=== PATIENT | male | born 1950 | race Caucasian/White ===

== ENCOUNTER 2019-03-04 22:47 | Inpatient (IN) | payer MEDICARE, OTHER ==
[~2019-03-04] VITALS: Ht 162.6 cm; Wt 69.1 kg
[2019-03-04] MEDS ORDERED: ALBUTEROL SULFATE 2.5 MG/3 ML NEBU. NEB ONE (23:15)
[2019-03-04] MEDS ORDERED: MORPHINE SULFATE 2 MG/ML VIAL. IV PRN (23:30)
[2019-03-04] MEDS ORDERED: MORPHINE SULFATE 4 MG/ML VIAL. IV PRN (23:30)
[2019-03-04] MEDS ORDERED: PROPOFOL 50 ML IV ONE (23:47)
[2019-03-04] MEDS: PROPOFOL 100 ML IV PRN (23:51)
[2019-03-05] VITALS (25 sets, daily range): BP systolic 81–141; BP diastolic 35–69
[2019-03-05] MEDS ORDERED: ATROPINE 1 MG/10 ML DISP.SYRINGE. IV ONE ×3
[2019-03-05] MEDS ORDERED: ETOMIDATE 20 MG/10 ML VIAL. IV ONE
[2019-03-05] MEDS ORDERED: DEXAMETHASONE SOD PHOS 20 MG/5 ML VIAL. IV ONE
[2019-03-05] MEDS ORDERED: ROCURONIUM 50 MG/5 ML VIAL. IV ONE
[2019-03-05] MEDS ORDERED: fentaNYL PF VIAL 100 MCG/2 ML VIAL NAS ONE
[2019-03-05] MEDS ORDERED: PROPOFOL 50 ML IV ONE (00:15)
[2019-03-05] MEDS ORDERED: CALCIUM GLUCONATE 1,000 MG/10 ML VIAL. IVP ONE (00:15)
--- NOTE | 2019-03-05 00:25 | PHYS DOC ---
Past Medical History Past Medical History: CAD, Cancer (bladder ), COPD, Diabetes-Type II Past Medical History Unable to obtain due to altered mental status Past Surgical History: Coronary Bypass Surgery Additional Past Surgical Histo: bladder cancer, ileo-conduit Past Surgical History Unable to obtain due to altered mental status Alcohol Use: None Drug Use: None Social History Unable to obtain due to altered mental status Adult General Chief Complaint Chief Complaint: ALTERED MENTAL STATUS HPI HPI 68-year-old male presents via EMS from [place] with report of 3 day history of progressive weakness and shortness of breath. Spouse reports patient now also altered. Patient noted to be hypoxic by EMS down to 68% on room air. Patient does not wear supplemental O2. Patient with history of COPD. Patient was given DuoNeb in route. Patient also noted to have heart rate down into the 30s. EMS unable to obtain IV access and therefore started transcutaneous pacing. Patient given 5mg of Versed IM for sedation by EMS. Patient with recent surgical history of removal of bladder due to CA. Family reports patient has history of low sodium and "low kidney function". HPI limited due to altered mental status. Review of Systems Review of Systems Constitutional: Denies fever or chills [] Respiratory: Denies cough; reports shortness of breath [] Cardiovascular: Denies chest pain or palpitations GI: Denies abdominal pain; reports some, nausea and vomiting : Denies dysuria or hematuria [] Integument: Denies rash or skin lesions Neurologic: Denies headache; reports generalized weakness ROS limited due to altered mental status. Current Medications Current Medications Current Medications Medications (Trade) Dose Ordered Sig/Jennifer Start Time Stop Time Status Last Admin Dose Admin Albuterol Sulfate (Ventolin Neb Soln) 2.5 mg 1X ONCE 03/04/19 23:15 03/05/19 00:01 DC 03/04/19 23:15 2.5 MG Atropine Sulfate (ATROPINE 1mg SYRINGE) 1 mg 1X ONCE 03/05/19 00:00 03/05/19 00:02 DC 03/04/19 23:18 1 MG Calcium Gluconate (Calcium Gluconate) 1,000 mg 1X ONCE 03/05/19 00:15 03/05/19 00:16 DC 03/05/19 00:50 1,000 MG Dexamethasone Sodium Phosphate (Decadron) 10 mg 1X ONCE 03/05/19 00:00 03/05/19 00:02 DC Dextrose (Dextrose 50%-Water Syringe) 12.5 gm PRN Q15MIN PRN 03/05/19 00:30 Dopamine HCl/ Dextrose 250 ml @ As Directed STK-MED ONCE 03/05/19 00:00 03/05/19 00:01 DC Etomidate (Amidate) 20 mg 1X ONCE 03/05/19 00:00 03/05/19 00:02 DC 03/04/19 23:32 20 MG Fentanyl Citrate (Fentanyl 2ml Vial) 50 mcg PRN Q1HR PRN 03/04/19 23:30 Morphine Sulfate (Morphine Sulfate) 4 mg PRN Q1HR PRN 03/04/19 23:30 Propofol 50 ml @ 1.095 mls/ hr 1X ONCE 03/05/19 00:15 03/06/19 21:54 03/04/19 23:51 8.76 MLS/HR Rocuronium [place] (Zemuron) 50 mg 1X ONCE 03/05/19 00:00 03/05/19 00:02 DC 03/04/19 23:33 50 MG Sodium Chloride 1,000 ml @ 1,000 mls/hr 1X ONCE 03/05/19 00:00 03/05/19 00:59 DC 03/04/19 23:28 1,000 MLS/HR Allergies Allergies Allergies Coded Allergies Type Severity Reaction Last Updated Verified No Known Drug Allergies 03/04/19 No Physical Exam Physical Exam Constitutional: Well developed, ill appearing HENT: Normocephalic, atraumatic, oropharynx moist Eyes: PERRL, EOMI, conjunctiva normal, no discharge. [] Neck: Normal range of motion, no tenderness, supple Cardiovascular: Heart rate regular rhythm, no murmur [] Lungs & Thorax: Coarse breath sounds bilaterally Abdomen: Soft, no tenderness Skin: Warm, mild diaphoresis, no erythema, Extremities: No tenderness, ROM intact, no edema. [] Neurologic: Alert and oriented X 3, but somnolent and arousable to voice, appears obtunded Psychologic: Affect normal, judgement normal, mood normal. [] Current Patient Data Vital Signs Vital Signs Date Time Temp Pulse Resp B/P (MAP) Pulse Ox O2 Delivery O2 Flow Rate FiO2 03/04/19 23:50 100 Ventilator 03/04/19 23:29 40 29 81/29 (46) 15.0 03/04/19 22:50 97.5 97.5 EKG EKG EKG @ 2313, demonstrated wide complex QRS, QRS was 124 ms, no ST elevation Radiology/Procedures Radiology/Procedures PROCEDURE: PORTABLE CHEST 1V Indication:SOA; chest pain TECHNIQUE:Portable AP chest X-ray COMPARISON:None FINDINGS: ET tube is seen approximately 3.2 cm from the level of libby. NG tube is seen with its tip in the body of the stomach. Right chest wall Chemo-Port is seen with its tip in the SVC. Heart is normal in size. Bilateral interstitial opacities. No pneumothorax or pleural effusion. Visualized bony thorax within normal limits. IMPRESSION: Bilateral interstitial opacities may be secondary to atypical/viral infection. Electronically signed by: Rober Mosher DO (03/05/2019 4:02 AM) [facility] Course & Med Decision Making Course & Med Decision Making Pertinent Labs and Imaging studies reviewed. (See chart for details) Patient presents via EMS from [place] with report of hypoxia and progressive SOA. Noted to be significantly bradycardic in route, EMS decided to sedate patient and initiate transcutaneous pacing. Patient arousable to voice upon arrival but very somnolent. O2 sats improved on supplemental O2. Atropine trailed with limited change. Continued transcutaneous pacing. Decision to protect airway. RSI performed with successful placement of 8.0 ETT. CXR confirmed adequate placement. Labs obtained and posted to chart. Discussed case with Dr. Nunn (cardiology) who recommended dopamine gtt at 2.5mcg/kg/min. Patient also given calcium gluconate x 1. CMP noted to have significant abnormalities. Hyponatremia noted. Hyperkalemia addressed. Discussed case with Dr. Jordan (nephrology) who recommends accessing patient's port to given calcium chloride x 2 amps and 3 amps of bicarb followed by bicarb gtt. Request re-evaluation of labs from ICU at 0430. Orders placed. Patient requiring admission for further evaluation and treatment. Discussed with Dr. Law (hospitalist) who is in agreement with admission. Discussed findings and plan with patient and family, who acknowledge understanding and agreement. Dragon Disclaimer Dragon Disclaimer This electronic medical record was generated, in whole or in part, using a voice recognition dictation system. Intubation Intubation : Intubation Method: orotracheal Tube Size (cm): 8.0 Breath Sounds after Intubation: equal Intubation Complications: no complications Post Intubation Xray: Yes Progress Emergent consent utilized. Hand hygiene utilized. RSI performed with 20mg of Etomidate and 50mg of Rocuronium. Initial evaluation with #4 Moody blade noted patient with floppy uvula which was very anterior. Decision to switch to Glidescope. Glidescope video guidance utilized with visualized successful pl acement of 8.0 cuffed ETT between vocal cords. Positive CO2 color change. Marked 22cm at teeth. Lungs equal bilaterally. Post procedure XR obtained with good positioning. Patient tolerated procedure without difficulty. Departure Departure Impression: Primary Impression: Symptomatic bradycardia Additional Impressions: Hypoxia COPD exacerbation Respiratory failure Hyponatremia Hyperkalemia Renal insufficiency Disposition: ADMITTED INPATIENT Admitting Physician: Ramandeep Law Condition: CRITICAL Critical Care Time Critical care time was 45 minutes which includes time at bedside, spent in discussion of patient's care with specialists and/or family members, with interpretation of laboratory and/or radiological studies and is exclusive of procedures. Problem Qualifiers Additional Impressions: Respiratory failure Chronicity: acute Respiratory failure complication: hypoxia Qualified Codes: J96.01 - Acute respiratory failure with hypoxia EDIL MEDRANO DO Mar 05, 2019 00:25
[2019-03-05] MEDS ORDERED: DEXTROSE 50% 25 GM / 50ML DISP.SYRIN. IV PRN (00:30)
[2019-03-05 00:48] LABS: BASO % 0 % (0-3); EOS # 0.2 x10^3/uL (0.0-0.7); EOS % 1 % (0-3); HEMATOCRIT 30.6 % (39.0-53.0); HEMOGLOBIN 10.1 g/dL (13.0-17.5); LYMPH # 0.7 x10^3/uL (1.0-4.8); LYMPH % 4 % (24-48); MEAN CORPUSCULAR HEMOGLOBIN 29 pg (25-35); MEAN CORPUSCULAR HGB CONC 33 g/dL (31-37); MEAN CORPUSCULAR VOLUME 88 fL (79-100); MONO # 0.5 x10^3/uL (0.0-1.1); MONO % 3 % (0-9); NEUT # 15.3 x10^3uL (1.8-7.7); NEUT % 92 % (31-73); PLATELET COUNT 199 x10^3/uL (140-400); RED BLOOD COUNT 3.46 x10^6/uL (4.30-5.70); RED CELL DISTRIBUTION WIDTH 14.7 % (11.5-14.5); WHITE BLOOD COUNT 16.6 x10^3/uL (4.0-11.0)
[2019-03-05] MEDS ORDERED: IV NORMAL SALINE 1000ML BAG 1,000 ML IV ONE ×2 (01:00)
[2019-03-05 01:06] LABS: ALBUMIN 2.7 g/dL (3.4-5.0); ALBUMIN/GLOBULIN RATIO 0.9 (1.0-1.7); CALCIUM 8.1 mg/dL (8.5-10.1); CREATININE 2.5 mg/dL (0.7-1.3); GFR 25.8; MAGNESIUM 1.9 mg/dL (1.8-2.4); TOTAL BILIRUBIN 0.2 mg/dL (0.2-1.0); TOTAL PROTEIN 5.7 g/dL (6.4-8.2)
[2019-03-05 01:08] LABS: POTASSIUM 7.3 mmol/L (3.5-5.1)
[2019-03-05 01:28] LABS: % BANDS 1 % (0-9); % EOS 1 % (0-5); % LYMPHS 6 % (24-48); % MONOS 4 % (0-10); % SEGS 88 % (35-66); PLT ESTIMATE ADEQUATE (ADEQUATE)
[2019-03-05] MEDS ORDERED: INSULIN REGULAR 100 UNIT/ML 3ML VIAL. IV ONE (01:30)
[2019-03-05] MEDS ORDERED: DEXTROSE 50% 25 GM / 50ML DISP.SYRIN. IV ONE (01:30)
[2019-03-05 01:56] LABS: BASE EXCESS COOX -16 mmol/L (-3-3); HCO3 COOX 12 mmol/L (21-28); METHEMOGLOBIN 0.4 % (0.0-1.9); OXYHEMOGLOBIN 98.4 %; PCO2 COOX 35 mmHg (35-46); PO2 COOX 488 mmHg (65-108); SAT O2 COOX 99 % (92-99)
[2019-03-05] MEDS ORDERED: SODIUM BICARB ADULT 8.4% 50 MEQ/50 ML DISP.SYRIN. ONE (02:02)
[2019-03-05] MEDS: PROPOFOL 100 ML IV PRN (02:16)
[2019-03-05] MEDS ORDERED: DEXTROSE 5% IV ONE ×2 (02:30→22:00)
[2019-03-05] MEDS ORDERED: SODIUM BICARBONATE 50 MEQ/50 ML VIAL. IV ONE (02:30)
[2019-03-05] MEDS ORDERED: CALCIUM CHLORIDE IV ONE (02:30)
[2019-03-05] MEDS ORDERED: GABA300C18 PO (02:54)
[2019-03-05] MEDS ORDERED: LISI-334 PO (02:54)
[2019-03-05] MEDS ORDERED: CARB15DR3 EACHEYE (02:54)
[2019-03-05] MEDS ORDERED: POLY17PO29 PO (02:54)
[2019-03-05] MEDS ORDERED: BRIN8DRO OP (02:54)
[2019-03-05] MEDS ORDERED: OXYC5TAB4 PO (02:54)
[2019-03-05] MEDS ORDERED: DOCU100C28 PO (02:54)
[2019-03-05] MEDS ORDERED: METF10007 PO (02:54)
[2019-03-05] MEDS ORDERED: DILT120C85 PO (02:54)
[2019-03-05] MEDS ORDERED: TIMO10DR5 EACHEYE (02:54)
[2019-03-05] MEDS ORDERED: METF500T16 PO (02:54)
[2019-03-05] MEDS ORDERED: LATA2.5D2 EACHEYE (02:54)
[2019-03-05] MEDS ORDERED: SENN1TAB15 PO (02:54)
[2019-03-05] MEDS ORDERED: CYCL1DRO EACHEYE (02:54)
[2019-03-05] MEDS ORDERED: CRESTOR20 MG PO (02:54)
[2019-03-05] MEDS ORDERED: BUPR100T7 PO (02:54)
[2019-03-05] MEDS ORDERED: MELO15TA23 PO (02:54)
[2019-03-05] MEDS ORDERED: ASPI-612 PO (02:54)
[2019-03-05] MEDS ORDERED: METO25TA4 PO (02:54)
[2019-03-05] MEDS ORDERED: SAXA5TAB PO (02:54)
[2019-03-05] MEDS ORDERED: OXYC1TAB15 PO (02:54)
[2019-03-05] MEDS ORDERED: SODIUM BICARBONATE VIAL 150 MEQ in IV DEXTROSE 5% 1,000 ML IV SCH (03:00)
[2019-03-05] MEDS ORDERED: PROPOFOL 100 ML IV PRN (03:45)
--- NOTE | 2019-03-05 04:05 | RAD ---
Indication:SOA; chest pain TECHNIQUE:Portable AP chest X-ray COMPARISON:None FINDINGS: ET tube is seen approximately 3.2 cm from the level of libby. NG tube is seen with its tip in the body of the stomach. Right chest wall Chemo-Port is seen with its tip in the SVC. Heart is normal in size. Bilateral interstitial opacities. No pneumothorax or pleural effusion. Visualized bony thorax within normal limits. IMPRESSION: Bilateral interstitial opacities may be secondary to atypical/viral infection. Electronically signed by: Rober Mosher DO (03/05/2019 4:02 AM) [facility]
--- NOTE | 2019-03-05 04:13 | EKG ---
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 Electronically Signed On 03-09-2019 9:14:53 CDT by Jonah Richmond
[2019-03-05 04:35] LABS: CALCIUM 10.7 mg/dL (8.5-10.1); GFR 33.4; POTASSIUM 5.3 mmol/L (3.5-5.1)
--- NOTE | 2019-03-05 04:56 | NUR ---
Pt arrived to unit at 0200 via bed. Pt is sedated and on ventilator. Report received from Karina KAPOOR on unit. Pt was transferred to ICU bed and connected to monitor. Pt is currently on Propofol, Dopamine, NS, and Bicarb bolus. Pt vital signs are currently stable. Dr. Stefanie Jordan and Dr. Nunn were contacted in the ED. Dr. Jimmy Jordan wishes to be contacted about pt BMP and EKG results at 0430. Pt currently stable will continue to monitor.
--- NOTE | 2019-03-05 05:04 | NUR ---
Dr. Stefanie Jordan paged at [phone], page was returned at [phone]. Dr. Jordan was alerted of pt BMP and EKG results and ordered to stop Bicarb drip after the 1 Liter and start 1/2 NS at 75mL/hr.
--- NOTE | 2019-03-05 07:22 | EKG ---
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 Electronically Signed On 03-07-2019 17:45:38 CDT by Jonah Richmond
[2019-03-05] MEDS: INSULIN LISPRO 300 UNITS/3 ML INSULN.PEN. SQ SCH ×3 (08:00→17:00)
[2019-03-05 08:31] LABS: BASE EXCESS ABG -4 mmol/L (-3-3); HCO3 ABG 20 mmol/L (21-28); PCO2 ABG 33 mmHg (35-46); PO2 ABG 173 mmHg (65-108); SAT O2 ABG 99 % (92-99)
--- NOTE | 2019-03-05 08:52 | PDOC1 ---
History and Physical Date of Admission: Date of Admission DATE: 03/05/19 TIME: 08:52 Chief Complaint: Chief Complain: Acute Encephalopathy History of Present Illness: HPI: Mr Ashley is a 68-year-old male 100% service connected [place] w/PMHx CAD s/p CABG x3, Bladder Cancer s/p chemotherapy and cystectomy with ileoconduit (12/[address] Licea @ [facility]), COPD, Diabetes-Type II who presents via EMS from [place] with report of 3 day history of progressive weakness and shortness of breath per spouse who reported he has been confused as well. Patient noted to be hypoxic by EMS down to 68% on room air, not on home O2. Given DuoNebs en route. Patient also noted to have heart rate down into the 30s, was given versed by EMS and transcutaneously paced enroute. Maintained low O2 saturations despite NRB and he was urgently intubated. Found on EKG with potassium of 7.3 and wide complex QRS. Started on bicarbonate gtt, dopamine, propofol for sedation. On further review his notes over the past 3 weeks he has been weak with m alaise and has had significant decrease in appetite as well as intermittent constipation not well mitigated by miralax, though he did have a BM yesterday. He has had decreased urostomy output lately as well with 2 nights ago his noting complete anuria, though patient told her he emptied it, though she does recall him waking before her. Seen on ventilator this morning. Labs improved K to 5.3, Cr 2, BUN 75 Alcohol Use: None Drug Use: None Social History Unable to obtain due to altered mental status Past Medical/Surgical History: PMH/PSH: PMHx - CAD s/p CABG x3, COPD, DM2 PSurg Hx - CABG, Cystectomy s/p ileoconduit Allergies: Allergies: Coded Allergies: No Known Drug Allergies (Unverified , 03/04/19) Family History: Family History: Father - HTN Social History: Social Hisoty: ETOH - None Not currently using tobacco No illicit drug use. Lives with his Current Medications: Current Medications Current Medications Sodium Chloride 1,000 ml @ 1,000 mls/hr 1X ONCE IV Last administered on 03/04/19at 23:28; Start 03/05/19 at 00:00; Stop 03/05/19 at 00:59; Status DC Fentanyl Citrate (Fentanyl 2ml Vial) 50 mcg 1X ONCE JOSE RAUL Last administered on 03/04/19 23:02; Start 03/05/19 at 00:00; Stop 03/05/19 at 00:02; Status DC Dexamethasone Sodium Phosphate (Decadron) 10 mg 1X ONCE IV ; Start 03/05/19 at 00:00; Stop 03/05/19 at 00:02; Status DC Atropine Sulfate (ATROPINE 1mg SYRINGE) 0.5 mg 1X ONCE IV Last administered on 03/04/19at 23:07; Start 03/05/19 at 00:00; Stop 03/05/19 at 00:02; Status DC Albuterol Sulfate (Ventolin Neb Soln) 2.5 mg 1X ONCE NEB Last administered on 03/04/19 23:15; Start 03/04/19 at 23:15; Stop 03/05/19 at 00:01; Status DC Atropine Sulfate (ATROPINE 1mg SYRINGE) 0.5 mg 1X ONCE IV Last administered on 03/04/19at 23:08; Start 03/05/19 at 00:00; Stop 03/05/19 at 00:02; Status DC Atropine Sulfate (ATROPINE 1mg SYRINGE) 1 mg 1X ONCE IV Last administered on 03/04/19 23:18; Start 03/05/19 at 00:00; Stop 03/05/19 at 00:02; Status DC Etomidate (Amidate) 20 mg 1X ONCE IV Last administered on 03/04/19 23:32; Start 03/05/19 at 00:00; Stop 03/05/19 at 00:02; Status DC Rocuronium [place] (Zemuron) 50 mg 1X ONCE IV Last administered on 03/04/19 23:33; Start 03/05/19 at 00:00; Stop 03/05/19 at 00:02; Status DC Propofol 100 ml @ 0 mls/hr CONT PRN IV SEE PROTOCOL Last administered on 03/05/19at 02:16; Start 03/04/19 at 23:30; Stop 03/05/19 at 03:42; Status DC Fentanyl Citrate (Fentanyl 2ml Vial) 25 mcg PRN Q1HR PRN IV SEE COMMENTS; Start 03/04/19 at 23:30 Fentanyl Citrate (Fentanyl 2ml Vial) 50 mcg PRN Q1HR PRN IV SEE COMMENTS; Start 03/04/19 at 23:30 Chlorhexidine Gluconate (Peridex) 15 ml BID MM ; Start 03/05/19 at 09:00 Morphine Sulfate (Morphine Sulfate) 2 mg PRN Q1HR PRN IV SEE COMMENTS.; Start 03/04/19 at 23:30 Morphine Sulfate (Morphine Sulfate) 4 mg PRN Q1HR PRN IV SEE COMMENTS.; Start 03/04/19 at 23:30 Propofol 50 ml @ As Directed STK-MED ONCE IV ; Start 03/04/19 at 23:47; Stop 03/04/19 at 23:48; Status DC Calcium Gluconate (Calcium Gluconate) 1,000 mg 1X ONCE IVP Last administered on 03/05/19at 00:50; Start 03/05/19 at 00:15; Stop 03/05/19 at 00:16; Status DC Dopamine HCl/ Dextrose 250 ml @ 6.844 mls/ hr 1X ONCE IV Last administered on 03/05/19at 01:11; Start 03/05/19 at 00:30; Stop 03/06/19 at 13:01 Dopamine HCl/ Dextrose 250 ml @ As Directed STK-MED ONCE IV ; Start 03/05/19 at 00:00; Stop 03/05/19 at 00:01; Status DC Propofol 50 ml @ 1.095 mls/ hr 1X ONCE IV Last administered on 03/04/19at 23:51; Start 03/05/19 at 00:15; Stop 03/06/19 at 21:54 Insulin Human Lispro (HumaLOG) 0-5 UNITS TIDWMEALS SQ ; Start 03/05/19 at 08:00 Dextrose (Dextrose 50%-Water Syringe) 12.5 gm PRN Q15MIN PRN IV SEE COMMENTS; Start 03/05/19 at 00:30 Sodium Chloride 1,000 ml @ 125 mls/hr 1X ONCE IV Last administered on 03/05/19at 00:45; Start 03/05/19 at 01:00; Stop 03/05/19 at 02:01; Status DC Insulin Human Regular (HumuLIN R VIAL) 10 unit 1X ONCE IV Last administered on 03/05/19at 01:35; Start 03/05/19 at 01:30; Stop 4/29/19 at 01:31; Status DC Dextrose (Dextrose 50%-Water Syringe) 25 gm 1X ONCE IV Last administered on 03/05/19at 01:32; Start 03/05/19 at 01:30; Stop 03/05/19 at 01:31; Status DC Calcium Chloride 2000 mg/Dextrose 120 ml @ 240 mls/hr 1X ONCE IV Last administered on 03/05/19at 02:16; Start 03/05/19 at 02:30; Stop 03/05/19 at 02:59; Status DC Sodium Bicarbonate 150 meq/Dextrose 1,150 ml @ 100 mls/hr [id number] IV Last administered on 03/05/19at 02:17; Start 03/05/19 at 03:00 Sodium Bicarbonate (Sodium Bicarbonate Vial) 150 meq 1X ONCE IV Last administered on 03/05/19at 02:12; Start 03/05/19 at 02:30; Stop 03/05/19 at 02:31; Status DC Sodium Bicarbonate (Sodium Bicarb Adult 8.4% Syr) 50 meq STK-MED ONCE .ROUTE ; Start 03/05/19 at 02:02; Stop 03/05/19 at 02:03; Status DC Propofol 100 ml @ 0 mls/hr CONT PRN IV SEE I/O RECORD; Start 03/05/19 at 03:45 Sodium Chloride 1,000 ml @ 75 mls/hr [id number] IV ; Start 03/05/19 at 09:00 Active Scripts Active Reported Timoptic 0.5% (Timolol Maleate) 10 Ml Drops 1 Drop EACHEYE BID Senna-S Tablet (Sennosides/Docusate Sodium) 1 Each Tablet 1 Each PO BID Onglyza (Saxagliptin Hcl) 5 Mg Tablet 1 Tab PO DAILY Crestor (Rosuvastatin Calcium) 20 Mg Tablet 20 Mg PO HS Miralax (Polyethylene Glycol 3350) 17 Gm Powd.pack 1 Packet PO DAILY Percocet 5-325 Mg Tablet (Oxycodone/Acetaminophen) 1 Each Tablet 1 Tab PO QID PRN Oxycodone Hcl Immed.release (Oxycodone Hcl) 5 Mg Tablet 5 Mg PO PRN Q4HRS PRN take 1 to 3 tabs Q4H prn Metoprolol Tartrate 25 Mg Tablet 1 Tab PO BID Metformin Hcl 500 Mg Tablet 500 Mg PO DAILYWSUP Metformin Hcl 1,000 Mg Tablet 1,000 Mg PO DAILYWBKFT Meloxicam 15 Mg Tablet 1 Tab PO NOON Lisinopril 20 Mg Tablet 1 Tab PO DAILY Xalatan (Latanoprost) 2.5 Ml Drops 1 Drop EACHEYE QHS Gabapentin (Gabapentin) 300 Mg Capsule 900 Mg PO TID Docusate Sodium 100 Mg Capsule 1 Cap PO BID Diltiazem 24HR Cd (Diltiazem Hcl) 120 Mg Cap.er.24h 1 Cap PO DAILY Restasis (Cyclosporine) 1 Each Droperette 1 Drop EACHEYE BID Refresh Optive Eye Drops (Carboxymethylcellulos/Glycerin) 15 Ml Drops 1 Drop EACHEYE QID PRN Wellbutrin Sr (Bupropion Hcl) 100 Mg Tablet.er 1 Tab PO BID Aspirin Ec (Aspirin) 81 Mg Tablet.dr 1 Tab PO DAILY Simbrinza 1%-0.2% Eye Drops (Brinzolamide/Brimonid Tart) 8 Ml Drops.susp 8 Ml OP BID ROS: Review of Systems Review of System - Unable to obtain due to sedation Physical Exam: Vital Signs: Vital Signs Date Time Temp Pulse Resp B/P (MAP) Pulse Ox O2 Delivery O2 Flow Rate FiO2 03/05/19 08:13 100 Ventilator 03/05/19 06:00 68 20 111/35 (60) 03/05/19 04:00 98.5 98.5 03/04/19 23:29 15.0 Physcial Exam: GEN.: No apparent distress. Sedated on vent, opens eyes to painful stimuli HEENT: Head is normocephalic, atraumatic NECK: Supple, no JVD LUNGS: Scattered bilateral wheezing, ventilatory sounds otherwise HEART: RRR, S1, S2 present. Peripheral pulses intact ABDOMEN: Soft, nontender. Positive bowel sounds no organomegaly. Urostomy site clean and dry. EXTREMITIES: Without any cyanosis, clubbing, or edema. Pedal pulses intact. Left gluteal skin breakdown 3-4cm [place], no fat noted NEUROLOGIC: Moving all 4 limbs spontaneously, reflexes intact PSYCHIATRIC: Sedated on vent SKIN: Left gluteal ulceration Labs: Labs: Laboratory Tests Test 03/05/19 00:35 03/05/19 01:03 03/05/19 04:17 03/05/19 04:20 White Blood Count 16.6 x10^3/uL (4.0-11.0) Red Blood Count 3.46 x10^6/uL (4.30-5.70) Hemoglobin 10.1 g/dL (13.0-17.5) Hematocrit 30.6 % (39.0-53.0) Mean Corpuscular Volume 88 fL (79-100) Mean Corpuscular Hemoglobin 29 pg (25-35) Mean Corpuscular Hemoglobin Concent 33 g/dL (31-37) Red Cell Distribution Width 14.7 % (11.5-14.5) Platelet Count 199 x10^3/uL (140-400) Neutrophils (%) (Auto) 92 % (31-73) Lymphocytes (%) (Auto) 4 % (24-48) Monocytes (%) (Auto) 3 % (0-9) Eosinophils (%) (Auto) 1 % (0-3) Basophils (%) (Auto) 0 % (0-3) Neutrophils # (Auto) 15.3 x10^3uL (1.8-7.7) Lymphocytes # (Auto) 0.7 x10^3/uL (1.0-4.8) Monocytes # (Auto) 0.5 x10^3/uL (0.0-1.1) Eosinophils # (Auto) 0.2 x10^3/uL (0.0-0.7) Basophils # (Auto) 0.0 x10^3/uL (0.0-0.2) Segmented Neutrophils % 88 % (35-66) Band Neutrophils % 1 % (0-9) Lymphocytes % 6 % (24-48) Monocytes % 4 % (0-10) Eosinophils % 1 % (0-5) Platelet Estimate Adequate (ADEQUATE) Sodium Level 122 mmol/L (136-145) 128 mmol/L (136-145) Potassium Level 7.3 mmol/L (3.5-5.1) 5.3 mmol/L (3.5-5.1) Chloride Level 96 mmol/L (98-107) 99 mmol/L (98-107) Carbon Dioxide Level 17 mmol/L (21-32) 23 mmol/L (21-32) Anion Gap 9 (6-14) 6 (6-14) Blood Urea Nitrogen 82 mg/dL (8-26) 75 mg/dL (8-26) Creatinine 2.5 mg/dL (0.7-1.3) 2.0 mg/dL (0.7-1.3) Estimated GFR (Cockcroft-Gault) 25.8 33.4 BUN/Creatinine Ratio 33 (6-20) Glucose Level 183 mg/dL (70-99) 224 mg/dL (70-99) Lactic Acid Level 0.6 mmol/L (0.4-2.0) Calcium Level 8.1 mg/dL (8.5-10.1) 10.7 mg/dL (8.5-10.1) Magnesium Level 1.9 mg/dL (1.8-2.4) Total Bilirubin 0.2 mg/dL (0.2-1.0) Aspartate Amino Transf (AST/SGOT) 16 U/L (15-37) Alanine Aminotransferase (ALT/SGPT) 16 U/L (16-63) Alkaline Phosphatase 65 U/L (46-116) Creatine Kinase 91 U/L (39-308) Creatine Kinase MB (Mass) 3.9 ng/mL (0.0-3.6) Creatine Kinase MB Relative Index 4.3 % (0-4) Troponin I Quantitative < 0.017 ng/mL (0.000-0.055) 0.021 ng/mL (0.000-0.055) QE-Qvo-J-Type Natriuretic Peptide 3149 pg/mL (0-124) Total Protein 5.7 g/dL (6.4-8.2) Albumin 2.7 g/dL (3.4-5.0) Albumin/Globulin Ratio 0.9 (1.0-1.7) Lipase 70 U/L (73-393) O2 Saturation 99 % (92-99) Arterial Blood pH 7.16 (7.35-7.45) Arterial Blood pCO2 at Patient Temp 35 mmHg (35-46) Arterial Blood pO2 at Patient Temp 488 mmHg (65-108) Arterial Blood HCO3 12 mmol/L (21-28) Arterial Blood Base Excess -16 mmol/L (-3-3) Oxyhemoglobin 98.4 % Methemoglobin 0.4 % (0.0-1.9) Carbon Monoxide, Quantitative 0.3 % (0.0-1.9) FiO2 100 Glucose (Fingerstick) 216 mg/dL (70-99) Laboratory Tests Test 03/05/19 00:35 03/05/19 01:03 03/05/19 04:17 03/05/19 04:20 White Blood Count 16.6 x10^3/uL (4.0-11.0) Red Blood Count 3.46 x10^6/uL (4.30-5.70) Hemoglobin 10.1 g/dL (13.0-17.5) Hematocrit 30.6 % (39.0-53.0) Mean Corpuscular Volume 88 fL (79-100) Mean Corpuscular Hemoglobin 29 pg (25-35) Mean Corpuscular Hemoglobin Concent 33 g/dL (31-37) Red Cell Distribution Width 14.7 % (11.5-14.5) Platelet Count 199 x10^3/uL (140-400) Neutrophils (%) (Auto) 92 % (31-73) Lymphocytes (%) (Auto) 4 % (24-48) Monocytes (%) (Auto) 3 % (0-9) Eosinophils (%) (Auto) 1 % (0-3) Basophils (%) (Auto) 0 % (0-3) Neutrophils # (Auto) 15.3 x10^3uL (1.8-7.7) Lymphocytes # (Auto) 0.7 x10^3/uL (1.0-4.8) Monocytes # (Auto) 0.5 x10^3/uL (0.0-1.1) Eosinophils # (Auto) 0.2 x10^3/uL (0.0-0.7) Basophils # (Auto) 0.0 x10^3/uL (0.0-0.2) Segmented Neutrophils % 88 % (35-66) Band Neutrophils % 1 % (0-9) Lymphocytes % 6 % (24-48) Monocytes % 4 % (0-10) Eosinophils % 1 % (0-5) Platelet Estimate Adequate (ADEQUATE) Sodium Level 122 mmol/L (136-145) 128 mmol/L (136-145) Potassium Level 7.3 mmol/L (3.5-5.1) 5.3 mmol/L (3.5-5.1) Chloride Level 96 mmol/L (98-107) 99 mmol/L (98-107) Carbon Dioxide Level 17 mmol/L (21-32) 23 mmol/L (21-32) Anion Gap 9 (6-14) 6 (6-14) Blood Urea Nitrogen 82 mg/dL (8-26) 75 mg/dL (8-26) Creatinine 2.5 mg/dL (0.7-1.3) 2.0 mg/dL (0.7-1.3) Estimated GFR (Cockcroft-Gault) 25.8 33.4 BUN/Creatinine Ratio 33 (6-20) Glucose Level 183 mg/dL (70-99) 224 mg/dL (70-99) Lactic Acid Level 0.6 mmol/L (0.4-2.0) Calcium Level 8.1 mg/dL (8.5-10.1) 10.7 mg/dL (8.5-10.1) Magnesium Level 1.9 mg/dL (1.8-2.4) Total Bilirubin 0.2 mg/dL (0.2-1.0) Aspartate Amino Transf (AST/SGOT) 16 U/L (15-37) Alanine Aminotransferase (ALT/SGPT) 16 U/L (16-63) Alkaline Phosphatase 65 U/L (46-116) Creatine Kinase 91 U/L (39-308) Creatine Kinase MB (Mass) 3.9 ng/mL (0.0-3.6) Creatine Kinase MB Relative Index 4.3 % (0-4) Troponin I Quantitative < 0.017 ng/mL (0.000-0.055) 0.021 ng/mL (0.000-0.055) WS-Dbo-Y-Type Natriuretic Peptide 3149 pg/mL (0-124) Total Protein 5.7 g/dL (6.4-8.2) Albumin 2.7 g/dL (3.4-5.0) Albumin/Globulin Ratio 0.9 (1.0-1.7) Lipase 70 U/L (73-393) O2 Saturation 99 % (92-99) Arterial Blood pH 7.16 (7.35-7.45) Arterial Blood pCO2 at Patient Temp 35 mmHg (35-46) Arterial Blood pO2 at Patient Temp 488 mmHg (65-108) Arterial Blood HCO3 12 mmol/L (21-28) Arterial Blood Base Excess -16 mmol/L (-3-3) Oxyhemoglobin 98.4 % Methemoglobin 0.4 % (0.0-1.9) Carbon Monoxide, Quantitative 0.3 % (0.0-1.9) FiO2 100 Glucose (Fingerstick) 216 mg/dL (70-99) Images: Images CXR - ET tube is seen approximately 3.2 cm from the level of libby. NG tube is seen with its tip in the body of the stomach. Right chest wall Chemo-Port is seen with its tip in the SVC. Heart is normal in size. Bilateral interstitial opacities. No pneumothorax or pleural effusion. Visualized bony thorax within normal limits. Assessment/Plan Assessment/Plan A/P: Acute encephalopathy - likely mixed picture, metabolic with uremia and hyperka lemia Hypoxic respiratory failure - with underlying COPD, never previously intubated, not on home O2. Intubated for hypoxia, doing much better on vent now. Will consult pulmonology. Has bilateral interstitial opacities. Not clear on etiology, will order his [facility] records. check procalcitonin Hyperkalemia - 7.3 --> 5.3 with above corrective measures, still on bicarbonate gtt. BUN has not improved significantly. Will cont fluids, consult nephrology. No indications for immediate dialysis at this time Acute Kidney injury - BUN 82 and Cr 2.5 on admission, likely vasomotor nephropathy given his poor PO intake. He has had decreased urostomy output, functionality may need to be evaluated, will d/w nephrology for abdominal imaging now that he is more stable Symptomatic bradycardia - Initially paced, with wide complex, likely 2/2 hyperkalemia, still on dopamine, improved. Cardiology consulted for further care CAD s/p CABG x3 - stable outpatient with [facility] f/u in [place]. Will reconcile home meds. Hold nephrotoxic meds Bladder Cancer s/p chemotherapy and cystectomy with ileoconduit (12/[address] Licea @ [facility]) - has appt on 03/10/19 for f/u. Access for port ok. Monitor urostomy output. Will order records. Abdominal imaging is likely indicated. ?COPD - will order records. Seems to be tolerating vent well, no prior intubations, not on O2, will wean off vent. Defer to pulm for use of steroids in his case. Diabetes-Type II - place on sliding scale, check A1c FEN - OGT, Bicarbonate PPX - Heparin FULL CODE ICU for critically ill patient with life-threatening hyperkalemia, greater than 75 minutes critical care time spent. D/w bedside his critical illness. Greater than 2 midnights inpatient required. ELLEN CONROY MD Mar 05, 2019 08:52
[2019-03-05 08:54] LABS: FIO2 ABG 50
--- NOTE | 2019-03-05 08:55 | NUR ---
SW reviewed pt chart and evaluated for potential dc needs. Pt is from home with and was admitted for COPD exacerbation and hypoxia. Pt is currently sedated and on ventilator. SW will continue to follow and be available for dc needs.
[2019-03-05] MEDS: CHLORHEXIDINE 0.12% 15 ML MOUTHWASH. MM SCH ×2 (09:00→21:00)
[2019-03-05 09:30] LABS: CHOLESTEROL/HDL RATIO 2.7
[2019-03-05] MEDS: fentaNYL PF VIAL 100 MCG/2 ML VIAL IV PRN ×2 (09:47→17:10)
--- NOTE | 2019-03-05 12:22 | PDOC2 ---
MÓNICA MACE NEWSROOM INTERN 03/05/19 1222: CARDIAC CONSULT DATE OF CONSULT Date of Consult DATE: 03/05/19 TIME: 12:16 REASON FOR CONSULT Reason for Consult: symptomatic bradycardia REFERRING PHYSICIAN Referring Physician: Dr. Lopez SOURCE Source: Chart review, Patient HISTORY OF PRESENT ILLNESS HISTORY OF PRESENT ILLNESS This is a 68 yo male who presented secondary to weakness, shortness of breath, and altered mental status. EMS noted patient to be hypoxic with oxygen saturation in the 60''s. Patient also noted with HR in the 30's. Was given sedation and transcutaneous pacing was initiated. Potassiums noted to be critically elevated at 7.3 upon arrival. Patient has a history of bladder CA treated with chemotherapy. Underwent cystectomy with ileoconduit 12/20/2018 at . reports he had been doing well post-operatively. Over the last couple of weeks, has declined. Appetite has decrease. Refused to eat for about 3 days. Blood pressure and HR have been lower than usual the last 2 days. Urine output had decreased. Yesterday morning, had episode of vomiting following breakfast. Was slightly short of breath following this. was concerned so she called EMS. HR was in the 40's prior to their arrival. Was in the 30's when EMS arrived. noted change in mental status immediately prior to EMS arrival. No recent c/o chest pain, palpitations, dizziness, or diaphoresis. Does have a history of CAD s/p CABG x3 at age 38. Does not routinely follow with experimental plastics [employer]. report him having stress test in December a few days prior to surgery. She reports this to be abnormal and was recommend to f/u with cardiology following surgery, although they had not had a change to do this, yet. PAST MEDICAL HISTORY Cardiovascular: CAD, HTN, Hyperlipidemia Pulmonary: COPD CENTRAL NERVOUS SYSTEM: Other (no pertinent hx) Heme/Onc: Cancer (bladder) Hepatobiliary: No pertinent hx Psych: Anxiety, Depression Musculoskeletal: Osteoarthritis Rheumatologic: No pertinent hx Infectious disease: No pertinent hx ENT: No pertinent hx Renal/: Chronic renal insuff Endocrine: Diabetes Dermatology: No pertinent hx PAST SURGICAL HISTORY Past Surgical History: Appendectomy, CABG (x3 at age 38), Cataract Removal, Other (prostatectomy, cystectomy with ileoconduit, back surgery ) FAMILY HISTORY Family History: Heart Disease SOCIAL HISTORY Smoke: No ALCOHOL: none Drugs: None Lives: with Family CURRENT MEDICATIONS CURRENT MEDICATIONS Current Medications Medications (Trade) Dose Ordered Sig/Jennifer Route PRN Reason Start Time Stop Time Status Last Admin Dose Admin Sodium Chloride 1,000 ml @ 1,000 mls/hr 1X ONCE IV 03/05/19 00:00 03/05/19 00:59 DC 03/04/19 23:28 Fentanyl Citrate (Fentanyl 2ml Vial) 50 mcg 1X ONCE JOSE RAUL 03/05/19 00:00 03/05/19 00:02 DC 03/04/19 23:02 Atropine Sulfate (ATROPINE 1mg SYRINGE) 0.5 mg 1X ONCE IV 03/05/19 00:00 03/05/19 00:02 DC 03/04/19 23:07 Albuterol Sulfate (Ventolin Neb Soln) 2.5 mg 1X ONCE NEB 03/04/19 23:15 03/05/19 00:01 DC 03/04/19 23:15 Atropine Sulfate (ATROPINE 1mg SYRINGE) 0.5 mg 1X ONCE IV 03/05/19 00:00 03/05/19 00:02 DC 03/04/19 23:08 Atropine Sulfate (ATROPINE 1mg SYRINGE) 1 mg 1X ONCE IV 03/05/19 00:00 03/05/19 00:02 DC 03/04/19 23:18 Etomidate (Amidate) 20 mg 1X ONCE IV 03/05/19 00:00 03/05/19 00:02 DC 03/04/19 23:32 Rocuronium [place] (Zemuron) 50 mg 1X ONCE IV 03/05/19 00:00 03/05/19 00:02 DC 03/04/19 23:33 Propofol 100 ml @ 0 mls/hr CONT PRN IV SEE PROTOCOL 03/04/19 23:30 03/05/19 03:42 DC 03/05/19 02:16 Fentanyl Citrate (Fentanyl 2ml Vial) 25 mcg PRN Q1HR PRN IV SEE COMMENTS 03/04/19 23:30 03/05/19 09:47 Calcium Gluconate (Calcium Gluconate) 1,000 mg 1X ONCE IVP 03/05/19 00:15 03/05/19 00:16 DC 03/05/19 00:50 Dopamine HCl/ Dextrose 250 ml @ 6.844 mls/ hr 1X ONCE IV 03/05/19 00:30 03/06/19 13:01 03/05/19 01:11 Propofol 50 ml @ 1.095 mls/ hr 1X ONCE IV 03/05/19 00:15 03/06/19 21:54 03/04/19 23:51 Sodium Chloride 1,000 ml @ 125 mls/hr 1X ONCE IV 03/05/19 01:00 03/05/19 02:01 DC 03/05/19 00:45 Insulin Human Regular (HumuLIN R VIAL) 10 unit 1X ONCE IV 03/05/19 01:30 03/05/19 01:31 DC 03/05/19 01:35 Dextrose (Dextrose 50%-Water Syringe) 25 gm 1X ONCE IV 03/05/19 01:30 03/05/19 01:31 DC 03/05/19 01:32 Calcium Chloride 2000 mg/Dextrose 120 ml @ 240 mls/hr 1X ONCE IV 03/05/19 02:30 03/05/19 02:59 DC 03/05/19 02:16 Sodium Bicarbonate 150 meq/Dextrose 1,150 ml @ 100 mls/hr [id number] IV 03/05/19 03:00 03/05/19 02:17 Sodium Bicarbonate (Sodium Bicarbonate Vial) 150 meq 1X ONCE IV 03/05/19 02:30 03/05/19 02:31 DC 03/05/19 02:12 ALLERGIES ALLERGIES: Coded Allergies: No Known Drug Allergies (Unverified , 03/04/19) ROS Review of System unobtainable. PHYSICAL EXAM General: Other (sedated) HEENT: Atraumatic Lungs: Other (mechanical ventilation) Heart: Regular rate, Normal S1, Normal S2, Other (distant heart tones) Abdomen: Other (soft ) Extremities: No edema Skin: No significant lesion Neuro: Other (sedated ) Psych/Mental Status: Other (unable to assess) MUSCULOSKELETAL: Osteoarthritic changes both hands VITALS VITALS Vital Signs Date Time Temp Pulse Resp B/P (MAP) Pulse Ox O2 Delivery O2 Flow Rate FiO2 03/05/19 11:49 100 Ventilator 03/05/19 09:47 20 03/05/19 08:00 15.0 03/05/19 06:00 68 111/35 (60) 03/05/19 04:00 98.5 98.5 LABS Lab: Laboratory Tests Test 03/05/19 00:35 4/29/19 01:03 03/05/19 04:17 03/05/19 04:20 White Blood Count 16.6 x10^3/uL (4.0-11.0) Red Blood Count 3.46 x10^6/uL (4.30-5.70) Hemoglobin 10.1 g/dL (13.0-17.5) Hematocrit 30.6 % (39.0-53.0) Mean Corpuscular Volume 88 fL (79-100) Mean Corpuscular Hemoglobin 29 pg (25-35) Mean Corpuscular Hemoglobin Concent 33 g/dL (31-37) Red Cell Distribution Width 14.7 % (11.5-14.5) Platelet Count 199 x10^3/uL (140-400) Neutrophils (%) (Auto) 92 % (31-73) Lymphocytes (%) (Auto) 4 % (24-48) Monocytes (%) (Auto) 3 % (0-9) Eosinophils (%) (Auto) 1 % (0-3) Basophils (%) (Auto) 0 % (0-3) Neutrophils # (Auto) 15.3 x10^3uL (1.8-7.7) Lymphocytes # (Auto) 0.7 x10^3/uL (1.0-4.8) Monocytes # (Auto) 0.5 x10^3/uL (0.0-1.1) Eosinophils # (Auto) 0.2 x10^3/uL (0.0-0.7) Basophils # (Auto) 0.0 x10^3/uL (0.0-0.2) Segmented Neutrophils % 88 % (35-66) Band Neutrophils % 1 % (0-9) Lymphocytes % 6 % (24-48) Monocytes % 4 % (0-10) Eosinophils % 1 % (0-5) Platelet Estimate Adequate (ADEQUATE) Sodium Level 122 mmol/L (136-145) 128 mmol/L (136-145) Potassium Level 7.3 mmol/L (3.5-5.1) 5.3 mmol/L (3.5-5.1) Chloride Level 96 mmol/L (98-107) 99 mmol/L (98-107) Carbon Dioxide Level 17 mmol/L (21-32) 23 mmol/L (21-32) Anion Gap 9 (6-14) 6 (6-14) Blood Urea Nitrogen 82 mg/dL (8-26) 75 mg/dL (8-26) Creatinine 2.5 mg/dL (0.7-1.3) 2.0 mg/dL (0.7-1.3) Estimated GFR (Cockcroft-Gault) 25.8 33.4 BUN/Creatinine Ratio 33 (6-20) Glucose Level 183 mg/dL (70-99) 224 mg/dL (70-99) Lactic Acid Level 0.6 mmol/L (0.4-2.0) Calcium Level 8.1 mg/dL (8.5-10.1) 10.7 mg/dL (8.5-10.1) Magnesium Level 1.9 mg/dL (1.8-2.4) Total Bilirubin 0.2 mg/dL (0.2-1.0) Aspartate Amino Transf (AST/SGOT) 16 U/L (15-37) Alanine Aminotransferase (ALT/SGPT) 16 U/L (16-63) Alkaline Phosphatase 65 U/L (46-116) Creatine Kinase 91 U/L (39-308) Creatine Kinase MB (Mass) 3.9 ng/mL (0.0-3.6) Creatine Kinase MB Relative Index 4.3 % (0-4) Troponin I Quantitative < 0.017 ng/mL (0.000-0.055) 0.021 ng/mL (0.000-0.055) XC-Knq-[id number]-Type Natriuretic Peptide 3149 pg/mL (0-124) Total Protein 5.7 g/dL (6.4-8.2) Albumin 2.7 g/dL (3.4-5.0) Albumin/Globulin Ratio 0.9 (1.0-1.7) Lipase 70 U/L (73-393) O2 Saturation 99 % (92-99) Arterial Blood pH 7.16 (7.35-7.45) Arterial Blood pCO2 at Patient Temp 35 mmHg (35-46) Arterial Blood pO2 at Patient Temp 488 mmHg (65-108) Arterial Blood HCO3 12 mmol/L (21-28) Arterial Blood Base Excess -16 mmol/L (-3-3) Oxyhemoglobin 98.4 % Methemoglobin 0.4 % (0.0-1.9) Carbon Monoxide, Quantitative 0.3 % (0.0-1.9) FiO2 100 Glucose (Fingerstick) 216 mg/dL (70-99) Triglycerides Level 173 mg/dL (0-150) Cholesterol Level 72 mg/dL (0-200) LDL Cholesterol, Calculated 10 mg/dL (0-100) VLDL Cholesterol, Calculated 35 mg/dL (0-40) Non-HDL Cholesterol Calculated 45 mg/dL (0-129) HDL Cholesterol 27 mg/dL (40-60) Cholesterol/HDL Ratio 2.7 Test 03/05/19 08:13 03/05/19 09:30 03/05/19 09:34 O2 Saturation 99 % (92-99) Arterial Blood pH 7.40 (7.35-7.45) Arterial Blood pCO2 at Patient Temp 33 mmHg (35-46) Arterial Blood pO2 at Patient Temp 173 mmHg (65-108) Arterial Blood HCO3 20 mmol/L (21-28) Arterial Blood Base Excess -4 mmol/L (-3-3) FiO2 50 Troponin I Quantitative < 0.017 ng/mL (0.000-0.055) Glucose (Fingerstick) 134 mg/dL (70-99) ASSESSMENT/PLAN ASSESSMENT/PLAN 1. Acute respiratory failure, multifactorial with AECOPD and possible PNA 2. Symptomatic bradycardia; initially requiring transcutaneous pacing in the setting of electrolyte derangement. Now SR, rate of 90 on dopamine gtt. 3. FARA; better 4. Hyperkalemia; 7.3 upon arrival. Now 5.3 5. Hyponatremia; improved 6. Leukocytosis; lactic WNL 7. CAD s/p CABG x3 at age 38. Does not follow with cardiology. reports abnormal stress test at 12/2018 prior to bladder surgery. Was recommended to f/u with cardiology 8. Bladder CA, s/p cystectomy with ileoconduit 12/20/2018 9. Metabolic encephalopathy 10. Hypertension; low-normotensive 11. Hyperlipidemia; LDL 10 12. Diabetes, II; as per PCP Recommendations Titrate off Dopamine. Monitor telemetry for any further bradyarrhythmias Correction of lytes Echo to assess LV systolic function Records from [facility] Further recommendations pending above. ALAN HILLIARD MD 03/05/192052: CARDIAC CONSULT ASSESSMENT/PLAN ASSESSMENT/PLAN Patient seen and examined. Agree with STEP DOWN NURSE's assessment and plan. Severe bradycardia on admission probably secondary to combination of being on cardizem and electrolyte imbalance Was temporarily paced transcutaneously in ED but HR improved after starting dopamine for chronotropic support 2D echo showed EF 45-50% CAD status appears clinically stable - will obtain records from [facility] Continue vent management per pulm team Nephrology following for acute on chronic renal insuff Thank you for your consultation MÓNICA MACE APRN Mar 05, 2019 12:22 ALAN HILLIARD MD Mar 05, 2019 20:53
--- NOTE | 2019-03-05 12:24 | PDOC2 ---
CONSULT Date of Consult Date of Consult DATE: 03/05/19 TIME: 12:05 Reason for Consult Reason for Consult: Renal failure, Hyperkalemia Source Source: Chart review History of Present Illness Reason for Visit: Hx obtained from chart review - Pt currently intubated Mr Ashley is a 68-year-old male w/PMHx CAD s/p CABG x3, Bladder Cancer s/p chemotherapy and cystectomy with ileoconduit (12/[address] Licea @ [facility]), COPD, Diabetes-Type II who presents via EMS from [place] with report of 3 day history of progressive weakness and shortness of breath per spouse who reported he has been confused as well. Patient noted to be hypoxic by EMS down to 68% on room air, not on home O2..He was also noted to have heart rate in 30s, was given versed by EMS and transcutaneously paced enroute. Maintained low O2 saturations despite NRB and he was urgently intubated. Potassium of 7.3 and wide complex QRS on EKG . Started on bicarbonate gtt, dopamine, propofol for sedation. Patient has been feeling weak for past 3 weeks with malaise and has had significant decrease in appetite as well as intermittent constipation. He has had decreased urostomy output Labs improved K to 5.3 PMHx significant for CAD s/p CABG x3, COPD, DM2; Cystectomy s/p ileoconduit Current Problem List Problem List Problems Medical Problems: (1) Hyperkalemia Status: Acute (2) Hyponatremia Status: Acute (3) Renal insufficiency Status: Acute (4) Respiratory failure Status: Acute Current Medications Current Medications Current Medications Sodium Chloride 1,000 ml @ 1,000 mls/hr 1X ONCE IV Last administered on 03/04/19at 23:28; Start 03/05/19 at 00:00; Stop 03/05/19 at 00:59; Status DC Fentanyl Citrate (Fentanyl 2ml Vial) 50 mcg 1X ONCE JOSE RAUL Last administered on 03/04/19at 23:02; Start 03/05/19 at 00:00; Stop 03/05/19 at 00:02; Status DC Dexamethasone Sodium Phosphate (Decadron) 10 mg 1X ONCE IV ; Start 03/05/19 at 00:00; Stop 03/05/19 at 00:02; Status DC Atropine Sulfate (ATROPINE 1mg SYRINGE) 0.5 mg 1X ONCE IV Last administered on 03/04/19at 23:07; Start 03/05/19 at 00:00; Stop 03/05/19 at 00:02; Status DC Albuterol Sulfate (Ventolin Neb Soln) 2.5 mg 1X ONCE NEB Last administered on 03/04/19at 23:15; Start 03/04/19 at 23:15; Stop 03/05/19 at 00:01; Status DC Atropine Sulfate (ATROPINE 1mg SYRINGE) 0.5 mg 1X ONCE IV Last administered on 03/04/19at 23:08; Start 03/05/19 at 00:00; Stop 03/05/19 at 00:02; Status DC Atropine Sulfate (ATROPINE 1mg SYRINGE) 1 mg 1X ONCE IV Last administered on 03/04/19at 23:18; Start 03/05/19 at 00:00; Stop 03/05/19 at 00:02; Status DC Etomidate (Amidate) 20 mg 1X ONCE IV Last administered on 03/04/19at 23:32; Start 03/05/19 at 00:00; Stop 03/05/19 at 00:02; Status DC Rocuronium [place] (Zemuron) 50 mg 1X ONCE IV Last administered on 03/04/19at 23:33; Start 03/05/19 at 00:00; Stop 03/05/19 at 00:02; Status DC Propofol 100 ml @ 0 mls/hr CONT PRN IV SEE PROTOCOL Last administered on 03/05/19at 02:16; Start 03/04/19 at 23:30; Stop 03/05/19 at 03:42; Status DC Fentanyl Citrate (Fentanyl 2ml Vial) 25 mcg PRN Q1HR PRN IV SEE COMMENTS Last administered on 03/05/19at 09:47; Start 03/04/19 at 23:30 Fentanyl Citrate (Fentanyl 2ml Vial) 50 mcg PRN Q1HR PRN IV SEE COMMENTS; Start 03/04/19 at 23:30 Chlorhexidine Gluconate (Peridex) 15 ml BID MM ; Start 03/05/19 at 09:00 Morphine Sulfate (Morphine Sulfate) 2 mg PRN Q1HR PRN IV SEE COMMENTS.; Start 03/04/19 at 23:30 Morphine Sulfate (Morphine Sulfate) 4 mg PRN Q1HR PRN IV SEE COMMENTS.; Start 03/04/19 at 23:30 Propofol 50 ml @ As Directed STK-MED ONCE IV ; Start 03/04/19 at 23:47; Stop 03/04/19 at 23:48; Status DC Calcium Gluconate (Calcium Gluconate) 1,000 mg 1X ONCE IVP Last administered on 03/05/19at 00:50; Start 03/05/19 at 00:15; Stop 03/05/19 at 00:16; Status DC Dopamine HCl/ Dextrose 250 ml @ 6.844 mls/ hr 1X ONCE IV Last administered on 03/05/19at 01:11; Start 03/05/19 at 00:30; Stop 03/06/19 at 13:01 Dopamine HCl/ Dextrose 250 ml @ As Directed STK-MED ONCE IV ; Start 03/05/19 at 00:00; Stop 03/05/19 at 00:01; Status DC Propofol 50 ml @ 1.095 mls/ hr 1X ONCE IV Last administered on 03/04/19at 23:51; Start 03/05/19 at 00:15; Stop 03/06/19 at 21:54 Insulin Human Lispro (HumaLOG) 0-5 UNITS TIDWMEALS SQ ; Start 03/05/19 at 08:00 Dextrose (Dextrose 50%-Water Syringe) 12.5 gm PRN Q15MIN PRN IV SEE COMMENTS; Start 03/05/19 at 00:30 Sodium Chloride 1,000 ml @ 125 mls/hr 1X ONCE IV Last administered on 03/05/19at 00:45; Start 03/05/19 at 01:00; Stop 03/05/19 at 02:01; Status DC Insulin Human Regular (HumuLIN R VIAL) 10 unit 1X ONCE IV Last administered on 03/05/19at 01:35; Start 03/05/19 at 01:30; Stop 03/05/19 at 01:31; Status DC Dextrose (Dextrose 50%-Water Syringe) 25 gm 1X ONCE IV Last administered on 03/05/19at 01:32; Start 03/05/19 at 01:30; Stop 03/05/19 at 01:31; Status DC Calcium Chloride 2000 mg/Dextrose 120 ml @ 240 mls/hr 1X ONCE IV Last administered on 03/05/19at 02:16; Start 03/05/19 at 02:30; Stop 03/05/19 at 02:59; Status DC Sodium Bicarbonate 150 meq/Dextrose 1,150 ml @ 100 mls/hr [id number] IV Last administered on 03/05/19at 02:17; Start 03/05/19 at 03:00 Sodium Bicarbonate (Sodium Bicarbonate Vial) 150 meq 1X ONCE IV Last administered on 03/05/19at 02:12; Start 03/05/19 at 02:30; Stop 03/05/19 at 02:31; Status DC Sodium Bicarbonate (Sodium Bicarb Adult 8.4% Syr) 50 meq STK-MED ONCE .ROUTE ; Start 03/05/19 at 02:02; Stop 03/05/19 at 02:03; Status DC Propofol 100 ml @ 0 mls/hr CONT PRN IV SEE I/O RECORD; Start 03/05/19 at 03:45 Sodium Chloride 1,000 ml @ 75 mls/hr [id number] IV ; Start 03/05/19 at 09:00 Active Scripts Active Reported Timoptic 0.5% (Timolol Maleate) 10 Ml Drops 1 Drop EACHEYE BID Senna-S Tablet (Sennosides/Docusate Sodium) 1 Each Tablet 1 Each PO BID Onglyza (Saxagliptin Hcl) 5 Mg Tablet 1 Tab PO DAILY Crestor (Rosuvastatin Calcium) 20 Mg Tablet 20 Mg PO HS Miralax (Polyethylene Glycol 3350) 17 Gm Powd.pack 1 Packet PO DAILY Percocet 5-325 Mg Tablet (Oxycodone/Acetaminophen) 1 Each Tablet 1 Tab PO QID PRN Oxycodone Hcl Immed.release (Oxycodone Hcl) 5 Mg Tablet 5 Mg PO PRN Q4HRS PRN take 1 to 3 tabs Q4H prn Metoprolol Tartrate 25 Mg Tablet 1 Tab PO BID Metformin Hcl 500 Mg Tablet 500 Mg PO DAILYWSUP Metformin Hcl 1,000 Mg Tablet 1,000 Mg PO DAILYWBKFT Meloxicam 15 Mg Tablet 1 Tab PO NOON Lisinopril 20 Mg Tablet 1 Tab PO DAILY Xalatan (Latanoprost) 2.5 Ml Drops 1 Drop EACHEYE QHS Gabapentin (Gabapentin) 300 Mg Capsule 900 Mg PO TID Docusate Sodium 100 Mg Capsule 1 Cap PO BID Diltiazem 24HR Cd (Diltiazem Hcl) 120 Mg Cap.er.24h 1 Cap PO DAILY Restasis (Cyclosporine) 1 Each Droperette 1 Drop EACHEYE BID Refresh Optive Eye Drops (Carboxymethylcellulos/Glycerin) 15 Ml Drops 1 Drop EACHEYE QID PRN Wellbutrin Sr (Bupropion Hcl) 100 Mg Tablet.er 1 Tab PO BID Aspirin Ec (Aspirin) 81 Mg Tablet.dr 1 Tab PO DAILY Simbrinza 1%-0.2% Eye Drops (Brinzolamide/Brimonid Tart) 8 Ml Drops.susp 8 Ml OP BID Allergies Allergies: Coded Allergies: No Known Drug Allergies (Unverified , 03/04/19) ROS Review of System Unable to Obtain Physical Exam Physical Exam GEN.: No apparent distress. Sedated on vent, HEENT: Intubated NECK: Supple, LUNGS: Scattered bilateral wheezing, HEART: RRR, S1, S2 present. ABDOMEN: Soft, nontender. Urostomy + EXTREMITIES: No edema. NEUROLOGIC: Moving all 4 limbs spontaneously, Sedated SKIN: No Rash Urostomy Vital Signs Vital Signs Date Time Temp Pulse Resp B/P (MAP) Pulse Ox O2 Delivery O2 Flow Rate FiO2 03/05/19 11:49 100 Ventilator 03/05/19 09:47 20 03/05/19 08:00 15.0 03/05/19 06:00 68 111/35 (60) 03/05/19 04:00 98.5 98.5 Assessment & Plan FARA - Suspect pre-renal/Vasomotor sec to Poor PO intake Renal function improving Currently UOP improving , If decreased Urostomy output, consult Urology Bicarb Normal Now , Continue Fluids (NS) , Monitor Hyperkalemia - Improved to 5.3 from 7's Bradycardiac requiring Temp Pacemaker Hyponatremia- Improving, Not at goal Suspect pr-renal, Acute encephalopathy Hypoxic respiratory failure - with underlying COPD, Has bilateral interstitial opacities. Symptomatic bradycardia - Initially paced, likely 2/2 hyperkalemia CAD s/p CABG x3 - stable Bladder Cancer s/p chemotherapy and cystectomy with ileoconduit (12/[address] Licea @ [facility]) has appt on 03/10/19 for f/u. Diabetes 2 Discussed with and RN at bedside Labs Labs Laboratory Tests Test 03/05/19 00:35 03/05/19 01:03 03/05/19 04:17 03/05/19 04:20 White Blood Count 16.6 x10^3/uL (4.0-11.0) Red Blood Count 3.46 x10^6/uL (4.30-5.70) Hemoglobin 10.1 g/dL (13.0-17.5) Hematocrit 30.6 % (39.0-53.0) Mean Corpuscular Volume 88 fL (79-100) Mean Corpuscular Hemoglobin 29 pg (25-35) Mean Corpuscular Hemoglobin Concent 33 g/dL (31-37) Red Cell Distribution Width 14.7 % (11.5-14.5) Platelet Count 199 x10^3/uL (140-400) Neutrophils (%) (Auto) 92 % (31-73) Lymphocytes (%) (Auto) 4 % (24-48) Monocytes (%) (Auto) 3 % (0-9) Eosinophils (%) (Auto) 1 % (0-3) Basophils (%) (Auto) 0 % (0-3) Neutrophils # (Auto) 15.3 x10^3uL (1.8-7.7) Lymphocytes # (Auto) 0.7 x10^3/uL (1.0-4.8) Monocytes # (Auto) 0.5 x10^3/uL (0.0-1.1) Eosinophils # (Auto) 0.2 x10^3/uL (0.0-0.7) Basophils # (Auto) 0.0 x10^3/uL (0.0-0.2) Segmented Neutrophils % 88 % (35-66) Band Neutrophils % 1 % (0-9) Lymphocytes % 6 % (24-48) Monocytes % 4 % (0-10) Eosinophils % 1 % (0-5) Platelet Estimate Adequate (ADEQUATE) Sodium Level 122 mmol/L (136-145) 128 mmol/L (136-145) Potassium Level 7.3 mmol/L (3.5-5.1) 5.3 mmol/L (3.5-5.1) Chloride Level 96 mmol/L (98-107) 99 mmol/L (98-107) Carbon Dioxide Level 17 mmol/L (21-32) 23 mmol/L (21-32) Anion Gap 9 (6-14) 6 (6-14) Blood Urea Nitrogen 82 mg/dL (8-26) 75 mg/dL (8-26) Creatinine 2.5 mg/dL (0.7-1.3) 2.0 mg/dL (0.7-1.3) Estimated GFR (Cockcroft-Gault) 25.8 33.4 BUN/Creatinine Ratio 33 (6-20) Glucose Level 183 mg/dL (70-99) 224 mg/dL (70-99) Lactic Acid Level 0.6 mmol/L (0.4-2.0) Calcium Level 8.1 mg/dL (8.5-10.1) 10.7 mg/dL (8.5-10.1) Magnesium Level 1.9 mg/dL (1.8-2.4) Total Bilirubin 0.2 mg/dL (0.2-1.0) Aspartate Amino Transf (AST/SGOT) 16 U/L (15-37) Alanine Aminotransferase (ALT/SGPT) 16 U/L (16-63) Alkaline Phosphatase 65 U/L (46-116) Creatine Kinase 91 U/L (39-308) Creatine Kinase MB (Mass) 3.9 ng/mL (0.0-3.6) Creatine Kinase MB Relative Index 4.3 % (0-4) Troponin I Quantitative < 0.017 ng/mL (0.000-0.055) 0.021 ng/mL (0.000-0.055) UN-Uwf-L-Type Natriuretic Peptide 3149 pg/mL (0-124) Total Protein 5.7 g/dL (6.4-8.2) Albumin 2.7 g/dL (3.4-5.0) Albumin/Globulin Ratio 0.9 (1.0-1.7) Lipase 70 U/L (73-393) O2 Saturation 99 % (92-99) Arterial Blood pH 7.16 (7.35-7.45) Arterial Blood pCO2 at Patient Temp 35 mmHg (35-46) Arterial Blood pO2 at Patient Temp 488 mmHg (65-108) Arterial Blood HCO3 12 mmol/L (21-28) Arterial Blood Base Excess -16 mmol/L (-3-3) Oxyhemoglobin 98.4 % Methemoglobin 0.4 % (0.0-1.9) Carbon Monoxide, Quantitative 0.3 % (0.0-1.9) FiO2 100 Glucose (Fingerstick) 216 mg/dL (70-99) Triglycerides Level 173 mg/dL (0-150) Cholesterol Level 72 mg/dL (0-200) LDL Cholesterol, Calculated 10 mg/dL (0-100) VLDL Cholesterol, Calculated 35 mg/dL (0-40) Non-HDL Cholesterol Calculated 45 mg/dL (0-129) HDL Cholesterol 27 mg/dL (40-60) Cholesterol/HDL Ratio 2.7 Test 03/05/19 08:13 03/05/19 09:30 03/05/19 09:34 O2 Saturation 99 % (92-99) Arterial Blood pH 7.40 (7.35-7.45) Arterial Blood pCO2 at Patient Temp 33 mmHg (35-46) Arterial Blood pO2 at Patient Temp 173 mmHg (65-108) Arterial Blood HCO3 20 mmol/L (21-28) Arterial Blood Base Excess -4 mmol/L (-3-3) FiO2 50 Troponin I Quantitative < 0.017 ng/mL (0.000-0.055) Glucose (Fingerstick) 134 mg/dL (70-99) Laboratory Tests Test 03/05/19 00:35 03/05/19 01:03 03/05/19 04:17 03/05/19 04:20 White Blood Count 16.6 x10^3/uL (4.0-11.0) Red Blood Count 3.46 x10^6/uL (4.30-5.70) Hemoglobin 10.1 g/dL (13.0-17.5) Hematocrit 30.6 % (39.0-53.0) Mean Corpuscular Volume 88 fL (79-100) Mean Corpuscular Hemoglobin 29 pg (25-35) Mean Corpuscular Hemoglobin Concent 33 g/dL (31-37) Red Cell Distribution Width 14.7 % (11.5-14.5) Platelet Count 199 x10^3/uL (140-400) Neutrophils (%) (Auto) 92 % (31-73) Lymphocytes (%) (Auto) 4 % (24-48) Monocytes (%) (Auto) 3 % (0-9) Eosinophils (%) (Auto) 1 % (0-3) Basophils (%) (Auto) 0 % (0-3) Neutrophils # (Auto) 15.3 x10^3uL (1.8-7.7) Lymphocytes # (Auto) 0.7 x10^3/uL (1.0-4.8) Monocytes # (Auto) 0.5 x10^3/uL (0.0-1.1) Eosinophils # (Auto) 0.2 x10^3/uL (0.0-0.7) Basophils # (Auto) 0.0 x10^3/uL (0.0-0.2) Segmented Neutrophils % 88 % (35-66) Band Neutrophils % 1 % (0-9) Lymphocytes % 6 % (24-48) Monocytes % 4 % (0-10) Eosinophils % 1 % (0-5) Platelet Estimate Adequate (ADEQUATE) Sodium Level 122 mmol/L (136-145) 128 mmol/L (136-145) Potassium Level 7.3 mmol/L (3.5-5.1) 5.3 mmol/L (3.5-5.1) Chloride Level 96 mmol/L (98-107) 99 mmol/L (98-107) Carbon Dioxide Level 17 mmol/L (21-32) 23 mmol/L (21-32) Anion Gap 9 (6-14) 6 (6-14) Blood Urea Nitrogen 82 mg/dL (8-26) 75 mg/dL (8-26) Creatinine 2.5 mg/dL (0.7-1.3) 2.0 mg/dL (0.7-1.3) Estimated GFR (Cockcroft-Gault) 25.8 33.4 BUN/Creatinine Ratio 33 (6-20) Glucose Level 183 mg/dL (70-99) 224 mg/dL (70-99) Lactic Acid Level 0.6 mmol/L (0.4-2.0) Calcium Level 8.1 mg/dL (8.5-10.1) 10.7 mg/dL (8.5-10.1) Magnesium Level 1.9 mg/dL (1.8-2.4) Total Bilirubin 0.2 mg/dL (0.2-1.0) Aspartate Amino Transf (AST/SGOT) 16 U/L (15-37) Alanine Aminotransferase (ALT/SGPT) 16 U/L (16-63) Alkaline Phosphatase 65 U/L (46-116) Creatine Kinase 91 U/L (39-308) Creatine Kinase MB (Mass) 3.9 ng/mL (0.0-3.6) Creatine Kinase MB Relative Index 4.3 % (0-4) Troponin I Quantitative < 0.017 ng/mL (0.000-0.055) 0.021 ng/mL (0.000-0.055) JF-Uaa-S-Type Natriuretic Peptide 3149 pg/mL (0-124) Total Protein 5.7 g/dL (6.4-8.2) Albumin 2.7 g/dL (3.4-5.0) Albumin/Globulin Ratio 0.9 (1.0-1.7) Lipase 70 U/L (73-393) O2 Saturation 99 % (92-99) Arterial Blood pH 7.16 (7.35-7.45) Arterial Blood pCO2 at Patient Temp 35 mmHg (35-46) Arterial Blood pO2 at Patient Temp 488 mmHg (65-108) Arterial Blood HCO3 12 mmol/L (21-28) Arterial Blood Base Excess -16 mmol/L (-3-3) Oxyhemoglobin 98.4 % Methemoglobin 0.4 % (0.0-1.9) Carbon Monoxide, Quantitative 0.3 % (0.0-1.9) FiO2 100 Glucose (Fingerstick) 216 mg/dL (70-99) Triglycerides Level 173 mg/dL (0-150) Cholesterol Level 72 mg/dL (0-200) LDL Cholesterol, Calculated 10 mg/dL (0-100) VLDL Cholesterol, Calculated 35 mg/dL (0-40) Non-HDL Cholesterol Calculated 45 mg/dL (0-129) HDL Cholesterol 27 mg/dL (40-60) Cholesterol/HDL Ratio 2.7 Test 03/05/19 08:13 03/05/19 09:30 03/05/19 09:34 O2 Saturation 99 % (92-99) Arterial Blood pH 7.40 (7.35-7.45) Arterial Blood pCO2 at Patient Temp 33 mmHg (35-46) Arterial Blood pO2 at Patient Temp 173 mmHg (65-108) Arterial Blood HCO3 20 mmol/L (21-28) Arterial Blood Base Excess -4 mmol/L (-3-3) FiO2 50 Troponin I Quantitative < 0.017 ng/mL (0.000-0.055) Glucose (Fingerstick) 134 mg/dL (70-99) Review All relevant outside records, renal labs, imaging studies, telemetry/EKG's were reviewed. Images Images CxR-- Bilateral interstitial opacities may be secondary to atypical/viral infection. JAZLYN BRASWELL MD Mar 05, 2019 12:24
--- NOTE | 2019-03-05 13:32 | CARD ---
MR#: [id number] Date of Study: 03/05/2019 Ordering Physician: MÓNICA MACE, Referring Physician: MARYANA BARON Tech: Nubia Fontenot [facility] APPROVED REPORT EXAM: Two-dimensional and M-mode echocardiogram with Doppler and color Doppler. Other Information Quality : Technically LimitedHR: 93bpm Rhythm : NSRTechnically limited study due to patient being intubated. INDICATION CAD 2D DIMENSIONS RVDd3.4 (2.9-3.5cm)Left Atrium(2D)3.6 (1.6-4.0cm) IVSd1.4 (0.7-1.1cm)Aortic Root(2D)3.1 (2.0-3.7cm) LVDd4.3 (3.9-5.9cm)LVOT Diameter1.7 (1.8-2.4cm) PWd0.9 (0.7-1.1cm)LVDs3.4 (2.5-4.0cm) FS (%) 20.3 %SV34.2 ml LVEF(%)40.0 (>50%) M-Mode DIMENSIONS Left Atrium(MM)3.93 (2.5-4.0cm)Aortic Root2.65 (2.2-3.7cm) Aortic Valve AoV Peak Joauqin.143.0cm/sAoV VTI20.4cm AO Peak GR.8.2mmHgLVOT VTI 12.12cm AO Mean GR.5mmHgAVA (VTI)1.60cm2 Mitral Valve MV E Zvqfxioi82.0cm/sMV DECEL [id number] MV A Nosppsdz06.5cm/sE/A Ratio0.7 MV A [id number] LEFT VENTRICLE The left ventricle is normal size. Proximal septal thickening is noted. Inferoseptal wall appears hyp okinetic. The ejection fraction appears to be 45-50%. Transmitral Doppler flow pattern is Grade I-abn ormal relaxation pattern. RIGHT VENTRICLE The right ventricle is normal size. There is normal right ventricular wall thickness. Systolic functi on is mildly reduced. ATRIA The left atrium size is normal. The right atrium size is normal. The interatrial septum is intact wit h no evidence for an atrial septal defect or patent foramen ovale as noted on 2-D or Doppler imaging. AORTIC VALVE The aortic valve is mildly calcified. The aortic valve is trileaflet. Doppler and Color Flow revealed no significant aortic regurgitation. There is no significant aortic valvular stenosis. MITRAL VALVE The mitral valve is normal in structure and function. There is no evidence of mitral valve prolapse. There is no mitral valve stenosis. Doppler and Color-flow revealed trace mitral regurgitation. TRICUSPID VALVE The tricuspid valve is normal in structure and function. Doppler and Color Flow revealed no tricuspid valve regurgitation noted. There is no tricuspid valve prolapse or vegetation. There is no tricuspid valve stenosis. PULMONIC VALVE The pulmonic valve is not well visualized. GREAT VESSELS The aortic root is normal in size. The ascending aorta is normal in size. The IVC is dilated. PERICARDIAL EFFUSION There is no evidence of significant pericardial effusion. Critical Notification Critical Value: No <Conclusion> Technically very difficult study. Inferoseptal wall appears hypokinetic. The ejection fraction appears to be 45-50%. Transmitral Doppler flow pattern is Grade I-abnormal relaxation pattern. Doppler and Color-flow revealed trace mitral regurgitation. There is no evidence of significant pericardial effusion. Signed by : Jair Nunn, Electronically Approved : 03/05/2019 13:32:13
[2019-03-05] MEDS ORDERED: ENOXAPARIN 40 MG/0.4 ML SYRINGE. SQ SCH (14:00)
--- NOTE | 2019-03-05 14:09 | PDOC ---
PULMONARY PROGRESS NOTES Vitals Vital Signs Date Time Temp Pulse Resp B/P (MAP) Pulse Ox O2 Delivery O2 Flow Rate FiO2 03/05/19 11:49 100 Ventilator 03/05/19 09:47 20 03/05/19 08:00 15.0 03/05/19 06:00 68 111/35 (60) 03/05/19 04:00 98.5 98.5 Labs Laboratory Tests Test 03/05/19 00:35 03/05/19 01:03 03/05/19 04:17 03/05/19 04:20 White Blood Count 16.6 x10^3/uL (4.0-11.0) Red Blood Count 3.46 x10^6/uL (4.30-5.70) Hemoglobin 10.1 g/dL (13.0-17.5) Hematocrit 30.6 % (39.0-53.0) Mean Corpuscular Volume 88 fL (79-100) Mean Corpuscular Hemoglobin 29 pg (25-35) Mean Corpuscular Hemoglobin Concent 33 g/dL (31-37) Red Cell Distribution Width 14.7 % (11.5-14.5) Platelet Count 199 x10^3/uL (140-400) Neutrophils (%) (Auto) 92 % (31-73) Lymphocytes (%) (Auto) 4 % (24-48) Monocytes (%) (Auto) 3 % (0-9) Eosinophils (%) (Auto) 1 % (0-3) Basophils (%) (Auto) 0 % (0-3) Neutrophils # (Auto) 15.3 x10^3uL (1.8-7.7) Lymphocytes # (Auto) 0.7 x10^3/uL (1.0-4.8) Monocytes # (Auto) 0.5 x10^3/uL (0.0-1.1) Eosinophils # (Auto) 0.2 x10^3/uL (0.0-0.7) Basophils # (Auto) 0.0 x10^3/uL (0.0-0.2) Segmented Neutrophils % 88 % (35-66) Band Neutrophils % 1 % (0-9) Lymphocytes % 6 % (24-48) Monocytes % 4 % (0-10) Eosinophils % 1 % (0-5) Platelet Estimate Adequate (ADEQUATE) Sodium Level 122 mmol/L (136-145) 128 mmol/L (136-145) Potassium Level 7.3 mmol/L (3.5-5.1) 5.3 mmol/L (3.5-5.1) Chloride Level 96 mmol/L (98-107) 99 mmol/L (98-107) Carbon Dioxide Level 17 mmol/L (21-32) 23 mmol/L (21-32) Anion Gap 9 (6-14) 6 (6-14) Blood Urea Nitrogen 82 mg/dL (8-26) 75 mg/dL (8-26) Creatinine 2.5 mg/dL (0.7-1.3) 2.0 mg/dL (0.7-1.3) Estimated GFR (Cockcroft-Gault) 25.8 33.4 BUN/Creatinine Ratio 33 (6-20) Glucose Level 183 mg/dL (70-99) 224 mg/dL (70-99) Lactic Acid Level 0.6 mmol/L (0.4-2.0) Calcium Level 8.1 mg/dL (8.5-10.1) 10.7 mg/dL (8.5-10.1) Magnesium Level 1.9 mg/dL (1.8-2.4) Total Bilirubin 0.2 mg/dL (0.2-1.0) Aspartate Amino Transf (AST/SGOT) 16 U/L (15-37) Alanine Aminotransferase (ALT/SGPT) 16 U/L (16-63) Alkaline Phosphatase 65 U/L (46-116) Creatine Kinase 91 U/L (39-308) Creatine Kinase MB (Mass) 3.9 ng/mL (0.0-3.6) Creatine Kinase MB Relative Index 4.3 % (0-4) Troponin I Quantitative < 0.017 ng/mL (0.000-0.055) 0.021 ng/mL (0.000-0.055) JF-Vjn-N-Type Natriuretic Peptide 3149 pg/mL (0-124) Total Protein 5.7 g/dL (6.4-8.2) Albumin 2.7 g/dL (3.4-5.0) Albumin/Globulin Ratio 0.9 (1.0-1.7) Lipase 70 U/L (73-393) O2 Saturation 99 % (92-99) Arterial Blood pH 7.16 (7.35-7.45) Arterial Blood pCO2 at Patient Temp 35 mmHg (35-46) Arterial Blood pO2 at Patient Temp 488 mmHg (65-108) Arterial Blood HCO3 12 mmol/L (21-28) Arterial Blood Base Excess -16 mmol/L (-3-3) Oxyhemoglobin 98.4 % Methemoglobin 0.4 % (0.0-1.9) Carbon Monoxide, Quantitative 0.3 % (0.0-1.9) FiO2 100 Glucose (Fingerstick) 216 mg/dL (70-99) Triglycerides Level 173 mg/dL (0-150) Cholesterol Level 72 mg/dL (0-200) LDL Cholesterol, Calculated 10 mg/dL (0-100) VLDL Cholesterol, Calculated 35 mg/dL (0-40) Non-HDL Cholesterol Calculated 45 mg/dL (0-129) HDL Cholesterol 27 mg/dL (40-60) Cholesterol/HDL Ratio 2.7 Test 03/05/19 08:13 03/05/19 09:30 03/05/19 09:34 O2 Saturation 99 % (92-99) Arterial Blood pH 7.40 (7.35-7.45) Arterial Blood pCO2 at Patient Temp 33 mmHg (35-46) Arterial Blood pO2 at Patient Temp 173 mmHg (65-108) Arterial Blood HCO3 20 mmol/L (21-28) Arterial Blood Base Excess -4 mmol/L (-3-3) FiO2 50 Troponin I Quantitative < 0.017 ng/mL (0.000-0.055) Procalcitonin 0.40 ng/mL (0.00-0.10) Glucose (Fingerstick) 134 mg/dL (70-99) Laboratory Tests Test 03/05/19 00:35 03/05/19 01:03 03/05/19 04:17 03/05/19 04:20 White Blood Count 16.6 x10^3/uL (4.0-11.0) Red Blood Count 3.46 x10^6/uL (4.30-5.70) Hemoglobin 10.1 g/dL (13.0-17.5) Hematocrit 30.6 % (39.0-53.0) Mean Corpuscular Volume 88 fL (79-100) Mean Corpuscular Hemoglobin 29 pg (25-35) Mean Corpuscular Hemoglobin Concent 33 g/dL (31-37) Red Cell Distribution Width 14.7 % (11.5-14.5) Platelet Count 199 x10^3/uL (140-400) Neutrophils (%) (Auto) 92 % (31-73) Lymphocytes (%) (Auto) 4 % (24-48) Monocytes (%) (Auto) 3 % (0-9) Eosinophils (%) (Auto) 1 % (0-3) Basophils (%) (Auto) 0 % (0-3) Neutrophils # (Auto) 15.3 x10^3uL (1.8-7.7) Lymphocytes # (Auto) 0.7 x10^3/uL (1.0-4.8) Monocytes # (Auto) 0.5 x10^3/uL (0.0-1.1) Eosinophils # (Auto) 0.2 x10^3/uL (0.0-0.7) Basophils # (Auto) 0.0 x10^3/uL (0.0-0.2) Segmented Neutrophils % 88 % (35-66) Band Neutrophils % 1 % (0-9) Lymphocytes % 6 % (24-48) Monocytes % 4 % (0-10) Eosinophils % 1 % (0-5) Platelet Estimate Adequate (ADEQUATE) Sodium Level 122 mmol/L (136-145) 128 mmol/L (136-145) Potassium Level 7.3 mmol/L (3.5-5.1) 5.3 mmol/L (3.5-5.1) Chloride Level 96 mmol/L (98-107) 99 mmol/L (98-107) Carbon Dioxide Level 17 mmol/L (21-32) 23 mmol/L (21-32) Anion Gap 9 (6-14) 6 (6-14) Blood Urea Nitrogen 82 mg/dL (8-26) 75 mg/dL (8-26) Creatinine 2.5 mg/dL (0.7-1.3) 2.0 mg/dL (0.7-1.3) Estimated GFR (Cockcroft-Gault) 25.8 33.4 BUN/Creatinine Ratio 33 (6-20) Glucose Level 183 mg/dL (70-99) 224 mg/dL (70-99) Lactic Acid Level 0.6 mmol/L (0.4-2.0) Calcium Level 8.1 mg/dL (8.5-10.1) 10.7 mg/dL (8.5-10.1) Magnesium Level 1.9 mg/dL (1.8-2.4) Total Bilirubin 0.2 mg/dL (0.2-1.0) Aspartate Amino Transf (AST/SGOT) 16 U/L (15-37) Alanine Aminotransferase (ALT/SGPT) 16 U/L (16-63) Alkaline Phosphatase 65 U/L (46-116) Creatine Kinase 91 U/L (39-308) Creatine Kinase MB (Mass) 3.9 ng/mL (0.0-3.6) Creatine Kinase MB Relative Index 4.3 % (0-4) Troponin I Quantitative < 0.017 ng/mL (0.000-0.055) 0.021 ng/mL (0.000-0.055) UT-Qso-L-Type Natriuretic Peptide 3149 pg/mL (0-124) Total Protein 5.7 g/dL (6.4-8.2) Albumin 2.7 g/dL (3.4-5.0) Albumin/Globulin Ratio 0.9 (1.0-1.7) Lipase 70 U/L (73-393) O2 Saturation 99 % (92-99) Arterial Blood pH 7.16 (7.35-7.45) Arterial Blood pCO2 at Patient Temp 35 mmHg (35-46) Arterial Blood pO2 at Patient Temp 488 mmHg (65-108) Arterial Blood HCO3 12 mmol/L (21-28) Arterial Blood Base Excess -16 mmol/L (-3-3) Oxyhemoglobin 98.4 % Methemoglobin 0.4 % (0.0-1.9) Carbon Monoxide, Quantitative 0.3 % (0.0-1.9) FiO2 100 Glucose (Fingerstick) 216 mg/dL (70-99) Triglycerides Level 173 mg/dL (0-150) Cholesterol Level 72 mg/dL (0-200) LDL Cholesterol, Calculated 10 mg/dL (0-100) VLDL Cholesterol, Calculated 35 mg/dL (0-40) Non-HDL Cholesterol Calculated 45 mg/dL (0-129) HDL Cholesterol 27 mg/dL (40-60) Cholesterol/HDL Ratio 2.7 Test 4/29/19 08:13 03/05/19 09:30 03/05/19 09:34 O2 Saturation 99 % (92-99) Arterial Blood pH 7.40 (7.35-7.45) Arterial Blood pCO2 at Patient Temp 33 mmHg (35-46) Arterial Blood pO2 at Patient Temp 173 mmHg (65-108) Arterial Blood HCO3 20 mmol/L (21-28) Arterial Blood Base Excess -4 mmol/L (-3-3) FiO2 50 Troponin I Quantitative < 0.017 ng/mL (0.000-0.055) Procalcitonin 0.40 ng/mL (0.00-0.10) Glucose (Fingerstick) 134 mg/dL (70-99) Medications Active Scripts Medications Dose Route/Sig Max Daily Dose Days Date Category Dose Instructions Timoptic 0.5% (Timolol Maleate) 10 Ml Drops 1 Drop EACHEYE BID 03/05/19 Reported Senna-S Tablet (Sennosides/Docusate Sodium) 1 Each Tablet 1 Each PO BID 03/05/19 Reported Onglyza (Saxagliptin Hcl) 5 Mg Tablet 1 Tab PO DAILY 03/05/19 Reported Crestor (Rosuvastatin Calcium) 20 Mg Tablet 20 Mg PO HS 03/05/19 Reported Miralax (Polyethylene Glycol 3350) 17 Gm Powd.pack 1 Packet PO DAILY 03/05/19 Reported Percocet 5-325 Mg Tablet (Oxycodone/Acetaminophen) 1 Each Tablet 1 Tab PO QID PRN 03/05/19 Reported Oxycodone Hcl Immed.release (Oxycodone Hcl) 5 Mg Tablet 5 Mg PO PRN Q4HRS PRN 03/05/19 Reported take 1 to 3 tabs Q4H prn Metoprolol Tartrate 25 Mg Tablet 1 Tab PO BID 03/05/19 Reported Metformin Hcl 500 Mg Tablet 500 Mg PO DAILYWSUP 03/05/19 Reported Metformin Hcl 1,000 Mg Tablet 1,000 Mg PO [id number] 03/05/19 Reported Meloxicam 15 Mg Tablet 1 Tab PO NOON 03/05/19 Reported Lisinopril 20 Mg Tablet 1 Tab PO DAILY 03/05/19 Reported Xalatan (Latanoprost) 2.5 Ml Drops 1 Drop EACHEYE QHS 03/05/19 Reported Gabapentin (Gabapentin) 300 Mg Capsule 900 Mg PO TID 03/05/19 Reported Docusate Sodium 100 Mg Capsule 1 Cap PO BID 03/05/19 Reported Diltiazem 24HR Cd (Diltiazem Hcl) 120 Mg Cap.er.24h 1 Cap PO DAILY 03/05/19 Reported Restasis (Cyclosporine) 1 Each Droperette 1 Drop EACHEYE BID 03/05/19 Reported Refresh Optive Eye Drops (Carboxymethylcellulos/Glycerin) 15 Ml Drops 1 Drop EACHEYE QID PRN 03/05/19 Reported Wellbutrin Sr (Bupropion Hcl) 100 Mg Tablet.er 1 Tab PO BID 03/05/19 Reported Aspirin Ec (Aspirin) 81 Mg Tablet.dr 1 Tab PO DAILY 03/05/19 Reported Simbrinza 1%-0.2% Eye Drops (Brinzolamide/Brimonid Tart) 8 Ml Drops.susp 8 Ml OP BID 03/05/19 Reported Impression . DICTATED THANKS A/C RESP FAILURE MULTIFACTORIAL SEE ORDERS WILL ADD EMPIRIC ANTIBX TAWANDA WOODY MD Mar 05, 2019 14:09
[2019-03-05] MEDS: cefTRIAXone IV Push 1 GM VIAL. IVP SCH (15:12)
[2019-03-05] MEDS: MIDAZOLAM 100mg/100ml NS BAG 100 ML IV PRN (15:13)
[2019-03-05] MEDS: HEPARIN for SUB-Q USE 5,000 UNIT/ML VIAL. SQ SCH ×2 (15:13→21:45)
[2019-03-05] MEDS ORDERED: IV NORMAL SALINE 500ML BAG 500 ML IV ONE (16:15)
[2019-03-05] MEDS ORDERED: NOREPINEPHRIN 8MG/250ML PREMIX 250 ML IV PRN (16:15)
--- NOTE | 2019-03-05 16:30 | NUR ---
Pt had period of low BP. Propofol changed to Versed w/o much improvement. Dr Beck notified. Fluid bolus given(500cc). Some bradycardia noted so ext pace pads changed and code cart to bedside. Levo started and BP better Did not need to ext pace as HR up after BP better. Labs sent. Family at bedside most of day. Remains sedated on vent with mitts on. Good UO out ileoconduit. Low grade temp
[2019-03-05 17:04] LABS: CALCIUM 9.2 mg/dL (8.5-10.1); CREATININE 1.4 mg/dL (0.7-1.3); GFR 50.4; MAGNESIUM 1.5 mg/dL (1.8-2.4); POTASSIUM 4.3 mmol/L (3.5-5.1)
[2019-03-05] MEDS: IV 1/2 NORMAL SALINE 1,000 ML IV SCH ×2 (17:58→21:48)
[2019-03-05] MEDS ORDERED: MAGNESIUM SULFATE 4GM 100 ML IV ONE (19:30)
--- NOTE | 2019-03-05 21:29 | NUR ---
Dr. Rihcmond paged at 2100 regarding pt having 8-10 beats of Vtach every 3 minutes for the past [address] Richmond ordered 50mg Amiodarone bolus and an Amiodarone drip per protocol. Patient currently stable on Ventilator, will continue to monitor.
[2019-03-05] MEDS: FAMOTIDINE 20 MG/2 ML VIAL IVP SCH (21:43)
[2019-03-05] MEDS: DOXYCYCLINE HYCLATE 100 MG in IV DEXTROSE 5% 100ML 100 ML IV SCH (21:45)
[2019-03-05] MEDS ORDERED: AMIODARONE IV ONE (22:00)
[2019-03-05 22:08] LABS: HEMOGLOBIN A1C 6.7 % (4.8-5.6)
[2019-03-05] MEDS ORDERED: AMIODARONE 900 MG in IV DEXTROSE 5% 500 ML IV PRN (22:15)
[2019-03-06] VITALS (24 sets, daily range): BP systolic 85–154; BP diastolic 47–64
[2019-03-06] MEDS: fentaNYL PF VIAL 100 MCG/2 ML VIAL IV PRN ×4 (03:00→19:37)
[2019-03-06] MEDS: MIDAZOLAM 100mg/100ml NS BAG 100 ML IV PRN ×2 (03:41→18:46)
[2019-03-06 04:07] LABS: CREATININE 1.1 mg/dL (0.7-1.3); GFR 66.6; MAGNESIUM 2.5 mg/dL (1.8-2.4); POTASSIUM 3.1 mmol/L (3.5-5.1)
[2019-03-06] MEDS: POTASSIUM CHLORIDE 10MEQ 100 ML IV SCH ×2 (04:51→06:17)
[2019-03-06] MEDS: HEPARIN for SUB-Q USE 5,000 UNIT/ML VIAL. SQ SCH ×3 (06:17→21:07)
--- NOTE | 2019-03-06 07:01 | RAD ---
Indication:RESPIRATORY FAILURE TECHNIQUE:Portable AP chest X-ray COMPARISON:03/05/2019 FINDINGS: CABG changes noted. Stable position of ET tube, NG tube and right-sided Chemo-Port. Interval placement of right subclavian catheter with its tip in the right IJ. Heart is normal in size. Bilateral interstitial opacities. No focal consolidation. No pneumothorax or pleural effusion. Visualized bony thorax within normal limits. IMPRESSION: 1. Partially visualized is a catheter along the right IJ with its tip not visualized. Recent placement of right subclavian catheter? If so, please readjust the catheter. 2. Bilateral interstitial opacities may be secondary to atypical/viral infection. Critical findings were identified on 03/06/2019 6:52 AM, read back and verified with Nurse Quincy on 03/06/2019 6:[address] Rober Mosher DO. Electronically signed by: Rober Mosher DO (03/06/2019 6:58 AM) [id number]
--- NOTE | 2019-03-06 07:34 | CONS ---
DATE OF CONSULTATION: 03/05/2019 ATTENDING PHYSICIAN: Dr. Beck. REASON FOR CONSULTATION: The patient seen in pulmonary consultation at the request of Dr. Beck for acute respiratory failure, ventilator management, abnormal chest x-ray. HISTORY OF PRESENT ILLNESS: The patient is a 68-year-old and normally gets his care from the [facility]. He is not on oxygen at home. According to his , he has been ill for the last 3-7 days, basically not feeling well. No fever or chills. He is slightly confused. He states EMS was summoned to the house. He had O2 saturations on room air of 68%. He was placed on oxygen and DuoNeb. He was given DuoNeb, then he proceeded to have bradycardia, heart rate of 30. He was transcutaneously paced en route. O2 saturation remained low. Eventually, the patient was intubated. Additional studies reveal the potassium 7.7. He was started on bicarbonate drip, dopamine and propofol for sedation. He is currently in the intensive care unit on assist control ventilation. Chest x-ray revealed bilateral infiltrates, compatible with either edema or viral pneumonitis. He had an echocardiogram revealing ejection fraction of 35%. According to his , he has not had any acute exacerbations of COPD in the last several years. In fact, he does not utilize any metered dose inhalers. There is no history of recent acute exacerbation of COPD. He quit tobacco 30 years ago. He does not visit with a newspaper editor managing on a regular basis. There is no prior history of DVT or pulmonary embolism. PAST MEDICAL HISTORY: 1. Remarkable for coronary artery disease with previous coronary artery bypass grafting. 2. 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 3. Bladder cancer. The patient underwent cystoscopy with ileal conduit in December 2017 at [facility]. He subsequently received chemo. 4. Type 2 diabetes. 5. Chronic renal insufficiency. PAST SURGICAL HISTORY: Status post appendectomy, coronary artery bypass grafting. MEDICATIONS: List was reviewed. CURRENT MEDICATION: List was likewise reviewed. ALLERGIES: No known drug allergies. SOCIAL HISTORY: He is currently not smoking. PHYSICAL EXAMINATION: VITAL SIGNS: Stable. O2 saturation was greater than 92%. HEENT: Eyes: The sclerae were nonicteric. NECK: Jugular venous distention could not be assessed secondary to body habitus. CHEST: Full expansion. LUNGS: Anteriorly were clear. No wheezes. CARDIOVASCULAR: Regular rate and rhythm with S1, S2, no S3. ABDOMEN: Soft, nontender, nondistended. EXTREMITIES: No clubbing, cyanosis or edema. NEUROLOGIC: The patient was sedated. LABORATORY DATA: White count was elevated. Hemoglobin and hematocrit of 10 and 30. Arterial blood gas initially 7.16, PaCO2 of 35, PO2 of 488, bicarbonate was 12. Electrolytes were noted. Sodium was low. Potassium now 5.3. Initially, it was 7.3, BUN was 82 initially. Creatinine is 2.5. Albumin was low. Lipase was low. Troponin was not elevated. BNP was elevated. IMAGING DATA: Chest x-ray as indicated above. IMPRESSION: 1. Acute hypoxemic respiratory failure. 2. Severe metabolic acidosis. 3. Leukocytosis. 4. Abnormal chest x-ray. 5. Bradycardia. 6. Hypercalcemia. 7. Acute exacerbation of chronic obstructive pulmonary disease. 8. Type 2 diabetes. 9. Coronary artery disease, status post coronary artery bypass grafting. 10. Acute on chronic metabolic toxic encephalopathy, present upon admission. 11. Bladder cancer, status post chemo cystectomy with ileal conduit. PLAN: 1. We will continue current support with assist control ventilation. 2. Empiric antibiotics. 3. Monitor electrolytes closely. 4. Continue dopamine per cardiology. 5. Follow cardiology input. 6. Insulin. 7. Procalcitonin noted to be 0.40. I do appreciate the privilege in sharing in the patient's care. Total cumulative critical care time of 45 minutes. TAWANDA WOODY MD DR: SOLEDAD/rahul JOB#: [id number] / [id number]
[2019-03-06] MEDS: INSULIN LISPRO 300 UNITS/3 ML INSULN.PEN. SQ SCH ×3 (08:00→18:41)
[2019-03-06 08:38] LABS: BASE EXCESS ABG -2 mmol/L (-3-3); HCO3 ABG 21 mmol/L (21-28); PCO2 ABG 31 mmHg (35-46); SAT O2 ABG 85 % (92-99)
[2019-03-06 08:49] LABS: FIO2 ABG 40; PO2 ABG 48 mmHg (65-108)
--- NOTE | 2019-03-06 08:57 | PDOC ---
PROGRESS NOTES Chief Complaint Chief Complaint A/P: Acute encephalopathy - likely mixed picture, metabolic with uremia and hyperkalemia Hypoxic respiratory failure - with underlying COPD, never previously intubated, not on home O2. Intubated for hypoxia, doing much better on vent now but still hypoxic. Appreciate pulmonology. Has bilateral interstitial opacities. Not clear on etiology, F/u [facility] records. procalcitonin elevated - On rocephin and doxy for CAP treatment Sepsis - POA, likely 2/2 community acquired pneumonia, improving, still on pressors Hyperkalemia - 7.3 --> 3.1 with above corrective measures, still on IVF. BUN has improved significantly. Will cont fluids, consult nephrology. No indications for dialysis at this time Acute Kidney injury - BUN 82 and Cr 2.5 on admission, likely vasomotor nephropathy given his poor PO intake. Improved now Symptomatic bradycardia - Initially paced, with wide complex, likely 2/2 hyperkalemia, still on dopamine, improved. Cardiology consulted for further care. Wean dopamine as tolerated. Started on Amio per cardiology CAD s/p CABG x3 - stable outpatient with [facility] f/u in [place]. Will reconcile home meds. Hold nephrotoxic meds Bladder Cancer s/p chemotherapy and cystectomy with ileoconduit (12/[address] Licea @ [facility]) - has appt on 03/10/19 for f/u. Access for port ok. Monitor urostomy output. Will order records. Abdominal imaging is likely indicated. ?COPD - will order records. Seems to be tolerating vent well, no prior intu bations, not on O2, will wean off vent. Defer to pulm for use of steroids in his case. Diabetes-Type II - placed on sliding scale, check A1c FEN - OGT, Bicarbonate PPX - Heparin FULL CODE ICU for critically ill patient with life-threatening hyperkalemia now with hypoxic resp failure, greater than 35 minutes critical care time spent. D/w bedside his critical illness. Greater than 2 midnights inpatient required. History of Present Illness History of Present Illness Mr Ashley is a 68-year-old male 100% service connected [place] w/PMHx CAD s/p CABG x3, Bladder Cancer s/p chemotherapy and cystectomy with ileoconduit (12/[address] Licea @ [facility]), COPD, Diabetes-Type II who presents via EMS from [place] with report of 3 day history of progressive weakness and shortness of breath per spouse who reported he has been confused as well. Patient noted to be hypoxic by EMS down to 68% on room air, not on home O2. Given DuoNebs en route. Patient also noted to have heart rate down into the 30s, was given versed by EMS and transcutaneously paced enroute. Maintained low O2 saturations despite NRB and he was urgently intubated. Found on EKG with potassium of 7.3 and wide complex QRS. Started on bicarbonate gtt, dopamine, propofol for sedation. Pulm, cards, nephro consulted Echo yesterday shows EF 45-50%. Started levophed last night for persistent hypotension. Seen on ventilator this morning. FIO2 up to 70% now. Labs improved K to 3.1, Cr 1.1, BUN 35. UOP picked up quite a bit >3L out over the past 24 hours. Plan: Replace K Wean O2 to plan for extubation in the next few days, may need to await more diuresis Cont pulm toileting Vitals Vitals Vital Signs Date Time Temp Pulse Resp B/P (MAP) Pulse Ox O2 Delivery O2 Flow Rate FiO2 03/06/19 08:32 100 Ventilator 03/06/19 06:00 74 20 85/47 (60) 03/06/19 04:00 99.1 99.1 03/05/19 16:00 15.0 Physical Exam General: Other (sedated) Heart: Regular rate, Normal S1, Normal S2, Other (distant heart tones) Abdomen: Other (soft ) Extremities: No edema Skin: No significant lesion Labs LABS Laboratory Tests Test 03/05/19 09:30 03/05/19 09:34 03/05/19 13:41 03/05/19 16:45 Troponin I Quantitative < 0.017 ng/mL (0.000-0.055) Procalcitonin 0.40 ng/mL (0.00-0.10) Glucose (Fingerstick) 134 mg/dL (70-99) 147 mg/dL (70-99) Sodium Level 136 mmol/L (136-145) Potassium Level 4.3 mmol/L (3.5-5.1) Chloride Level 102 mmol/L (98-107) Carbon Dioxide Level 24 mmol/L (21-32) Anion Gap 10 (6-14) Blood Urea Nitrogen 52 mg/dL (8-26) Creatinine 1.4 mg/dL (0.7-1.3) Estimated GFR (Cockcroft-Gault) 50.4 Glucose Level 159 mg/dL (70-99) Calcium Level 9.2 mg/dL (8.5-10.1) Magnesium Level 1.5 mg/dL (1.8-2.4) Test 03/05/19 17:38 03/06/19 03:20 Glucose (Fingerstick) 121 mg/dL (70-99) Sodium Level 137 mmol/L (136-145) Potassium Level 3.1 mmol/L (3.5-5.1) Chloride Level 103 mmol/L (98-107) Carbon Dioxide Level 26 mmol/L (21-32) Anion Gap 8 (6-14) Blood Urea Nitrogen 35 mg/dL (8-26) Creatinine 1.1 mg/dL (0.7-1.3) Estimated GFR (Cockcroft-Gault) 66.6 Glucose Level 153 mg/dL (70-99) Calcium Level 9.0 mg/dL (8.5-10.1) Magnesium Level 2.5 mg/dL (1.8-2.4) Assessment and Plan Assessmemt and Plan Problems Medical Problems: (1) Hyperkalemia Status: Acute (2) Hyponatremia Status: Acute (3) Renal insufficiency Status: Acute (4) Respiratory failure Status: Acute Comment Review of Relevant I have reviewed the following items fabián (where applicable) has been applied. Labs Laboratory Tests Test 03/05/19 00:35 03/05/19 01:03 03/05/19 04:17 03/05/19 04:20 White Blood Count 16.6 x10^3/uL (4.0-11.0) Red Blood Count 3.46 x10^6/uL (4.30-5.70) Hemoglobin 10.1 g/dL (13.0-17.5) Hematocrit 30.6 % (39.0-53.0) Mean Corpuscular Volume 88 fL (79-100) Mean Corpuscular Hemoglobin 29 pg (25-35) Mean Corpuscular Hemoglobin Concent 33 g/dL (31-37) Red Cell Distribution Width 14.7 % (11.5-14.5) Platelet Count 199 x10^3/uL (140-400) Neutrophils (%) (Auto) 92 % (31-73) Lymphocytes (%) (Auto) 4 % (24-48) Monocytes (%) (Auto) 3 % (0-9) Eosinophils (%) (Auto) 1 % (0-3) Basophils (%) (Auto) 0 % (0-3) Neutrophils # (Auto) 15.3 x10^3uL (1.8-7.7) Lymphocytes # (Auto) 0.7 x10^3/uL (1.0-4.8) Monocytes # (Auto) 0.5 x10^3/uL (0.0-1.1) Eosinophils # (Auto) 0.2 x10^3/uL (0.0-0.7) Basophils # (Auto) 0.0 x10^3/uL (0.0-0.2) Segmented Neutrophils % 88 % (35-66) Band Neutrophils % 1 % (0-9) Lymphocytes % 6 % (24-48) Monocytes % 4 % (0-10) Eosinophils % 1 % (0-5) Platelet Estimate Adequate (ADEQUATE) Sodium Level 122 mmol/L (136-145) 128 mmol/L (136-145) Potassium Level 7.3 mmol/L (3.5-5.1) 5.3 mmol/L (3.5-5.1) Chloride Level 96 mmol/L (98-107) 99 mmol/L (98-107) Carbon Dioxide Level 17 mmol/L (21-32) 23 mmol/L (21-32) Anion Gap 9 (6-14) 6 (6-14) Blood Urea Nitrogen 82 mg/dL (8-26) 75 mg/dL (8-26) Creatinine 2.5 mg/dL (0.7-1.3) 2.0 mg/dL (0.7-1.3) Estimated GFR (Cockcroft-Gault) 25.8 33.4 BUN/Creatinine Ratio 33 (6-20) Glucose Level 183 mg/dL (70-99) 224 mg/dL (70-99) Hemoglobin A1c 6.7 % (4.8-5.6) Lactic Acid Level 0.6 mmol/L (0.4-2.0) Calcium Level 8.1 mg/dL (8.5-10.1) 10.7 mg/dL (8.5-10.1) Magnesium Level 1.9 mg/dL (1.8-2.4) Total Bilirubin 0.2 mg/dL (0.2-1.0) Aspartate Amino Transf (AST/SGOT) 16 U/L (15-37) Alanine Aminotransferase (ALT/SGPT) 16 U/L (16-63) Alkaline Phosphatase 65 U/L (46-116) Creatine Kinase 91 U/L (39-308) Creatine Kinase MB (Mass) 3.9 ng/mL (0.0-3.6) Creatine Kinase MB Relative Index 4.3 % (0-4) Troponin I Quantitative < 0.017 ng/mL (0.000-0.055) 0.021 ng/mL (0.000-0.055) BH-Ugp-F-Type Natriuretic Peptide 3149 pg/mL (0-124) Total Protein 5.7 g/dL (6.4-8.2) Albumin 2.7 g/dL (3.4-5.0) Albumin/Globulin Ratio 0.9 (1.0-1.7) Lipase 70 U/L (73-393) O2 Saturation 99 % (92-99) Arterial Blood pH 7.16 (7.35-7.45) Arterial Blood pCO2 at Patient Temp 35 mmHg (35-46) Arterial Blood pO2 at Patient Temp 488 mmHg (65-108) Arterial Blood HCO3 12 mmol/L (21-28) Arterial Blood Base Excess -16 mmol/L (-3-3) Oxyhemoglobin 98.4 % Methemoglobin 0.4 % (0.0-1.9) Carbon Monoxide, Quantitative 0.3 % (0.0-1.9) FiO2 100 Glucose (Fingerstick) 216 mg/dL (70-99) Triglycerides Level 173 mg/dL (0-150) Cholesterol Level 72 mg/dL (0-200) LDL Cholesterol, Calculated 10 mg/dL (0-100) VLDL Cholesterol, Calculated 35 mg/dL (0-40) Non-HDL Cholesterol Calculated 45 mg/dL (0-129) HDL Cholesterol 27 mg/dL (40-60) Cholesterol/HDL Ratio 2.7 Test 03/05/19 08:13 03/05/19 09:30 03/05/19 09:34 03/05/19 13:41 O2 Saturation 99 % (92-99) Arterial Blood pH 7.40 (7.35-7.45) Arterial Blood pCO2 at Patient Temp 33 mmHg (35-46) Arterial Blood pO2 at Patient Temp 173 mmHg (65-108) Arterial Blood HCO3 20 mmol/L (21-28) Arterial Blood Base Excess -4 mmol/L (-3-3) FiO2 50 Troponin I Quantitative < 0.017 ng/mL (0.000-0.055) Procalcitonin 0.40 ng/mL (0.00-0.10) Glucose (Fingerstick) 134 mg/dL (70-99) 147 mg/dL (70-99) Test 03/05/19 16:45 03/05/19 17:38 03/06/19 03:20 Sodium Level 136 mmol/L (136-145) 137 mmol/L (136-145) Potassium Level 4.3 mmol/L (3.5-5.1) 3.1 mmol/L (3.5-5.1) Chloride Level 102 mmol/L (98-107) 103 mmol/L (98-107) Carbon Dioxide Level 24 mmol/L (21-32) 26 mmol/L (21-32) Anion Gap 10 (6-14) 8 (6-14) Blood Urea Nitrogen 52 mg/dL (8-26) 35 mg/dL (8-26) Creatinine 1.4 mg/dL (0.7-1.3) 1.1 mg/dL (0.7-1.3) Estimated GFR (Cockcroft-Gault) 50.4 66.6 Glucose Level 159 mg/dL (70-99) 153 mg/dL (70-99) Calcium Level 9.2 mg/dL (8.5-10.1) 9.0 mg/dL (8.5-10.1) Magnesium Level 1.5 mg/dL (1.8-2.4) 2.5 mg/dL (1.8-2.4) Glucose (Fingerstick) 121 mg/dL (70-99) Laboratory Tests Test 03/05/19 09:30 03/05/19 09:34 03/05/19 13:41 03/05/19 16:45 Troponin I Quantitative < 0.017 ng/mL (0.000-0.055) Procalcitonin 0.40 ng/mL (0.00-0.10) Glucose (Fingerstick) 134 mg/dL (70-99) 147 mg/dL (70-99) Sodium Level 136 mmol/L (136-145) Potassium Level 4.3 mmol/L (3.5-5.1) Chloride Level 102 mmol/L (98-107) Carbon Dioxide Level 24 mmol/L (21-32) Anion Gap 10 (6-14) Blood Urea Nitrogen 52 mg/dL (8-26) Creatinine 1.4 mg/dL (0.7-1.3) Estimated GFR (Cockcroft-Gault) 50.4 Glucose Level 159 mg/dL (70-99) Calcium Level 9.2 mg/dL (8.5-10.1) Magnesium Level 1.5 mg/dL (1.8-2.4) Test 03/05/19 17:38 03/06/19 03:20 Glucose (Fingerstick) 121 mg/dL (70-99) Sodium Level 137 mmol/L (136-145) Potassium Level 3.1 mmol/L (3.5-5.1) Chloride Level 103 mmol/L (98-107) Carbon Dioxide Level 26 mmol/L (21-32) Anion Gap 8 (6-14) Blood Urea Nitrogen 35 mg/dL (8-26) Creatinine 1.1 mg/dL (0.7-1.3) Estimated GFR (Cockcroft-Gault) 66.6 Glucose Level 153 mg/dL (70-99) Calcium Level 9.0 mg/dL (8.5-10.1) Magnesium Level 2.5 mg/dL (1.8-2.4) Microbiology 03/05/19 Blood Culture - Preliminary, Resulted NO GROWTH AFTER 1 DAY Medications Current Medications Sodium Chloride 1,000 ml @ 1,000 mls/hr 1X ONCE IV Last administered on 03/04/19at 23:28; Start 03/05/19 at 00:00; Stop 03/05/19 at 00:59; Status DC Fentanyl Citrate (Fentanyl 2ml Vial) 50 mcg 1X ONCE JOSE RAUL Last administered on 03/04/19at 23:02; Start 03/05/19 at 00:00; Stop 03/05/19 at 00:02; Status DC Dexamethasone Sodium Phosphate (Decadron) 10 mg 1X ONCE IV ; Start 03/05/19 at 00:00; Stop 03/05/19 at 00:02; Status DC Atropine Sulfate (ATROPINE 1mg SYRINGE) 0.5 mg 1X ONCE IV Last administered on 03/04/19at 23:07; Start 03/05/19 at 00:00; Stop 03/05/19 at 00:02; Status DC Albuterol Sulfate (Ventolin Neb Soln) 2.5 mg 1X ONCE NEB Last administered on 03/04/19at 23:15; Start 03/04/19 at 23:15; Stop 03/05/19 at 00:01; Status DC Atropine Sulfate (ATROPINE 1mg SYRINGE) 0.5 mg 1X ONCE IV Last administered on 03/04/19at 23:08; Start 03/05/19 at 00:00; Stop 03/05/19 at 00:02; Status DC Atropine Sulfate (ATROPINE 1mg SYRINGE) 1 mg 1X ONCE IV Last administered on 03/04/19at 23:18; Start 03/05/19 at 00:00; Stop 03/05/19 at 00:02; Status DC Etomidate (Amidate) 20 mg 1X ONCE IV Last administered on 03/04/19at 23:32; Start 03/05/19 at 00:00; Stop 03/05/19 at 00:02; Status DC Rocuronium [place] (Zemuron) 50 mg 1X ONCE IV Last administered on 03/04/19at 23:33; Start 03/05/19 at 00:00; Stop 03/05/19 at 00:02; Status DC Propofol 100 ml @ 0 mls/hr CONT PRN IV SEE PROTOCOL Last administered on 03/05/19at 02:16; Start 03/04/19 at 23:30; Stop 03/05/19 at 03:42; Status DC Fentanyl Citrate (Fentanyl 2ml Vial) 25 mcg PRN Q1HR PRN IV SEE COMMENTS Last administered on 03/06/19at 03:00; Start 03/04/19 at 23:30 Fentanyl Citrate (Fentanyl 2ml Vial) 50 mcg PRN Q1HR PRN IV SEE COMMENTS; Start 03/04/19 at 23:30 Chlorhexidine Gluconate (Peridex) 15 ml BID MM ; Start 03/05/19 at 09:00 Morphine Sulfate (Morphine Sulfate) 2 mg PRN Q1HR PRN IV SEE COMMENTS.; Start 03/04/19 at 23:30 Morphine Sulfate (Morphine Sulfate) 4 mg PRN Q1HR PRN IV SEE COMMENTS.; Start 03/04/19 at 23:30 Propofol 50 ml @ As Directed STK-MED ONCE IV ; Start 03/04/19 at 23:47; Stop 03/04/19 at 23:48; Status DC Calcium Gluconate (Calcium Gluconate) 1,000 mg 1X ONCE IVP Last administered on 03/05/19at 00:50; Start 03/05/19 at 00:15; Stop 03/05/19 at 00:16; Status DC Dopamine HCl/ Dextrose 250 ml @ 6.844 mls/ hr 1X ONCE IV Last administered on 03/05/19at 01:11; Start 03/05/19 at 00:30; Stop 03/06/19 at 13:01 Dopamine HCl/ Dextrose 250 ml @ As Directed STK-MED ONCE IV ; Start 03/05/19 at 00:00; Stop 03/05/19 at 00:01; Status DC Propofol 50 ml @ 1.095 mls/ hr 1X ONCE IV Last administered on 03/04/19at 23:51; Start 03/05/19 at 00:15; Stop 03/06/19 at 21:54 Insulin Human Lispro (HumaLOG) 0-5 UNITS TIDWMEALS SQ ; Start 03/05/19 at 08:00 Dextrose (Dextrose 50%-Water Syringe) 12.5 gm PRN Q15MIN PRN IV SEE COMMENTS; Start 03/05/19 at 00:30 Sodium Chloride 1,000 ml @ 125 mls/hr 1X ONCE IV Last administered on 03/05/19at 00:45; Start 03/05/19 at 01:00; Stop 03/05/19 at 02:01; Status DC Insulin Human Regular (HumuLIN R VIAL) 10 unit 1X ONCE IV Last administered on 03/05/19at 01:35; Start 03/05/19 at 01:30; Stop 03/05/19 at 01:31; Status DC Dextrose (Dextrose 50%-Water Syringe) 25 gm 1X ONCE IV Last administered on 03/05/19at 01:32; Start 03/05/19 at 01:30; Stop 03/05/19 at 01:31; Status DC Calcium Chloride 2000 mg/Dextrose 120 ml @ 240 mls/hr 1X ONCE IV Last administered on 03/05/19at 02:16; Start 03/05/19 at 02:30; Stop 03/05/19 at 02:59; Status DC Sodium Bicarbonate 150 meq/Dextrose 1,150 ml @ 100 mls/hr [id number] IV Last administered on 03/05/19at 02:17; Start 03/05/19 at 03:00; Stop 03/05/19 at 18:00; Status DC Sodium Bicarbonate (Sodium Bicarbonate Vial) 150 meq 1X ONCE IV Last administered on 03/05/19at 02:12; Start 03/05/19 at 02:30; Stop 03/05/19 at 02:31; Status DC Sodium Bicarbonate (Sodium Bicarb Adult 8.4% Syr) 50 meq STK-MED ONCE .ROUTE ; Start 03/05/19 at 02:02; Stop 03/05/19 at 02:03; Status DC Propofol 100 ml @ 0 mls/hr CONT PRN IV SEE I/O RECORD Last administered on 03/05/19at 12:27; Start 03/05/19 at 03:45; Stop 03/05/19 at 14:02; Status DC Sodium Chloride 1,000 ml @ 75 mls/hr [id number] IV Last administered on 03/05/19at 21:48; Start 03/05/19 at 09:00 Famotidine (Pepcid Vial) 20 mg QHS IVP Last administered on 03/05/19at 21:43; Start 03/05/19 at 21:00 Heparin Sodium (Porcine) (Heparin Sodium) 5,000 unit Q8HRS SQ Last administered on 03/06/19 06:17; Start 03/05/19 at 14:00 Midazolam HCl 100 ml @ 5 mls/hr CONT PRN IV SEE I/O RECORD Last administered on 03/06/19at 03:41; Start 03/05/19 at 14:00 Ceftriaxone Sodium (Rocephin) 1 gm Q24H IVP Last administered on 03/05/19at 15:12; Start 03/05/19 at 14:00 Doxycycline Hyclate 100 mg/ Dextrose 100 ml @ 50 mls/hr Q12HR IV Last administered on 03/05/19at 21:45; Start 03/05/19 at 21:00 Enoxaparin Sodium (Lovenox 40mg Syringe) 30 mg Q24H SQ ; Start 03/05/19 at 14:00; Status Cancel Sodium Chloride 500 ml @ 500 mls/hr 1X ONCE IV Last administered on 03/05/19at 16:15; Start 03/05/19 at 16:15; Stop 03/05/19 at 17:14; Status DC Norepinephrine Bitartrate 250 ml @ 1.875 mls/ hr CONT PRN IV SEE I/O RECORD; Start 03/05/19 at 16:15 Magnesium Sulfate/ Dextrose 100 ml @ 25 mls/hr 1X ONCE IV Last administered on 03/05/19at 19:45; Start 03/05/19 at 19:30; Stop 03/05/19 at 23:29; Status DC Amiodarone HCl 50 mg/Dextrose 101 ml @ 600 mls/hr 1X ONCE IV Last administered on 03/05/19at 21:16; Start 03/05/19 at 22:00; Stop 03/05/19 at 22:10; Status DC Amiodarone HCl 900 mg/Dextrose 518 ml @ 0 mls/hr CONT PRN IV SEE I/O RECORD Last administered on 03/05/19at 21:16; Start 03/05/19 at 22:15; Stop 03/06/19 at 22:14 Dopamine HCl/ Dextrose 250 ml @ 5.46 mls/hr CONT PRN IV SEE I/O RECORD Last administered on 03/06/19at 03:41; Start 03/06/19 at 03:30 Potassium Chloride/Water 100 ml @ 100 mls/hr Q1H IV Last administered on 03/06/19at 06:17; Start 03/06/19 at 05:00; Stop 03/06/19 at 06:59; Status DC Active Scripts Active Reported Timoptic 0.5% (Timolol Maleate) 10 Ml Drops 1 Drop EACHEYE BID Senna-S Tablet (Sennosides/Docusate Sodium) 1 Each Tablet 1 Each PO BID Onglyza (Saxagliptin Hcl) 5 Mg Tablet 1 Tab PO DAILY Crestor (Rosuvastatin Calcium) 20 Mg Tablet 20 Mg PO HS Miralax (Polyethylene Glycol 3350) 17 Gm Powd.pack 1 Packet PO DAILY Percocet 5-325 Mg Tablet (Oxycodone/Acetaminophen) 1 Each Tablet 1 Tab PO QID PRN Oxycodone Hcl Immed.release (Oxycodone Hcl) 5 Mg Tablet 5 Mg PO PRN Q4HRS PRN take 1 to 3 tabs Q4H prn Metoprolol Tartrate 25 Mg Tablet 1 Tab PO BID Metformin Hcl 500 Mg Tablet 500 Mg PO DAILYWSUP Metformin Hcl 1,000 Mg Tablet 1,000 Mg PO [id number] Meloxicam 15 Mg Tablet 1 Tab PO NOON Lisinopril 20 Mg Tablet 1 Tab PO DAILY Xalatan (Latanoprost) 2.5 Ml Drops 1 Drop EACHEYE QHS Gabapentin (Gabapentin) 300 Mg Capsule 900 Mg PO TID Docusate Sodium 100 Mg Capsule 1 Cap PO BID Diltiazem 24HR Cd (Diltiazem Hcl) 120 Mg Cap.er.24h 1 Cap PO DAILY Restasis (Cyclosporine) 1 Each Droperette 1 Drop EACHEYE BID Refresh Optive Eye Drops (Carboxymethylcellulos/Glycerin) 15 Ml Drops 1 Drop EACHEYE QID PRN Wellbutrin Sr (Bupropion Hcl) 100 Mg Tablet.er 1 Tab PO BID Aspirin Ec (Aspirin) 81 Mg Tablet.dr 1 Tab PO DAILY Simbrinza 1%-0.2% Eye Drops (Brinzolamide/Brimonid Tart) 8 Ml Drops.susp 8 Ml OP BID Vitals/I & O Vital Sign - Last 24 Hours 03/05/19 03/05/19 03/05/19 03/05/19 09:00 09:47 10:00 10:00 Pulse 82 78 Resp 20 20 20 B/P (MAP) 92/50 (64) 99/48 (65) Pulse Ox 100 100 100 O2 Delivery Ventilator Ventilator Ventilator Ventilator 03/05/19 03/05/19 03/05/19 03/05/19 11:00 11:49 12:00 12:00 Temp 99.0 99.0 Pulse 80 88 Resp 20 20 B/P (MAP) 102/49 (66) 104/49 (67) Pulse Ox 100 100 100 O2 Delivery Ventilator Ventilator Ventilator Mechanical Ventilator O2 Flow Rate 15.0 403/05/19 03/05/19 03/05/19 13:00 14:00 14:00 15:00 Pulse 86 86 84 Resp 20 20 20 B/P (MAP) 100/49 (66) 91/50 (64) 81/45 (57) Pulse Ox 100 100 100 100 O2 Delivery Ventilator Ventilator Ventilator Ventilator 03/05/19 03/05/19 03/05/19 03/05/19 16:00 16:00 16:19 17:00 Temp 100.0 100.0 Pulse 86 80 Resp 20 20 B/P (MAP) 136/65 (88) 130/66 (87) Pulse Ox 100 100 100 O2 Delivery Mechanical Ventilator Ventilator Ventilator Ventilator O2 Flow Rate 15.0 03/05/19 03/05/19 03/05/19 03/05/19 17:10 18:00 18:09 19:00 Pulse 82 78 Resp 16 20 20 B/P (MAP) 107/49 (68) 119/56 (77) Pulse Ox 100 100 100 O2 Delivery Ventilator Ventilator Ventilator Ventilator 03/05/19 03/05/19 03/05/19 03/05/19 19:25 20:00 20:00 21:00 Temp 99.2 99.2 Pulse 80 77 Resp 20 19 B/P (MAP) 120/54 (76) 119/57 (77) Pulse Ox 100 100 100 O2 Delivery Ventilator Mechanical Ventilator Ventilator Ventilator 03/05/19 03/05/19 03/05/19 03/05/19 21:16 22:00 23:00 23:45 Pulse 88 77 80 Resp 20 19 B/P (MAP) 105/47 129/57 (81) 113/60 (77) Pulse Ox 100 100 100 O2 Delivery Ventilator Ventilator Ventilator 03/06/19 03/06/19 03/06/19 03/06/19 00:00 00:00 01:00 01:40 Temp 99.4 99.4 Pulse 76 76 Resp 20 20 B/P (MAP) 113/55 (74) 118/55 (76) Pulse Ox 100 100 100 O2 Delivery Mechanical Ventilator Ventilator Ventilator Ventilator 03/06/19 03/06/19 03/06/19 03/06/19 02:00 03:00 03:00 03:30 Pulse 74 85 Resp 20 20 20 B/P (MAP) 126/58 (80) 106/51 (69) Pulse Ox 100 100 100 100 O2 Delivery Ventilator Ventilator Ventilator Ventilator 03/06/19 03/06/19 03/06/19 03/06/19 03:40 04:00 04:00 05:00 Temp 99.1 99.1 Pulse 77 75 Resp 20 20 19 B/P (MAP) 115/56 (75) 130/59 (82) Pulse Ox 100 100 100 O2 Delivery Ventilator Mechanical Ventilator Ventilator Ventilator 03/06/19 03/06/19 06:00 08:32 Pulse 74 Resp 20 B/P (MAP) 85/47 (60) Pulse Ox 100 100 O2 Delivery Ventilator Ventilator Intake and Output 03/05/19 03/05/19 03/06/19 15:00 23:00 07:00 Intake Total 389 ml 110 ml 1410 ml Output Total 1100 ml 450 ml 1900 ml Balance -711 ml -340 ml -490 ml Images Echo - Technically very difficult study. Inferoseptal wall appears hypokinetic. The ejection fraction appears to be 45-50%. Transmitral Doppler flow pattern is Grade I-abnormal relaxation pattern. Doppler and Color-flow revealed trace mitral regurgitation. There is no evidence of significant pericardial effusion. Nutrition Consultation Dietary Evaluation: Recommendations by RD: Increase Calorie Intake, Protein supplementation Comments: REC Vital HP@20 ml/hr, increase 10 ml q8 hrs as tolerated to goal rate 45 ml/hr w/100 ml water flushes q4 hrs REC Iain BID - if administering via tube, mix 1 packet w/4 oz water until dissolved and flush tube w/30 ml water before and after each packet REC liquid MVI via OG tube if able Expected Outcomes/Goals: initiation of nutrition within 24 - 48 hrs while pt remains intubated Malnutrition Findings: Food and Nutrition Intake (Mod: <75% est energy req 7days Weight Status: Appropriate ELLEN CONROY MD Mar 06, 2019 08:57
[2019-03-06] MEDS ORDERED: POTASSIUM CHLORIDE 20 MEQ/15 ML ORAL LIQUID. PEG ONE ×2 (09:00→14:00)
--- NOTE | 2019-03-06 09:11 | PDOC ---
PULMONARY PROGRESS NOTES Subjective PT NOW ON AMIODARONE AC MODE Vitals Vital Signs Date Time Temp Pulse Resp B/P (MAP) Pulse Ox O2 Delivery O2 Flow Rate FiO2 03/06/19 08:32 100 Ventilator 03/06/19 06:00 74 20 85/47 (60) 03/06/19 04:00 99.1 99.1 03/05/19 16:00 15.0 Lungs: Clear Cardiovascular: S1, S2 Abdomen: Soft Extremities: No Edema Skin: Warm Labs Laboratory Tests Test 03/05/19 00:35 03/05/19 01:03 03/05/19 04:17 03/05/19 04:20 White Blood Count 16.6 x10^3/uL (4.0-11.0) Red Blood Count 3.46 x10^6/uL (4.30-5.70) Hemoglobin 10.1 g/dL (13.0-17.5) Hematocrit 30.6 % (39.0-53.0) Mean Corpuscular Volume 88 fL (79-100) Mean Corpuscular Hemoglobin 29 pg (25-35) Mean Corpuscular Hemoglobin Concent 33 g/dL (31-37) Red Cell Distribution Width 14.7 % (11.5-14.5) Platelet Count 199 x10^3/uL (140-400) Neutrophils (%) (Auto) 92 % (31-73) Lymphocytes (%) (Auto) 4 % (24-48) Monocytes (%) (Auto) 3 % (0-9) Eosinophils (%) (Auto) 1 % (0-3) Basophils (%) (Auto) 0 % (0-3) Neutrophils # (Auto) 15.3 x10^3uL (1.8-7.7) Lymphocytes # (Auto) 0.7 x10^3/uL (1.0-4.8) Monocytes # (Auto) 0.5 x10^3/uL (0.0-1.1) Eosinophils # (Auto) 0.2 x10^3/uL (0.0-0.7) Basophils # (Auto) 0.0 x10^3/uL (0.0-0.2) Segmented Neutrophils % 88 % (35-66) Band Neutrophils % 1 % (0-9) Lymphocytes % 6 % (24-48) Monocytes % 4 % (0-10) Eosinophils % 1 % (0-5) Platelet Estimate Adequate (ADEQUATE) Sodium Level 122 mmol/L (136-145) 128 mmol/L (136-145) Potassium Level 7.3 mmol/L (3.5-5.1) 5.3 mmol/L (3.5-5.1) Chloride Level 96 mmol/L (98-107) 99 mmol/L (98-107) Carbon Dioxide Level 17 mmol/L (21-32) 23 mmol/L (21-32) Anion Gap 9 (6-14) 6 (6-14) Blood Urea Nitrogen 82 mg/dL (8-26) 75 mg/dL (8-26) Creatinine 2.5 mg/dL (0.7-1.3) 2.0 mg/dL (0.7-1.3) Estimated GFR (Cockcroft-Gault) 25.8 33.4 BUN/Creatinine Ratio 33 (6-20) Glucose Level 183 mg/dL (70-99) 224 mg/dL (70-99) Hemoglobin A1c 6.7 % (4.8-5.6) Lactic Acid Level 0.6 mmol/L (0.4-2.0) Calcium Level 8.1 mg/dL (8.5-10.1) 10.7 mg/dL (8.5-10.1) Magnesium Level 1.9 mg/dL (1.8-2.4) Total Bilirubin 0.2 mg/dL (0.2-1.0) Aspartate Amino Transf (AST/SGOT) 16 U/L (15-37) Alanine Aminotransferase (ALT/SGPT) 16 U/L (16-63) Alkaline Phosphatase 65 U/L (46-116) Creatine Kinase 91 U/L (39-308) Creatine Kinase MB (Mass) 3.9 ng/mL (0.0-3.6) Creatine Kinase MB Relative Index 4.3 % (0-4) Troponin I Quantitative < 0.017 ng/mL (0.000-0.055) 0.021 ng/mL (0.000-0.055) QJ-Ssi-L-Type Natriuretic Peptide 3149 pg/mL (0-124) Total Protein 5.7 g/dL (6.4-8.2) Albumin 2.7 g/dL (3.4-5.0) Albumin/Globulin Ratio 0.9 (1.0-1.7) Lipase 70 U/L (73-393) O2 Saturation 99 % (92-99) Arterial Blood pH 7.16 (7.35-7.45) Arterial Blood pCO2 at Patient Temp 35 mmHg (35-46) Arterial Blood pO2 at Patient Temp 488 mmHg (65-108) Arterial Blood HCO3 12 mmol/L (21-28) Arterial Blood Base Excess -16 mmol/L (-3-3) Oxyhemoglobin 98.4 % Methemoglobin 0.4 % (0.0-1.9) Carbon Monoxide, Quantitative 0.3 % (0.0-1.9) FiO2 100 Glucose (Fingerstick) 216 mg/dL (70-99) Triglycerides Level 173 mg/dL (0-150) Cholesterol Level 72 mg/dL (0-200) LDL Cholesterol, Calculated 10 mg/dL (0-100) VLDL Cholesterol, Calculated 35 mg/dL (0-40) Non-HDL Cholesterol Calculated 45 mg/dL (0-129) HDL Cholesterol 27 mg/dL (40-60) Cholesterol/HDL Ratio 2.7 Test 03/05/19 08:13 03/05/19 09:30 03/05/19 09:34 03/05/19 13:41 O2 Saturation 99 % (92-99) Arterial Blood pH 7.40 (7.35-7.45) Arterial Blood pCO2 at Patient Temp 33 mmHg (35-46) Arterial Blood pO2 at Patient Temp 173 mmHg (65-108) Arterial Blood HCO3 20 mmol/L (21-28) Arterial Blood Base Excess -4 mmol/L (-3-3) FiO2 50 Troponin I Quantitative < 0.017 ng/mL (0.000-0.055) Procalcitonin 0.40 ng/mL (0.00-0.10) Glucose (Fingerstick) 134 mg/dL (70-99) 147 mg/dL (70-99) Test 03/05/19 16:45 03/05/19 17:38 03/06/19 03:20 03/06/19 08:00 Sodium Level 136 mmol/L (136-145) 137 mmol/L (136-145) Potassium Level 4.3 mmol/L (3.5-5.1) 3.1 mmol/L (3.5-5.1) Chloride Level 102 mmol/L (98-107) 103 mmol/L (98-107) Carbon Dioxide Level 24 mmol/L (21-32) 26 mmol/L (21-32) Anion Gap 10 (6-14) 8 (6-14) Blood Urea Nitrogen 52 mg/dL (8-26) 35 mg/dL (8-26) Creatinine 1.4 mg/dL (0.7-1.3) 1.1 mg/dL (0.7-1.3) Estimated GFR (Cockcroft-Gault) 50.4 66.6 Glucose Level 159 mg/dL (70-99) 153 mg/dL (70-99) Calcium Level 9.2 mg/dL (8.5-10.1) 9.0 mg/dL (8.5-10.1) Magnesium Level 1.5 mg/dL (1.8-2.4) 2.5 mg/dL (1.8-2.4) Glucose (Fingerstick) 121 mg/dL (70-99) O2 Saturation 85 % (92-99) Arterial Blood pH 7.46 (7.35-7.45) Arterial Blood pCO2 at Patient Temp 31 mmHg (35-46) Arterial Blood pO2 at Patient Temp 48 mmHg (65-108) Arterial Blood HCO3 21 mmol/L (21-28) Arterial Blood Base Excess -2 mmol/L (-3-3) FiO2 40 Laboratory Tests Test 03/05/19 09:30 03/05/19 09:34 03/05/19 13:41 03/05/19 16:45 Troponin I Quantitative < 0.017 ng/mL (0.000-0.055) Procalcitonin 0.40 ng/mL (0.00-0.10) Glucose (Fingerstick) 134 mg/dL (70-99) 147 mg/dL (70-99) Sodium Level 136 mmol/L (136-145) Potassium Level 4.3 mmol/L (3.5-5.1) Chloride Level 102 mmol/L (98-107) Carbon Dioxide Level 24 mmol/L (21-32) Anion Gap 10 (6-14) Blood Urea Nitrogen 52 mg/dL (8-26) Creatinine 1.4 mg/dL (0.7-1.3) Estimated GFR (Cockcroft-Gault) 50.4 Glucose Level 159 mg/dL (70-99) Calcium Level 9.2 mg/dL (8.5-10.1) Magnesium Level 1.5 mg/dL (1.8-2.4) Test 03/05/19 17:38 03/06/19 03:20 03/06/19 08:00 Glucose (Fingerstick) 121 mg/dL (70-99) Sodium Level 137 mmol/L (136-145) Potassium Level 3.1 mmol/L (3.5-5.1) Chloride Level 103 mmol/L (98-107) Carbon Dioxide Level 26 mmol/L (21-32) Anion Gap 8 (6-14) Blood Urea Nitrogen 35 mg/dL (8-26) Creatinine 1.1 mg/dL (0.7-1.3) Estimated GFR (Cockcroft-Gault) 66.6 Glucose Level 153 mg/dL (70-99) Calcium Level 9.0 mg/dL (8.5-10.1) Magnesium Level 2.5 mg/dL (1.8-2.4) O2 Saturation 85 % (92-99) Arterial Blood pH 7.46 (7.35-7.45) Arterial Blood pCO2 at Patient Temp 31 mmHg (35-46) Arterial Blood pO2 at Patient Temp 48 mmHg (65-108) Arterial Blood HCO3 21 mmol/L (21-28) Arterial Blood Base Excess -2 mmol/L (-3-3) FiO2 40 Medications Active Scripts Medications Dose Route/Sig Max Daily Dose Days Date Category Dose Instructions Timoptic 0.5% (Timolol Maleate) 10 Ml Drops 1 Drop EACHEYE BID 03/05/19 Reported Senna-S Tablet (Sennosides/Docusate Sodium) 1 Each Tablet 1 Each PO BID 03/05/19 Reported Onglyza (Saxagliptin Hcl) 5 Mg Tablet 1 Tab PO DAILY 03/05/19 Reported Crestor (Rosuvastatin Calcium) 20 Mg Tablet 20 Mg PO HS 03/05/19 Reported Miralax (Polyethylene Glycol 3350) 17 Gm Powd.pack 1 Packet PO DAILY 03/05/19 Reported Percocet 5-325 Mg Tablet (Oxycodone/Acetaminophen) 1 Each Tablet 1 Tab PO QID PRN 03/05/19 Reported Oxycodone Hcl Immed.release (Oxycodone Hcl) 5 Mg Tablet 5 Mg PO PRN Q4HRS PRN 03/05/19 Reported take 1 to 3 tabs Q4H prn Metoprolol Tartrate 25 Mg Tablet 1 Tab PO BID 03/05/19 Reported Metformin Hcl 500 Mg Tablet 500 Mg PO [id number] 03/05/19 Reported Metformin Hcl 1,000 Mg Tablet 1,000 Mg PO [id number] 03/05/19 Reported Meloxicam 15 Mg Tablet 1 Tab PO NOON 03/05/19 Reported Lisinopril 20 Mg Tablet 1 Tab PO DAILY 03/05/19 Reported Xalatan (Latanoprost) 2.5 Ml Drops 1 Drop EACHEYE QHS 03/05/19 Reported Gabapentin (Gabapentin) 300 Mg Capsule 900 Mg PO TID 03/05/19 Reported Docusate Sodium 100 Mg Capsule 1 Cap PO BID 03/05/19 Reported Diltiazem 24HR Cd (Diltiazem Hcl) 120 Mg Cap.er.24h 1 Cap PO DAILY 03/05/19 Reported Restasis (Cyclosporine) 1 Each Droperette 1 Drop EACHEYE BID 03/05/19 Reported Refresh Optive Eye Drops (Carboxymethylcellulos/Glycerin) 15 Ml Drops 1 Drop EACHEYE QID PRN 03/05/19 Reported Wellbutrin Sr (Bupropion Hcl) 100 Mg Tablet.er 1 Tab PO BID 03/05/19 Reported Aspirin Ec (Aspirin) 81 Mg Tablet.dr 1 Tab PO DAILY 03/05/19 Reported Simbrinza 1%-0.2% Eye Drops (Brinzolamide/Brimonid Tart) 8 Ml Drops.susp 8 Ml OP BID 03/05/19 Reported Impression . IMPRESSION: 1. Acute hypoxemic respiratory failure. 2. Severe metabolic acidosis. 3. Leukocytosis. 4. Abnormal chest x-ray. 5. Bradycardia. 6. Hypercalcemia. 7. Acute exacerbation of chronic obstructive pulmonary disease. 8. Type 2 diabetes. 9. Coronary artery disease, status post coronary artery bypass grafting. 10. Acute on chronic metabolic toxic encephalopathy, present upon admission. 11. Bladder cancer, status post chemo cystectomy with ileal conduit. 12. Arrhythmias Plan . d/w with not stable enough for trial will continue the same 1. We will continue current support with assist control ventilation. 2. Empiric antibiotics. 3. Monitor electrolytes closely. 5. Follow cardiology input. 6. Insulin. 7. Procalcitonin noted to be 0.40. TAWANDA WOODY MD Mar 06, 2019 09:11
--- NOTE | 2019-03-06 11:53 | PDOC ---
SUBJECTIVE ROS Stable OBJECTIVE Vital Signs Vital Signs Date Time Temp Pulse Resp B/P (MAP) Pulse Ox O2 Delivery O2 Flow Rate FiO2 03/06/19 10:00 74 20 114/57 (76) 100 Ventilator 03/06/19 08:00 99.0 99.0 03/05/19 16:00 15.0 I & 0 Intake and Output 03/06/19 07:00 Intake Total 1909 ml Output Total 3450 ml Balance -1541 ml Intake IV Total 1809 ml Tube Feeding 100 ml Output Urine Total 3450 ml PHYSICAL EXAM Physical Exam GEN.: No apparent distress. Sedated on vent, HEENT: Intubated NECK: Supple, LUNGS: CTA HEART: RRR, S1, S2 present. ABDOMEN: Soft, nontender. Urostomy + EXTREMITIES: No edema. NEUROLOGIC: Moving all 4 limbs spontaneously, Sedated SKIN: No Rash Urostomy DIAGNOSIS/ASSESSMENT Assessment & Plan FARA - Suspect pre-renal/Vasomotor sec to Poor PO intake Renal function improving Cr down to 1.1 Good UOP , E-Lytes stable Monitor Hypotension- Started on pressors last night BP improved Hyperkalemia - Improved to 5.3 from 7's Bradycardiac requiring Temp Pacemaker Today Hypokalemia, replaced Hypomag- replace as indicated Hyponatremia- Improved Acute encephalopathy Hypoxic respiratory failure - with underlying COPD, Has bilateral interstitial opacities. Symptomatic bradycardia - Initially paced, likely 2/2 hyperkalemia CAD s/p CABG x3 - stable Echo EF 45-50%. Bladder Cancer s/p chemotherapy and cystectomy with ileoconduit (12/[address] Licea @ [facility]) has appt on 03/10/19 for f/u. Diabetes 2 Discussed with RN at bedside COMMENT/RELEVANT DATA Meds Current Medications Medications (Trade) Dose Ordered Sig/Jennifer Start Time Stop Time Status Last Admin Dose Admin Albuterol Sulfate (Ventolin Neb Soln) 2.5 mg 1X ONCE 03/04/19 23:15 03/05/19 00:01 DC 03/04/19 23:15 2.5 MG Amiodarone HCl 900 mg/Dextrose 518 ml @ 0 mls/hr CONT PRN 03/05/19 22:15 03/06/19 22:14 03/05/19 21:16 33.3 MLS/HR Amiodarone HCl 50 mg/Dextrose 101 ml @ 600 mls/hr 1X ONCE 03/05/19 22:00 03/05/19 22:10 DC 03/05/19 21:16 600 MLS/HR Atropine Sulfate (ATROPINE 1mg SYRINGE) 1 mg 1X ONCE 03/05/19 00:00 03/05/19 00:02 DC 03/04/19 23:18 1 MG Calcium Chloride 2000 mg/Dextrose 120 ml @ 240 mls/hr 1X ONCE 03/05/19 02:30 03/05/19 02:59 DC 03/05/19 02:16 240 MLS/HR Calcium Gluconate (Calcium Gluconate) 1,000 mg 1X ONCE 03/05/19 00:15 03/05/19 00:16 DC 03/05/19 00:50 1,000 MG Ceftriaxone Sodium (Rocephin) 1 gm Q24H 03/05/19 14:00 03/05/19 15:12 1 GM Chlorhexidine Gluconate (Peridex) 15 ml BID 03/05/19 09:00 Dexamethasone Sodium Phosphate (Decadron) 10 mg 1X ONCE 03/05/19 00:00 03/05/19 00:02 DC Dextrose (Dextrose 50%-Water Syringe) 25 gm 1X ONCE 03/05/19 01:30 03/05/19 01:31 DC 03/05/19 01:32 25 GM Dopamine HCl/ Dextrose 250 ml @ 5.46 mls/hr CONT PRN 03/06/19 03:30 03/06/19 03:41 6.825 MLS/HR Doxycycline Hyclate 100 mg/ Dextrose 100 ml @ 50 mls/hr Q12HR 03/05/19 21:00 03/05/19 21:45 50 MLS/HR Enoxaparin Sodium (Lovenox 40mg Syringe) 30 mg Q24H 03/05/19 14:00 Cancel Etomidate (Amidate) 20 mg 1X ONCE 03/05/19 00:00 03/05/19 00:02 DC 03/04/19 23:32 20 MG Famotidine (Pepcid Vial) 20 mg QHS 03/05/19 21:00 03/05/19 21:43 20 MG Fentanyl Citrate (Fentanyl 2ml Vial) 50 mcg PRN Q1HR PRN 03/04/19 23:30 Heparin Sodium (Porcine) (Heparin Sodium) 5,000 unit Q8HRS 03/05/19 14:00 03/06/19 06:17 5,000 UNIT Insulin Human Lispro (HumaLOG) 0-5 UNITS TIDWMEALS 03/05/19 08:00 Insulin Human Regular (HumuLIN R VIAL) 10 unit 1X ONCE 03/05/19 01:30 03/05/19 01:31 DC 03/05/19 01:35 10 UNIT Magnesium Sulfate/ Dextrose 100 ml @ 25 mls/hr 1X ONCE 03/05/19 19:30 03/05/19 23:29 DC 03/05/19 19:45 25 MLS/HR Midazolam HCl 100 ml @ 5 mls/hr CONT PRN 03/05/19 14:00 03/06/19 03:41 5 MLS/HR Morphine Sulfate (Morphine Sulfate) 4 mg PRN Q1HR PRN 03/04/19 23:30 Norepinephrine Bitartrate 250 ml @ 1.875 mls/ hr CONT PRN 03/05/19 16:15 Potassium Chloride/Water 100 ml @ 100 mls/hr Q1H 03/06/19 05:00 03/06/19 06:59 DC 03/06/19 06:17 100 MLS/HR Potassium Chloride (KCl Oral Soln) 20 meq 1X ONCE 03/06/19 09:00 03/06/19 09:01 DC Propofol 100 ml @ 0 mls/hr CONT PRN 03/05/19 03:45 03/05/19 14:02 DC 03/05/19 12:27 10.92 MLS/HR Rocuronium [place] (Zemuron) 50 mg 1X ONCE 03/05/19 00:00 03/05/19 00:02 DC 03/04/19 23:33 50 MG Sodium Bicarbonate 150 meq/Dextrose 1,150 ml @ 100 mls/hr [id number] 03/05/19 03:00 03/05/19 18:00 DC 03/05/19 02:17 100 MLS/HR Sodium Bicarbonate (Sodium Bicarbonate Vial) 150 meq 1X ONCE 03/05/19 02:30 03/05/19 02:31 DC 03/05/19 02:12 150 MEQ Sodium Bicarbonate (Sodium Bicarb Adult 8.4% Syr) 50 meq STK-MED ONCE 03/05/19 02:02 03/05/19 02:03 DC Sodium Chloride 500 ml @ 500 mls/hr 1X ONCE 03/05/19 16:15 03/05/19 17:14 DC 03/05/19 16:15 500 MLS/HR Lab Laboratory Tests Test 03/05/19 13:41 03/05/19 16:45 03/05/19 17:38 03/06/19 03:20 Glucose (Fingerstick) 147 mg/dL (70-99) 121 mg/dL (70-99) Sodium Level 136 mmol/L (136-145) 137 mmol/L (136-145) Potassium Level 4.3 mmol/L (3.5-5.1) 3.1 mmol/L (3.5-5.1) Chloride Level 102 mmol/L (98-107) 103 mmol/L (98-107) Carbon Dioxide Level 24 mmol/L (21-32) 26 mmol/L (21-32) Anion Gap 10 (6-14) 8 (6-14) Blood Urea Nitrogen 52 mg/dL (8-26) 35 mg/dL (8-26) Creatinine 1.4 mg/dL (0.7-1.3) 1.1 mg/dL (0.7-1.3) Estimated GFR (Cockcroft-Gault) 50.4 66.6 Glucose Level 159 mg/dL (70-99) 153 mg/dL (70-99) Calcium Level 9.2 mg/dL (8.5-10.1) 9.0 mg/dL (8.5-10.1) Magnesium Level 1.5 mg/dL (1.8-2.4) 2.5 mg/dL (1.8-2.4) Test 03/06/19 08:00 O2 Saturation 85 % (92-99) Arterial Blood pH 7.46 (7.35-7.45) Arterial Blood pCO2 at Patient Temp 31 mmHg (35-46) Arterial Blood pO2 at Patient Temp 48 mmHg (65-108) Arterial Blood HCO3 21 mmol/L (21-28) Arterial Blood Base Excess -2 mmol/L (-3-3) FiO2 40 Results All relevant outside records, renal labs, imaging studies, telemetry/EKG's were reviewed. Other CxR-- 1. Partially visualized is a catheter along the right IJ with its tip not visualized. Recent placement of right subclavian catheter? If so, please readjust the catheter. 2. Bilateral interstitial opacities may be secondary to atypical/viral infection. JAZLYN BRASWELL MD Mar 06, 2019 11:53
[2019-03-06] MEDS: IV 1/2 NORMAL SALINE 1,000 ML IV SCH (13:42)
[2019-03-06] MEDS: CHLORHEXIDINE 0.12% 15 ML MOUTHWASH. MM SCH (13:42)
[2019-03-06] MEDS: DOXYCYCLINE HYCLATE 100 MG in IV DEXTROSE 5% 100ML 100 ML IV SCH ×2 (13:54→21:06)
[2019-03-06] MEDS: cefTRIAXone IV Push 1 GM VIAL. IVP SCH (13:55)
[2019-03-06] MEDS ORDERED: ASPIRIN RECTAL 300 MG SUPP. PR SCH (14:15)
--- NOTE | 2019-03-06 14:32 | PDOC ---
[facility] [employer] DIRECT[facility] 03/06/19 1432: CARDIO Progress Notes Date and Time Date of Service 03/06/2019 Time of Evaluation 1130 Subjective Subjective: Other (intubated) Vitals Vitals Vital Signs Date Time Temp Pulse Resp B/P (MAP) Pulse Ox O2 Delivery O2 Flow Rate FiO2 03/06/19 10:00 74 20 114/57 (76) 100 Ventilator 03/06/19 08:00 99.0 99.0 03/05/19 16:00 15.0 Weight Weight [ ] Input and Output Intake and Output Intake and Output 03/06/19 07:00 Intake Total 1909 ml Output Total 3450 ml Balance -1541 ml Intake IV Total 1809 ml Tube Feeding 100 ml Output Urine Total 3450 ml Laboratory Labs Laboratory Tests Test 03/05/19 16:45 03/05/19 17:38 03/06/19 03:20 03/06/19 08:00 Sodium Level 136 mmol/L (136-145) 137 mmol/L (136-145) Potassium Level 4.3 mmol/L (3.5-5.1) 3.1 mmol/L (3.5-5.1) Chloride Level 102 mmol/L (98-107) 103 mmol/L (98-107) Carbon Dioxide Level 24 mmol/L (21-32) 26 mmol/L (21-32) Anion Gap 10 (6-14) 8 (6-14) Blood Urea Nitrogen 52 mg/dL (8-26) 35 mg/dL (8-26) Creatinine 1.4 mg/dL (0.7-1.3) 1.1 mg/dL (0.7-1.3) Estimated GFR (Cockcroft-Gault) 50.4 66.6 Glucose Level 159 mg/dL (70-99) 153 mg/dL (70-99) Calcium Level 9.2 mg/dL (8.5-10.1) 9.0 mg/dL (8.5-10.1) Magnesium Level 1.5 mg/dL (1.8-2.4) 2.5 mg/dL (1.8-2.4) Glucose (Fingerstick) 121 mg/dL (70-99) O2 Saturation 85 % (92-99) Arterial Blood pH 7.46 (7.35-7.45) Arterial Blood pCO2 at Patient Temp 31 mmHg (35-46) Arterial Blood pO2 at Patient Temp 48 mmHg (65-108) Arterial Blood HCO3 21 mmol/L (21-28) Arterial Blood Base Excess -2 mmol/L (-3-3) FiO2 40 Test 03/06/19 13:15 Glucose (Fingerstick) 180 mg/dL (70-99) Microbiology Micro Microbiology 03/05/19 Blood Culture - Preliminary, Resulted NO GROWTH AFTER 1 DAY Physical Exam HEENT: Neck Supple W Full Motion Chest: Symmetric LUNGS: Other (diminished bases) Heart: RRR (SR) Abdomen: Other (soft, OG in place) Extremities: No Edema Neurology: other (sedated) Assessment Assessment 1. Acute respiratory failure, multifactorial with AECOPD. remains intubated with vent 2. Symptomatic bradycardia; Initially requiring TCP. Now off it and on low dose dopamine. Mainly SR. 3. Metabolic acidosis/FARA: improved 4. Hyperkalemia; resolved now hypokalemic at 3.1 5. Hyponatremia; resolved 6. CAD s/p CABG x3 at age 38. Noncompliant with follow ups reports abnormal stress test at [facility] 12/2018 prior to bladder surgery. Was recommended to f/u with cardiology 8. Bladder CA, s/p cystectomy with ileoconduit 12/20/2018 9. Metabolic encephalopathy 10. Hypertension; improved, off levophed 11. DM2/HLP 12. Arrhythmia: multiple NSVT EF at 45% with inferoseptal hypokinesis, unknown prior baseline Recommendations Replace K Dopamine at low dose, will titrate off. Continue amiodarone maintenance IV while intubated. Pending records will need ischemic workup as an inpt. Rectal ASA. Restart home statin when able to take PO. ALAN HILLIARD MD 03/06/19 1515: CARDIO Progress Notes Assessment Assessment Patient seen and examined. 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 Telemetry showed few episodes of nonsustained ventricular tachycardia without any further episodes of bradycardia 2-D echo showed LVEF 45-50% Stop dopamine infusion Continue vent management per pulmonary team Plan for Lexiscan nuclear stress test to rule out ischemic etiology for NSVT once extubated. Continue amiodarone for antiarrhythmic therapy for now [facility] DIRECT[facility] Mar 06, 2019 14:32 ALAN HILLIARD MD Mar 06, 2019 15:15
--- NOTE | 2019-03-06 17:46 | NUR ---
Amiodarone abated V arrhythmia till early afternoon. 2-3 episodes 3-6sec runs self terminating V Tach. K replaced per order w mg level in parameters.Dr Barrett in. Conversation w / ie extubation only after vent excitability abates. Pain med x 2 IVP per order ,chronic back pain. Reportedly "sleeps in recliner at home. fofr assisted comfort. home at this time. Somnolent if left undisturbed. 174 40 second run self terminating R on T phenomenon. Dr Rhodes informed w/o order changes Fast patches in place prophylactically. Continued to monitor closely
[2019-03-06] MEDS ORDERED: ACETAMINOPHEN 325 MG TABLET. PO ONE (18:27)
[2019-03-06] MEDS ORDERED: ASPIRIN 325 MG TABLET ONE (18:42)
[2019-03-06] MEDS: ASPIRIN 325 MG TABLET PO SCH (18:43)
[2019-03-06] MEDS ORDERED: ACETAMINOPHEN 325 MG TABLET. PO PRN (18:45)
--- NOTE | 2019-03-06 18:46 | NUR ---
ASA ordered today and given today at 1845. Changed from a suppository to NG w all vent irritability.
[2019-03-06] MEDS: FAMOTIDINE 20 MG/2 ML VIAL IVP SCH (21:06)
[2019-03-07] VITALS (24 sets, daily range): BP systolic 107–162; BP diastolic 53–80
[2019-03-07] MEDS ORDERED: AMIODARONE 900 MG in IV DEXTROSE 5% 500 ML IV PRN (00:30)
[2019-03-07] MEDS: CHLORHEXIDINE 0.12% 15 ML MOUTHWASH. MM SCH ×3 (00:35→23:12)
[2019-03-07] MEDS ORDERED: AMIODARONE 450 MG in IV DEXTROSE 5% 250 ML IV PRN (01:00)
[2019-03-07] MEDS: fentaNYL PF VIAL 100 MCG/2 ML VIAL IV PRN ×4 (04:37→20:23)
[2019-03-07] MEDS: IV 1/2 NORMAL SALINE 1,000 ML IV SCH ×2 (05:03→22:15)
[2019-03-07] MEDS: HEPARIN for SUB-Q USE 5,000 UNIT/ML VIAL. SQ SCH ×3 (05:03→22:17)
--- NOTE | 2019-03-07 07:46 | RAD ---
Portable chest, 03/07/2019: HISTORY: Respiratory failure Comparison is made to yesterday's study. The ET tube tip lies well above the libby. An NG tube extends into the stomach. A right Port-A-Cath extends into the superior aspect of the right atrium. There has been a previous median sternotomy. The heart size and pulmonary vascularity are normal. No pulmonary infiltrate is seen. There is no evidence of pleural fluid. IMPRESSION: 1. Satisfactory tube positions. 2. No acute cardiopulmonary abnormality is detected. Electronically signed by: Wilver Ahumada MD (03/07/2019 7:43 AM) [facility]
[2019-03-07] MEDS: INSULIN LISPRO 300 UNITS/3 ML INSULN.PEN. SQ SCH ×3 (08:00→23:14)
[2019-03-07] MEDS ORDERED: ASPIRIN 325 MG TABLET PO SCH (08:00)
[2019-03-07] MEDS: DOXYCYCLINE HYCLATE 100 MG in IV DEXTROSE 5% 100ML 100 ML IV SCH ×2 (08:11→22:09)
[2019-03-07 08:29] LABS: BASE EXCESS ABG -3 mmol/L (-3-3); HCO3 ABG 21 mmol/L (21-28); PCO2 ABG 33 mmHg (35-46); PO2 ABG 223 mmHg (65-108); SAT O2 ABG 99 % (92-99)
--- NOTE | 2019-03-07 08:34 | PDOC ---
PROGRESS NOTES Chief Complaint Chief Complaint A/P: Acute encephalopathy - likely mixed picture, metabolic with uremia and hyperkalemia Hypoxic respiratory failure - with underlying COPD, never previously intubated, not on home O2. Intubated for hypoxia, doing much better on vent now but still hypoxic. Appreciate pulmonology. Has bilateral interstitial opacities. Not clear on etiology, F/u [facility] records. procalcitonin elevated - On rocephin and doxy for CAP treatment Sepsis - POA, likely 2/2 community acquired pneumonia, improving, still on pressors Hyperkalemia - 7.3 --> 3.1 with above corrective measures, still on IVF. BUN has improved significantly. Will cont fluids, consult nephrology. No indications for dialysis at this time Acute Kidney injury - BUN 82 and Cr 2.5 on admission, likely vasomotor nephropathy given his poor PO intake. Improved now Symptomatic bradycardia - Initially paced, with wide complex, likely 2/2 hyperkalemia, still on dopamine, improved. Cardiology consulted for further care. Wean dopamine as tolerated. Started on Amio per cardiology CAD s/p CABG x3 - stable outpatient with [facility] f/u in [place]. Will reconcile home meds. Hold nephrotoxic meds Bladder Cancer s/p chemotherapy and cystectomy with ileoconduit (12/[address] Licea @ [facility]) - has appt on 03/10/19 for f/u. Access for port ok. Monitor urostomy output. Will order records. Abdominal imaging is likely indicated. ?COPD - will order records. Seems to be tolerating vent well, no prior intu bations, not on O2, will wean off vent. Defer to pulm for use of steroids in his case. Diabetes-Type II - placed on sliding scale, check A1c FEN - OGT, Bicarbonate PPX - Heparin FULL CODE ICU for critically ill patient with life-threatening hyperkalemia now with hypoxic resp failure, greater than 35 minutes critical care time spent. D/w bedside his critical illness. Greater than 2 midnights inpatient required. History of Present Illness History of Present Illness Mr Ashley is a 68-year-old male 100% service connected [place] w/PMHx CAD s/p CABG x3, Bladder Cancer s/p chemotherapy and cystectomy with ileoconduit (12/[address] Licea @ [facility]), COPD, Diabetes-Type II who presents via EMS from [place] with report of 3 day history of progressive weakness and shortness of breath per spouse who reported he has been confused as well. Patient noted to be hypoxic by EMS down to 68% on room air, not on home O2. Given DuoNebs en route. Patient also noted to have heart rate down into the 30s, was given versed by EMS and transcutaneously paced enroute. Maintained low O2 saturations despite NRB and he was urgently intubated. Found on EKG with potassium of 7.3 and wide complex QRS. Started on bicarbonate gtt, dopamine, propofol for sedation. Pulm, cards, nephro consulted 03/06/19: Echo yesterday shows EF 45-50%. Started levophed last night for persistent hypotension. Did have V-tach. Labs improved K to 3.1, Cr 1.1, BUN 35. UOP picked up quite a bit >3L out over the past 24 hours. BP improved yesterday, off levophed and dopamine. Labs pending. CXR improved. D/w daughter bedside. Plan: Labs Wean O2 to plan for extubation in the next few days, may need to await more diuresis Cont pulm toileting Vitals Vitals Vital Signs Date Time Temp Pulse Resp B/P (MAP) Pulse Ox O2 Delivery O2 Flow Rate FiO2 03/07/19 08:18 100 Ventilator 03/07/19 08:09 16 03/07/19 06:00 71 120/60 (80) 03/07/19 05:07 15.0 03/07/19 04:00 98.5 98.5 Physical Exam General: Other (sedated) Heart: Regular rate, Normal S1, Normal S2, Other (distant heart tones) Lungs: Clear Abdomen: Other (soft ) Extremities: No edema Skin: No significant lesion Labs LABS Laboratory Tests Test 03/06/19 13:15 03/06/19 18:37 Glucose (Fingerstick) 180 mg/dL (70-99) 189 mg/dL (70-99) Assessment and Plan Assessmemt and Plan Problems Medical Problems: (1) Hyperkalemia Status: Acute (2) Hyponatremia Status: Acute (3) Renal insufficiency Status: Acute (4) Respiratory failure Status: Acute Comment Review of Relevant I have reviewed the following items fabián (where applicable) has been applied. Labs Laboratory Tests Test 03/05/19 09:30 03/05/19 09:34 03/05/19 13:41 03/05/19 16:45 Troponin I Quantitative < 0.017 ng/mL (0.000-0.055) Procalcitonin 0.40 ng/mL (0.00-0.10) Glucose (Fingerstick) 134 mg/dL (70-99) 147 mg/dL (70-99) Sodium Level 136 mmol/L (136-145) Potassium Level 4.3 mmol/L (3.5-5.1) Chloride Level 102 mmol/L (98-107) Carbon Dioxide Level 24 mmol/L (21-32) Anion Gap 10 (6-14) Blood Urea Nitrogen 52 mg/dL (8-26) Creatinine 1.4 mg/dL (0.7-1.3) Estimated GFR (Cockcroft-Gault) 50.4 Glucose Level 159 mg/dL (70-99) Calcium Level 9.2 mg/dL (8.5-10.1) Magnesium Level 1.5 mg/dL (1.8-2.4) Test 03/05/19 17:38 03/06/19 03:20 03/06/19 08:00 03/06/19 13:15 Glucose (Fingerstick) 121 mg/dL (70-99) 180 mg/dL (70-99) Sodium Level 137 mmol/L (136-145) Potassium Level 3.1 mmol/L (3.5-5.1) Chloride Level 103 mmol/L (98-107) Carbon Dioxide Level 26 mmol/L (21-32) Anion Gap 8 (6-14) Blood Urea Nitrogen 35 mg/dL (8-26) Creatinine 1.1 mg/dL (0.7-1.3) Estimated GFR (Cockcroft-Gault) 66.6 Glucose Level 153 mg/dL (70-99) Calcium Level 9.0 mg/dL (8.5-10.1) Magnesium Level 2.5 mg/dL (1.8-2.4) O2 Saturation 85 % (92-99) Arterial Blood pH 7.46 (7.35-7.45) Arterial Blood pCO2 at Patient Temp 31 mmHg (35-46) Arterial Blood pO2 at Patient Temp 48 mmHg (65-108) Arterial Blood HCO3 21 mmol/L (21-28) Arterial Blood Base Excess -2 mmol/L (-3-3) FiO2 40 Test 03/06/19 18:37 Glucose (Fingerstick) 189 mg/dL (70-99) Laboratory Tests Test 03/06/19 13:15 03/06/19 18:37 Glucose (Fingerstick) 180 mg/dL (70-99) 189 mg/dL (70-99) Microbiology 03/05/19 Blood Culture - Preliminary, Resulted NO GROWTH AFTER 2 DAYS Medications Current Medications Sodium Chloride 1,000 ml @ 1,000 mls/hr 1X ONCE IV Last administered on 03/04/19 23:28; Start 03/05/19 at 00:00; Stop 03/05/19 at 00:59; Status DC Fentanyl Citrate (Fentanyl 2ml Vial) 50 mcg 1X ONCE JOSE RAUL Last administered on 03/04/19 23:02; Start 03/05/19 at 00:00; Stop 03/05/19 at 00:02; Status DC Dexamethasone Sodium Phosphate (Decadron) 10 mg 1X ONCE IV ; Start 03/05/19 at 00:00; Stop 03/05/19 at 00:02; Status DC Atropine Sulfate (ATROPINE 1mg SYRINGE) 0.5 mg 1X ONCE IV Last administered on 03/04/19 23:07; Start 03/05/19 at 00:00; Stop 03/05/19 at 00:02; Status DC Albuterol Sulfate (Ventolin Neb Soln) 2.5 mg 1X ONCE NEB Last administered on 03/04/19 23:15; Start 03/04/19 at 23:15; Stop 03/05/19 at 00:01; Status DC Atropine Sulfate (ATROPINE 1mg SYRINGE) 0.5 mg 1X ONCE IV Last administered on 03/04/19 23:08; Start 03/05/19 at 00:00; Stop 03/05/19 at 00:02; Status DC Atropine Sulfate (ATROPINE 1mg SYRINGE) 1 mg 1X ONCE IV Last administered on 03/04/19 23:18; Start 03/05/19 at 00:00; Stop 03/05/19 at 00:02; Status DC Etomidate (Amidate) 20 mg 1X ONCE IV Last administered on 4/28/19at 23:32; Start 03/05/19 at 00:00; Stop 03/05/19 at 00:02; Status DC Rocuronium Marathon (Zemuron) 50 mg 1X ONCE IV Last administered on 03/04/19at 23:33; Start 03/05/19 at 00:00; Stop 03/05/19 at 00:02; Status DC Propofol 100 ml @ 0 mls/hr CONT PRN IV SEE PROTOCOL Last administered on 03/05/19at 02:16; Start 03/04/19 at 23:30; Stop 03/05/19 at 03:42; Status DC Fentanyl Citrate (Fentanyl 2ml Vial) 25 mcg PRN Q1HR PRN IV SEE COMMENTS Last administered on 03/06/19at 03:00; Start 03/04/19 at 23:30 Fentanyl Citrate (Fentanyl 2ml Vial) 50 mcg PRN Q1HR PRN IV SEE COMMENTS Last a dministered on 03/07/19 08:09; Start 03/04/19 at 23:30 Chlorhexidine Gluconate (Peridex) 15 ml BID MM Last administered on 03/07/19 08:09; Start 03/05/19 at 09:00 Morphine Sulfate (Morphine Sulfate) 2 mg PRN Q1HR PRN IV SEE COMMENTS.; Start 03/04/19 at 23:30 Morphine Sulfate (Morphine Sulfate) 4 mg PRN Q1HR PRN IV SEE COMMENTS.; Start 03/04/19 at 23:30 Propofol 50 ml @ As Directed STK-MED ONCE IV ; Start 03/04/19 at 23:47; Stop 03/04/19 at 23:48; Status DC Calcium Gluconate (Calcium Gluconate) 1,000 mg 1X ONCE IVP Last administered on 03/05/19at 00:50; Start 03/05/19 at 00:15; Stop 03/05/19 at 00:16; Status DC Dopamine HCl/ Dextrose 250 ml @ 6.844 mls/ hr 1X ONCE IV Last administered on 03/05/19at 01:11; Start 03/05/19 at 00:30; Stop 03/06/19 at 13:01; Status DC Dopamine HCl/ Dextrose 250 ml @ As Directed STK-MED ONCE IV ; Start 03/05/19 at 00:00; Stop 03/05/19 at 00:01; Status DC Propofol 50 ml @ 1.095 mls/ hr 1X ONCE IV Last administered on 03/04/19at 23:51; Start 03/05/19 at 00:15; Stop 03/06/19 at 21:54; Status DC Insulin Human Lispro (HumaLOG) 0-5 UNITS TIDWMEALS SQ Last administered on 03/06/19at 18:41; Start 03/05/19 at 08:00 Dextrose (Dextrose 50%-Water Syringe) 12.5 gm PRN Q15MIN PRN IV SEE COMMENTS; Start 03/05/19 at 00:30 Sodium Chloride 1,000 ml @ 125 mls/hr 1X ONCE IV Last administered on 03/05/19at 00:45; Start 03/05/19 at 01:00; Stop 03/05/19 at 02:01; Status DC Insulin Human Regular (HumuLIN R VIAL) 10 unit 1X ONCE IV Last administered on 03/05/19at 01:35; Start 03/05/19 at 01:30; Stop 03/05/19 at 01:31; Status DC Dextrose (Dextrose 50%-Water Syringe) 25 gm 1X ONCE IV Last administered on 03/05/19at 01:32; Start 03/05/19 at 01:30; Stop 03/05/19 at 01:31; Status DC Calcium Chloride 2000 mg/Dextrose 120 ml @ 240 mls/hr 1X ONCE IV Last administered on 03/05/19at 02:16; Start 03/05/19 at 02:30; Stop 03/05/19 at 02:59; Status DC Sodium Bicarbonate 150 meq/Dextrose 1,150 ml @ 100 mls/hr [id number] IV Last administered on 03/05/19at 02:17; Start 03/05/19 at 03:00; Stop 03/05/19 at 18:00; Status DC Sodium Bicarbonate (Sodium Bicarbonate Vial) 150 meq 1X ONCE IV Last administered on 03/05/19at 02:12; Start 03/05/19 at 02:30; Stop 03/05/19 at 02:31; Status DC Sodium Bicarbonate (Sodium Bicarb Adult 8.4% Syr) 50 meq STK-MED ONCE .ROUTE ; Start 03/05/19 at 02:02; Stop 03/05/19 at 02:03; Status DC Propofol 100 ml @ 0 mls/hr CONT PRN IV SEE I/O RECORD Last administered on 03/05/19 12:27; Start 03/05/19 at 03:45; Stop 03/05/19 at 14:02; Status DC Sodium Chloride 1,000 ml @ 75 mls/hr [id number] IV Last administered on 03/07/19 05:03; Start 03/05/19 at 09:00 Famotidine (Pepcid Vial) 20 mg QHS IVP Last administered on 03/06/19 21:06; Start 03/05/19 at 21:00 Heparin Sodium (Porcine) (Heparin Sodium) 5,000 unit Q8HRS SQ Last administered on 03/07/19 05:03; Start 03/05/19 at 14:00 Midazolam HCl 100 ml @ 5 mls/hr CONT PRN IV SEE I/O RECORD Last administered on 03/06/19at 18:46; Start 03/05/19 at 14:00 Ceftriaxone Sodium (Rocephin) 1 gm Q24H IVP Last administered on 03/06/19at 13:55; Start 03/05/19 at 14:00 Doxycycline Hyclate 100 mg/ Dextrose 100 ml @ 50 mls/hr Q12HR IV Last administered on 03/07/19 08:11; Start 03/05/19 at 21:00 Enoxaparin Sodium (Lovenox 40mg Syringe) 30 mg Q24H SQ ; Start 03/05/19 at 14:00; Status Cancel Sodium Chloride 500 ml @ 500 mls/hr 1X ONCE IV Last administered on 03/05/19 16:15; Start 03/05/19 at 16:15; Stop 03/05/19 at 17:14; Status DC Norepinephrine Bitartrate 250 ml @ 1.875 mls/ hr CONT PRN IV SEE I/O RECORD; Start 03/05/19 at 16:15 Magnesium Sulfate/ Dextrose 100 ml @ 25 mls/hr 1X ONCE IV Last administered on 03/05/19at 19:45; Start 03/05/19 at 19:30; Stop 03/05/19 at 23:29; Status DC Amiodarone HCl 50 mg/Dextrose 101 ml @ 600 mls/hr 1X ONCE IV Last administered on 03/05/19at 21:16; Start 03/05/19 at 22:00; Stop 03/05/19 at 22:10; Status DC Amiodarone HCl 900 mg/Dextrose 518 ml @ 0 mls/hr CONT PRN IV SEE I/O RECORD Last administered on 03/05/19at 21:16; Start 03/05/19 at 22:15; Stop 03/06/19 at 22:14; Status DC Dopamine HCl/ Dextrose 250 ml @ 5.46 mls/hr CONT PRN IV SEE I/O RECORD Last administered on 03/06/19at 03:41; Start 03/06/19 at 03:30; Stop 03/06/19 at 18:32; Status DC Potassium Chloride/Water 100 ml @ 100 mls/hr Q1H IV Last administered on 03/06/19at 06:17; Start 03/06/19 at 05:00; Stop 03/06/19 at 06:59; Status DC Potassium Chloride (KCl Oral Soln) 20 meq 1X ONCE PEG ; Start 03/06/19 at 09:00; Stop 03/06/19 at 09:01; Status Cancel Potassium Chloride (KCl Oral Soln) 20 meq 1X ONCE PEG Last administered on 03/06/19at 16:24; Start 03/06/19 at 14:00; Stop 03/06/19 at 14:01; Status DC Aspirin (Aspirin) 300 mg DAILY OK ; Start 03/06/19 at 14:15; Stop 03/06/19 at 17:46; Status DC Aspirin (Darren Aspirin) 325 mg DAILYWBKFT PO Last administered on 03/06/19at 18:43; Start 03/07/19 at 08:00 Acetaminophen (Tylenol) 325 mg STK-MED ONCE PO ; Start 03/06/19 at 18:27; Stop 03/06/19 at 18:28; Status DC Aspirin (Darren Aspirin) 325 mg DAILYWBKFT PO ; Start 03/07/19 at 08:00; Status UNV Acetaminophen (Tylenol) 325 mg PRN Q6HRS PRN PO MILD PAIN / TEMP; Start 03/06/19 at 18:45 Aspirin (Darren Aspirin) 325 mg STK-MED ONCE .ROUTE ; Start 03/06/19 at 18:42; Stop 03/06/19 at 18:43; Status DC Amiodarone HCl 900 mg/Dextrose 518 ml @ 0 mls/hr CONT PRN IV SEE I/O RECORD; Start 03/07/19 at 00:30; Status UNV Amiodarone HCl 450 mg/Dextrose 259 ml @ 17.26 mls/ hr CONT PRN IV SEE I/O RECORD Last administered on 03/07/19at 02:27; Start 03/07/19 at 01:00 Active Scripts Active Reported Timoptic 0.5% (Timolol Maleate) 10 Ml Drops 1 Drop EACHEYE BID Senna-S Tablet (Sennosides/Docusate Sodium) 1 Each Tablet 1 Each PO BID Onglyza (Saxagliptin Hcl) 5 Mg Tablet 1 Tab PO DAILY Crestor (Rosuvastatin Calcium) 20 Mg Tablet 20 Mg PO HS Miralax (Polyethylene Glycol 3350) 17 Gm Powd.pack 1 Packet PO DAILY Percocet 5-325 Mg Tablet (Oxycodone/Acetaminophen) 1 Each Tablet 1 Tab PO QID PRN Oxycodone Hcl Immed.release (Oxycodone Hcl) 5 Mg Tablet 5 Mg PO PRN Q4HRS PRN take 1 to 3 tabs Q4H prn Metoprolol Tartrate 25 Mg Tablet 1 Tab PO BID Metformin Hcl 500 Mg Tablet 500 Mg PO DAILYWSUP Metformin Hcl 1,000 Mg Tablet 1,000 Mg PO DAILYWBKFT Meloxicam 15 Mg Tablet 1 Tab PO NOON Lisinopril 20 Mg Tablet 1 Tab PO DAILY Xalatan (Latanoprost) 2.5 Ml Drops 1 Drop EACHEYE QHS Gabapentin (Gabapentin) 300 Mg Capsule 900 Mg PO TID Docusate Sodium 100 Mg Capsule 1 Cap PO BID Diltiazem 24HR Cd (Diltiazem Hcl) 120 Mg Cap.er.24h 1 Cap PO DAILY Restasis (Cyclosporine) 1 Each Droperette 1 Drop EACHEYE BID Refresh Optive Eye Drops (Carboxymethylcellulos/Glycerin) 15 Ml Drops 1 Drop EACHEYE QID PRN Wellbutrin Sr (Bupropion Hcl) 100 Mg Tablet.er 1 Tab PO BID Aspirin Ec (Aspirin) 81 Mg Tablet.dr 1 Tab PO DAILY Simbrinza 1%-0.2% Eye Drops (Brinzolamide/Brimonid Tart) 8 Ml Drops.susp 8 Ml OP BID Vitals/I & O Vital Sign - Last 24 Hours 03/06/19 03/06/19 03/06/19 03/06/19 08:32 09:00 10:00 11:00 Pulse 76 74 76 Resp 20 20 20 B/P (MAP) 140/61 (87) 114/57 (76) 142/64 (90) Pulse Ox 100 100 100 100 O2 Delivery Ventilator Ventilator Ventilator Ventilator 03/06/19 03/06/19 03/06/19 03/06/19 11:20 12:00 12:00 13:00 Temp 98.9 98.9 Pulse 72 72 Resp 20 20 B/P (MAP) 126/61 (82) 154/63 (93) Pulse Ox 100 100 100 O2 Delivery Ventilator Mechanical Ventilator Ventilator Ventilator O2 Flow Rate 15.0 03/06/19 03/06/19 03/06/19 03/06/19 13:41 14:00 14:45 15:00 Pulse 82 79 Resp 20 16 B/P (MAP) 136/60 (85) 117/58 (77) Pulse Ox 100 100 100 100 O2 Delivery Ventilator Ventilator Ventilator O2 Flow Rate 15.0 03/06/19 03/06/19 03/06/19 03/06/19 16:00 16:00 16:24 17:00 Pulse 82 Resp 16 15 16 B/P (MAP) 118/62 (80) Pulse Ox 100 100 O2 Delivery Ventilator Mechanical Ventilator Ventilator O2 Flow Rate 15.0 15.0 03/06/19 03/06/19 03/06/19 03/06/19 17:00 17:05 18:00 18:00 Temp 100.0 100.0 Pulse 78 82 76 Resp 16 16 16 B/P (MAP) 100/52 (68) 104/49 (67) 123/58 (79) Pulse Ox 100 100 100 100 O2 Delivery Ventilator Ventilator Ventilator Ventilator 03/06/19 03/06/19 03/06/19 03/06/19 19:00 19:23 19:37 20:00 Temp 98.3 98.3 Pulse 76 82 Resp 16 16 B/P (MAP) 123/58 (79) 107/51 (69) Pulse Ox 100 100 100 100 O2 Delivery Ventilator Ventilator Ventilator O2 Flow Rate 15.0 03/06/19 03/06/19 03/06/19 03/06/19 20:00 20:58 21:00 22:00 Pulse 69 72 Resp 16 16 B/P (MAP) 94/49 (64) 106/54 (71) Pulse Ox 100 100 100 O2 Delivery Mechanical Ventilator Ventilator Ventilator Ventilator O2 Flow Rate 15.0 03/06/19 03/06/19 03/07/19 03/07/19 23:00 23:00 00:00 00:01 Temp 99.1 99.1 Pulse 74 74 Resp 16 16 B/P (MAP) 110/57 (74) 107/58 (74) Pulse Ox 100 100 100 O2 Delivery Ventilator Ventilator Mechanical Ventilator Ventilator O2 Flow Rate 15.0 03/07/19 03/07/19 03/07/19 03/07/19 00:44 01:00 02:00 03:00 Pulse 74 78 66 Resp 16 16 16 B/P (MAP) 134/64 (87) 136/63 (87) 117/53 (74) Pulse Ox 100 100 100 100 O2 Delivery Ventilator Ventilator Ventilator Ventilator 03/07/19 03/07/19 03/07/19 03/07/19 03:40 04:00 04:00 04:37 Temp 98.5 98.5 Pulse 74 Resp 16 B/P (MAP) 136/56 (82) Pulse Ox 100 100 100 O2 Delivery Ventilator Ventilator Mechanical Ventilator O2 Flow Rate 15.0 15.0 03/07/19 03/07/19 03/07/19 03/07/19 05:00 05:07 06:00 08:09 Pulse 68 71 Resp 16 16 16 B/P (MAP) 135/55 (81) 120/60 (80) Pulse Ox 100 100 100 100 O2 Delivery Ventilator Ventilator Ventilator Ventilator O2 Flow Rate 15.0 03/07/19 08:18 Pulse Ox 100 O2 Delivery Ventilator Intake and Output 03/06/19 03/06/19 03/07/19 15:00 23:00 07:00 Intake Total 0 ml 1690 ml 1324 ml Output Total 1000 ml 1200 ml 565 ml Balance -1000 ml 490 ml 759 ml Nutrition Consultation Dietary Evaluation: Recommendations by RD: Increase Calorie Intake, Protein supplementation Comments: REC Vital HP@20 ml/hr, increase 10 ml q8 hrs as tolerated to goal rate 45 ml/hr w/100 ml water flushes q4 hrs REC Iain BID - if administering via tube, mix 1 packet w/4 oz water until dissolved and flush tube w/30 ml water before and after each packet REC liquid MVI via OG tube if able Expected Outcomes/Goals: initiation of nutrition within 24 - 48 hrs while pt remains intubated Malnutrition Findings: Food and Nutrition Intake (Mod: <75% est energy req 7days Weight Status: Appropriate ELLEN CONROY MD March 07, 2019 08:34
--- NOTE | 2019-03-07 09:46 | NUR ---
SS following up with discharge planning. Pt is from home with spouse and is currently on the vent. No discharge needs noted at this time. SS will continue to follow for discharge planning.
[2019-03-07 10:33] LABS: BASO # 0.1 x10^3/uL (0.0-0.2); BASO % 0 % (0-3); EOS # 0.7 x10^3/uL (0.0-0.7); EOS % 5 % (0-3); HEMATOCRIT 28.2 % (39.0-53.0); HEMOGLOBIN 9.4 g/dL (13.0-17.5); LYMPH # 1.4 x10^3/uL (1.0-4.8); LYMPH % 10 % (24-48); MEAN CORPUSCULAR HEMOGLOBIN 29 pg (25-35); MEAN CORPUSCULAR HGB CONC 33 g/dL (31-37); MEAN CORPUSCULAR VOLUME 88 fL (79-100); MONO # 1.4 x10^3/uL (0.0-1.1); MONO % 10 % (0-9); NEUT # 10.3 x10^3uL (1.8-7.7); NEUT % 75 % (31-73); PLATELET COUNT 154 x10^3/uL (140-400); RED BLOOD COUNT 3.21 x10^6/uL (4.30-5.70); RED CELL DISTRIBUTION WIDTH 14.7 % (11.5-14.5); WHITE BLOOD COUNT 13.8 x10^3/uL (4.0-11.0)
[2019-03-07 10:42] LABS: ALBUMIN 2.3 g/dL (3.4-5.0); CALCIUM 8.7 mg/dL (8.5-10.1); CREATININE 0.9 mg/dL (0.7-1.3); GFR 83.9; PHOSPHORUS 2.5 mg/dL (2.6-4.7); POTASSIUM 3.8 mmol/L (3.5-5.1)
[2019-03-07 11:20] LABS: FIO2 ABG 50
[2019-03-07] MEDS: ASPIRIN 325 MG TABLET PO SCH (11:59)
--- NOTE | 2019-03-07 12:06 | PDOC ---
MÓNICA MACE PERIANESTHESIA RN 03/07/19 1206: CARDIO Progress Notes Date and Time Date of Service 03/07/19 Time of Evaluation 1112 Subjective Subjective: Other (intubated) Vitals Vitals Vital Signs Date Time Temp Pulse Resp B/P (MAP) Pulse Ox O2 Delivery O2 Flow Rate FiO2 03/07/19 11:00 100 Ventilator 03/07/19 08:40 16 15.0 03/07/19 06:00 71 120/60 (80) 03/07/19 04:00 98.5 98.5 Weight Weight [ ] Input and Output Intake and Output Intake and Output 03/07/19 07:00 Intake Total 3014 ml Output Total 2765 ml Balance 249 ml Intake Oral 0 ml IV Total 2084 ml Tube Feeding 430 ml Other 500 ml Output Urine Total 2765 ml Laboratory Labs Laboratory Tests Test 03/06/19 13:15 03/06/19 18:37 03/07/19 08:20 03/07/19 10:10 Glucose (Fingerstick) 180 mg/dL (70-99) 189 mg/dL (70-99) O2 Saturation 99 % (92-99) Arterial Blood pH 7.42 (7.35-7.45) Arterial Blood pCO2 at Patient Temp 33 mmHg (35-46) Arterial Blood pO2 at Patient Temp 223 mmHg (65-108) Arterial Blood HCO3 21 mmol/L (21-28) Arterial Blood Base Excess -3 mmol/L (-3-3) FiO2 50 White Blood Count 13.8 x10^3/uL (4.0-11.0) Red Blood Count 3.21 x10^6/uL (4.30-5.70) Hemoglobin 9.4 g/dL (13.0-17.5) Hematocrit 28.2 % (39.0-53.0) Mean Corpuscular Volume 88 fL (79-100) Mean Corpuscular Hemoglobin 29 pg (25-35) Mean Corpuscular Hemoglobin Concent 33 g/dL (31-37) Red Cell Distribution Width 14.7 % (11.5-14.5) Platelet Count 154 x10^3/uL (140-400) Neutrophils (%) (Auto) 75 % (31-73) Lymphocytes (%) (Auto) 10 % (24-48) Monocytes (%) (Auto) 10 % (0-9) Eosinophils (%) (Auto) 5 % (0-3) Basophils (%) (Auto) 0 % (0-3) Neutrophils # (Auto) 10.3 x10^3uL (1.8-7.7) Lymphocytes # (Auto) 1.4 x10^3/uL (1.0-4.8) Monocytes # (Auto) 1.4 x10^3/uL (0.0-1.1) Eosinophils # (Auto) 0.7 x10^3/uL (0.0-0.7) Basophils # (Auto) 0.1 x10^3/uL (0.0-0.2) Sodium Level 135 mmol/L (136-145) Potassium Level 3.8 mmol/L (3.5-5.1) Chloride Level 103 mmol/L (98-107) Carbon Dioxide Level 24 mmol/L (21-32) Anion Gap 8 (6-14) Blood Urea Nitrogen 27 mg/dL (8-26) Creatinine 0.9 mg/dL (0.7-1.3) Estimated GFR (Cockcroft-Gault) 83.9 Glucose Level 179 mg/dL (70-99) Calcium Level 8.7 mg/dL (8.5-10.1) Phosphorus Level 2.5 mg/dL (2.6-4.7) Albumin 2.3 g/dL (3.4-5.0) Microbiology Micro Microbiology 03/05/19 Blood Culture - Preliminary, Resulted NO GROWTH AFTER 2 DAYS Physical Exam HEENT: Neck Supple W Full Motion Chest: Symmetric LUNGS: Other (diminished bases) Heart: RRR (SR) Abdomen: Other (soft) Extremities: No Edema Neurology: other (sedated) Assessment Assessment 1. Acute respiratory failure, multifactorial with AECOPD. remains intubated with vent 2. Symptomatic bradycardia; Initially requiring TCP. Off dopamine. Mainly SR. No further significant bradycardia 3. Metabolic acidosis/FARA: improved 4. Hyperkalemia; resolved 5. Hyponatremia; resolved 6. CAD s/p CABG x3 at age 38. Noncompliant with follow ups. reports abnormal stress test at [facility] 12/2018 prior to bladder surgery. Was recommended to f/u with cardiology 8. Bladder CA, s/p cystectomy with ileoconduit 12/20/2018 9. Metabolic encephalopathy 10. Hypertension; improved, off levophed 11. DM2/HLP 12. Arrhythmia: multiple NSVT and episode of sustained VT yesterday evening. EF at 45% with inferoseptal hypokinesis, unknown prior baseline Recommendations Continue amiodarone per protocol. Covert to 200mg BID orally when infusion co mplete. Awaiting [facility] records regarding CV disease and recent workup Will need further ischemic workup as an inpatient; possible cath later this week when extubated. Rectal ASA. Statin when able to take PO. Vent management as per pulmonary ALAN HILLIARD MD 03/07/19 1703: CARDIO Progress Notes Assessment Assessment Patient seen and examined. Agree with TAPPET ADJUSTER's assessment and plan. Longer episode of ventricular tachycardia from yesterday noted. Continue amiodarone for antiarrhythmic therapy. Plan cardiac catheterization once more stable. Continue vent management per pulmonary team. MÓNICA MACE APRN March 07, 2019 12:06 ALAN HILLIARD MD March 07, 2019 17:03
--- NOTE | 2019-03-07 12:15 | PDOC ---
SUBJECTIVE ROS Stable OBJECTIVE Vital Signs Vital Signs Date Time Temp Pulse Resp B/P (MAP) Pulse Ox O2 Delivery O2 Flow Rate FiO2 03/07/19 11:00 100 Ventilator 03/07/19 08:40 16 15.0 03/07/19 06:00 71 120/60 (80) 03/07/19 04:00 98.5 98.5 I & 0 Intake and Output 03/07/19 07:00 Intake Total 3014 ml Output Total 2765 ml Balance 249 ml Intake Oral 0 ml IV Total 2084 ml Tube Feeding 430 ml Other 500 ml Output Urine Total 2765 ml PHYSICAL EXAM Physical Exam GEN.: Intubated HEENT: Intubated NECK: Supple, LUNGS: CTA HEART: RRR, S1, S2 present. ABDOMEN: Soft, nontender. Urostomy + EXTREMITIES: No edema. NEUROLOGIC: Moving all 4 limbs spontaneously, Sedated SKIN: No Rash Urostomy DIAGNOSIS/ASSESSMENT Assessment & Plan FARA - Suspect pre-renal/Vasomotor sec to Poor PO intake Renal function back to Normal Good UOP , E-Lytes stable Hypotension- BP improved off levophed and dopamine Hyperkalemia - Improved to 5.3 from 7's Bradycardiac requiring Temp Pacemaker Hypokalemia yesterday, replaced Hypomag- replace as indicated Hyponatremia- mild Acute encephalopathy Hypoxic respiratory failure - with underlying COPD, Has bilateral interstitial opacities. Symptomatic bradycardia - Initially paced, likely 2/2 hyperkalemia CAD s/p CABG x3 - stable Echo EF 45-50%. Bladder Cancer s/p chemotherapy and cystectomy with ileoconduit (12/[address] Licea @ [facility]) has appt on 03/10/19 for f/u. Diabetes 2 Will Sign Off COMMENT/RELEVANT DATA Meds Current Medications Medications (Trade) Dose Ordered Sig/Jennifer Start Time Stop Time Status Last Admin Dose Admin Acetaminophen (Tylenol) 325 mg PRN Q6HRS PRN 03/06/19 18:45 Albuterol Sulfate (Ventolin Neb Soln) 2.5 mg 1X ONCE 03/04/19 23:15 03/05/19 00:01 DC 03/04/19 23:15 2.5 MG Amiodarone HCl 450 mg/Dextrose 259 ml @ 17.26 mls/ hr CONT PRN 03/07/19 01:00 03/07/19 02:27 17.26 MLS/HR Amiodarone HCl 900 mg/Dextrose 518 ml @ 0 mls/hr CONT PRN 03/07/19 00:30 UNV Amiodarone HCl 50 mg/Dextrose 101 ml @ 600 mls/hr 1X ONCE 03/05/19 22:00 03/05/19 22:10 DC 03/05/19 21:16 600 MLS/HR Aspirin (Aspirin) 300 mg DAILY 03/06/19 14:15 03/06/19 17:46 DC Aspirin (Darren Aspirin) 325 mg STK-MED ONCE 03/06/19 18:42 03/06/19 18:43 DC Atropine Sulfate (ATROPINE 1mg SYRINGE) 1 mg 1X ONCE 03/05/19 00:00 03/05/19 00:02 DC 03/04/19 23:18 1 MG Calcium Chloride 2000 mg/Dextrose 120 ml @ 240 mls/hr 1X ONCE 03/05/19 02:30 03/05/19 02:59 DC 03/05/19 02:16 240 MLS/HR Calcium Gluconate (Calcium Gluconate) 1,000 mg 1X ONCE 03/05/19 00:15 03/05/19 00:16 DC 03/05/19 00:50 1,000 MG Ceftriaxone Sodium (Rocephin) 1 gm Q24H 03/05/19 14:00 03/06/19 13:55 1 GM Chlorhexidine Gluconate (Peridex) 15 ml BID 03/05/19 09:00 03/07/19 08:09 15 ML Dexamethasone Sodium Phosphate (Decadron) 10 mg 1X ONCE 03/05/19 00:00 03/05/19 00:02 DC Dextrose (Dextrose 50%-Water Syringe) 25 gm 1X ONCE 03/05/19 01:30 03/05/19 01:31 DC 03/05/19 01:32 25 GM Dopamine HCl/ Dextrose 250 ml @ 5.46 mls/hr CONT PRN 03/06/19 03:30 03/06/19 18:32 DC 03/06/19 03:41 6.825 MLS/HR Doxycycline Hyclate 100 mg/ Dextrose 100 ml @ 50 mls/hr Q12HR 03/05/19 21:00 03/07/19 08:11 50 MLS/HR Enoxaparin Sodium (Lovenox 40mg Syringe) 30 mg Q24H 03/05/19 14:00 Cancel Etomidate (Amidate) 20 mg 1X ONCE 03/05/19 00:00 03/05/19 00:02 DC 03/04/19 23:32 20 MG Famotidine (Pepcid Vial) 20 mg QHS 03/05/19 21:00 03/06/19 21:06 20 MG Fentanyl Citrate (Fentanyl 2ml Vial) 50 mcg PRN Q1HR PRN 03/04/19 23:30 03/07/19 08:09 50 MCG Heparin Sodium (Porcine) (Heparin Sodium) 5,000 unit Q8HRS 03/05/19 14:00 03/07/19 05:03 5,000 UNIT Insulin Human Lispro (HumaLOG) 0-5 UNITS TIDWMEALS 03/05/19 08:00 03/06/19 18:41 2 UNITS Insulin Human Regular (HumuLIN R VIAL) 10 unit 1X ONCE 03/05/19 01:30 03/05/19 01:31 DC 03/05/19 01:35 10 UNIT Magnesium Sulfate/ Dextrose 100 ml @ 25 mls/hr 1X ONCE 03/05/19 19:30 03/05/19 23:29 DC 03/05/19 19:45 25 MLS/HR Midazolam HCl 100 ml @ 5 mls/hr CONT PRN 03/05/19 14:00 03/06/19 18:46 5 MLS/HR Morphine Sulfate (Morphine Sulfate) 4 mg PRN Q1HR PRN 03/04/19 23:30 Norepinephrine Bitartrate 250 ml @ 1.875 mls/ hr CONT PRN 03/05/19 16:15 Potassium Chloride/Water 100 ml @ 100 mls/hr Q1H 03/06/19 05:00 03/06/19 06:59 DC 03/06/19 06:17 100 MLS/HR Potassium Chloride (KCl Oral Soln) 20 meq 1X ONCE 03/06/19 14:00 03/06/19 14:01 DC 03/06/19 16:24 20 MEQ Propofol 100 ml @ 0 mls/hr CONT PRN 03/05/19 03:45 03/05/19 14:02 DC 03/05/19 12:27 10.92 MLS/HR Rocuronium Troy (Zemuron) 50 mg 1X ONCE 03/05/19 00:00 03/05/19 00:02 DC 03/04/19 23:33 50 MG Sodium Bicarbonate 150 meq/Dextrose 1,150 ml @ 100 mls/hr [id number] 03/05/19 03:00 03/05/19 18:00 DC 03/05/19 02:17 100 MLS/HR Sodium Bicarbonate (Sodium Bicarbonate Vial) 150 meq 1X ONCE 03/05/19 02:30 03/05/19 02:31 DC 03/05/19 02:12 150 MEQ Sodium Bicarbonate (Sodium Bicarb Adult 8.4% Syr) 50 meq STK-MED ONCE 03/05/19 02:02 03/05/19 02:03 DC Sodium Chloride 500 ml @ 500 mls/hr 1X ONCE 03/05/19 16:15 03/05/19 17:14 DC 03/05/19 16:15 500 MLS/HR Lab Laboratory Tests Test 03/06/19 13:15 03/06/19 18:37 03/07/19 08:20 03/07/19 10:10 Glucose (Fingerstick) 180 mg/dL (70-99) 189 mg/dL (70-99) O2 Saturation 99 % (92-99) Arterial Blood pH 7.42 (7.35-7.45) Arterial Blood pCO2 at Patient Temp 33 mmHg (35-46) Arterial Blood pO2 at Patient Temp 223 mmHg (65-108) Arterial Blood HCO3 21 mmol/L (21-28) Arterial Blood Base Excess -3 mmol/L (-3-3) FiO2 50 White Blood Count 13.8 x10^3/uL (4.0-11.0) Red Blood Count 3.21 x10^6/uL (4.30-5.70) Hemoglobin 9.4 g/dL (13.0-17.5) Hematocrit 28.2 % (39.0-53.0) Mean Corpuscular Volume 88 fL (79-100) Mean Corpuscular Hemoglobin 29 pg (25-35) Mean Corpuscular Hemoglobin Concent 33 g/dL (31-37) Red Cell Distribution Width 14.7 % (11.5-14.5) Platelet Count 154 x10^3/uL (140-400) Neutrophils (%) (Auto) 75 % (31-73) Lymphocytes (%) (Auto) 10 % (24-48) Monocytes (%) (Auto) 10 % (0-9) Eosinophils (%) (Auto) 5 % (0-3) Basophils (%) (Auto) 0 % (0-3) Neutrophils # (Auto) 10.3 x10^3uL (1.8-7.7) Lymphocytes # (Auto) 1.4 x10^3/uL (1.0-4.8) Monocytes # (Auto) 1.4 x10^3/uL (0.0-1.1) Eosinophils # (Auto) 0.7 x10^3/uL (0.0-0.7) Basophils # (Auto) 0.1 x10^3/uL (0.0-0.2) Sodium Level 135 mmol/L (136-145) Potassium Level 3.8 mmol/L (3.5-5.1) Chloride Level 103 mmol/L (98-107) Carbon Dioxide Level 24 mmol/L (21-32) Anion Gap 8 (6-14) Blood Urea Nitrogen 27 mg/dL (8-26) Creatinine 0.9 mg/dL (0.7-1.3) Estimated GFR (Cockcroft-Gault) 83.9 Glucose Level 179 mg/dL (70-99) Calcium Level 8.7 mg/dL (8.5-10.1) Phosphorus Level 2.5 mg/dL (2.6-4.7) Albumin 2.3 g/dL (3.4-5.0) Results All relevant outside records, renal labs, imaging studies, telemetry/EKG's were reviewed. Other cXr- The heart size and pulmonary vascularity are normal. No pulmonary infiltrate is seen. There is no evidence of pleural fluid. IMPRESSION: 1. Satisfactory tube positions. 2. No acute cardiopulmonary abnormality is detected. JAZLYN BRASWELL MD March 07, 2019 12:15
[2019-03-07] MEDS: cefTRIAXone IV Push 1 GM VIAL. IVP SCH (14:37)
[2019-03-07] MEDS ORDERED: AMIODARONE HCL 200 MG TABLET. PO SCH (16:00)
--- NOTE | 2019-03-07 16:22 | PDOC ---
PULMONARY PROGRESS NOTES Subjective PT NOW ON AMIODARONE AC MODE Vitals Vital Signs Date Time Temp Pulse Resp B/P (MAP) Pulse Ox O2 Delivery O2 Flow Rate FiO2 03/07/19 15:30 100 Ventilator 03/07/19 14:35 18 15.0 03/07/19 14:00 78 159/74 (102) 03/07/19 13:00 98.8 98.8 Lungs: Clear Cardiovascular: S1, S2 Abdomen: Soft Extremities: No Edema Skin: Warm Labs Laboratory Tests Test 03/05/19 16:45 03/05/19 17:38 03/06/19 03:20 03/06/19 08:00 Sodium Level 136 mmol/L (136-145) 137 mmol/L (136-145) Potassium Level 4.3 mmol/L (3.5-5.1) 3.1 mmol/L (3.5-5.1) Chloride Level 102 mmol/L (98-107) 103 mmol/L (98-107) Carbon Dioxide Level 24 mmol/L (21-32) 26 mmol/L (21-32) Anion Gap 10 (6-14) 8 (6-14) Blood Urea Nitrogen 52 mg/dL (8-26) 35 mg/dL (8-26) Creatinine 1.4 mg/dL (0.7-1.3) 1.1 mg/dL (0.7-1.3) Estimated GFR (Cockcroft-Gault) 50.4 66.6 Glucose Level 159 mg/dL (70-99) 153 mg/dL (70-99) Calcium Level 9.2 mg/dL (8.5-10.1) 9.0 mg/dL (8.5-10.1) Magnesium Level 1.5 mg/dL (1.8-2.4) 2.5 mg/dL (1.8-2.4) Glucose (Fingerstick) 121 mg/dL (70-99) O2 Saturation 85 % (92-99) Arterial Blood pH 7.46 (7.35-7.45) Arterial Blood pCO2 at Patient Temp 31 mmHg (35-46) Arterial Blood pO2 at Patient Temp 48 mmHg (65-108) Arterial Blood HCO3 21 mmol/L (21-28) Arterial Blood Base Excess -2 mmol/L (-3-3) FiO2 40 Test 03/06/19 13:15 03/06/19 18:37 03/07/19 08:20 03/07/19 10:10 Glucose (Fingerstick) 180 mg/dL (70-99) 189 mg/dL (70-99) O2 Saturation 99 % (92-99) Arterial Blood pH 7.42 (7.35-7.45) Arterial Blood pCO2 at Patient Temp 33 mmHg (35-46) Arterial Blood pO2 at Patient Temp 223 mmHg (65-108) Arterial Blood HCO3 21 mmol/L (21-28) Arterial Blood Base Excess -3 mmol/L (-3-3) FiO2 50 White Blood Count 13.8 x10^3/uL (4.0-11.0) Red Blood Count 3.21 x10^6/uL (4.30-5.70) Hemoglobin 9.4 g/dL (13.0-17.5) Hematocrit 28.2 % (39.0-53.0) Mean Corpuscular Volume 88 fL (79-100) Mean Corpuscular Hemoglobin 29 pg (25-35) Mean Corpuscular Hemoglobin Concent 33 g/dL (31-37) Red Cell Distribution Width 14.7 % (11.5-14.5) Platelet Count 154 x10^3/uL (140-400) Neutrophils (%) (Auto) 75 % (31-73) Lymphocytes (%) (Auto) 10 % (24-48) Monocytes (%) (Auto) 10 % (0-9) Eosinophils (%) (Auto) 5 % (0-3) Basophils (%) (Auto) 0 % (0-3) Neutrophils # (Auto) 10.3 x10^3uL (1.8-7.7) Lymphocytes # (Auto) 1.4 x10^3/uL (1.0-4.8) Monocytes # (Auto) 1.4 x10^3/uL (0.0-1.1) Eosinophils # (Auto) 0.7 x10^3/uL (0.0-0.7) Basophils # (Auto) 0.1 x10^3/uL (0.0-0.2) Sodium Level 135 mmol/L (136-145) Potassium Level 3.8 mmol/L (3.5-5.1) Chloride Level 103 mmol/L (98-107) Carbon Dioxide Level 24 mmol/L (21-32) Anion Gap 8 (6-14) Blood Urea Nitrogen 27 mg/dL (8-26) Creatinine 0.9 mg/dL (0.7-1.3) Estimated GFR (Cockcroft-Gault) 83.9 Glucose Level 179 mg/dL (70-99) Calcium Level 8.7 mg/dL (8.5-10.1) Phosphorus Level 2.5 mg/dL (2.6-4.7) Albumin 2.3 g/dL (3.4-5.0) Test 03/07/19 12:12 Glucose (Fingerstick) 166 mg/dL (70-99) Laboratory Tests Test 03/06/19 18:37 03/07/19 08:20 03/07/19 10:10 03/07/19 12:12 Glucose (Fingerstick) 189 mg/dL (70-99) 166 mg/dL (70-99) O2 Saturation 99 % (92-99) Arterial Blood pH 7.42 (7.35-7.45) Arterial Blood pCO2 at Patient Temp 33 mmHg (35-46) Arterial Blood pO2 at Patient Temp 223 mmHg (65-108) Arterial Blood HCO3 21 mmol/L (21-28) Arterial Blood Base Excess -3 mmol/L (-3-3) FiO2 50 White Blood Count 13.8 x10^3/uL (4.0-11.0) Red Blood Count 3.21 x10^6/uL (4.30-5.70) Hemoglobin 9.4 g/dL (13.0-17.5) Hematocrit 28.2 % (39.0-53.0) Mean Corpuscular Volume 88 fL (79-100) Mean Corpuscular Hemoglobin 29 pg (25-35) Mean Corpuscular Hemoglobin Concent 33 g/dL (31-37) Red Cell Distribution Width 14.7 % (11.5-14.5) Platelet Count 154 x10^3/uL (140-400) Neutrophils (%) (Auto) 75 % (31-73) Lymphocytes (%) (Auto) 10 % (24-48) Monocytes (%) (Auto) 10 % (0-9) Eosinophils (%) (Auto) 5 % (0-3) Basophils (%) (Auto) 0 % (0-3) Neutrophils # (Auto) 10.3 x10^3uL (1.8-7.7) Lymphocytes # (Auto) 1.4 x10^3/uL (1.0-4.8) Monocytes # (Auto) 1.4 x10^3/uL (0.0-1.1) Eosinophils # (Auto) 0.7 x10^3/uL (0.0-0.7) Basophils # (Auto) 0.1 x10^3/uL (0.0-0.2) Sodium Level 135 mmol/L (136-145) Potassium Level 3.8 mmol/L (3.5-5.1) Chloride Level 103 mmol/L (98-107) Carbon Dioxide Level 24 mmol/L (21-32) Anion Gap 8 (6-14) Blood Urea Nitrogen 27 mg/dL (8-26) Creatinine 0.9 mg/dL (0.7-1.3) Estimated GFR (Cockcroft-Gault) 83.9 Glucose Level 179 mg/dL (70-99) Calcium Level 8.7 mg/dL (8.5-10.1) Phosphorus Level 2.5 mg/dL (2.6-4.7) Albumin 2.3 g/dL (3.4-5.0) Medications Active Scripts Medications Dose Route/Sig Max Daily Dose Days Date Category Dose Instructions Timoptic 0.5% (Timolol Maleate) 10 Ml Drops 1 Drop EACHEYE BID 03/05/19 Reported Senna-S Tablet (Sennosides/Docusate Sodium) 1 Each Tablet 1 Each PO BID 03/05/19 Reported Onglyza (Saxagliptin Hcl) 5 Mg Tablet 1 Tab PO DAILY 03/05/19 Reported Crestor (Rosuvastatin Calcium) 20 Mg Tablet 20 Mg PO HS 03/05/19 Reported Miralax (Polyethylene Glycol 3350) 17 Gm Powd.pack 1 Packet PO DAILY 03/05/19 Reported Percocet 5-325 Mg Tablet (Oxycodone/Acetaminophen) 1 Each Tablet 1 Tab PO QID PRN 03/05/19 Reported Oxycodone Hcl Immed.release (Oxycodone Hcl) 5 Mg Tablet 5 Mg PO PRN Q4HRS PRN 03/05/19 Reported take 1 to 3 tabs Q4H prn Metoprolol Tartrate 25 Mg Tablet 1 Tab PO BID 03/05/19 Reported Metformin Hcl 500 Mg Tablet 500 Mg PO [id number] 03/05/19 Reported Metformin Hcl 1,000 Mg Tablet 1,000 Mg PO [id number] 03/05/19 Reported Meloxicam 15 Mg Tablet 1 Tab PO NOON 03/05/19 Reported Lisinopril 20 Mg Tablet 1 Tab PO DAILY 03/05/19 Reported Xalatan (Latanoprost) 2.5 Ml Drops 1 Drop EACHEYE QHS 03/05/19 Reported Gabapentin (Gabapentin) 300 Mg Capsule 900 Mg PO TID 03/05/19 Reported Docusate Sodium 100 Mg Capsule 1 Cap PO BID 03/05/19 Reported Diltiazem 24HR Cd (Diltiazem Hcl) 120 Mg Cap.er.24h 1 Cap PO DAILY 03/05/19 Reported Restasis (Cyclosporine) 1 Each Droperette 1 Drop EACHEYE BID 03/05/19 Reported Refresh Optive Eye Drops (Carboxymethylcellulos/Glycerin) 15 Ml Drops 1 Drop EACHEYE QID PRN 03/05/19 Reported Wellbutrin Sr (Bupropion Hcl) 100 Mg Tablet.er 1 Tab PO BID 03/05/19 Reported Aspirin Ec (Aspirin) 81 Mg Tablet.dr 1 Tab PO DAILY 03/05/19 Reported Simbrinza 1%-0.2% Eye Drops (Brinzolamide/Brimonid Tart) 8 Ml Drops.susp 8 Ml OP BID 03/05/19 Reported Impression . IMPRESSION: 1. Acute hypoxemic respiratory failure. 2. Severe metabolic acidosis. 3. Leukocytosis. 4. Abnormal chest x-ray. 5. Bradycardia. 6. Hypercalcemia. 7. Acute exacerbation of chronic obstructive pulmonary disease. 8. Type 2 diabetes. 9. Coronary artery disease, status post coronary artery bypass grafting. 10. Acute on chronic metabolic toxic encephalopathy, present upon admission. 11. Bladder cancer, status post chemo cystectomy with ileal conduit. 12. Arrhythmias Plan . CXR REVIEWED CLEAR WILL CONTINUE PS TODAY PT NOT AWAKE TO EXTUBATE POSSIBLE IN AM ANTIBX DEESCALATE D/W RN AND RT CCT 30 MIN TAWANDA WOODY MD March 07, 2019 16:22
--- NOTE | 2019-03-07 19:45 | NUR ---
CPAP trial started 1200 ,TV [phone], RR 28 slowing to 23-25. BP at change 160 down to 140-150 range after comfortable with changes. Not extubated/ will trial again in am Versed off w isolated bolus as needed.
[2019-03-07] MEDS: MIDAZOLAM 100mg/100ml NS BAG 100 ML IV PRN (19:53)
[2019-03-07] MEDS: FAMOTIDINE 20 MG/2 ML VIAL IVP SCH (20:22)
[2019-03-07] MEDS: AMIODARONE HCL 200 MG TABLET. PO SCH (22:20)
[2019-03-08] VITALS (24 sets, daily range): BP systolic 106–177; BP diastolic 51–85
[2019-03-08] MEDS: fentaNYL PF VIAL 100 MCG/2 ML VIAL IV PRN ×4 (06:25→16:55)
[2019-03-08] MEDS: HEPARIN for SUB-Q USE 5,000 UNIT/ML VIAL. SQ SCH ×3 (06:27→21:56)
[2019-03-08 06:54] LABS: BASO % 0 % (0-3); EOS # 0.4 x10^3/uL (0.0-0.7); EOS % 3 % (0-3); HEMOGLOBIN 9.3 g/dL (13.0-17.5); LYMPH # 1.4 x10^3/uL (1.0-4.8); LYMPH % 11 % (24-48); MEAN CORPUSCULAR HEMOGLOBIN 29 pg (25-35); MEAN CORPUSCULAR HGB CONC 33 g/dL (31-37); MEAN CORPUSCULAR VOLUME 87 fL (79-100); MONO # 1.4 x10^3/uL (0.0-1.1); MONO % 11 % (0-9); NEUT # 9.7 x10^3uL (1.8-7.7); NEUT % 75 % (31-73); PLATELET COUNT 170 x10^3/uL (140-400); RED BLOOD COUNT 3.21 x10^6/uL (4.30-5.70); RED CELL DISTRIBUTION WIDTH 14.2 % (11.5-14.5); WHITE BLOOD COUNT 12.9 x10^3/uL (4.0-11.0)
[2019-03-08 07:14] LABS: ALBUMIN 2.2 g/dL (3.4-5.0); CALCIUM 8.7 mg/dL (8.5-10.1); CREATININE 0.8 mg/dL (0.7-1.3); GFR 96.1; PHOSPHORUS 2.6 mg/dL (2.6-4.7); POTASSIUM 3.7 mmol/L (3.5-5.1)
--- NOTE | 2019-03-08 07:50 | RAD ---
Portable chest, 03/08/2019: HISTORY: Respiratory failure Comparison is made to yesterday's study. The ET tube tip lies well above the libby. An NG tube extends into the stomach. A right Port-A-Cath extends to the level the atrial caval junction. The heart is within normal limits in size. The pulmonary vascularity is normal. No pulmonary infiltrate is seen. There is no evidence of pleural fluid. IMPRESSION: 1. Stable tube positions. 2. No acute infiltrates. Electronically signed by: Wilver Ahumada MD (03/08/2019 7:47 AM) [facility]
[2019-03-08 07:56] LABS: BASE EXCESS ABG -1 mmol/L (-3-3); HCO3 ABG 24 mmol/L (21-28); PCO2 ABG 37 mmHg (35-46); PO2 ABG 158 mmHg (65-108); SAT O2 ABG 98 % (92-99)
[2019-03-08] MEDS ORDERED: POTASSIUM CHLORIDE 20 MEQ/15 ML ORAL LIQUID. PEG ONE (08:30)
[2019-03-08] MEDS: CHLORHEXIDINE 0.12% 15 ML MOUTHWASH. MM SCH ×2 (08:59→21:00)
[2019-03-08] MEDS: DOXYCYCLINE HYCLATE 100 MG in IV DEXTROSE 5% 100ML 100 ML IV SCH ×2 (08:59→20:54)
[2019-03-08] MEDS: AMIODARONE HCL 200 MG TABLET. PO SCH ×2 (08:59→21:00)
--- NOTE | 2019-03-08 09:04 | PDOC ---
PROGRESS NOTES Chief Complaint Chief Complaint A/P: Acute encephalopathy - likely mixed picture, metabolic with uremia and hyperkalemia. Seems to follow commands on vent when sedation is weaned Hypoxic respiratory failure - with underlying COPD, never previously intubated, not on home O2. Intubated for hypoxia, doing much better on vent now but still hypoxic. Appreciate pulmonology. Has bilateral interstitial opacities. Not clear on etiology, F/u [facility] records. procalcitonin elevated - On rocephin and doxy for CAP treatment Sepsis - POA, likely 2/2 community acquired pneumonia, improving, off pressors Hyperkalemia - 7.3 --> 3.1 with above corrective measures, still on IVF. Actually K got low the last few days Acute Kidney injury - BUN 82 and Cr 2.5 on admission, likely vasomotor nephropathy given his poor PO intake. Improved now Symptomatic bradycardia - Initially paced, with wide complex, likely 2/2 hyperkalemia, now off dopamine, improved. Cardiology consulted for further care. Started on Amio per cardiology Vtach - no longer having episodes over the past 24 hours CAD s/p CABG x3 - stable outpatient with [facility] f/u in [place]. Hold nephrotoxic meds Bladder Cancer s/p chemotherapy and cystectomy with ileoconduit (12/[address] Licea @ [facility]) - has appt on 03/10/19 for f/u. Access for port ok. Monitor urostomy output. Will order records. Abdominal imaging is likely indicated. ?COPD - will order records. Seems to be tolerating vent well, no prior intubations, not on O2, will wean off vent. Defer to pulm for use of steroids in his case. Diabetes-Type II - placed on sliding scale, check A1c FEN - OGT, Bicarbonate PPX - Heparin FULL CODE ICU for critically ill patient with life-threatening hyperkalemia now with hypoxic resp failure. D/w bedside his critical illness. Greater than 2 midnights inpatient required. Likely can extubate today History of Present Illness History of Present Illness Mr Ashley is a 68-year-old male 100% service connected [place] w/PMHx CAD s/p CABG x3, Bladder Cancer s/p chemotherapy and cystectomy with ileoconduit (12/[address] Licea @ [facility]), COPD, Diabetes-Type II who presents via EMS from [place] with report of 3 day history of progressive weakness and shortness of breath per spouse who reported he has been confused as well. Patient noted to be hypoxic by EMS down to 68% on room air, not on home O2. Given DuoNebs en route. Patient also noted to have heart rate down into the 30s, was given versed by EMS and transcutaneously paced enroute. Maintained low O2 saturations despite NRB and he was urgently intubated. Found on EKG with potassium of 7.3 and wide complex QRS. Started on bicarbonate gtt, dopamine, propofol for sedation. Pulm, cards, nephro consulted 03/06/19: Echo yesterday shows EF 45-50%. Started levophed last night for persistent hypotension. Did have V-tach. Labs improved K to 3.1, Cr 1.1, BUN 35. UOP picked up quite a bit >3L out over the past 24 hours. BP improved yesterday, off levophed and dopamine. Labs normalized. CXR improved. D/w bedside. Plan: Wean O2 to plan for extubation likely today Cont pulm toileting Vitals Vitals Vital Signs Date Time Temp Pulse Resp B/P (MAP) Pulse Ox O2 Delivery O2 Flow Rate FiO2 03/08/19 08:59 82 138/55 03/08/19 08:50 100 03/08/19 07:36 Ventilator 03/08/19 06:25 16 15.0 03/08/19 04:00 100.1 100.1 Physical Exam General: Other (sedated) Heart: Regular rate, Normal S1, Normal S2, Other (distant heart tones) Lungs: Clear Abdomen: Other (soft ) Extremities: No edema Skin: No significant lesion Labs LABS Laboratory Tests Test 03/07/19 10:10 03/07/19 12:12 03/07/19 20:36 03/08/19 06:45 White Blood Count 13.8 x10^3/uL (4.0-11.0) 12.9 x10^3/uL (4.0-11.0) Red Blood Count 3.21 x10^6/uL (4.30-5.70) 3.21 x10^6/uL (4.30-5.70) Hemoglobin 9.4 g/dL (13.0-17.5) 9.3 g/dL (13.0-17.5) Hematocrit 28.2 % (39.0-53.0) 28.0 % (39.0-53.0) Mean Corpuscular Volume 88 fL (79-100) 87 fL (79-100) Mean Corpuscular Hemoglobin 29 pg (25-35) 29 pg (25-35) Mean Corpuscular Hemoglobin Concent 33 g/dL (31-37) 33 g/dL (31-37) Red Cell Distribution Width 14.7 % (11.5-14.5) 14.2 % (11.5-14.5) Platelet Count 154 x10^3/uL (140-400) 170 x10^3/uL (140-400) Neutrophils (%) (Auto) 75 % (31-73) 75 % (31-73) Lymphocytes (%) (Auto) 10 % (24-48) 11 % (24-48) Monocytes (%) (Auto) 10 % (0-9) 11 % (0-9) Eosinophils (%) (Auto) 5 % (0-3) 3 % (0-3) Basophils (%) (Auto) 0 % (0-3) 0 % (0-3) Neutrophils # (Auto) 10.3 x10^3uL (1.8-7.7) 9.7 x10^3uL (1.8-7.7) Lymphocytes # (Auto) 1.4 x10^3/uL (1.0-4.8) 1.4 x10^3/uL (1.0-4.8) Monocytes # (Auto) 1.4 x10^3/uL (0.0-1.1) 1.4 x10^3/uL (0.0-1.1) Eosinophils # (Auto) 0.7 x10^3/uL (0.0-0.7) 0.4 x10^3/uL (0.0-0.7) Basophils # (Auto) 0.1 x10^3/uL (0.0-0.2) 0.0 x10^3/uL (0.0-0.2) Sodium Level 135 mmol/L (136-145) 135 mmol/L (136-145) Potassium Level 3.8 mmol/L (3.5-5.1) 3.7 mmol/L (3.5-5.1) Chloride Level 103 mmol/L (98-107) 102 mmol/L (98-107) Carbon Dioxide Level 24 mmol/L (21-32) 26 mmol/L (21-32) Anion Gap 8 (6-14) 7 (6-14) Blood Urea Nitrogen 27 mg/dL (8-26) 25 mg/dL (8-26) Creatinine 0.9 mg/dL (0.7-1.3) 0.8 mg/dL (0.7-1.3) Estimated GFR (Cockcroft-Gault) 83.9 96.1 Glucose Level 179 mg/dL (70-99) 161 mg/dL (70-99) Calcium Level 8.7 mg/dL (8.5-10.1) 8.7 mg/dL (8.5-10.1) Phosphorus Level 2.5 mg/dL (2.6-4.7) 2.6 mg/dL (2.6-4.7) Albumin 2.3 g/dL (3.4-5.0) 2.2 g/dL (3.4-5.0) Glucose (Fingerstick) 166 mg/dL (70-99) 157 mg/dL (70-99) Assessment and Plan Assessmemt and Plan Problems Medical Problems: (1) Hyperkalemia Status: Acute (2) Hyponatremia Status: Acute (3) Renal insufficiency Status: Acute (4) Respiratory failure Status: Acute Comment Review of Relevant I have reviewed the following items fabián (where applicable) has been applied. Labs Laboratory Tests Test 03/06/19 13:15 03/06/19 18:37 03/07/19 08:20 03/07/19 10:10 Glucose (Fingerstick) 180 mg/dL (70-99) 189 mg/dL (70-99) O2 Saturation 99 % (92-99) Arterial Blood pH 7.42 (7.35-7.45) Arterial Blood pCO2 at Patient Temp 33 mmHg (35-46) Arterial Blood pO2 at Patient Temp 223 mmHg (65-108) Arterial Blood HCO3 21 mmol/L (21-28) Arterial Blood Base Excess -3 mmol/L (-3-3) FiO2 50 White Blood Count 13.8 x10^3/uL (4.0-11.0) Red Blood Count 3.21 x10^6/uL (4.30-5.70) Hemoglobin 9.4 g/dL (13.0-17.5) Hematocrit 28.2 % (39.0-53.0) Mean Corpuscular Volume 88 fL (79-100) Mean Corpuscular Hemoglobin 29 pg (25-35) Mean Corpuscular Hemoglobin Concent 33 g/dL (31-37) Red Cell Distribution Width 14.7 % (11.5-14.5) Platelet Count 154 x10^3/uL (140-400) Neutrophils (%) (Auto) 75 % (31-73) Lymphocytes (%) (Auto) 10 % (24-48) Monocytes (%) (Auto) 10 % (0-9) Eosinophils (%) (Auto) 5 % (0-3) Basophils (%) (Auto) 0 % (0-3) Neutrophils # (Auto) 10.3 x10^3uL (1.8-7.7) Lymphocytes # (Auto) 1.4 x10^3/uL (1.0-4.8) Monocytes # (Auto) 1.4 x10^3/uL (0.0-1.1) Eosinophils # (Auto) 0.7 x10^3/uL (0.0-0.7) Basophils # (Auto) 0.1 x10^3/uL (0.0-0.2) Sodium Level 135 mmol/L (136-145) Potassium Level 3.8 mmol/L (3.5-5.1) Chloride Level 103 mmol/L (98-107) Carbon Dioxide Level 24 mmol/L (21-32) Anion Gap 8 (6-14) Blood Urea Nitrogen 27 mg/dL (8-26) Creatinine 0.9 mg/dL (0.7-1.3) Estimated GFR (Cockcroft-Gault) 83.9 Glucose Level 179 mg/dL (70-99) Calcium Level 8.7 mg/dL (8.5-10.1) Phosphorus Level 2.5 mg/dL (2.6-4.7) Albumin 2.3 g/dL (3.4-5.0) Test 03/07/19 12:12 03/07/19 20:36 03/08/19 06:45 Glucose (Fingerstick) 166 mg/dL (70-99) 157 mg/dL (70-99) White Blood Count 12.9 x10^3/uL (4.0-11.0) Red Blood Count 3.21 x10^6/uL (4.30-5.70) Hemoglobin 9.3 g/dL (13.0-17.5) Hematocrit 28.0 % (39.0-53.0) Mean Corpuscular Volume 87 fL (79-100) Mean Corpuscular Hemoglobin 29 pg (25-35) Mean Corpuscular Hemoglobin Concent 33 g/dL (31-37) Red Cell Distribution Width 14.2 % (11.5-14.5) Platelet Count 170 x10^3/uL (140-400) Neutrophils (%) (Auto) 75 % (31-73) Lymphocytes (%) (Auto) 11 % (24-48) Monocytes (%) (Auto) 11 % (0-9) Eosinophils (%) (Auto) 3 % (0-3) Basophils (%) (Auto) 0 % (0-3) Neutrophils # (Auto) 9.7 x10^3uL (1.8-7.7) Lymphocytes # (Auto) 1.4 x10^3/uL (1.0-4.8) Monocytes # (Auto) 1.4 x10^3/uL (0.0-1.1) Eosinophils # (Auto) 0.4 x10^3/uL (0.0-0.7) Basophils # (Auto) 0.0 x10^3/uL (0.0-0.2) Sodium Level 135 mmol/L (136-145) Potassium Level 3.7 mmol/L (3.5-5.1) Chloride Level 102 mmol/L (98-107) Carbon Dioxide Level 26 mmol/L (21-32) Anion Gap 7 (6-14) Blood Urea Nitrogen 25 mg/dL (8-26) Creatinine 0.8 mg/dL (0.7-1.3) Estimated GFR (Cockcroft-Gault) 96.1 Glucose Level 161 mg/dL (70-99) Calcium Level 8.7 mg/dL (8.5-10.1) Phosphorus Level 2.6 mg/dL (2.6-4.7) Albumin 2.2 g/dL (3.4-5.0) Laboratory Tests Test 03/07/19 10:10 03/07/19 12:12 03/07/19 20:36 03/08/19 06:45 White Blood Count 13.8 x10^3/uL (4.0-11.0) 12.9 x10^3/uL (4.0-11.0) Red Blood Count 3.21 x10^6/uL (4.30-5.70) 3.21 x10^6/uL (4.30-5.70) Hemoglobin 9.4 g/dL (13.0-17.5) 9.3 g/dL (13.0-17.5) Hematocrit 28.2 % (39.0-53.0) 28.0 % (39.0-53.0) Mean Corpuscular Volume 88 fL (79-100) 87 fL (79-100) Mean Corpuscular Hemoglobin 29 pg (25-35) 29 pg (25-35) Mean Corpuscular Hemoglobin Concent 33 g/dL (31-37) 33 g/dL (31-37) Red Cell Distribution Width 14.7 % (11.5-14.5) 14.2 % (11.5-14.5) Platelet Count 154 x10^3/uL (140-400) 170 x10^3/uL (140-400) Neutrophils (%) (Auto) 75 % (31-73) 75 % (31-73) Lymphocytes (%) (Auto) 10 % (24-48) 11 % (24-48) Monocytes (%) (Auto) 10 % (0-9) 11 % (0-9) Eosinophils (%) (Auto) 5 % (0-3) 3 % (0-3) Basophils (%) (Auto) 0 % (0-3) 0 % (0-3) Neutrophils # (Auto) 10.3 x10^3uL (1.8-7.7) 9.7 x10^3uL (1.8-7.7) Lymphocytes # (Auto) 1.4 x10^3/uL (1.0-4.8) 1.4 x10^3/uL (1.0-4.8) Monocytes # (Auto) 1.4 x10^3/uL (0.0-1.1) 1.4 x10^3/uL (0.0-1.1) Eosinophils # (Auto) 0.7 x10^3/uL (0.0-0.7) 0.4 x10^3/uL (0.0-0.7) Basophils # (Auto) 0.1 x10^3/uL (0.0-0.2) 0.0 x10^3/uL (0.0-0.2) Sodium Level 135 mmol/L (136-145) 135 mmol/L (136-145) Potassium Level 3.8 mmol/L (3.5-5.1) 3.7 mmol/L (3.5-5.1) Chloride Level 103 mmol/L (98-107) 102 mmol/L (98-107) Carbon Dioxide Level 24 mmol/L (21-32) 26 mmol/L (21-32) Anion Gap 8 (6-14) 7 (6-14) Blood Urea Nitrogen 27 mg/dL (8-26) 25 mg/dL (8-26) Creatinine 0.9 mg/dL (0.7-1.3) 0.8 mg/dL (0.7-1.3) Estimated GFR (Cockcroft-Gault) 83.9 96.1 Glucose Level 179 mg/dL (70-99) 161 mg/dL (70-99) Calcium Level 8.7 mg/dL (8.5-10.1) 8.7 mg/dL (8.5-10.1) Phosphorus Level 2.5 mg/dL (2.6-4.7) 2.6 mg/dL (2.6-4.7) Albumin 2.3 g/dL (3.4-5.0) 2.2 g/dL (3.4-5.0) Glucose (Fingerstick) 166 mg/dL (70-99) 157 mg/dL (70-99) Microbiology 03/05/19 Blood Culture - Preliminary, Resulted NO GROWTH AFTER 3 DAYS Medications Current Medications Sodium Chloride 1,000 ml @ 1,000 mls/hr 1X ONCE IV Last administered on 03/04/19at 23:28; Start 03/05/19 at 00:00; Stop 03/05/19 at 00:59; Status DC Fentanyl Citrate (Fentanyl 2ml Vial) 50 mcg 1X ONCE JOSE RAUL Last administered on 03/04/19 23:02; Start 03/05/19 at 00:00; Stop 03/05/19 at 00:02; Status DC Dexamethasone Sodium Phosphate (Decadron) 10 mg 1X ONCE IV ; Start 03/05/19 at 00:00; Stop 03/05/19 at 00:02; Status DC Atropine Sulfate (ATROPINE 1mg SYRINGE) 0.5 mg 1X ONCE IV Last administered on 03/04/19 23:07; Start 03/05/19 at 00:00; Stop 03/05/19 at 00:02; Status DC Albuterol Sulfate (Ventolin Neb Soln) 2.5 mg 1X ONCE NEB Last administered on 03/04/19 23:15; Start 03/04/19 at 23:15; Stop 03/05/19 at 00:01; Status DC Atropine Sulfate (ATROPINE 1mg SYRINGE) 0.5 mg 1X ONCE IV Last administered on 03/04/19 23:08; Start 03/05/19 at 00:00; Stop 03/05/19 at 00:02; Status DC Atropine Sulfate (ATROPINE 1mg SYRINGE) 1 mg 1X ONCE IV Last administered on 03/04/19 23:18; Start 03/05/19 at 00:00; Stop 03/05/19 at 00:02; Status DC Etomidate (Amidate) 20 mg 1X ONCE IV Last administered on 03/04/19 23:32; Start 03/05/19 at 00:00; Stop 03/05/19 at 00:02; Status DC Rocuronium Shirley (Zemuron) 50 mg 1X ONCE IV Last administered on 03/04/19 23:33; Start 03/05/19 at 00:00; Stop 03/05/19 at 00:02; Status DC Propofol 100 ml @ 0 mls/hr CONT PRN IV SEE PROTOCOL Last administered on 03/05/19at 02:16; Start 03/04/19 at 23:30; Stop 03/05/19 at 03:42; Status DC Fentanyl Citrate (Fentanyl 2ml Vial) 25 mcg PRN Q1HR PRN IV SEE COMMENTS Last administered on 4/30/19at 03:00; Start 03/04/19 at 23:30 Fentanyl Citrate (Fentanyl 2ml Vial) 50 mcg PRN Q1HR PRN IV SEE COMMENTS Last administered on 03/08/19at 06:25; Start 03/04/19 at 23:30 Chlorhexidine Gluconate (Peridex) 15 ml BID MM Last administered on 03/08/19at 08:59; Start 03/05/19 at 09:00 Morphine Sulfate (Morphine Sulfate) 2 mg PRN Q1HR PRN IV SEE COMMENTS.; Start 03/04/19 at 23:30 Morphine Sulfate (Morphine Sulfate) 4 mg PRN Q1HR PRN IV SEE COMMENTS.; Start 03/04/19 at 23:30 Propofol 50 ml @ As Directed STK-MED ONCE IV ; Start 03/04/19 at 23:47; Stop 03/04/19 at 23:48; Status DC Calcium Gluconate (Calcium Gluconate) 1,000 mg 1X ONCE IVP Last administered on 03/05/19at 00:50; Start 03/05/19 at 00:15; Stop 03/05/19 at 00:16; Status DC Dopamine HCl/ Dextrose 250 ml @ 6.844 mls/ hr 1X ONCE IV Last administered on 03/05/19at 01:11; Start 03/05/19 at 00:30; Stop 03/06/19 at 13:01; Status DC Dopamine HCl/ Dextrose 250 ml @ As Directed STK-MED ONCE IV ; Start 03/05/19 at 00:00; Stop 03/05/19 at 00:01; Status DC Propofol 50 ml @ 1.095 mls/ hr 1X ONCE IV Last administered on 03/04/19at 23:51; Start 03/05/19 at 00:15; Stop 03/06/19 at 21:54; Status DC Insulin Human Lispro (HumaLOG) 0-5 UNITS TIDWMEALS SQ Last administered on 03/07/19at 23:14; Start 03/05/19 at 08:00 Dextrose (Dextrose 50%-Water Syringe) 12.5 gm PRN Q15MIN PRN IV SEE COMMENTS; Start 03/05/19 at 00:30 Sodium Chloride 1,000 ml @ 125 mls/hr 1X ONCE IV Last administered on 03/05/19at 00:45; Start 03/05/19 at 01:00; Stop 03/05/19 at 02:01; Status DC Insulin Human Regular (HumuLIN R VIAL) 10 unit 1X ONCE IV Last administered on 03/05/19at 01:35; Start 03/05/19 at 01:30; Stop 03/05/19 at 01:31; Status DC Dextrose (Dextrose 50%-Water Syringe) 25 gm 1X ONCE IV Last administered on 03/05/19at 01:32; Start 03/05/19 at 01:30; Stop 03/05/19 at 01:31; Status DC Calcium Chloride 2000 mg/Dextrose 120 ml @ 240 mls/hr 1X ONCE IV Last administered on 03/05/19at 02:16; Start 03/05/19 at 02:30; Stop 03/05/19 at 02:59; Status DC Sodium Bicarbonate 150 meq/Dextrose 1,150 ml @ 100 mls/hr [id number] IV Last administered on 03/05/19at 02:17; Start 03/05/19 at 03:00; Stop 03/05/19 at 18:00; Status DC Sodium Bicarbonate (Sodium Bicarbonate Vial) 150 meq 1X ONCE IV Last administered on 03/05/19at 02:12; Start 03/05/19 at 02:30; Stop 03/05/19 at 02:31; Status DC Sodium Bicarbonate (Sodium Bicarb Adult 8.4% Syr) 50 meq STK-MED ONCE .ROUTE ; Start 03/05/19 at 02:02; Stop 03/05/19 at 02:03; Status DC Propofol 100 ml @ 0 mls/hr CONT PRN IV SEE I/O RECORD Last administered on 03/05/19at 12:27; Start 03/05/19 at 03:45; Stop 03/05/19 at 14:02; Status DC Sodium Chloride 1,000 ml @ 75 mls/hr [id number] IV Last administered on 03/07/19 22:15; Start 03/05/19 at 09:00 Famotidine (Pepcid Vial) 20 mg QHS IVP Last administered on 03/07/19at 20:22; Start 03/05/19 at 21:00 Heparin Sodium (Porcine) (Heparin Sodium) 5,000 unit Q8HRS SQ Last administered on 03/08/19at 06:27; Start 03/05/19 at 14:00 Midazolam HCl 100 ml @ 5 mls/hr CONT PRN IV SEE I/O RECORD Last administered on 03/07/19at 19:53; Start 03/05/19 at 14:00 Ceftriaxone Sodium (Rocephin) 1 gm Q24H IVP Last administered on 03/07/19at 14:37; Start 03/05/19 at 14:00; Stop 03/07/19 at 16:23; Status DC Doxycycline Hyclate 100 mg/ Dextrose 100 ml @ 50 mls/hr Q12HR IV Last administered on 03/08/19at 08:59; Start 03/05/19 at 21:00 Enoxaparin Sodium (Lovenox 40mg Syringe) 30 mg Q24H SQ ; Start 03/05/19 at 14:00; Status Cancel Sodium Chloride 500 ml @ 500 mls/hr 1X ONCE IV Last administered on 03/05/19at 16:15; Start 03/05/19 at 16:15; Stop 03/05/19 at 17:14; Status DC Norepinephrine Bitartrate 250 ml @ 1.875 mls/ hr CONT PRN IV SEE I/O RECORD; Start 03/05/19 at 16:15 Magnesium Sulfate/ Dextrose 100 ml @ 25 mls/hr 1X ONCE IV Last administered on 03/05/19at 19:45; Start 03/05/19 at 19:30; Stop 03/05/19 at 23:29; Status DC Amiodarone HCl 50 mg/Dextrose 101 ml @ 600 mls/hr 1X ONCE IV Last administered on 03/05/19at 21:16; Start 03/05/19 at 22:00; Stop 03/05/19 at 22:10; Status DC Amiodarone HCl 900 mg/Dextrose 518 ml @ 0 mls/hr CONT PRN IV SEE I/O RECORD Last administered on 03/05/19at 21:16; Start 03/05/19 at 22:15; Stop 03/06/19 at 22:14; Status DC Dopamine HCl/ Dextrose 250 ml @ 5.46 mls/hr CONT PRN IV SEE I/O RECORD Last administered on 03/06/19at 03:41; Start 03/06/19 at 03:30; Stop 03/06/19 at 18:32; Status DC Potassium Chloride/Water 100 ml @ 100 mls/hr Q1H IV Last administered on 03/06/19at 06:17; Start 03/06/19 at 05:00; Stop 03/06/19 at 06:59; Status DC Potassium Chloride (KCl Oral Soln) 20 meq 1X ONCE PEG ; Start 03/06/19 at 09:00; Stop 03/06/19 at 09:01; Status Cancel Potassium Chloride (KCl Oral Soln) 20 meq 1X ONCE PEG Last administered on 03/06/19at 16:24; Start 03/06/19 at 14:00; Stop 03/06/19 at 14:01; Status DC Aspirin (Aspirin) 300 mg DAILY OK ; Start 03/06/19 at 14:15; Stop 03/06/19 at 17:46; Status DC Aspirin (Darren Aspirin) 325 mg DAILYWBKFT PO Last administered on 03/07/19at 11:59; Start 03/07/19 at 08:00 Acetaminophen (Tylenol) 325 mg STK-MED ONCE PO ; Start 03/06/19 at 18:27; Stop 03/06/19 at 18:28; Status DC Aspirin (Darren Aspirin) 325 mg DAILYWBKFT PO ; Start 03/07/19 at 08:00; Status UNV Acetaminophen (Tylenol) 325 mg PRN Q6HRS PRN PO MILD PAIN / TEMP; Start 03/06 at 18:45 Aspirin (Darren Aspirin) 325 mg STK-MED ONCE .ROUTE ; Start 03/06/19 at 18:42; Stop 03/06/19 at 18:43; Status DC Amiodarone HCl 900 mg/Dextrose 518 ml @ 0 mls/hr CONT PRN IV SEE I/O RECORD; Start 03/07/19 at 00:30; Status UNV Amiodarone HCl 450 mg/Dextrose 259 ml @ 17.26 mls/ hr CONT PRN IV SEE I/O RECORD Last administered on 03/07/19at 02:27; Start 03/07/19 at 01:00 Amiodarone HCl (Cordarone) 200 mg BID PO ; Start 03/07/19 at 16:00; Stop 03/07/19 at 19:38; Status DC Amiodarone HCl (Cordarone) 200 mg BID PO Last administered on 03/08/19at 08:59; Start 03/07/19 at 21:00 Potassium Chloride (KCl Oral Soln) 20 meq 1X ONCE PEG ; Start 03/08/19 at 08:30; Stop 03/08/19 at 08:31; Status DC Active Scripts Active Reported Timoptic 0.5% (Timolol Maleate) 10 Ml Drops 1 Drop EACHEYE BID Senna-S Tablet (Sennosides/Docusate Sodium) 1 Each Tablet 1 Each PO BID Onglyza (Saxagliptin Hcl) 5 Mg Tablet 1 Tab PO DAILY Crestor (Rosuvastatin Calcium) 20 Mg Tablet 20 Mg PO HS Miralax (Polyethylene Glycol 3350) 17 Gm Powd.pack 1 Packet PO DAILY Percocet 5-325 Mg Tablet (Oxycodone/Acetaminophen) 1 Each Tablet 1 Tab PO QID PRN Oxycodone Hcl Immed.release (Oxycodone Hcl) 5 Mg Tablet 5 Mg PO PRN Q4HRS PRN take 1 to 3 tabs Q4H prn Metoprolol Tartrate 25 Mg Tablet 1 Tab PO BID Metformin Hcl 500 Mg Tablet 500 Mg PO DAILYWSUP Metformin Hcl 1,000 Mg Tablet 1,000 Mg PO DAILYWBKFT Meloxicam 15 Mg Tablet 1 Tab PO NOON Lisinopril 20 Mg Tablet 1 Tab PO DAILY Xalatan (Latanoprost) 2.5 Ml Drops 1 Drop EACHEYE QHS Gabapentin (Gabapentin) 300 Mg Capsule 900 Mg PO TID Docusate Sodium 100 Mg Capsule 1 Cap PO BID Diltiazem 24HR Cd (Diltiazem Hcl) 120 Mg Cap.er.24h 1 Cap PO DAILY Restasis (Cyclosporine) 1 Each Droperette 1 Drop EACHEYE BID Refresh Optive Eye Drops (Carboxymethylcellulos/Glycerin) 15 Ml Drops 1 Drop EACHEYE QID PRN Wellbutrin Sr (Bupropion Hcl) 100 Mg Tablet.er 1 Tab PO BID Aspirin Ec (Aspirin) 81 Mg Tablet.dr 1 Tab PO DAILY Simbrinza 1%-0.2% Eye Drops (Brinzolamide/Brimonid Tart) 8 Ml Drops.susp 8 Ml OP BID Vitals/I & O Vital Sign - Last 24 Hours 03/07/19 03/07/19 03/07/19 03/07/19 10:00 11:00 11:00 12:00 Pulse 74 74 84 Resp 16 16 27 B/P (MAP) 142/68 (92) 130/61 (84) 162/78 (106) Pulse Ox 100 100 100 100 O2 Delivery Ventilator Ventilator Ventilator Ventilator 03/07/19 03/07/19 03/07/19 03/07/19 12:00 13:00 13:10 14:00 Temp 98.8 98.8 Pulse 78 78 B/P (MAP) 138/63 (88) 159/74 (102) Pulse Ox 100 100 100 O2 Delivery Mechanical Ventilator Ventilator Ventilator Ventilator O2 Flow Rate 15.0 03/07/19 03/07/19 03/07/19 03/07/19 14:35 15:00 15:05 15:30 Pulse 82 Resp 18 22 B/P (MAP) 124/63 (83) Pulse Ox 100 100 100 O2 Delivery Ventilator Ventilator Ventilator Ventilator O2 Flow Rate 15.0 03/07/19 03/07/19 03/07/19 03/07/19 16:00 16:00 17:00 17:39 Temp 98.6 98.6 Pulse 74 76 Resp 25 23 B/P (MAP) 149/72 (97) 158/72 (100) Pulse Ox 100 100 100 O2 Delivery Mechanical Ventilator Ventilator Ventilator Ventilator O2 Flow Rate 15.0 03/07/19 03/07/19 03/07/19 03/07/19 18:00 19:00 19:43 20:00 Temp 99.1 99.1 Pulse 74 80 78 Resp 26 29 15 B/P (MAP) 154/80 (104) 149/66 (93) 142/71 (94) Pulse Ox 100 100 100 100 O2 Delivery Ventilator Ventilator Ventilator Ventilator 03/07/19 03/07/19 03/07/19 03/07/19 20:00 20:23 20:53 21:00 Pulse 81 Resp 17 18 18 B/P (MAP) 155/79 (104) Pulse Ox 100 100 100 O2 Delivery Mechanical Ventilator Ventilator O2 Flow Rate 15.0 15.0 15.0 03/07/19 03/07/19 03/07/19 03/07/19 21:06 22:00 22:20 23:00 Pulse 79 76 69 Resp 15 17 B/P (MAP) 140/68 (92) 140/68 150/73 (98) Pulse Ox 100 100 100 O2 Delivery Ventilator Ventilator Ventilator 03/07/19 03/08/19 03/08/19 03/08/19 23:15 00:00 00:00 01:00 Temp 99.9 99.9 Pulse 73 79 Resp 17 18 B/P (MAP) 133/64 (87) 152/72 (98) Pulse Ox 100 100 100 O2 Delivery Ventilator Mechanical Ventilator Ventilator Ventilator O2 Flow Rate 15.0 03/08/19 03/08/19 03/08/19 03/08/19 01:06 02:00 03:00 03:21 Pulse 85 84 Resp 19 17 B/P (MAP) 148/68 (94) 136/60 (85) Pulse Ox 100 100 100 100 O2 Delivery Ventilator Ventilator Ventilator Ventilator 03/08/19 03/08/19 03/08/19 03/08/19 04:00 04:00 05:00 06:00 Temp 100.1 100.1 Pulse 76 69 76 Resp 15 18 16 B/P (MAP) 158/74 (102) 151/64 (93) 124/61 (82) Pulse Ox 100 100 100 O2 Delivery Ventilator Mechanical Ventilator Ventilator Ventilator O2 Flow Rate 15.0 03/08/19 03/08/19 03/08/19 03/08/19 06:25 07:36 08:50 08:59 Pulse 82 Resp 16 B/P (MAP) 138/55 Pulse Ox 100 100 100 O2 Delivery Ventilator O2 Flow Rate 15.0 Intake and Output 03/07/19 03/07/19 03/08/19 14:59 22:59 06:59 Intake Total 1428.8 ml 1905.4 ml Output Total 750 ml 750 ml 730 ml Balance -750 ml 678.8 ml 1175.4 ml Nutrition Consultation Dietary Evaluation: Recommendations by RD: Increase Calorie Intake, Protein supplementation Comments: REC adjust TF infusion to following: Vital AF@30 ml/hr, increase 10 ml q8 hrs as tolerated to goal rate 50 ml/hr w/100 ml water flushes q4 hrs REC Iain BID - if administering via tube, mix 1 packet w/4 oz water until dissolved and flush tube w/30 ml water before and after each packet REC liquid MVI via OG tube if able Expected Outcomes/Goals: initiation of nutrition within 24 - 48 hrs while pt remains intubated - met, new goal established New goal 03/07: TF infusion to meet >75% est needs while pt remains intubated Malnutrition Findings: Food and Nutrition Intake (Mod: <75% est energy req 7days Weight Status: Appropriate ELLEN CONROY MD March 08, 2019 09:04
[2019-03-08] MEDS: INSULIN LISPRO 300 UNITS/3 ML INSULN.PEN. SQ SCH ×3 (09:05→16:55)
[2019-03-08 09:14] LABS: BASE EXCESS ABG -1 mmol/L (-3-3); HCO3 ABG 24 mmol/L (21-28); PCO2 ABG 40 mmHg (35-46); PO2 ABG 76 mmHg (65-108); SAT O2 ABG 95 % (92-99)
[2019-03-08 09:16] LABS: FIO2 ABG 40% VENT
[2019-03-08 09:18] LABS: FIO2 ABG 35%
--- NOTE | 2019-03-08 10:22 | PDOC ---
MÓNICA MACE CLINICAL INTERVIEWER 03/08/19 1022: CARDIO Progress Notes Date and Time Date of Service 03/08/19 Time of Evaluation 0950 Subjective Subjective: Other (intubated) Vitals Vitals Vital Signs Date Time Temp Pulse Resp B/P (MAP) Pulse Ox O2 Delivery O2 Flow Rate FiO2 03/08/19 08:59 82 138/55 03/08/19 08:50 100 03/08/19 07:36 Ventilator 03/08/19 06:25 16 15.0 03/08/19 04:00 100.1 100.1 Weight Weight [ ] Input and Output Intake and Output Intake and Output 03/08/19 06:59 Intake Total 3334.2 ml Output Total 2230 ml Balance 1104.2 ml IV Total 2152.2 ml Tube Feeding 982 ml Other 200 ml Output Urine Total 2230 ml Laboratory Labs Laboratory Tests Test 03/07/19 10:10 03/07/19 12:12 03/07/19 20:36 03/08/19 06:45 White Blood Count 13.8 x10^3/uL (4.0-11.0) 12.9 x10^3/uL (4.0-11.0) Red Blood Count 3.21 x10^6/uL (4.30-5.70) 3.21 x10^6/uL (4.30-5.70) Hemoglobin 9.4 g/dL (13.0-17.5) 9.3 g/dL (13.0-17.5) Hematocrit 28.2 % (39.0-53.0) 28.0 % (39.0-53.0) Mean Corpuscular Volume 88 fL (79-100) 87 fL (79-100) Mean Corpuscular Hemoglobin 29 pg (25-35) 29 pg (25-35) Mean Corpuscular Hemoglobin Concent 33 g/dL (31-37) 33 g/dL (31-37) Red Cell Distribution Width 14.7 % (11.5-14.5) 14.2 % (11.5-14.5) Platelet Count 154 x10^3/uL (140-400) 170 x10^3/uL (140-400) Neutrophils (%) (Auto) 75 % (31-73) 75 % (31-73) Lymphocytes (%) (Auto) 10 % (24-48) 11 % (24-48) Monocytes (%) (Auto) 10 % (0-9) 11 % (0-9) Eosinophils (%) (Auto) 5 % (0-3) 3 % (0-3) Basophils (%) (Auto) 0 % (0-3) 0 % (0-3) Neutrophils # (Auto) 10.3 x10^3uL (1.8-7.7) 9.7 x10^3uL (1.8-7.7) Lymphocytes # (Auto) 1.4 x10^3/uL (1.0-4.8) 1.4 x10^3/uL (1.0-4.8) Monocytes # (Auto) 1.4 x10^3/uL (0.0-1.1) 1.4 x10^3/uL (0.0-1.1) Eosinophils # (Auto) 0.7 x10^3/uL (0.0-0.7) 0.4 x10^3/uL (0.0-0.7) Basophils # (Auto) 0.1 x10^3/uL (0.0-0.2) 0.0 x10^3/uL (0.0-0.2) Sodium Level 135 mmol/L (136-145) 135 mmol/L (136-145) Potassium Level 3.8 mmol/L (3.5-5.1) 3.7 mmol/L (3.5-5.1) Chloride Level 103 mmol/L (98-107) 102 mmol/L (98-107) Carbon Dioxide Level 24 mmol/L (21-32) 26 mmol/L (21-32) Anion Gap 8 (6-14) 7 (6-14) Blood Urea Nitrogen 27 mg/dL (8-26) 25 mg/dL (8-26) Creatinine 0.9 mg/dL (0.7-1.3) 0.8 mg/dL (0.7-1.3) Estimated GFR (Cockcroft-Gault) 83.9 96.1 Glucose Level 179 mg/dL (70-99) 161 mg/dL (70-99) Calcium Level 8.7 mg/dL (8.5-10.1) 8.7 mg/dL (8.5-10.1) Phosphorus Level 2.5 mg/dL (2.6-4.7) 2.6 mg/dL (2.6-4.7) Albumin 2.3 g/dL (3.4-5.0) 2.2 g/dL (3.4-5.0) Glucose (Fingerstick) 166 mg/dL (70-99) 157 mg/dL (70-99) Test 03/08/19 07:50 03/08/19 09:03 03/08/19 09:13 O2 Saturation 98 % (92-99) 95 % (92-99) Arterial Blood pH 7.43 (7.35-7.45) 7.40 (7.35-7.45) Arterial Blood pCO2 at Patient Temp 37 mmHg (35-46) 40 mmHg (35-46) Arterial Blood pO2 at Patient Temp 158 mmHg (65-108) 76 mmHg (65-108) Arterial Blood HCO3 24 mmol/L (21-28) 24 mmol/L (21-28) Arterial Blood Base Excess -1 mmol/L (-3-3) -1 mmol/L (-3-3) FiO2 40% vent 35% Glucose (Fingerstick) 160 mg/dL (70-99) Microbiology Micro Microbiology 03/05/19 Blood Culture - Preliminary, Resulted NO GROWTH AFTER 3 DAYS Physical Exam HEENT: Neck Supple W Full Motion Chest: Symmetric LUNGS: Other (diminished bases) Heart: RRR (SR) Abdomen: Other (soft) Extremities: No Edema Neurology: alert, other (opens eyes ) Assessment Assessment 1. Acute respiratory failure, multifactorial with AECOPD. intubated- sedation off. Weaning trial in process 2. Symptomatic bradycardia; Off dopamine. Mainly SR. No further significant bradycardia 3. Metabolic acidosis/FARA: improved 4. Hyperkalemia; resolved 5. CAD s/p CABG x3 at age 38.. reports abnormal stress test at [facility] 12/2018 prior to bladder surgery. Was recommended to f/u with cardiology 6. Bladder CA, s/p cystectomy with ileoconduit 12/20/2018 7. Metabolic encephalopathy 8. Hypertension; off levophed. stable 9. DM2/HLP 10. Arrhythmia: multiple NSVT and episode of sustained VT 03/06/19. On Amiodarone. EF at 45% with inferoseptal hypokinesis. No further significant arrhythmias since. Recommendations Continue amiodarone for rhythm maintenance ASA, statin, ACEi. Add low dose BB and monitor rhythm. If stable, covert to long acting. Plan for cardiac cath when more stable. Vent management as per pulmonary Records from [facility] Stress 12/19/18 Summary: Small to moderate size, moderate intensity reversible defect involving the entire inferior wall and basal inferoseptal consistent with RCA territory ischemia. LV systolic function is normal at 59%. There are no high risk prognostic indicators present. The ECG portion of the study is non-diagnostics. for ischemia. ALAN HILLIARD MD 03/08/192007: CARDIO Progress Notes Assessment Assessment Patient seen and examined. Agree with CLINICAL RESEARCH COORDINATOR's assessment and plan. Tele did not show any further VT episodes Patient presently extubated Recent stress test results noted Plan cardiac cath once stable, possibly tuesday MÓNICA MACE APRN March 08, 2019 10:22 ALAN HILLIARD MD March 08, 2019 20:08
--- NOTE | 2019-03-08 10:40 | PDOC ---
PULMONARY PROGRESS NOTES Subjective Pt awake, on CPAP trial Vitals Vital Signs Date Time Temp Pulse Resp B/P (MAP) Pulse Ox O2 Delivery O2 Flow Rate FiO2 03/08/19 08:59 82 138/55 03/08/19 08:50 100 03/08/19 07:36 Ventilator 03/08/19 06:25 16 15.0 03/08/19 04:00 100.1 100.1 General: Alert, No acute distress Lungs: Clear Cardiovascular: S1, S2 Abdomen: Soft Extremities: No Edema Skin: Warm Labs Laboratory Tests Test 03/06/19 13:15 03/06/19 18:37 03/07/19 08:20 03/07/19 10:10 Glucose (Fingerstick) 180 mg/dL (70-99) 189 mg/dL (70-99) O2 Saturation 99 % (92-99) Arterial Blood pH 7.42 (7.35-7.45) Arterial Blood pCO2 at Patient Temp 33 mmHg (35-46) Arterial Blood pO2 at Patient Temp 223 mmHg (65-108) Arterial Blood HCO3 21 mmol/L (21-28) Arterial Blood Base Excess -3 mmol/L (-3-3) FiO2 50 White Blood Count 13.8 x10^3/uL (4.0-11.0) Red Blood Count 3.21 x10^6/uL (4.30-5.70) Hemoglobin 9.4 g/dL (13.0-17.5) Hematocrit 28.2 % (39.0-53.0) Mean Corpuscular Volume 88 fL (79-100) Mean Corpuscular Hemoglobin 29 pg (25-35) Mean Corpuscular Hemoglobin Concent 33 g/dL (31-37) Red Cell Distribution Width 14.7 % (11.5-14.5) Platelet Count 154 x10^3/uL (140-400) Neutrophils (%) (Auto) 75 % (31-73) Lymphocytes (%) (Auto) 10 % (24-48) Monocytes (%) (Auto) 10 % (0-9) Eosinophils (%) (Auto) 5 % (0-3) Basophils (%) (Auto) 0 % (0-3) Neutrophils # (Auto) 10.3 x10^3uL (1.8-7.7) Lymphocytes # (Auto) 1.4 x10^3/uL (1.0-4.8) Monocytes # (Auto) 1.4 x10^3/uL (0.0-1.1) Eosinophils # (Auto) 0.7 x10^3/uL (0.0-0.7) Basophils # (Auto) 0.1 x10^3/uL (0.0-0.2) Sodium Level 135 mmol/L (136-145) Potassium Level 3.8 mmol/L (3.5-5.1) Chloride Level 103 mmol/L (98-107) Carbon Dioxide Level 24 mmol/L (21-32) Anion Gap 8 (6-14) Blood Urea Nitrogen 27 mg/dL (8-26) Creatinine 0.9 mg/dL (0.7-1.3) Estimated GFR (Cockcroft-Gault) 83.9 Glucose Level 179 mg/dL (70-99) Calcium Level 8.7 mg/dL (8.5-10.1) Phosphorus Level 2.5 mg/dL (2.6-4.7) Albumin 2.3 g/dL (3.4-5.0) Test 03/07/19 12:12 03/07/19 20:36 03/08/19 06:45 03/08/19 07:50 Glucose (Fingerstick) 166 mg/dL (70-99) 157 mg/dL (70-99) White Blood Count 12.9 x10^3/uL (4.0-11.0) Red Blood Count 3.21 x10^6/uL (4.30-5.70) Hemoglobin 9.3 g/dL (13.0-17.5) Hematocrit 28.0 % (39.0-53.0) Mean Corpuscular Volume 87 fL (79-100) Mean Corpuscular Hemoglobin 29 pg (25-35) Mean Corpuscular Hemoglobin Concent 33 g/dL (31-37) Red Cell Distribution Width 14.2 % (11.5-14.5) Platelet Count 170 x10^3/uL (140-400) Neutrophils (%) (Auto) 75 % (31-73) Lymphocytes (%) (Auto) 11 % (24-48) Monocytes (%) (Auto) 11 % (0-9) Eosinophils (%) (Auto) 3 % (0-3) Basophils (%) (Auto) 0 % (0-3) Neutrophils # (Auto) 9.7 x10^3uL (1.8-7.7) Lymphocytes # (Auto) 1.4 x10^3/uL (1.0-4.8) Monocytes # (Auto) 1.4 x10^3/uL (0.0-1.1) Eosinophils # (Auto) 0.4 x10^3/uL (0.0-0.7) Basophils # (Auto) 0.0 x10^3/uL (0.0-0.2) Sodium Level 135 mmol/L (136-145) Potassium Level 3.7 mmol/L (3.5-5.1) Chloride Level 102 mmol/L (98-107) Carbon Dioxide Level 26 mmol/L (21-32) Anion Gap 7 (6-14) Blood Urea Nitrogen 25 mg/dL (8-26) Creatinine 0.8 mg/dL (0.7-1.3) Estimated GFR (Cockcroft-Gault) 96.1 Glucose Level 161 mg/dL (70-99) Calcium Level 8.7 mg/dL (8.5-10.1) Phosphorus Level 2.6 mg/dL (2.6-4.7) Albumin 2.2 g/dL (3.4-5.0) Triglycerides Level 135 mg/dL (0-150) O2 Saturation 98 % (92-99) Arterial Blood pH 7.43 (7.35-7.45) Arterial Blood pCO2 at Patient Temp 37 mmHg (35-46) Arterial Blood pO2 at Patient Temp 158 mmHg (65-108) Arterial Blood HCO3 24 mmol/L (21-28) Arterial Blood Base Excess -1 mmol/L (-3-3) FiO2 40% vent Test 03/08/19 09:03 03/08/19 09:13 Glucose (Fingerstick) 160 mg/dL (70-99) O2 Saturation 95 % (92-99) Arterial Blood pH 7.40 (7.35-7.45) Arterial Blood pCO2 at Patient Temp 40 mmHg (35-46) Arterial Blood pO2 at Patient Temp 76 mmHg (65-108) Arterial Blood HCO3 24 mmol/L (21-28) Arterial Blood Base Excess -1 mmol/L (-3-3) FiO2 35% Laboratory Tests Test 03/07/19 12:12 03/07/19 20:36 03/08/19 06:45 03/08/19 07:50 Glucose (Fingerstick) 166 mg/dL (70-99) 157 mg/dL (70-99) White Blood Count 12.9 x10^3/uL (4.0-11.0) Red Blood Count 3.21 x10^6/uL (4.30-5.70) Hemoglobin 9.3 g/dL (13.0-17.5) Hematocrit 28.0 % (39.0-53.0) Mean Corpuscular Volume 87 fL (79-100) Mean Corpuscular Hemoglobin 29 pg (25-35) Mean Corpuscular Hemoglobin Concent 33 g/dL (31-37) Red Cell Distribution Width 14.2 % (11.5-14.5) Platelet Count 170 x10^3/uL (140-400) Neutrophils (%) (Auto) 75 % (31-73) Lymphocytes (%) (Auto) 11 % (24-48) Monocytes (%) (Auto) 11 % (0-9) Eosinophils (%) (Auto) 3 % (0-3) Basophils (%) (Auto) 0 % (0-3) Neutrophils # (Auto) 9.7 x10^3uL (1.8-7.7) Lymphocytes # (Auto) 1.4 x10^3/uL (1.0-4.8) Monocytes # (Auto) 1.4 x10^3/uL (0.0-1.1) Eosinophils # (Auto) 0.4 x10^3/uL (0.0-0.7) Basophils # (Auto) 0.0 x10^3/uL (0.0-0.2) Sodium Level 135 mmol/L (136-145) Potassium Level 3.7 mmol/L (3.5-5.1) Chloride Level 102 mmol/L (98-107) Carbon Dioxide Level 26 mmol/L (21-32) Anion Gap 7 (6-14) Blood Urea Nitrogen 25 mg/dL (8-26) Creatinine 0.8 mg/dL (0.7-1.3) Estimated GFR (Cockcroft-Gault) 96.1 Glucose Level 161 mg/dL (70-99) Calcium Level 8.7 mg/dL (8.5-10.1) Phosphorus Level 2.6 mg/dL (2.6-4.7) Albumin 2.2 g/dL (3.4-5.0) Triglycerides Level 135 mg/dL (0-150) O2 Saturation 98 % (92-99) Arterial Blood pH 7.43 (7.35-7.45) Arterial Blood pCO2 at Patient Temp 37 mmHg (35-46) Arterial Blood pO2 at Patient Temp 158 mmHg (65-108) Arterial Blood HCO3 24 mmol/L (21-28) Arterial Blood Base Excess -1 mmol/L (-3-3) FiO2 40% vent Test 03/08/19 09:03 03/08/19 09:13 Glucose (Fingerstick) 160 mg/dL (70-99) O2 Saturation 95 % (92-99) Arterial Blood pH 7.40 (7.35-7.45) Arterial Blood pCO2 at Patient Temp 40 mmHg (35-46) Arterial Blood pO2 at Patient Temp 76 mmHg (65-108) Arterial Blood HCO3 24 mmol/L (21-28) Arterial Blood Base Excess -1 mmol/L (-3-3) FiO2 35% Medications Active Scripts Medications Dose Route/Sig Max Daily Dose Days Date Category Dose Instructions Timoptic 0.5% (Timolol Maleate) 10 Ml Drops 1 Drop EACHEYE BID 03/05/19 Reported Senna-S Tablet (Sennosides/Docusate Sodium) 1 Each Tablet 1 Each PO BID 03/05/19 Reported Onglyza (Saxagliptin Hcl) 5 Mg Tablet 1 Tab PO DAILY 03/05/19 Reported Crestor (Rosuvastatin Calcium) 20 Mg Tablet 20 Mg PO HS 03/05/19 Reported Miralax (Polyethylene Glycol 3350) 17 Gm Powd.pack 1 Packet PO DAILY 03/05/19 Reported Percocet 5-325 Mg Tablet (Oxycodone/Acetaminophen) 1 Each Tablet 1 Tab PO QID PRN 03/05/19 Reported Oxycodone Hcl Immed.release (Oxycodone Hcl) 5 Mg Tablet 5 Mg PO PRN Q4HRS PRN 03/05/19 Reported take 1 to 3 tabs Q4H prn Metoprolol Tartrate 25 Mg Tablet 1 Tab PO BID 03/05/19 Reported Metformin Hcl 500 Mg Tablet 500 Mg PO [id number] 03/05/19 Reported Metformin Hcl 1,000 Mg Tablet 1,000 Mg PO [id number] 03/05/19 Reported Meloxicam 15 Mg Tablet 1 Tab PO NOON 03/05/19 Reported Lisinopril 20 Mg Tablet 1 Tab PO DAILY 03/05/19 Reported Xalatan (Latanoprost) 2.5 Ml Drops 1 Drop EACHEYE QHS 03/05/19 Reported Gabapentin (Gabapentin) 300 Mg Capsule 900 Mg PO TID 03/05/19 Reported Docusate Sodium 100 Mg Capsule 1 Cap PO BID 03/05/19 Reported Diltiazem 24HR Cd (Diltiazem Hcl) 120 Mg Cap.er.24h 1 Cap PO DAILY 03/05/19 Reported Restasis (Cyclosporine) 1 Each Droperette 1 Drop EACHEYE BID 03/05/19 Reported Refresh Optive Eye Drops (Carboxymethylcellulos/Glycerin) 15 Ml Drops 1 Drop EACHEYE QID PRN 03/05/19 Reported Wellbutrin Sr (Bupropion Hcl) 100 Mg Tablet.er 1 Tab PO BID 03/05/19 Reported Aspirin Ec (Aspirin) 81 Mg Tablet.dr 1 Tab PO DAILY 03/05/19 Reported Simbrinza 1%-0.2% Eye Drops (Brinzolamide/Brimonid Tart) 8 Ml Drops.susp 8 Ml OP BID 03/05/19 Reported Comments CXR 5/ CLEAR Impression . IMPRESSION: 1. Acute hypoxemic respiratory failure. 2. Severe metabolic acidosis due to FARA, RESOLVED 3. Leukocytosis. 4. chest x-ray. clear now 5. Bradycardia. 6. Hypercalcemia. 7. Acute exacerbation of chronic obstructive pulmonary disease. 8. Type 2 diabetes. 9. Coronary artery disease, status post coronary artery bypass grafting. 10. Acute on chronic metabolic toxic encephalopathy, present upon admission. 11. Bladder cancer, status post chemo cystectomy with ileal conduit. 12. Arrhythmias Plan . ON CPAP TRIAL AWAKE, ABG ADEQUATE PROCEED WITH EXTUBATION CXR REVIEWED CLEAR ANTIBX DEESCALATE D/W RN AND PEGGY ANTHONY MD March 08, 2019 10:40
[2019-03-08] MEDS ORDERED: METOPROLOL TART IMMED RELEASE 25 MG TABLET. PO SCH (11:00)
[2019-03-08] MEDS ORDERED: LISINOPRIL 5 MG TABLET. PO SCH (11:00)
--- NOTE | 2019-03-08 11:24 | NUR ---
CPAP trial started at 0815, PS 6. Pt O2 remained 100% during trial. Blood gas drawn before and during trial. Dr. Norwood saw pt and gave the okay to extubate. Pt extubated @ 1100. Placed on 4LNC, 100% O2 saturation. at bedside. Will monitor.
[2019-03-08] MEDS ORDERED: POLYVINYL ALCOHOL 1.4% OPHTH SOLUTION 15ML BOTTLE. OU PRN (13:30)
[2019-03-08] MEDS: GABAPENTIN 300 MG CAPSULE. PO SCH ×2 (14:00→21:00)
[2019-03-08] MEDS: buPROPion SR 100 MG TABLET.SA. PO SCH ×2 (14:00→21:00)
[2019-03-08] MEDS: SENNOSIDES/DOCUSATE 8.6/50MG TABLET. PO SCH ×2 (14:00→21:00)
[2019-03-08] MEDS: DOCUSATE SODIUM 100 MG CAPSULE. PO SCH ×2 (14:00→21:00)
[2019-03-08] MEDS: cycloSPORINE 0.05% OPHTH DROPERETTE. OU SCH ×2 (14:17→20:54)
--- NOTE | 2019-03-08 16:52 | NUR ---
SS following up with discharge planning. Pt is now on nasal cannula oxygen. PT/OT ordered. SS will await PT/OT evaluations and recommendations and will proceed accordingly with discharge planning.
[2019-03-08] MEDS: IV 1/2 NORMAL SALINE 1,000 ML IV SCH ×2 (17:00→18:21)
[2019-03-08] MEDS: DORZOLAMIDE 2% OPHTH SOLUTION 10ML BOTTLE. OU SCH (20:54)
[2019-03-08] MEDS: FAMOTIDINE 20 MG/2 ML VIAL IVP SCH (20:54)
[2019-03-08] MEDS: BRIMONIDINE 0.2% OPHTH SOLUTION 5ML BOTTLE. OU SCH (20:55)
[2019-03-08] MEDS: TIMOLOL 0.5% OPHTH SOLUTION 5ML BOTTLE. OU SCH (20:55)
[2019-03-08] MEDS: LATANOPROST 0.005% OPHTH SOLUTION 2.5ML BOTTLE. OU SCH (20:55)
[2019-03-08] MEDS: METOPROLOL TART IMMED RELEASE 25 MG TABLET. PO SCH (21:00)
[2019-03-08] MEDS: ATORVASTATIN CALCIUM 40 MG TABLET. PO SCH (21:00)
[2019-03-09] VITALS (13 sets, daily range): BP systolic 136–183; BP diastolic 48–75
[2019-03-09] MEDS: HEPARIN for SUB-Q USE 5,000 UNIT/ML VIAL. SQ SCH ×3 (05:15→21:32)
[2019-03-09 05:37] LABS: BASO # 0.1 x10^3/uL (0.0-0.2); BASO % 1 % (0-3); EOS # 0.5 x10^3/uL (0.0-0.7); EOS % 5 % (0-3); HEMATOCRIT 28.6 % (39.0-53.0); HEMOGLOBIN 9.7 g/dL (13.0-17.5); LYMPH # 1.4 x10^3/uL (1.0-4.8); LYMPH % 14 % (24-48); MEAN CORPUSCULAR HEMOGLOBIN 30 pg (25-35); MEAN CORPUSCULAR HGB CONC 34 g/dL (31-37); MEAN CORPUSCULAR VOLUME 88 fL (79-100); MONO # 1.1 x10^3/uL (0.0-1.1); MONO % 11 % (0-9); NEUT # 7.2 x10^3uL (1.8-7.7); NEUT % 70 % (31-73); PLATELET COUNT 181 x10^3/uL (140-400); RED BLOOD COUNT 3.26 x10^6/uL (4.30-5.70); RED CELL DISTRIBUTION WIDTH 14.2 % (11.5-14.5); WHITE BLOOD COUNT 10.2 x10^3/uL (4.0-11.0)
[2019-03-09 05:52] LABS: ALBUMIN 2.4 g/dL (3.4-5.0); CALCIUM 9.2 mg/dL (8.5-10.1); CREATININE 0.7 mg/dL (0.7-1.3); GFR 112.1; POTASSIUM 3.7 mmol/L (3.5-5.1)
--- NOTE | 2019-03-09 07:41 | RAD ---
Portable chest, 03/09/2019: HISTORY: Respiratory failure Comparison is made to a study from 03/08/2019. The ET tube and NG tube have been removed. A right Port-A-Cath remains in place extending to the level of the atrial caval junction. The heart size and poor a vascularity are within normal limits. No pulmonary infiltrate is seen. There is no evidence of pleural fluid. IMPRESSION: No acute cardiopulmonary abnormality is detected. Electronically signed by: Wilver Ahumada MD (03/09/2019 7:39 AM) [facility]
[2019-03-09] MEDS: INSULIN LISPRO 300 UNITS/3 ML INSULN.PEN. SQ SCH ×2 (08:00→12:00)
[2019-03-09] MEDS: buPROPion SR 100 MG TABLET.SA. PO SCH ×2 (08:44→20:31)
[2019-03-09] MEDS: ASPIRIN 325 MG TABLET PO SCH (08:44)
[2019-03-09] MEDS: cycloSPORINE 0.05% OPHTH DROPERETTE. OU SCH ×2 (08:45→20:32)
[2019-03-09] MEDS: SENNOSIDES/DOCUSATE 8.6/50MG TABLET. PO SCH ×2 (08:45→20:31)
[2019-03-09] MEDS: DOCUSATE SODIUM 100 MG CAPSULE. PO SCH ×2 (08:45→20:32)
[2019-03-09] MEDS: GABAPENTIN 300 MG CAPSULE. PO SCH ×3 (08:45→20:32)
[2019-03-09] MEDS: DORZOLAMIDE 2% OPHTH SOLUTION 10ML BOTTLE. OU SCH ×2 (08:45→20:33)
[2019-03-09] MEDS: CHLORHEXIDINE 0.12% 15 ML MOUTHWASH. MM SCH (08:46)
[2019-03-09] MEDS: TIMOLOL 0.5% OPHTH SOLUTION 5ML BOTTLE. OU SCH ×2 (08:46→20:33)
[2019-03-09] MEDS: BRIMONIDINE 0.2% OPHTH SOLUTION 5ML BOTTLE. OU SCH ×2 (08:46→20:34)
[2019-03-09] MEDS: AMIODARONE HCL 200 MG TABLET. PO SCH ×2 (08:48→20:31)
[2019-03-09] MEDS: LISINOPRIL 20 MG TABLET PO SCH (08:48)
[2019-03-09] MEDS: DOXYCYCLINE HYCLATE 100 MG TABLET PO SCH ×2 (08:52→20:32)
--- NOTE | 2019-03-09 08:52 | PDOC ---
PROGRESS NOTES Chief Complaint Chief Complaint A/P: Acute encephalopathy - likely mixed picture, metabolic with uremia and hyperkalemia. Seems to follow commands on vent when sedation is weaned Hypoxic respiratory failure - with underlying COPD, never previously intubated, not on home O2. Intubated for hypoxia, extubated and now CXR clear. Appreciate pulmonology. Sepsis - POA, likely 2/2 community acquired pneumonia, improving, off pressors, extubated, now CXR clear Hyperkalemia - 7.3 --> 3.1 with above corrective measures, still on IVF. Actually K got low the last few days Acute Kidney injury - BUN 82 and Cr 2.5 on admission, likely vasomotor nephropathy given his poor PO intake. Improved now Symptomatic bradycardia - Initially paced, with wide complex, likely 2/2 hyperkalemia, now off dopamine, improved. Cardiology consulted for further care. Started on Amio per cardiology Vtach - no longer having episodes over the past 48 hours CAD s/p CABG x3 - stable outpatient with [facility] f/u in [place]. Hold nephrotoxic meds Bladder Cancer s/p chemotherapy and cystectomy with ileoconduit (12/[address] Licea @ [facility]) - has appt on 03/10/19 for f/u. Access for port ok. Monitor urostomy output. Will order records. Diabetes-Type II - placed on sliding scale, A1c 6.7 Hypercalcemia - corrected with IVF Acute exacerbation of chronic obstructive pulmonary disease - improving. Seems to have tolerated vent well, no prior intubations, not on O2, extubated without event Acute metabolic acidosis - 2/2 FARA, hyperkalemia, corrected. Caused a metabolic toxic encephalopathy, present upon admission. FEN - GAME MODERATOR to evaluate for diet today PPX - Heparin FULL CODE Can downgrade to CVC today, likely d/c in the next day or 2 History of Present Illness History of Present Illness Mr Ashley is a 68-year-old male 100% service connected [place] w/PMHx CAD s/p CABG x3, Bladder Cancer s/p chemotherapy and cystectomy with ileoconduit (12/[address] Licea @ [facility]), COPD, Diabetes-Type II who presents via EMS from [place] with report of 3 day history of progressive weakness and shortness of breath per spouse who reported he has been confused as well. Patient noted to be hypoxic by EMS down to 68% on room air, not on home O2. Given DuoNebs en route. Patient also noted to have heart rate down into the 30s, was given versed by EMS and transcutaneously paced enroute. Maintained low O2 saturations despite NRB and he was urgently intubated. Found on EKG with potassium of 7.3 and wide complex QRS. Started on bicarbonate gtt, dopamine, propofol for sedation. Pulm, cards, nephro consulted 03/06/19: Echo shows EF 45-50%. Started levophed last night for persistent hypotension. Did have V-tach. Labs improved K to 3.1, Cr 1.1, BUN 35. UOP picked up quite a bit >3L out over the past 24 hours. 03/07: BP improved yesterday, off levophed and dopamine. Labs normalized. CXR improved. D/w bedside. 03/08: Extubated without event, labs show low K now Feeling well, sitting in chair, very slight cough and sore throat. Nephrostomy output good. Plan: Correct potassium, f/u cardiology and pulm recs. He may be ready for home soon. Will have PT/OT/GAME MODERATOR evaluate Vitals Vitals Vital Signs Date Time Temp Pulse Resp B/P (MAP) Pulse Ox O2 Delivery O2 Flow Rate FiO2 03/09/19 06:00 63 20 154/61 (92) 97 Room Air 03/09/19 04:00 98.6 98.6 03/09/19 02:00 3.0 Physical Exam General: Alert, Oriented X3, Cooperative Heart: Regular rate, Normal S1, Normal S2, Other (distant heart tones) Lungs: Wheezing Abdomen: Normal bowel sounds, Soft, No tenderness, No hepatosplenomegaly, Other (Urostomey site clean) Extremities: No edema Skin: No significant lesion Labs LABS Laboratory Tests Test 03/08/19 09:03 03/08/19 09:13 03/08/19 11:43 03/08/19 16:53 Glucose (Fingerstick) 160 mg/dL (70-99) 177 mg/dL (70-99) 149 mg/dL (70-99) O2 Saturation 95 % (92-99) Arterial Blood pH 7.40 (7.35-7.45) Arterial Blood pCO2 at Patient Temp 40 mmHg (35-46) Arterial Blood pO2 at Patient Temp 76 mmHg (65-108) Arterial Blood HCO3 24 mmol/L (21-28) Arterial Blood Base Excess -1 mmol/L (-3-3) FiO2 35% Test 03/09/19 05:20 03/09/19 05:46 White Blood Count 10.2 x10^3/uL (4.0-11.0) Red Blood Count 3.26 x10^6/uL (4.30-5.70) Hemoglobin 9.7 g/dL (13.0-17.5) Hematocrit 28.6 % (39.0-53.0) Mean Corpuscular Volume 88 fL (79-100) Mean Corpuscular Hemoglobin 30 pg (25-35) Mean Corpuscular Hemoglobin Concent 34 g/dL (31-37) Red Cell Distribution Width 14.2 % (11.5-14.5) Platelet Count 181 x10^3/uL (140-400) Neutrophils (%) (Auto) 70 % (31-73) Lymphocytes (%) (Auto) 14 % (24-48) Monocytes (%) (Auto) 11 % (0-9) Eosinophils (%) (Auto) 5 % (0-3) Basophils (%) (Auto) 1 % (0-3) Neutrophils # (Auto) 7.2 x10^3uL (1.8-7.7) Lymphocytes # (Auto) 1.4 x10^3/uL (1.0-4.8) Monocytes # (Auto) 1.1 x10^3/uL (0.0-1.1) Eosinophils # (Auto) 0.5 x10^3/uL (0.0-0.7) Basophils # (Auto) 0.1 x10^3/uL (0.0-0.2) Sodium Level 138 mmol/L (136-145) Potassium Level 3.7 mmol/L (3.5-5.1) Chloride Level 101 mmol/L (98-107) Carbon Dioxide Level 29 mmol/L (21-32) Anion Gap 8 (6-14) Blood Urea Nitrogen 15 mg/dL (8-26) Creatinine 0.7 mg/dL (0.7-1.3) Estimated GFR (Cockcroft-Gault) 112.1 Glucose Level 129 mg/dL (70-99) Calcium Level 9.2 mg/dL (8.5-10.1) Phosphorus Level 3.0 mg/dL (2.6-4.7) Albumin 2.4 g/dL (3.4-5.0) Glucose (Fingerstick) 111 mg/dL (70-99) Assessment and Plan Assessmemt and Plan Problems Medical Problems: (1) Hyperkalemia Status: Acute (2) Hyponatremia Status: Acute (3) Renal insufficiency Status: Acute (4) Respiratory failure Status: Acute Comment Review of Relevant I have reviewed the following items fabián (where applicable) has been applied. Labs Laboratory Tests Test 03/07/19 10:10 03/07/19 12:12 03/07/19 20:36 03/08/19 06:45 White Blood Count 13.8 x10^3/uL (4.0-11.0) 12.9 x10^3/uL (4.0-11.0) Red Blood Count 3.21 x10^6/uL (4.30-5.70) 3.21 x10^6/uL (4.30-5.70) Hemoglobin 9.4 g/dL (13.0-17.5) 9.3 g/dL (13.0-17.5) Hematocrit 28.2 % (39.0-53.0) 28.0 % (39.0-53.0) Mean Corpuscular Volume 88 fL (79-100) 87 fL (79-100) Mean Corpuscular Hemoglobin 29 pg (25-35) 29 pg (25-35) Mean Corpuscular Hemoglobin Concent 33 g/dL (31-37) 33 g/dL (31-37) Red Cell Distribution Width 14.7 % (11.5-14.5) 14.2 % (11.5-14.5) Platelet Count 154 x10^3/uL (140-400) 170 x10^3/uL (140-400) Neutrophils (%) (Auto) 75 % (31-73) 75 % (31-73) Lymphocytes (%) (Auto) 10 % (24-48) 11 % (24-48) Monocytes (%) (Auto) 10 % (0-9) 11 % (0-9) Eosinophils (%) (Auto) 5 % (0-3) 3 % (0-3) Basophils (%) (Auto) 0 % (0-3) 0 % (0-3) Neutrophils # (Auto) 10.3 x10^3uL (1.8-7.7) 9.7 x10^3uL (1.8-7.7) Lymphocytes # (Auto) 1.4 x10^3/uL (1.0-4.8) 1.4 x10^3/uL (1.0-4.8) Monocytes # (Auto) 1.4 x10^3/uL (0.0-1.1) 1.4 x10^3/uL (0.0-1.1) Eosinophils # (Auto) 0.7 x10^3/uL (0.0-0.7) 0.4 x10^3/uL (0.0-0.7) Basophils # (Auto) 0.1 x10^3/uL (0.0-0.2) 0.0 x10^3/uL (0.0-0.2) Sodium Level 135 mmol/L (136-145) 135 mmol/L (136-145) Potassium Level 3.8 mmol/L (3.5-5.1) 3.7 mmol/L (3.5-5.1) Chloride Level 103 mmol/L (98-107) 102 mmol/L (98-107) Carbon Dioxide Level 24 mmol/L (21-32) 26 mmol/L (21-32) Anion Gap 8 (6-14) 7 (6-14) Blood Urea Nitrogen 27 mg/dL (8-26) 25 mg/dL (8-26) Creatinine 0.9 mg/dL (0.7-1.3) 0.8 mg/dL (0.7-1.3) Estimated GFR (Cockcroft-Gault) 83.9 96.1 Glucose Level 179 mg/dL (70-99) 161 mg/dL (70-99) Calcium Level 8.7 mg/dL (8.5-10.1) 8.7 mg/dL (8.5-10.1) Phosphorus Level 2.5 mg/dL (2.6-4.7) 2.6 mg/dL (2.6-4.7) Albumin 2.3 g/dL (3.4-5.0) 2.2 g/dL (3.4-5.0) Glucose (Fingerstick) 166 mg/dL (70-99) 157 mg/dL (70-99) Triglycerides Level 135 mg/dL (0-150) Test 03/08/19 07:50 03/08/19 09:03 03/08/19 09:13 03/08/19 11:43 O2 Saturation 98 % (92-99) 95 % (92-99) Arterial Blood pH 7.43 (7.35-7.45) 7.40 (7.35-7.45) Arterial Blood pCO2 at Patient Temp 37 mmHg (35-46) 40 mmHg (35-46) Arterial Blood pO2 at Patient Temp 158 mmHg (65-108) 76 mmHg (65-108) Arterial Blood HCO3 24 mmol/L (21-28) 24 mmol/L (21-28) Arterial Blood Base Excess -1 mmol/L (-3-3) -1 mmol/L (-3-3) FiO2 40% vent 35% Glucose (Fingerstick) 160 mg/dL (70-99) 177 mg/dL (70-99) Test 03/08/19 16:53 03/09/19 05:20 03/09/19 05:46 Glucose (Fingerstick) 149 mg/dL (70-99) 111 mg/dL (70-99) White Blood Count 10.2 x10^3/uL (4.0-11.0) Red Blood Count 3.26 x10^6/uL (4.30-5.70) Hemoglobin 9.7 g/dL (13.0-17.5) Hematocrit 28.6 % (39.0-53.0) Mean Corpuscular Volume 88 fL (79-100) Mean Corpuscular Hemoglobin 30 pg (25-35) Mean Corpuscular Hemoglobin Concent 34 g/dL (31-37) Red Cell Distribution Width 14.2 % (11.5-14.5) Platelet Count 181 x10^3/uL (140-400) Neutrophils (%) (Auto) 70 % (31-73) Lymphocytes (%) (Auto) 14 % (24-48) Monocytes (%) (Auto) 11 % (0-9) Eosinophils (%) (Auto) 5 % (0-3) Basophils (%) (Auto) 1 % (0-3) Neutrophils # (Auto) 7.2 x10^3uL (1.8-7.7) Lymphocytes # (Auto) 1.4 x10^3/uL (1.0-4.8) Monocytes # (Auto) 1.1 x10^3/uL (0.0-1.1) Eosinophils # (Auto) 0.5 x10^3/uL (0.0-0.7) Basophils # (Auto) 0.1 x10^3/uL (0.0-0.2) Sodium Level 138 mmol/L (136-145) Potassium Level 3.7 mmol/L (3.5-5.1) Chloride Level 101 mmol/L (98-107) Carbon Dioxide Level 29 mmol/L (21-32) Anion Gap 8 (6-14) Blood Urea Nitrogen 15 mg/dL (8-26) Creatinine 0.7 mg/dL (0.7-1.3) Estimated GFR (Cockcroft-Gault) 112.1 Glucose Level 129 mg/dL (70-99) Calcium Level 9.2 mg/dL (8.5-10.1) Phosphorus Level 3.0 mg/dL (2.6-4.7) Albumin 2.4 g/dL (3.4-5.0) Laboratory Tests Test 03/08/19 09:03 03/08/19 09:13 03/08/19 11:43 03/08/19 16:53 Glucose (Fingerstick) 160 mg/dL (70-99) 177 mg/dL (70-99) 149 mg/dL (70-99) O2 Saturation 95 % (92-99) Arterial Blood pH 7.40 (7.35-7.45) Arterial Blood pCO2 at Patient Temp 40 mmHg (35-46) Arterial Blood pO2 at Patient Temp 76 mmHg (65-108) Arterial Blood HCO3 24 mmol/L (21-28) Arterial Blood Base Excess -1 mmol/L (-3-3) FiO2 35% Test 03/09/19 05:20 03/09/19 05:46 White Blood Count 10.2 x10^3/uL (4.0-11.0) Red Blood Count 3.26 x10^6/uL (4.30-5.70) Hemoglobin 9.7 g/dL (13.0-17.5) Hematocrit 28.6 % (39.0-53.0) Mean Corpuscular Volume 88 fL (79-100) Mean Corpuscular Hemoglobin 30 pg (25-35) Mean Corpuscular Hemoglobin Concent 34 g/dL (31-37) Red Cell Distribution Width 14.2 % (11.5-14.5) Platelet Count 181 x10^3/uL (140-400) Neutrophils (%) (Auto) 70 % (31-73) Lymphocytes (%) (Auto) 14 % (24-48) Monocytes (%) (Auto) 11 % (0-9) Eosinophils (%) (Auto) 5 % (0-3) Basophils (%) (Auto) 1 % (0-3) Neutrophils # (Auto) 7.2 x10^3uL (1.8-7.7) Lymphocytes # (Auto) 1.4 x10^3/uL (1.0-4.8) Monocytes # (Auto) 1.1 x10^3/uL (0.0-1.1) Eosinophils # (Auto) 0.5 x10^3/uL (0.0-0.7) Basophils # (Auto) 0.1 x10^3/uL (0.0-0.2) Sodium Level 138 mmol/L (136-145) Potassium Level 3.7 mmol/L (3.5-5.1) Chloride Level 101 mmol/L (98-107) Carbon Dioxide Level 29 mmol/L (21-32) Anion Gap 8 (6-14) Blood Urea Nitrogen 15 mg/dL (8-26) Creatinine 0.7 mg/dL (0.7-1.3) Estimated GFR (Cockcroft-Gault) 112.1 Glucose Level 129 mg/dL (70-99) Calcium Level 9.2 mg/dL (8.5-10.1) Phosphorus Level 3.0 mg/dL (2.6-4.7) Albumin 2.4 g/dL (3.4-5.0) Glucose (Fingerstick) 111 mg/dL (70-99) Microbiology 03/05/19 Blood Culture - Preliminary, Resulted NO GROWTH AFTER 4 DAYS Medications Current Medications Sodium Chloride 1,000 ml @ 1,000 mls/hr 1X ONCE IV Last administered on 03/04/19 23:28; Start 03/05/19 at 00:00; Stop 03/05/19 at 00:59; Status DC Fentanyl Citrate (Fentanyl 2ml Vial) 50 mcg 1X ONCE JOSE RAUL Last administered on 03/04/19 23:02; Start 03/05/19 at 00:00; Stop 03/05/19 at 00:02; Status DC Dexamethasone Sodium Phosphate (Decadron) 10 mg 1X ONCE IV ; Start 03/05/19 at 00:00; Stop 03/05/19 at 00:02; Status DC Atropine Sulfate (ATROPINE 1mg SYRINGE) 0.5 mg 1X ONCE IV Last administered on 03/04/19 23:07; Start 03/05/19 at 00:00; Stop 03/05/19 at 00:02; Status DC Albuterol Sulfate (Ventolin Neb Soln) 2.5 mg 1X ONCE NEB Last administered on 03/04/19 23:15; Start 03/04/19 at 23:15; Stop 03/05/19 at 00:01; Status DC Atropine Sulfate (ATROPINE 1mg SYRINGE) 0.5 mg 1X ONCE IV Last administered on 03/04/19 23:08; Start 03/05/19 at 00:00; Stop 03/05/19 at 00:02; Status DC Atropine Sulfate (ATROPINE 1mg SYRINGE) 1 mg 1X ONCE IV Last administered on 03/04/19 23:18; Start 03/05/19 at 00:00; Stop 03/05/19 at 00:02; Status DC Etomidate (Amidate) 20 mg 1X ONCE IV Last administered on 03/04/19 23:32; Start 03/05/19 at 00:00; Stop 03/05/19 at 00:02; Status DC Rocuronium [place] (Zemuron) 50 mg 1X ONCE IV Last administered on 03/04/19 23:33; Start 03/05/19 at 00:00; Stop 03/05/19 at 00:02; Status DC Propofol 100 ml @ 0 mls/hr CONT PRN IV SEE PROTOCOL Last administered on 03/05/19 02:16; Start 03/04/19 at 23:30; Stop 03/05/19 at 03:42; Status DC Fentanyl Citrate (Fentanyl 2ml Vial) 25 mcg PRN Q1HR PRN IV SEE COMMENTS Last administered on 03/08/19at 14:56; Start 03/04/19 at 23:30 Fentanyl Citrate (Fentanyl 2ml Vial) 50 mcg PRN Q1HR PRN IV SEE COMMENTS Last administered on 03/08/19at 16:55; Start 03/04/19 at 23:30 Chlorhexidine Gluconate (Peridex) 15 ml BID MM Last administered on 03/08/19at 08:59; Start 03/05/19 at 09:00 Morphine Sulfate (Morphine Sulfate) 2 mg PRN Q1HR PRN IV SEE COMMENTS.; Start 03/04/19 at 23:30 Morphine Sulfate (Morphine Sulfate) 4 mg PRN Q1HR PRN IV SEE COMMENTS.; Start 03/04/19 at 23:30 Propofol 50 ml @ As Directed STK-MED ONCE IV ; Start 03/04/19 at 23:47; Stop 03/04/19 at 23:48; Status DC Calcium Gluconate (Calcium Gluconate) 1,000 mg 1X ONCE IVP Last administered on 03/05/19at 00:50; Start 03/05/19 at 00:15; Stop 03/05/19 at 00:16; Status DC Dopamine HCl/ Dextrose 250 ml @ 6.844 mls/ hr 1X ONCE IV Last administered on 03/05/19at 01:11; Start 03/05/19 at 00:30; Stop 03/06/19 at 13:01; Status DC Dopamine HCl/ Dextrose 250 ml @ As Directed STK-MED ONCE IV ; Start 03/05/19 at 00:00; Stop 03/05/19 at 00:01; Status DC Propofol 50 ml @ 1.095 mls/ hr 1X ONCE IV Last administered on 03/04/19at 23:51; Start 03/05/19 at 00:15; Stop 03/06/19 at 21:54; Status DC Insulin Human Lispro (HumaLOG) 0-5 UNITS TIDWMEALS SQ Last administered on 03/08/19at 11:49; Start 03/05/19 at 08:00 Dextrose (Dextrose 50%-Water Syringe) 12.5 gm PRN Q15MIN PRN IV SEE COMMENTS; Start 03/05/19 at 00:30 Sodium Chloride 1,000 ml @ 125 mls/hr 1X ONCE IV Last administered on 03/05/19at 00:45; Start 03/05/19 at 01:00; Stop 03/05/19 at 02:01; Status DC Insulin Human Regular (HumuLIN R VIAL) 10 unit 1X ONCE IV Last administered on 03/05/19at 01:35; Start 03/05/19 at 01:30; Stop 03/05/19 at 01:31; Status DC Dextrose (Dextrose 50%-Water Syringe) 25 gm 1X ONCE IV Last administered on 03/05/19at 01:32; Start 03/05/19 at 01:30; Stop 03/05/19 at 01:31; Status DC Calcium Chloride 2000 mg/Dextrose 120 ml @ 240 mls/hr 1X ONCE IV Last administered on 03/05/19at 02:16; Start 03/05/19 at 02:30; Stop 03/05/19 at 02:59; Status DC Sodium Bicarbonate 150 meq/Dextrose 1,150 ml @ 100 mls/hr [id number] IV Last administered on 03/05/19at 02:17; Start 03/05/19 at 03:00; Stop 03/05/19 at 18:00; Status DC Sodium Bicarbonate (Sodium Bicarbonate Vial) 150 meq 1X ONCE IV Last administered on 03/05/19at 02:12; Start 03/05/19 at 02:30; Stop 03/05/19 at 02:31; Status DC Sodium Bicarbonate (Sodium Bicarb Adult 8.4% Syr) 50 meq STK-MED ONCE .ROUTE ; Start 03/05/19 at 02:02; Stop 03/05/19 at 02:03; Status DC Propofol 100 ml @ 0 mls/hr CONT PRN IV SEE I/O RECORD Last administered on 03/05/19at 12:27; Start 03/05/19 at 03:45; Stop 03/05/19 at 14:02; Status DC Sodium Chloride 1,000 ml @ 75 mls/hr [id number] IV Last administered on 03/08/19at 18:21; Start 03/05/19 at 09:00 Famotidine (Pepcid Vial) 20 mg QHS IVP Last administered on 03/08/19at 20:54; Start 03/05/19 at 21:00 Heparin Sodium (Porcine) (Heparin Sodium) 5,000 unit Q8HRS SQ Last administered on 03/09/19at 05:15; Start 03/05/19 at 14:00 Midazolam HCl 100 ml @ 5 mls/hr CONT PRN IV SEE I/O RECORD Last administered on 03/07/19at 19:53; Start 03/05/19 at 14:00 Ceftriaxone Sodium (Rocephin) 1 gm Q24H IVP Last administered on 03/07/19at 14:37; Start 03/05/19 at 14:00; Stop 03/07/19 at 16:23; Status DC Doxycycline Hyclate 100 mg/ Dextrose 100 ml @ 50 mls/hr Q12HR IV Last administered on 03/08/19at 20:54; Start 03/05/19 at 21:00 Enoxaparin Sodium (Lovenox 40mg Syringe) 30 mg Q24H SQ ; Start 03/05/19 at 14:00; Status Cancel Sodium Chloride 500 ml @ 500 mls/hr 1X ONCE IV Last administered on 03/05/19at 16:15; Start 03/05/19 at 16:15; Stop 03/05/19 at 17:14; Status DC Norepinephrine Bitartrate 250 ml @ 1.875 mls/ hr CONT PRN IV SEE I/O RECORD; Start 03/05/19 at 16:15 Magnesium Sulfate/ Dextrose 100 ml @ 25 mls/hr 1X ONCE IV Last administered on 03/05/19at 19:45; Start 03/05/19 at 19:30; Stop 03/05/19 at 23:29; Status DC Amiodarone HCl 50 mg/Dextrose 101 ml @ 600 mls/hr 1X ONCE IV Last administered on 03/05/19at 21:16; Start 03/05/19 at 22:00; Stop 03/05/19 at 22:10; Status DC Amiodarone HCl 900 mg/Dextrose 518 ml @ 0 mls/hr CONT PRN IV SEE I/O RECORD Last administered on 03/05/19at 21:16; Start 03/05/19 at 22:15; Stop 03/06/19 at 22:14; Status DC Dopamine HCl/ Dextrose 250 ml @ 5.46 mls/hr CONT PRN IV SEE I/O RECORD Last administered on 03/06/19at 03:41; Start 03/06/19 at 03:30; Stop 03/06/19 at 18:32; Status DC Potassium Chloride/Water 100 ml @ 100 mls/hr Q1H IV Last administered on 03/06/19at 06:17; Start 03/06/19 at 05:00; Stop 03/06/19 at 06:59; Status DC Potassium Chloride (KCl Oral Soln) 20 meq 1X ONCE PEG ; Start 03/06/19 at 09:00; Stop 03/06/19 at 09:01; Status Cancel Potassium Chloride (KCl Oral Soln) 20 meq 1X ONCE PEG Last administered on 03/06/19at 16:24; Start 03/06/19 at 14:00; Stop 03/06/19 at 14:01; Status DC Aspirin (Aspirin) 300 mg DAILY [place] ; Start 03/06/19 at 14:15; Stop 03/06/19 at 17:46; Status DC Aspirin (Limei Advertising Aspirin) 325 mg DAILYWBKFT PO Last administered on 03/07/19at 11:59; Start 03/07/19 at 08:00 Acetaminophen (Tylenol) 325 mg STK-MED ONCE PO ; Start 03/06/19 at 18:27; Stop 03/06/19 at 18:28; Status DC Aspirin (Darren Aspirin) 325 mg DAILYWBKFT PO ; Start 03/07/19 at 08:00; Status UNV Acetaminophen (Tylenol) 325 mg PRN Q6HRS PRN PO MILD PAIN / TEMP; Start 03/06/19 at 18:45 Aspirin (Darren Aspirin) 325 mg STK-MED ONCE .ROUTE ; Start 03/06/19 at 18:42; Stop 03/06/19 at 18:43; Status DC Amiodarone HCl 900 mg/Dextrose 518 ml @ 0 mls/hr CONT PRN IV SEE I/O RECORD; Start 03/07/19 at 00:30; Status UNV Amiodarone HCl 450 mg/Dextrose 259 ml @ 17.26 mls/ hr CONT PRN IV SEE I/O RECORD Last administered on 03/07/19at 02:27; Start 03/07/19 at 01:00 Amiodarone HCl (Cordarone) 200 mg BID PO ; Start 03/07/19 at 16:00; Stop 03/07/19 at 19:38; Status DC Amiodarone HCl (Cordarone) 200 mg BID PO Last administered on 03/08/19at 08:59; Start 03/07/19 at 21:00 Potassium Chloride (KCl Oral Soln) 20 meq 1X ONCE PEG Last administered on 03/08/19at 09:04; Start 03/08/19 at 08:30; Stop 03/08/19 at 08:31; Status DC Atorvastatin Calcium (Lipitor) 40 mg QHS PO ; Start 03/08/19 at 21:00 Lisinopril (Prinivil) 5 mg DAILY PO Last administered on 03/08/19at 10:46; Start 03/08/19 at 11:00; Stop 03/08/19 at 13:26; Status DC Metoprolol Tartrate (Lopressor) 12.5 mg BID PO Last administered on 03/08/19at 10:47; Start 03/08/19 at 11:00; Stop 03/08/19 at 13:26; Status DC Aspirin (Ecotrin) 81 mg DAILY PO ; Start 03/09/19 at 09:00; Status UNV Bupropion HCl (Wellbutrin Sr) 100 mg BID PO ; Start 03/08/19 at 14:00 Cyclosporine (Restasis) 1 drop BID OU Last administered on 03/08/19at 20:54; Start 03/08/19 at 14:00 Docusate Sodium (Colace) 100 mg BID PO ; Start 03/08/19 at 14:00 Gabapentin (Neurontin) 900 mg TID PO ; Start 03/08/19 at 14:00 Lisinopril (Prinivil) 20 mg DAILY PO ; Start 03/09/19 at 09:00 Metoprolol Tartrate (Lopressor) 25 mg BID PO ; Start 03/08/19 at 21:00 Oxycodone HCl (Roxicodone) 5 mg PRN Q4HRS PRN PO PAIN; Start 03/08/19 at 13:15 Senna/Docusate Sodium (Senna Plus) 1 tab BID PO ; Start 03/08/19 at 14:00 Brimonidine Tartrate (Alphagan) 1 drop BID OU Last administered on 03/08/19at 20:55; Start 03/08/19 at 21:00 Artificial Tears (Artificial Tears) 1 drop PRN QID PRN OU DRY EYE; Start 03/08/19 at 13:30 Latanoprost (Xalatan) 1 drop QHS OU Last administered on 03/08/19at 20:55; Start 03/08/19 at 21:00 Timolol Maleate (Timoptic 0.5% Ophth) 1 drop BID OU Last administered on 03/08/19at 20:55; Start 03/08/19 at 21:00 Dorzolamide HCl (Trusopt) 1 drop BID OU Last administered on 03/08/19at 20:54; Start 03/08/19 at 21:00 Active Scripts Active Reported Timoptic 0.5% (Timolol Maleate) 10 Ml Drops 1 Drop EACHEYE BID Senna-S Tablet (Sennosides/Docusate Sodium) 1 Each Tablet 1 Each PO BID Onglyza (Saxagliptin Hcl) 5 Mg Tablet 1 Tab PO DAILY Crestor (Rosuvastatin Calcium) 20 Mg Tablet 20 Mg PO HS Miralax (Polyethylene Glycol 3350) 17 Gm Powd.pack 1 Packet PO DAILY Percocet 5-325 Mg Tablet (Oxycodone/Acetaminophen) 1 Each Tablet 1 Tab PO QID PRN Oxycodone Hcl Immed.release (Oxycodone Hcl) 5 Mg Tablet 5 Mg PO PRN Q4HRS PRN take 1 to 3 tabs Q4H prn Metoprolol Tartrate 25 Mg Tablet 1 Tab PO BID Metformin Hcl 500 Mg Tablet 500 Mg PO DAILYWSUP Metformin Hcl 1,000 Mg Tablet 1,000 Mg PO DAILYWBKFT Meloxicam 15 Mg Tablet 1 Tab PO NOON Lisinopril 20 Mg Tablet 1 Tab PO DAILY Xalatan (Latanoprost) 2.5 Ml Drops 1 Drop EACHEYE QHS Gabapentin (Gabapentin) 300 Mg Capsule 900 Mg PO TID Docusate Sodium 100 Mg Capsule 1 Cap PO BID Diltiazem 24HR Cd (Diltiazem Hcl) 120 Mg Cap.er.24h 1 Cap PO DAILY Restasis (Cyclosporine) 1 Each Droperette 1 Drop EACHEYE BID Refresh Optive Eye Drops (Carboxymethylcellulos/Glycerin) 15 Ml Drops 1 Drop EACHEYE QID PRN Wellbutrin Sr (Bupropion Hcl) 100 Mg Tablet.er 1 Tab PO BID Aspirin Ec (Aspirin) 81 Mg Tablet.dr 1 Tab PO DAILY Simbrinza 1%-0.2% Eye Drops (Brinzolamide/Brimonid Tart) 8 Ml Drops.susp 8 Ml OP BID Vitals/I & O Vital Sign - Last 24 Hours 03/08/19 03/08/19 03/08/19 03/08/19 08:50 08:59 09:00 10:00 Pulse 82 82 84 Resp 22 25 B/P (MAP) 138/55 138/55 (82) 160/71 (100) Pulse Ox 100 100 100 O2 Delivery Ventilator Ventilator 03/08/19 03/08/19 03/08/19 03/08/19 10:46 10:47 10:47 11:00 Pulse 84 82 94 Resp 22 B/P (MAP) 155/70 155/70 155/70 (98) Pulse Ox 100 99 O2 Delivery Nasal Cannula O2 Flow Rate 4.0 03/08/19 03/08/19 03/08/19 03/08/19 12:00 12:00 12:23 13:00 Temp 99.7 99.7 Pulse 82 77 Resp B/P (MAP) 167/68 (101) 159/85 (109) Pulse Ox 100 100 100 O2 Delivery Nasal Cannula Nasal Cannula Nasal Cannula Nasal Cannula O2 Flow Rate 4.0 4.0 4.0 4.0 03/08/19 03/08/19 03/08/19 03/08/19 14:00 14:56 15:00 16:00 Pulse 83 80 Resp B/P (MAP) 143/59 (87) 177/81 (113) Pulse Ox 100 100 100 O2 Delivery Nasal Cannula Nasal Cannula Nasal Cannula Nasal Cannula O2 Flow Rate 4.0 4.0 4.0 4.0 03/08/19 03/08/19 03/08/19 03/08/19 16:00 17:00 18:00 19:00 Temp 99.3 99.3 Pulse 80 82 80 75 Resp 18 19 18 B/P (MAP) 160/70 (100) 155/71 (99) 159/72 (101) 164/62 (96) Pulse Ox 100 100 100 100 O2 Delivery Nasal Cannula Nasal Cannula Nasal Cannula Nasal Cannula O2 Flow Rate 4.0 3.0 3.0 3.0 03/08/19 03/08/19 03/08/19 03/08/19 20:00 20:00 21:00 22:00 Temp 99.0 99.0 Pulse 76 67 65 Resp 20 18 B/P (MAP) 160/65 (96) 140/58 (85) 157/64 (95) Pulse Ox 100 100 100 O2 Delivery Nasal Cannula Nasal Cannula Nasal Cannula Nasal Cannula O2 Flow Rate 3.0 3.0 3.0 3.0 03/08/19 03/09/19 03/09/19 03/09/19 23:00 00:00 00:00 01:00 Temp 99.9 99.9 Pulse 67 94 61 Resp 18 18 B/P (MAP) 160/60 (93) 160/66 (97) 156/58 (90) Pulse Ox 100 100 100 O2 Delivery Nasal Cannula Nasal Cannula Nasal Cannula Nasal Cannula O2 Flow Rate 3.0 3.0 3.0 3.0 03/09/19 03/09/19 03/09/19 03/09/19 02:00 03:00 04:00 04:00 Temp 98.6 98.6 Pulse 66 68 61 Resp 19 B/P (MAP) 159/69 (99) 136/48 (77) 163/64 (97) Pulse Ox 100 96 98 O2 Delivery Nasal Cannula Room Air Room Air Room Air O2 Flow Rate 3.0 03/09/19 03/09/19 05:00 06:00 Pulse 60 63 Resp 20 B/P (MAP) 156/69 (98) 154/61 (92) Pulse Ox 98 97 O2 Delivery Room Air Room Air Intake and Output 03/08/19 03/08/19 03/09/19 15:00 23:00 07:00 Intake Total 383 ml 603 ml 862.9 ml Output Total 780 ml 1340 ml 780 ml Balance -397 ml -737 ml 82.9 ml Nutrition Consultation Dietary Evaluation: Recommendations by RD: Increase Calorie Intake, Protein supplementation Comments: REC adjust TF infusion to following: Vital AF@30 ml/hr, increase 10 ml q8 hrs as tolerated to goal rate 50 ml/hr w/100 ml water flushes q4 hrs REC Iain BID - if administering via tube, mix 1 packet w/4 oz water until dissolved and flush tube w/30 ml water before and after each packet REC liquid MVI via OG tube if able Expected Outcomes/Goals: initiation of nutrition within 24 - 48 hrs while pt remains intubated - met, new goal established New goal 03/07: TF infusion to meet >75% est needs while pt remains intubated Malnutrition Findings: Food and Nutrition Intake (Mod: <75% est energy req 7days Weight Status: Appropriate ELLEN CONROY MD March 09, 2019 08:52
[2019-03-09] MEDS ORDERED: ASPIRIN ENTERIC COATED 81 MG TABLET.DR. PO SCH (09:00)
[2019-03-09] MEDS ORDERED: POTASSIUM CHLORIDE 20 MEQ TABLET.ER. PO ONE (09:00)
[2019-03-09] MEDS: METOPROLOL TART IMMED RELEASE 25 MG TABLET. PO SCH ×2 (09:17→20:32)
--- NOTE | 2019-03-09 09:30 | PDOC ---
RENNY BAILEY SENIOR DATABASE ADMINISTRATOR 03/09/19 0930: CARDIO Progress Notes Date and Time Date of Service 03/09/2019 Time of Evaluation 0920 Subjective Subjective: No Chest Pain, No shortness of breath, No Palpitations, Other (tolerating PO liquids) Vitals Vitals Vital Signs Date Time Temp Pulse Resp B/P (MAP) Pulse Ox O2 Delivery O2 Flow Rate FiO2 03/09/19 09:17 65 183/71 03/09/19 06:00 20 97 Room Air 03/09/19 04:00 98.6 98.6 03/09/19 02:00 3.0 Weight Weight [ ] Input and Output Intake and Output Intake and Output 03/09/19 06:59 Intake Total 1848.9 ml Output Total 2900 ml Balance -1051.1 ml IV Total 1565.9 ml Tube Feeding 283 ml Output Urine Total 2900 ml Gastric Drainage Total 0 ml # Bowel Movements 1 Laboratory Labs Laboratory Tests Test 03/08/19 11:43 03/08/19 16:53 03/09/19 05:20 03/09/19 05:46 Glucose (Fingerstick) 177 mg/dL (70-99) 149 mg/dL (70-99) 111 mg/dL (70-99) White Blood Count 10.2 x10^3/uL (4.0-11.0) Red Blood Count 3.26 x10^6/uL (4.30-5.70) Hemoglobin 9.7 g/dL (13.0-17.5) Hematocrit 28.6 % (39.0-53.0) Mean Corpuscular Volume 88 fL (79-100) Mean Corpuscular Hemoglobin 30 pg (25-35) Mean Corpuscular Hemoglobin Concent 34 g/dL (31-37) Red Cell Distribution Width 14.2 % (11.5-14.5) Platelet Count 181 x10^3/uL (140-400) Neutrophils (%) (Auto) 70 % (31-73) Lymphocytes (%) (Auto) 14 % (24-48) Monocytes (%) (Auto) 11 % (0-9) Eosinophils (%) (Auto) 5 % (0-3) Basophils (%) (Auto) 1 % (0-3) Neutrophils # (Auto) 7.2 x10^3uL (1.8-7.7) Lymphocytes # (Auto) 1.4 x10^3/uL (1.0-4.8) Monocytes # (Auto) 1.1 x10^3/uL (0.0-1.1) Eosinophils # (Auto) 0.5 x10^3/uL (0.0-0.7) Basophils # (Auto) 0.1 x10^3/uL (0.0-0.2) Sodium Level 138 mmol/L (136-145) Potassium Level 3.7 mmol/L (3.5-5.1) Chloride Level 101 mmol/L (98-107) Carbon Dioxide Level 29 mmol/L (21-32) Anion Gap 8 (6-14) Blood Urea Nitrogen 15 mg/dL (8-26) Creatinine 0.7 mg/dL (0.7-1.3) Estimated GFR (Cockcroft-Gault) 112.1 Glucose Level 129 mg/dL (70-99) Calcium Level 9.2 mg/dL (8.5-10.1) Phosphorus Level 3.0 mg/dL (2.6-4.7) Albumin 2.4 g/dL (3.4-5.0) Test 03/09/19 09:14 Glucose (Fingerstick) 129 mg/dL (70-99) Microbiology Micro Microbiology 03/05/19 Blood Culture - Preliminary, Resulted NO GROWTH AFTER 4 DAYS Physical Exam HEENT: Neck Supple W Full Motion Chest: Symmetric LUNGS: Other (basilar crackles) Heart: RRR (SR) Abdomen: Soft N/T Extremities: No Edema Neurology: alert, oriented, follow commands Assessment Assessment 1. Acute respiratory failure, multifactorial with AECOPD. post extubation 03/08 doing well 2. Symptomatic bradycardia; possibly vagal response, none further 3. Metabolic acidosis/FARA: resolved 4. CAD s/p CABG x3 at age 38. Noncompliant with follow ups reports abnormal stress test at [facility] 12/2018 prior to bladder surgery. Was recommended to f/u with cardiology 5. Bladder CA, s/p cystectomy with ileoconduit 12/20/2018 6. Metabolic encephalopathy: resolved 7. Hypertension; labile 8. DM2/HLP 9. Arrhythmia: no further VT in the last 24-48 hours Recommendations restart home BP meds. Discussed need for LHC, hesitant primarily due to cost. [facility] risks and benefits discussed. Pt to discussed with and will let me know in 1 hour Continue with secondary prevention measures. ALAN HILLIARD MD 03/09/19 1253: CARDIO Progress Notes Assessment Assessment Patient seen and examined. Agree with VENEER JOINTER RETURNER's assessment and plan. No further episodes of VT on tele s/p extubation doing well Recommend cardiac cath in lieu of h/o CAD, recent positive stress test and VT on tele Discussed with patient and Wants okay from nephrology before proceeding Plan for cath tuesday if cleared by nephrology RENNY BAILEY APRN March 09, 2019 09:30 ALAN HILLIARD MD March 09, 2019 12:53
[2019-03-09] MEDS: IV 1/2 NORMAL SALINE 1,000 ML IV SCH ×2 (10:19→22:58)
--- NOTE | 2019-03-09 10:54 | PDOC ---
PULMONARY PROGRESS NOTES Subjective EXTUBATED 03/08 DOING WELL Vitals Vital Signs Date Time Temp Pulse Resp B/P (MAP) Pulse Ox O2 Delivery O2 Flow Rate FiO2 03/09/19 09:17 65 183/71 03/09/19 09:00 14 97 Room Air 03/09/19 08:00 99.6 99.6 03/09/19 02:00 3.0 General: Alert, No acute distress Lungs: Clear Cardiovascular: S1, S2 Abdomen: Soft Extremities: No Edema Skin: Warm Labs Laboratory Tests Test 03/07/19 12:12 03/07/19 20:36 03/08/19 06:45 03/08/19 07:50 Glucose (Fingerstick) 166 mg/dL (70-99) 157 mg/dL (70-99) White Blood Count 12.9 x10^3/uL (4.0-11.0) Red Blood Count 3.21 x10^6/uL (4.30-5.70) Hemoglobin 9.3 g/dL (13.0-17.5) Hematocrit 28.0 % (39.0-53.0) Mean Corpuscular Volume 87 fL (79-100) Mean Corpuscular Hemoglobin 29 pg (25-35) Mean Corpuscular Hemoglobin Concent 33 g/dL (31-37) Red Cell Distribution Width 14.2 % (11.5-14.5) Platelet Count 170 x10^3/uL (140-400) Neutrophils (%) (Auto) 75 % (31-73) Lymphocytes (%) (Auto) 11 % (24-48) Monocytes (%) (Auto) 11 % (0-9) Eosinophils (%) (Auto) 3 % (0-3) Basophils (%) (Auto) 0 % (0-3) Neutrophils # (Auto) 9.7 x10^3uL (1.8-7.7) Lymphocytes # (Auto) 1.4 x10^3/uL (1.0-4.8) Monocytes # (Auto) 1.4 x10^3/uL (0.0-1.1) Eosinophils # (Auto) 0.4 x10^3/uL (0.0-0.7) Basophils # (Auto) 0.0 x10^3/uL (0.0-0.2) Sodium Level 135 mmol/L (136-145) Potassium Level 3.7 mmol/L (3.5-5.1) Chloride Level 102 mmol/L (98-107) Carbon Dioxide Level 26 mmol/L (21-32) Anion Gap 7 (6-14) Blood Urea Nitrogen 25 mg/dL (8-26) Creatinine 0.8 mg/dL (0.7-1.3) Estimated GFR (Cockcroft-Gault) 96.1 Glucose Level 161 mg/dL (70-99) Calcium Level 8.7 mg/dL (8.5-10.1) Phosphorus Level 2.6 mg/dL (2.6-4.7) Albumin 2.2 g/dL (3.4-5.0) Triglycerides Level 135 mg/dL (0-150) O2 Saturation 98 % (92-99) Arterial Blood pH 7.43 (7.35-7.45) Arterial Blood pCO2 at Patient Temp 37 mmHg (35-46) Arterial Blood pO2 at Patient Temp 158 mmHg (65-108) Arterial Blood HCO3 24 mmol/L (21-28) Arterial Blood Base Excess -1 mmol/L (-3-3) FiO2 40% vent Test 03/08/19 09:03 03/08/19 09:13 03/08/19 11:43 03/08/19 16:53 Glucose (Fingerstick) 160 mg/dL (70-99) 177 mg/dL (70-99) 149 mg/dL (70-99) O2 Saturation 95 % (92-99) Arterial Blood pH 7.40 (7.35-7.45) Arterial Blood pCO2 at Patient Temp 40 mmHg (35-46) Arterial Blood pO2 at Patient Temp 76 mmHg (65-108) Arterial Blood HCO3 24 mmol/L (21-28) Arterial Blood Base Excess -1 mmol/L (-3-3) FiO2 35% Test 03/09/19 05:20 03/09/19 05:46 03/09/19 09:14 White Blood Count 10.2 x10^3/uL (4.0-11.0) Red Blood Count 3.26 x10^6/uL (4.30-5.70) Hemoglobin 9.7 g/dL (13.0-17.5) Hematocrit 28.6 % (39.0-53.0) Mean Corpuscular Volume 88 fL (79-100) Mean Corpuscular Hemoglobin 30 pg (25-35) Mean Corpuscular Hemoglobin Concent 34 g/dL (31-37) Red Cell Distribution Width 14.2 % (11.5-14.5) Platelet Count 181 x10^3/uL (140-400) Neutrophils (%) (Auto) 70 % (31-73) Lymphocytes (%) (Auto) 14 % (24-48) Monocytes (%) (Auto) 11 % (0-9) Eosinophils (%) (Auto) 5 % (0-3) Basophils (%) (Auto) 1 % (0-3) Neutrophils # (Auto) 7.2 x10^3uL (1.8-7.7) Lymphocytes # (Auto) 1.4 x10^3/uL (1.0-4.8) Monocytes # (Auto) 1.1 x10^3/uL (0.0-1.1) Eosinophils # (Auto) 0.5 x10^3/uL (0.0-0.7) Basophils # (Auto) 0.1 x10^3/uL (0.0-0.2) Sodium Level 138 mmol/L (136-145) Potassium Level 3.7 mmol/L (3.5-5.1) Chloride Level 101 mmol/L (98-107) Carbon Dioxide Level 29 mmol/L (21-32) Anion Gap 8 (6-14) Blood Urea Nitrogen 15 mg/dL (8-26) Creatinine 0.7 mg/dL (0.7-1.3) Estimated GFR (Cockcroft-Gault) 112.1 Glucose Level 129 mg/dL (70-99) Calcium Level 9.2 mg/dL (8.5-10.1) Phosphorus Level 3.0 mg/dL (2.6-4.7) Albumin 2.4 g/dL (3.4-5.0) Glucose (Fingerstick) 111 mg/dL (70-99) 129 mg/dL (70-99) Laboratory Tests Test 03/08/19 11:43 03/08/19 16:53 03/09/19 05:20 03/09/19 05:46 Glucose (Fingerstick) 177 mg/dL (70-99) 149 mg/dL (70-99) 111 mg/dL (70-99) White Blood Count 10.2 x10^3/uL (4.0-11.0) Red Blood Count 3.26 x10^6/uL (4.30-5.70) Hemoglobin 9.7 g/dL (13.0-17.5) Hematocrit 28.6 % (39.0-53.0) Mean Corpuscular Volume 88 fL (79-100) Mean Corpuscular Hemoglobin 30 pg (25-35) Mean Corpuscular Hemoglobin Concent 34 g/dL (31-37) Red Cell Distribution Width 14.2 % (11.5-14.5) Platelet Count 181 x10^3/uL (140-400) Neutrophils (%) (Auto) 70 % (31-73) Lymphocytes (%) (Auto) 14 % (24-48) Monocytes (%) (Auto) 11 % (0-9) Eosinophils (%) (Auto) 5 % (0-3) Basophils (%) (Auto) 1 % (0-3) Neutrophils # (Auto) 7.2 x10^3uL (1.8-7.7) Lymphocytes # (Auto) 1.4 x10^3/uL (1.0-4.8) Monocytes # (Auto) 1.1 x10^3/uL (0.0-1.1) Eosinophils # (Auto) 0.5 x10^3/uL (0.0-0.7) Basophils # (Auto) 0.1 x10^3/uL (0.0-0.2) Sodium Level 138 mmol/L (136-145) Potassium Level 3.7 mmol/L (3.5-5.1) Chloride Level 101 mmol/L (98-107) Carbon Dioxide Level 29 mmol/L (21-32) Anion Gap 8 (6-14) Blood Urea Nitrogen 15 mg/dL (8-26) Creatinine 0.7 mg/dL (0.7-1.3) Estimated GFR (Cockcroft-Gault) 112.1 Glucose Level 129 mg/dL (70-99) Calcium Level 9.2 mg/dL (8.5-10.1) Phosphorus Level 3.0 mg/dL (2.6-4.7) Albumin 2.4 g/dL (3.4-5.0) Test 03/09/19 09:14 Glucose (Fingerstick) 129 mg/dL (70-99) Medications Active Scripts Medications Dose Route/Sig Max Daily Dose Days Date Category Dose Instructions Timoptic 0.5% (Timolol Maleate) 10 Ml Drops 1 Drop EACHEYE BID 03/05/19 Reported Senna-S Tablet (Sennosides/Docusate Sodium) 1 Each Tablet 1 Each PO BID 03/05/19 Reported Onglyza (Saxagliptin Hcl) 5 Mg Tablet 1 Tab PO DAILY 03/05/19 Reported Crestor (Rosuvastatin Calcium) 20 Mg Tablet 20 Mg PO HS 03/05/19 Reported Miralax (Polyethylene Glycol 3350) 17 Gm Powd.pack 1 Packet PO DAILY 03/05/19 Reported Percocet 5-325 Mg Tablet (Oxycodone/Acetaminophen) 1 Each Tablet 1 Tab PO QID PRN 03/05/19 Reported Oxycodone Hcl Immed.release (Oxycodone Hcl) 5 Mg Tablet 5 Mg PO PRN Q4HRS PRN 03/05/19 Reported take 1 to 3 tabs Q4H prn Metoprolol Tartrate 25 Mg Tablet 1 Tab PO BID 03/05/19 Reported Metformin Hcl 500 Mg Tablet 500 Mg PO DAILYWSUP 03/05/19 Reported Metformin Hcl 1,000 Mg Tablet 1,000 Mg PO [id number] 03/05/19 Reported Meloxicam 15 Mg Tablet 1 Tab PO NOON 03/05/19 Reported Lisinopril 20 Mg Tablet 1 Tab PO DAILY 03/05/19 Reported Xalatan (Latanoprost) 2.5 Ml Drops 1 Drop EACHEYE QHS 03/05/19 Reported Gabapentin (Gabapentin) 300 Mg Capsule 900 Mg PO TID 03/05/19 Reported Docusate Sodium 100 Mg Capsule 1 Cap PO BID 03/05/19 Reported Diltiazem 24HR Cd (Diltiazem Hcl) 120 Mg Cap.er.24h 1 Cap PO DAILY 03/05/19 Reported Restasis (Cyclosporine) 1 Each Droperette 1 Drop EACHEYE BID 03/05/19 Reported Refresh Optive Eye Drops (Carboxymethylcellulos/Glycerin) 15 Ml Drops 1 Drop EACHEYE QID PRN 03/05/19 Reported Wellbutrin Sr (Bupropion Hcl) 100 Mg Tablet.er 1 Tab PO BID 03/05/19 Reported Aspirin Ec (Aspirin) 81 Mg Tablet.dr 1 Tab PO DAILY 03/05/19 Reported Simbrinza 1%-0.2% Eye Drops (Brinzolamide/Brimonid Tart) 8 Ml Drops.susp 8 Ml OP BID 03/05/19 Reported Comments CXR 03/08 CLEAR Impression . IMPRESSION: 1. Acute hypoxemic respiratory failure. 2. Severe metabolic acidosis due to FARA, RESOLVED 3. Leukocytosis. 4. chest x-ray. clear now 5. Bradycardia. 6. Hypercalcemia. 7. Acute exacerbation of chronic obstructive pulmonary disease. 8. Type 2 diabetes. 9. Coronary artery disease, status post coronary artery bypass grafting. 10. Acute on chronic metabolic toxic encephalopathy, present upon admission. 11. Bladder cancer, status post chemo cystectomy with ileal conduit. 12. Arrhythmias Plan . ONRA/ DOING WELL CXR REVIEWED CLEAR OFF ANTIBX D/W RN AND / CARDIOLOGY PT DECLINES CATH FOR NOW TRANSFER TO FLOOR ORAL DIET PEGGY ANTHONY MD March 09, 2019 10:54
[2019-03-09] MEDS ORDERED: INSULIN LISPRO 300 UNITS/3 ML INSULN.PEN. SQ ONE (12:45)
--- NOTE | 2019-03-09 13:55 | NUR ---
Wound Care Wound care consult for buttock wound. Pt has small area that is peeling but still intact. Cleansed area and applied A&D ointment. No other wounds noted on full skin inspection. pt on ICU bed, WC cushion ordered. WC will sign off at this time. Please reconsult if new wounds develop.
[2019-03-09] MEDS: oxyCODONE IR 5 MG TABLET PO PRN ×2 (16:11→23:00)
[2019-03-09] MEDS: metFORMIN 500 MG TABLET PO SCH (17:07)
[2019-03-09] MEDS: ATORVASTATIN CALCIUM 40 MG TABLET. PO SCH (20:31)
[2019-03-09] MEDS: FAMOTIDINE 20 MG/2 ML VIAL IVP SCH (20:32)
[2019-03-09] MEDS: LATANOPROST 0.005% OPHTH SOLUTION 2.5ML BOTTLE. OU SCH (20:33)
[2019-03-10] VITALS (12 sets, daily range): BP systolic 158–184; BP diastolic 70–85
[2019-03-10 03:30] LABS: BASO # 0.1 x10^3/uL (0.0-0.2); BASO % 1 % (0-3); EOS # 0.6 x10^3/uL (0.0-0.7); EOS % 5 % (0-3); HEMATOCRIT 29.6 % (39.0-53.0); HEMOGLOBIN 9.9 g/dL (13.0-17.5); LYMPH # 1.7 x10^3/uL (1.0-4.8); LYMPH % 16 % (24-48); MEAN CORPUSCULAR HEMOGLOBIN 29 pg (25-35); MEAN CORPUSCULAR HGB CONC 33 g/dL (31-37); MEAN CORPUSCULAR VOLUME 88 fL (79-100); MONO # 1.1 x10^3/uL (0.0-1.1); MONO % 10 % (0-9); NEUT # 7.6 x10^3uL (1.8-7.7); NEUT % 69 % (31-73); PLATELET COUNT 199 x10^3/uL (140-400); RED BLOOD COUNT 3.38 x10^6/uL (4.30-5.70); RED CELL DISTRIBUTION WIDTH 14.1 % (11.5-14.5); WHITE BLOOD COUNT 11.1 x10^3/uL (4.0-11.0)
[2019-03-10 03:50] LABS: ALBUMIN 2.5 g/dL (3.4-5.0); CREATININE 0.8 mg/dL (0.7-1.3); GFR 96.1; PHOSPHORUS 2.9 mg/dL (2.6-4.7); POTASSIUM 3.5 mmol/L (3.5-5.1)
[2019-03-10] MEDS: HEPARIN for SUB-Q USE 5,000 UNIT/ML VIAL. SQ SCH ×3 (06:29→21:10)
--- NOTE | 2019-03-10 07:32 | PDOC ---
PROGRESS NOTES Chief Complaint Chief Complaint A/P: Acute encephalopathy - likely mixed picture, metabolic with uremia and hyperkalemia. Completed resolved. Extubated 03/08/19 Hypoxic respiratory failure - with underlying COPD, never previously intubated, not on home O2. Intubated for hypoxia, extubated and now CXR clear. Appreciate pulmonology input Sepsis - POA, likely 2/2 community acquired pneumonia, improving, off pressors, extubated, now CXR clear. Off antibiotics Hyperkalemia - 7.3 --> 3.1 with above corrective measures, still on IVF. Actually K got low the last few days Acute Kidney injury - BUN 82 and Cr 2.5 on admission, likely vasomotor nephropathy given his poor PO intake. Improved now Symptomatic bradycardia - Initially paced, with wide complex, likely 2/2 hyperkalemia, now off dopamine, improved. Cardiology consulted for further care. Started on Amio per cardiology. Plan for [facility] Vtach - no longer having episodes over the past 48 hours CAD s/p CABG x3 - stable outpatient with [facility] f/u in [place]. Hold nephrotoxic meds. Plan for [facility] Bladder Cancer s/p chemotherapy and cystectomy with ileoconduit (12/[address] Licea @ [facility]) - had appt scheduled on 03/10/19 for f/u. Access for port ok. Monitor urostomy output. Will order records. Diabetes-Type II - placed on sliding scale, A1c 6.7 Hypercalcemia - corrected with IVF Acute exacerbation of chronic obstructive pulmonary disease - improving. Seems to have tolerated vent well, no prior intubations, not on O2, extubated without event Acute metabolic acidosis - 2/2 FARA, hyperkalemia, corrected. Caused a metabolic toxic encephalopathy, present upon admission. FEN - Cardiac diet PPX - Heparin FULL CODE Can downgrade to CVC today, likely d/c in the next couple of days History of Present Illness History of Present Illness Mr Ashley is a 68-year-old male 100% service connected [place] w/PMHx CAD s/p CABG x3, Bladder Cancer s/p chemotherapy and cystectomy with ileoconduit (12/[address] Licea @ [facility]), COPD, Diabetes-Type II who presents via EMS from [place] with report of 3 day history of progressive weakness and shortness of breath per spouse who reported he has been confused as well. Patient noted to be hypoxic by EMS down to 68% on room air, not on home O2. Given DuoNebs en route. Patient also noted to have heart rate down into the 30s, was given versed by EMS and transcutaneously paced enroute. Maintained low O2 saturations despite NRB and he was urgently intubated. Found on EKG with potassium of 7.3 and wide complex QRS. Started on bicarbonate gtt, dopamine, propofol for sedation. Pulm, cards, nephro consulted 03/06/19: Echo shows EF 45-50%. Started levophed last night for persistent hypotension. Did have V-tach. Labs improved K to 3.1, Cr 1.1, BUN 35. UOP picked up quite a bit >3L out over the past 24 hours. 03/07: BP improved yesterday, off levophed and dopamine. Labs normalized. CXR improved. D/w bedside. 03/08: Extubated without event, labs show low K now Feeling well, sitting in chair, very slight cough and sore throat. Nephrostomy output good. Eating well. Able to ambulate the unit, but very weak Plan: Correct potassium, f/u cardiology and pulm recs. He may be ready for home soon. Will have PT/OT continue to evaluate Plan for [facility] tuesday Vitals Vitals Vital Signs Date Time Temp Pulse Resp B/P (MAP) Pulse Ox O2 Delivery O2 Flow Rate FiO2 03/10/19 04:00 99.3 67 18 158/76 (103) 94 Room Air 99.3 Physical Exam General: Alert, Oriented X3, Cooperative Heart: Regular rate, Normal S1, Normal S2, Other (distant heart tones) Lungs: Clear Abdomen: Normal bowel sounds, Soft, No tenderness, No hepatosplenomegaly, Other (Urostomey site clean) Extremities: No edema Skin: No significant lesion Labs LABS Laboratory Tests Test 03/09/19 09:14 03/09/19 12:19 03/09/19 17:06 03/09/19 20:43 Glucose (Fingerstick) 129 mg/dL (70-99) 155 mg/dL (70-99) 116 mg/dL (70-99) 118 mg/dL (70-99) Test 03/10/19 03:00 White Blood Count 11.1 x10^3/uL (4.0-11.0) Red Blood Count 3.38 x10^6/uL (4.30-5.70) Hemoglobin 9.9 g/dL (13.0-17.5) Hematocrit 29.6 % (39.0-53.0) Mean Corpuscular Volume 88 fL (79-100) Mean Corpuscular Hemoglobin 29 pg (25-35) Mean Corpuscular Hemoglobin Concent 33 g/dL (31-37) Red Cell Distribution Width 14.1 % (11.5-14.5) Platelet Count 199 x10^3/uL (140-400) Neutrophils (%) (Auto) 69 % (31-73) Lymphocytes (%) (Auto) 16 % (24-48) Monocytes (%) (Auto) 10 % (0-9) Eosinophils (%) (Auto) 5 % (0-3) Basophils (%) (Auto) 1 % (0-3) Neutrophils # (Auto) 7.6 x10^3uL (1.8-7.7) Lymphocytes # (Auto) 1.7 x10^3/uL (1.0-4.8) Monocytes # (Auto) 1.1 x10^3/uL (0.0-1.1) Eosinophils # (Auto) 0.6 x10^3/uL (0.0-0.7) Basophils # (Auto) 0.1 x10^3/uL (0.0-0.2) Sodium Level 136 mmol/L (136-145) Potassium Level 3.5 mmol/L (3.5-5.1) Chloride Level 99 mmol/L (98-107) Carbon Dioxide Level 28 mmol/L (21-32) Anion Gap 9 (6-14) Blood Urea Nitrogen 21 mg/dL (8-26) Creatinine 0.8 mg/dL (0.7-1.3) Estimated GFR (Cockcroft-Gault) 96.1 Glucose Level 115 mg/dL (70-99) Calcium Level 9.0 mg/dL (8.5-10.1) Phosphorus Level 2.9 mg/dL (2.6-4.7) Albumin 2.5 g/dL (3.4-5.0) Assessment and Plan Assessmemt and Plan Problems Medical Problems: (1) Hyperkalemia Status: Acute (2) Hyponatremia Status: Acute (3) Renal insufficiency Status: Acute (4) Respiratory failure Status: Acute Comment Review of Relevant I have reviewed the following items fabián (where applicable) has been applied. Labs Laboratory Tests Test 03/08/19 07:50 03/08/19 09:03 03/08/19 09:13 03/08/19 11:43 O2 Saturation 98 % (92-99) 95 % (92-99) Arterial Blood pH 7.43 (7.35-7.45) 7.40 (7.35-7.45) Arterial Blood pCO2 at Patient Temp 37 mmHg (35-46) 40 mmHg (35-46) Arterial Blood pO2 at Patient Temp 158 mmHg (65-108) 76 mmHg (65-108) Arterial Blood HCO3 24 mmol/L (21-28) 24 mmol/L (21-28) Arterial Blood Base Excess -1 mmol/L (-3-3) -1 mmol/L (-3-3) FiO2 40% vent 35% Glucose (Fingerstick) 160 mg/dL (70-99) 177 mg/dL (70-99) Test 03/08/19 16:53 03/09/19 05:20 03/09/19 05:46 03/09/19 09:14 Glucose (Fingerstick) 149 mg/dL (70-99) 111 mg/dL (70-99) 129 mg/dL (70-99) White Blood Count 10.2 x10^3/uL (4.0-11.0) Red Blood Count 3.26 x10^6/uL (4.30-5.70) Hemoglobin 9.7 g/dL (13.0-17.5) Hematocrit 28.6 % (39.0-53.0) Mean Corpuscular Volume 88 fL (79-100) Mean Corpuscular Hemoglobin 30 pg (25-35) Mean Corpuscular Hemoglobin Concent 34 g/dL (31-37) Red Cell Distribution Width 14.2 % (11.5-14.5) Platelet Count 181 x10^3/uL (140-400) Neutrophils (%) (Auto) 70 % (31-73) Lymphocytes (%) (Auto) 14 % (24-48) Monocytes (%) (Auto) 11 % (0-9) Eosinophils (%) (Auto) 5 % (0-3) Basophils (%) (Auto) 1 % (0-3) Neutrophils # (Auto) 7.2 x10^3uL (1.8-7.7) Lymphocytes # (Auto) 1.4 x10^3/uL (1.0-4.8) Monocytes # (Auto) 1.1 x10^3/uL (0.0-1.1) Eosinophils # (Auto) 0.5 x10^3/uL (0.0-0.7) Basophils # (Auto) 0.1 x10^3/uL (0.0-0.2) Sodium Level 138 mmol/L (136-145) Potassium Level 3.7 mmol/L (3.5-5.1) Chloride Level 101 mmol/L (98-107) Carbon Dioxide Level 29 mmol/L (21-32) Anion Gap 8 (6-14) Blood Urea Nitrogen 15 mg/dL (8-26) Creatinine 0.7 mg/dL (0.7-1.3) Estimated GFR (Cockcroft-Gault) 112.1 Glucose Level 129 mg/dL (70-99) Calcium Level 9.2 mg/dL (8.5-10.1) Phosphorus Level 3.0 mg/dL (2.6-4.7) Albumin 2.4 g/dL (3.4-5.0) Test 03/09/19 12:19 03/09/19 17:06 03/09/19 20:43 03/10/19 03:00 Glucose (Fingerstick) 155 mg/dL (70-99) 116 mg/dL (70-99) 118 mg/dL (70-99) White Blood Count 11.1 x10^3/uL (4.0-11.0) Red Blood Count 3.38 x10^6/uL (4.30-5.70) Hemoglobin 9.9 g/dL (13.0-17.5) Hematocrit 29.6 % (39.0-53.0) Mean Corpuscular Volume 88 fL (79-100) Mean Corpuscular Hemoglobin 29 pg (25-35) Mean Corpuscular Hemoglobin Concent 33 g/dL (31-37) Red Cell Distribution Width 14.1 % (11.5-14.5) Platelet Count 199 x10^3/uL (140-400) Neutrophils (%) (Auto) 69 % (31-73) Lymphocytes (%) (Auto) 16 % (24-48) Monocytes (%) (Auto) 10 % (0-9) Eosinophils (%) (Auto) 5 % (0-3) Basophils (%) (Auto) 1 % (0-3) Neutrophils # (Auto) 7.6 x10^3uL (1.8-7.7) Lymphocytes # (Auto) 1.7 x10^3/uL (1.0-4.8) Monocytes # (Auto) 1.1 x10^3/uL (0.0-1.1) Eosinophils # (Auto) 0.6 x10^3/uL (0.0-0.7) Basophils # (Auto) 0.1 x10^3/uL (0.0-0.2) Sodium Level 136 mmol/L (136-145) Potassium Level 3.5 mmol/L (3.5-5.1) Chloride Level 99 mmol/L (98-107) Carbon Dioxide Level 28 mmol/L (21-32) Anion Gap 9 (6-14) Blood Urea Nitrogen 21 mg/dL (8-26) Creatinine 0.8 mg/dL (0.7-1.3) Estimated GFR (Cockcroft-Gault) 96.1 Glucose Level 115 mg/dL (70-99) Calcium Level 9.0 mg/dL (8.5-10.1) Phosphorus Level 2.9 mg/dL (2.6-4.7) Albumin 2.5 g/dL (3.4-5.0) Laboratory Tests Test 03/09/19 09:14 03/09/19 12:19 03/09/19 17:06 03/09/19 20:43 Glucose (Fingerstick) 129 mg/dL (70-99) 155 mg/dL (70-99) 116 mg/dL (70-99) 118 mg/dL (70-99) Test 03/10/19 03:00 White Blood Count 11.1 x10^3/uL (4.0-11.0) Red Blood Count 3.38 x10^6/uL (4.30-5.70) Hemoglobin 9.9 g/dL (13.0-17.5) Hematocrit 29.6 % (39.0-53.0) Mean Corpuscular Volume 88 fL (79-100) Mean Corpuscular Hemoglobin 29 pg (25-35) Mean Corpuscular Hemoglobin Concent 33 g/dL (31-37) Red Cell Distribution Width 14.1 % (11.5-14.5) Platelet Count 199 x10^3/uL (140-400) Neutrophils (%) (Auto) 69 % (31-73) Lymphocytes (%) (Auto) 16 % (24-48) Monocytes (%) (Auto) 10 % (0-9) Eosinophils (%) (Auto) 5 % (0-3) Basophils (%) (Auto) 1 % (0-3) Neutrophils # (Auto) 7.6 x10^3uL (1.8-7.7) Lymphocytes # (Auto) 1.7 x10^3/uL (1.0-4.8) Monocytes # (Auto) 1.1 x10^3/uL (0.0-1.1) Eosinophils # (Auto) 0.6 x10^3/uL (0.0-0.7) Basophils # (Auto) 0.1 x10^3/uL (0.0-0.2) Sodium Level 136 mmol/L (136-145) Potassium Level 3.5 mmol/L (3.5-5.1) Chloride Level 99 mmol/L (98-107) Carbon Dioxide Level 28 mmol/L (21-32) Anion Gap 9 (6-14) Blood Urea Nitrogen 21 mg/dL (8-26) Creatinine 0.8 mg/dL (0.7-1.3) Estimated GFR (Cockcroft-Gault) 96.1 Glucose Level 115 mg/dL (70-99) Calcium Level 9.0 mg/dL (8.5-10.1) Phosphorus Level 2.9 mg/dL (2.6-4.7) Albumin 2.5 g/dL (3.4-5.0) Microbiology 03/05/19 Blood Culture - Final, Complete NO GROWTH AFTER 5 DAYS Medications Current Medications Sodium Chloride 1,000 ml @ 1,000 mls/hr 1X ONCE IV Last administered on 03/04/19at 23:28; Start 03/05/19 at 00:00; Stop 03/05/19 at 00:59; Status DC Fentanyl Citrate (Fentanyl 2ml Vial) 50 mcg 1X ONCE JOSE RAUL Last administered on 03/04/19 23:02; Start 03/05/19 at 00:00; Stop 03/05/19 at 00:02; Status DC Dexamethasone Sodium Phosphate (Decadron) 10 mg 1X ONCE IV ; Start 03/05/19 at 00:00; Stop 03/05/19 at 00:02; Status DC Atropine Sulfate (ATROPINE 1mg SYRINGE) 0.5 mg 1X ONCE IV Last administered on 03/04/19 23:07; Start 03/05/19 at 00:00; Stop 03/05/19 at 00:02; Status DC Albuterol Sulfate (Ventolin Neb Soln) 2.5 mg 1X ONCE NEB Last administered on 03/04/19 23:15; Start 03/04/19 at 23:15; Stop 03/05/19 at 00:01; Status DC Atropine Sulfate (ATROPINE 1mg SYRINGE) 0.5 mg 1X ONCE IV Last administered on 03/04/19 23:08; Start 03/05/19 at 00:00; Stop 03/05/19 at 00:02; Status DC Atropine Sulfate (ATROPINE 1mg SYRINGE) 1 mg 1X ONCE IV Last administered on 03/04/19 23:18; Start 03/05/19 at 00:00; Stop 03/05/19 at 00:02; Status DC Etomidate (Amidate) 20 mg 1X ONCE IV Last administered on 03/04/19 23:32; Start 03/05/19 at 00:00; Stop 03/05/19 at 00:02; Status DC Rocuronium [place] (Zemuron) 50 mg 1X ONCE IV Last administered on 03/04/19 23:33; Start 03/05/19 at 00:00; Stop 03/05/19 at 00:02; Status DC Propofol 100 ml @ 0 mls/hr CONT PRN IV SEE PROTOCOL Last administered on 03/05/19 02:16; Start 03/04/19 at 23:30; Stop 03/05/19 at 03:42; Status DC Fentanyl Citrate (Fentanyl 2ml Vial) 25 mcg PRN Q1HR PRN IV SEE COMMENTS Last administered on 5/2/19at 14:56; Start 03/04/19 at 23:30 Fentanyl Citrate (Fentanyl 2ml Vial) 50 mcg PRN Q1HR PRN IV SEE COMMENTS Last administered on 03/08/19at 16:55; Start 03/04/19 at 23:30 Chlorhexidine Gluconate (Peridex) 15 ml BID MM Last administered on 03/08/19at 08:59; Start 03/05/19 at 09:00; Stop 03/09/19 at 20:02; Status DC Morphine Sulfate (Morphine Sulfate) 2 mg PRN Q1HR PRN IV SEE COMMENTS.; Start 03/04/19 at 23:30 Morphine Sulfate (Morphine Sulfate) 4 mg PRN Q1HR PRN IV SEE COMMENTS.; Start 03/04/19 at 23:30 Propofol 50 ml @ As Directed STK-MED ONCE IV ; Start 03/04/19 at 23:47; Stop 03/04/19 at 23:48; Status DC Calcium Gluconate (Calcium Gluconate) 1,000 mg 1X ONCE IVP Last administered on 03/05/19at 00:50; Start 03/05/19 at 00:15; Stop 03/05/19 at 00:16; Status DC Dopamine HCl/ Dextrose 250 ml @ 6.844 mls/ hr 1X ONCE IV Last administered on 03/05/19at 01:11; Start 03/05/19 at 00:30; Stop 03/06/19 at 13:01; Status DC Dopamine HCl/ Dextrose 250 ml @ As Directed STK-MED ONCE IV ; Start 03/05/19 at 00:00; Stop 03/05/19 at 00:01; Status DC Propofol 50 ml @ 1.095 mls/ hr 1X ONCE IV Last administered on 03/04/19at 23:51; Start 03/05/19 at 00:15; Stop 03/06/19 at 21:54; Status DC Insulin Human Lispro (HumaLOG) 0-5 UNITS TIDWMEALS SQ Last administered on 03/08/19at 11:49; Start 03/05/19 at 08:00; Stop 03/09/19 at 12:46; Status DC Dextrose (Dextrose 50%-Water Syringe) 12.5 gm PRN Q15MIN PRN IV SEE COMMENTS; Start 03/05/19 at 00:30 Sodium Chloride 1,000 ml @ 125 mls/hr 1X ONCE IV Last administered on 03/05/19 00:45; Start 03/05/19 at 01:00; Stop 03/05/19 at 02:01; Status DC Insulin Human Regular (HumuLIN R VIAL) 10 unit 1X ONCE IV Last administered on 03/05/19at 01:35; Start 03/05/19 at 01:30; Stop 03/05/19 at 01:31; Status DC Dextrose (Dextrose 50%-Water Syringe) 25 gm 1X ONCE IV Last administered on 03/05/19at 01:32; Start 03/05/19 at 01:30; Stop 03/05/19 at 01:31; Status DC Calcium Chloride 2000 mg/Dextrose 120 ml @ 240 mls/hr 1X ONCE IV Last administered on 03/05/19 02:16; Start 03/05/19 at 02:30; Stop 03/05/19 at 02:59; Status DC Sodium Bicarbonate 150 meq/Dextrose 1,150 ml @ 100 mls/hr [id number] IV Last administered on 03/05/19 02:17; Start 03/05/19 at 03:00; Stop 03/05/19 at 18:00; Status DC Sodium Bicarbonate (Sodium Bicarbonate Vial) 150 meq 1X ONCE IV Last administe red on 03/05/19at 02:12; Start 03/05/19 at 02:30; Stop 03/05/19 at 02:31; Status DC Sodium Bicarbonate (Sodium Bicarb Adult 8.4% Syr) 50 meq STK-MED ONCE .ROUTE ; Start 03/05/19 at 02:02; Stop 03/05/19 at 02:03; Status DC Propofol 100 ml @ 0 mls/hr CONT PRN IV SEE I/O RECORD Last administered on 03/05/19 12:27; Start 03/05/19 at 03:45; Stop 03/05/19 at 14:02; Status DC Sodium Chloride 1,000 ml @ 75 mls/hr [id number] IV Last administered on 03/09/19 22:58; Start 03/05/19 at 09:00 Famotidine (Pepcid Vial) 20 mg QHS IVP Last administered on 03/09/19 20:32; Start 03/05/19 at 21:00 Heparin Sodium (Porcine) (Heparin Sodium) 5,000 unit Q8HRS SQ Last administered on 03/10/19 06:29; Start 03/05/19 at 14:00 Midazolam HCl 100 ml @ 5 mls/hr CONT PRN IV SEE I/O RECORD Last administered on 03/07/19at 19:53; Start 03/05/19 at 14:00 Ceftriaxone Sodium (Rocephin) 1 gm Q24H IVP Last administered on 03/07/19at 14:37; Start 03/05/19 at 14:00; Stop 03/07/19 at 16:23; Status DC Doxycycline Hyclate 100 mg/ Dextrose 100 ml @ 50 mls/hr Q12HR IV Last administered on 03/08/19at 20:54; Start 03/05/19 at 21:00; Stop 03/09/19 at 08:46; Status DC Enoxaparin Sodium (Lovenox 40mg Syringe) 30 mg Q24H SQ ; Start 03/05/19 at 14:00; Status Cancel Sodium Chloride 500 ml @ 500 mls/hr 1X ONCE IV Last administered on 03/05/19at 16:15; Start 03/05/19 at 16:15; Stop 03/05/19 at 17:14; Status DC Norepinephrine Bitartrate 250 ml @ 1.875 mls/ hr CONT PRN IV SEE I/O RECORD; Start 03/05/19 at 16:15 Magnesium Sulfate/ Dextrose 100 ml @ 25 mls/hr 1X ONCE IV Last administered on 03/05/19at 19:45; Start 03/05/19 at 19:30; Stop 03/05/19 at 23:29; Status DC Amiodarone HCl 50 mg/Dextrose 101 ml @ 600 mls/hr 1X ONCE IV Last administered on 03/05/19at 21:16; Start 03/05/19 at 22:00; Stop 03/05/19 at 22:1 0; Status DC Amiodarone HCl 900 mg/Dextrose 518 ml @ 0 mls/hr CONT PRN IV SEE I/O RECORD Last administered on 03/05/19at 21:16; Start 03/05/19 at 22:15; Stop 03/06/19 at 22:14; Status DC Dopamine HCl/ Dextrose 250 ml @ 5.46 mls/hr CONT PRN IV SEE I/O RECORD Last administered on 03/06/19at 03:41; Start 03/06/19 at 03:30; Stop 03/06/19 at 18:32; Status DC Potassium Chloride/Water 100 ml @ 100 mls/hr Q1H IV Last administered on 03/06/19at 06:17; Start 03/06/19 at 05:00; Stop 03/06/19 at 06:59; Status DC Potassium Chloride (KCl Oral Soln) 20 meq 1X ONCE PEG ; Start 03/06/19 at 09:00; Stop 03/06/19 at 09:01; Status Cancel Potassium Chloride (KCl Oral Soln) 20 meq 1X ONCE PEG Last administered on 03/06/19at 16:24; Start 03/06/19 at 14:00; Stop 03/06/19 at 14:01; Status DC Aspirin (Aspirin) 300 mg DAILY ID ; Start 03/06/19 at 14:15; Stop 03/06/19 at 17:46; Status DC Aspirin ([employer] Aspirin) 325 mg DAILYWBKFT PO Last administered on 03/09/19at 08:44; Start 03/07/19 at 08:00 Acetaminophen (Tylenol) 325 mg STK-MED ONCE PO ; Start 03/06/19 at 18:27; Stop 03/06/19 at 18:28; Status DC Aspirin (Darren Aspirin) 325 mg DAILYWBKFT PO ; Start 03/07/19 at 08:00; Status UNV Acetaminophen (Tylenol) 325 mg PRN Q6HRS PRN PO MILD PAIN / TEMP; Start 03/06/19 at 18:45 Aspirin (Darren Aspirin) 325 mg STK-MED ONCE .ROUTE ; Start 03/06/19 at 18:42; Stop 03/06/19 at 18:43; Status DC Amiodarone HCl 900 mg/Dextrose 518 ml @ 0 mls/hr CONT PRN IV SEE I/O RECORD; Start 03/07/19 at 00:30; Status UNV Amiodarone HCl 450 mg/Dextrose 259 ml @ 17.26 mls/ hr CONT PRN IV SEE I/O RECORD Last administered on 03/07/19at 02:27; Start 03/07/19 at 01:00 Amiodarone HCl (Cordarone) 200 mg BID PO ; Start 03/07/19 at 16:00; Stop 03/07/19 at 19:38; Status DC Amiodarone HCl (Cordarone) 200 mg BID PO Last administered on 03/09/19 20:31; Start 03/07/19 at 21:00 Potassium Chloride (KCl Oral Soln) 20 meq 1X ONCE PEG Last administered on 03/08/19 09:04; Start 03/08/19 at 08:30; Stop 03/08/19 at 08:31; Status DC Atorvastatin Calcium (Lipitor) 40 mg QHS PO Last administered on 03/09/19 20:31; Start 03/08/19 at 21:00 Lisinopril (Prinivil) 5 mg DAILY PO Last administered on 03/08/19 10:46; Start 03/08/19 at 11:00; Stop 03/08/19 at 13:26; Status DC Metoprolol Tartrate (Lopressor) 12.5 mg BID PO Last administered on 03/08/19 10:47; Start 03/08/19 at 11:00; Stop 03/08/19 at 13:26; Status DC Aspirin (Ecotrin) 81 mg DAILY PO ; Start 03/09/19 at 09:00; Status UNV Bupropion HCl (Wellbutrin Sr) 100 mg BID PO Last administered on 03/09/19 20:31; Start 03/08/19 at 14:00 Cyclosporine (Restasis) 1 drop BID OU Last administered on 03/09/19 20:32; Start 03/08/19 at 14:00 Docusate Sodium (Colace) 100 mg BID PO Last administered on 03/09/19 20:32; Start 03/08/19 at 14:00 Gabapentin (Neurontin) 900 mg TID PO Last administered on 03/09/19 20:32; Start 03/08/19 at 14:00 Lisinopril (Prinivil) 20 mg DAILY PO Last administered on 03/09/19 08:48; Start 03/09/19 at 09:00 Metoprolol Tartrate (Lopressor) 25 mg BID PO Last administered on 03/09/19 20:32; Start 03/08/19 at 21:00 Oxycodone HCl (Roxicodone) 5 mg PRN Q4HRS PRN PO PAIN Last administered on 03/09/19 23:00; Start 03/08/19 at 13:15 Senna/Docusate Sodium (Senna Plus) 1 tab BID PO Last administered on 03/09/19 20:31; Start 03/08/19 at 14:00 Brimonidine Tartrate (Alphagan) 1 drop BID OU Last administered on 03/09/19 20:34; Start 03/08/19 at 21:00 Artificial Tears (Artificial Tears) 1 drop PRN QID PRN OU DRY EYE; Start 03/08/19 at 13:30 Latanoprost (Xalatan) 1 drop QHS OU Last administered on 03/09/19 20:33; Start 03/08/19 at 21:00 Timolol Maleate (Timoptic 0.5% [facility]) 1 drop BID OU Last administered on 03/09/19 20:33; Start 03/08/19 at 21:00 Dorzolamide HCl (Trusopt) 1 drop BID OU Last administered on 03/09/19 20:33; Start 03/08/19 at 21:00 Potassium Chloride (Klor-Con) 20 meq 1X ONCE PO Last administered on 03/09/19 08:52; Start 03/09/19 at 09:00; Stop 03/09/19 at 09:01; Status DC Doxycycline Hyclate (Vibra-Tab) 100 mg BID PO Last administered on 03/09/19 20:32; Start 03/09/19 at 09:00 Metformin HCl (Glucophage) 1,000 mg DAILYWBKFT PO ; Start 03/10/19 at 08:00 Metformin HCl (Glucophage) 500 mg DAILYWSUP PO Last administered on 03/09/19at 17:07; Start 03/09/19 at 17:00 Insulin Human Lispro (HumaLOG) 20 units 1X ONCE SQ ; Start 03/09/19 at 12:45; Stop 03/09/19 at 12:46; Status UNV Multivitamins/ Minerals (I-Dora) 1 tab DAILY PO ; Start 03/10/19 at 09:00 Active Scripts Active Reported Timoptic 0.5% (Timolol Maleate) 10 Ml Drops 1 Drop EACHEYE BID Senna-S Tablet (Sennosides/Docusate Sodium) 1 Each Tablet 1 Each PO BID Onglyza (Saxagliptin Hcl) 5 Mg Tablet 1 Tab PO DAILY Crestor (Rosuvastatin Calcium) 20 Mg Tablet 20 Mg PO HS Miralax (Polyethylene Glycol 3350) 17 Gm Powd.pack 1 Packet PO DAILY Percocet 5-325 Mg Tablet (Oxycodone/Acetaminophen) 1 Each Tablet 1 Tab PO QID PRN Oxycodone Hcl Immed.release (Oxycodone Hcl) 5 Mg Tablet 5 Mg PO PRN Q4HRS PRN take 1 to 3 tabs Q4H prn Metoprolol Tartrate 25 Mg Tablet 1 Tab PO BID Metformin Hcl 500 Mg Tablet 500 Mg PO DAILYWSUP Metformin Hcl 1,000 Mg Tablet 1,000 Mg PO DAILYWBKFT Meloxicam 15 Mg Tablet 1 Tab PO NOON Lisinopril 20 Mg Tablet 1 Tab PO DAILY Xalatan (Latanoprost) 2.5 Ml Drops 1 Drop EACHEYE QHS Gabapentin (Gabapentin) 300 Mg Capsule 900 Mg PO TID Docusate Sodium 100 Mg Capsule 1 Cap PO BID Diltiazem 24HR Cd (Diltiazem Hcl) 120 Mg Cap.er.24h 1 Cap PO DAILY Restasis (Cyclosporine) 1 Each Droperette 1 Drop EACHEYE BID Refresh Optive Eye Drops (Carboxymethylcellulos/Glycerin) 15 Ml Drops 1 Drop EACHEYE QID PRN Wellbutrin Sr (Bupropion Hcl) 100 Mg Tablet.er 1 Tab PO BID Aspirin Ec (Aspirin) 81 Mg Tablet.dr 1 Tab PO DAILY Simbrinza 1%-0.2% Eye Drops (Brinzolamide/Brimonid Tart) 8 Ml Drops.susp 8 Ml OP BID Vitals/I & O Vital Sign - Last 24 Hours 03/09/19 03/09/19 03/09/19 03/09/19 08:00 08:00 08:48 08:48 Temp 99.6 99.6 Pulse 60 61 61 Resp 21 B/P (MAP) 175/73 (107) 174/81 174/81 Pulse Ox 97 O2 Delivery Room Air Room Air 03/09/19 03/09/19 03/09/19 03/09/19 09:00 09:17 12:00 16:00 Temp 99.3 99.2 99.3 99.2 Pulse 72 65 68 63 Resp 14 20 20 B/P (MAP) 183/71 (108) 183/71 137/67 (90) 164/75 (104) Pulse Ox 97 97 97 O2 Delivery Room Air Room Air Room Air 03/09/19 03/09/19 03/09/19 03/09/19 16:11 17:11 19:40 20:00 Temp 98.4 98.4 Pulse 72 Resp 19 B/P (MAP) 156/68 (97) Pulse Ox 97 96 O2 Delivery Room Air Room Air Room Air Room Air 03/09/19 03/09/19 03/10/19 03/10/19 20:31 20:32 00:00 04:00 Temp 98.5 99.3 98.5 99.3 Pulse 75 75 67 67 Resp 19 18 B/P (MAP) 170/79 170/79 166/75 (105) 158/76 (103) Pulse Ox 95 94 O2 Delivery Room Air Room Air Intake and Output 03/09/19 03/09/19 03/10/19 15:00 23:00 07:00 Intake Total 1546 ml 785 ml Output Total 660 ml 1300 ml 1150 ml Balance -660 ml 246 ml -365 ml Nutrition Consultation Dietary Evaluation: Recommendations by RD: Increase Calorie Intake, Protein supplementation Comments: REC advance diet as able per ADMIN ASSISTANT eval to goal diet cardiac/ADA REC Iain BID (fruit punch flavor) s/p diet advancement REC MVI for wound healing Expected Outcomes/Goals: New goal 03/07: TF infusion to meet >75% est needs while pt remains intubated - met, new goal established New goal 03/09: diet advancement Malnutrition Findings: Food and Nutrition Intake (Mod: <75% est energy req 7days Weight Status: Appropriate ELLEN CONROY MD March 10, 2019 07:32
--- NOTE | 2019-03-10 07:36 | RAD ---
EXAM: Chest, single view. HISTORY: Respiratory failure. COMPARISON: 03/09/2019 FINDINGS: A frontal view of the chest obtained. There is no infiltrate, pleural effusion or pneumothorax. The heart is normal in size for portable technique. There is evidence of prior CABG. There is a right chest wall port catheter with the tip of the superior right atrium or at the superior cavoatrial junction. IMPRESSION: No acute pulmonary finding. Electronically signed by: Mckenzie Ugarte MD (03/10/2019 7:33 AM) [facility], [place]
[2019-03-10] MEDS: BRIMONIDINE 0.2% OPHTH SOLUTION 5ML BOTTLE. OU SCH ×2 (09:00→20:36)
--- NOTE | 2019-03-10 09:00 | NUR ---
Pt having runs of V-tach, nonsymptomatic. IV Metoprolol given per order.
[2019-03-10] MEDS ORDERED: METOPROLOL TARTRATE 5 MG/5 ML VIAL. IVP ONE ×2 (09:09→09:15)
[2019-03-10] MEDS: AMIODARONE HCL 200 MG TABLET. PO SCH ×2 (09:13→20:31)
[2019-03-10] MEDS: METOPROLOL TART IMMED RELEASE 25 MG TABLET. PO SCH ×2 (09:13→20:32)
[2019-03-10] MEDS: DOCUSATE SODIUM 100 MG CAPSULE. PO SCH ×2 (09:24→20:29)
[2019-03-10] MEDS: ASPIRIN 325 MG TABLET PO SCH (09:24)
[2019-03-10] MEDS: SENNOSIDES/DOCUSATE 8.6/50MG TABLET. PO SCH ×2 (09:25→20:31)
[2019-03-10] MEDS: metFORMIN 500 MG TABLET PO SCH ×2 (09:25→17:21)
[2019-03-10] MEDS: MULTIVITAMIN I-VITE TABLET. PO SCH (09:25)
[2019-03-10] MEDS: GABAPENTIN 300 MG CAPSULE. PO SCH ×3 (09:26→20:30)
[2019-03-10] MEDS: TIMOLOL 0.5% OPHTH SOLUTION 5ML BOTTLE. OU SCH ×2 (09:28→20:28)
[2019-03-10] MEDS: DORZOLAMIDE 2% OPHTH SOLUTION 10ML BOTTLE. OU SCH ×2 (09:28→20:29)
[2019-03-10] MEDS: cycloSPORINE 0.05% OPHTH DROPERETTE. OU SCH ×2 (09:29→21:07)
[2019-03-10] MEDS: buPROPion SR 100 MG TABLET.SA. PO SCH ×2 (09:29→20:29)
[2019-03-10 09:37] LABS: CALCIUM 8.9 mg/dL (8.5-10.1); GFR 74.3; MAGNESIUM 1.3 mg/dL (1.8-2.4); POTASSIUM 3.4 mmol/L (3.5-5.1)
--- NOTE | 2019-03-10 09:39 | PDOC ---
PULMONARY PROGRESS NOTES Subjective EXTUBATED 03/08 DOING WELL Vitals Vital Signs Date Time Temp Pulse Resp B/P (MAP) Pulse Ox O2 Delivery O2 Flow Rate FiO2 03/10/19 09:13 91 184/76 03/10/19 04:00 99.3 18 94 Room Air 99.3 General: Alert, No acute distress Lungs: Clear Cardiovascular: S1, S2 Abdomen: Soft Extremities: No Edema Skin: Warm Labs Laboratory Tests Test 03/08/19 11:43 03/08/19 16:53 03/09/19 05:20 03/09/19 05:46 Glucose (Fingerstick) 177 mg/dL (70-99) 149 mg/dL (70-99) 111 mg/dL (70-99) White Blood Count 10.2 x10^3/uL (4.0-11.0) Red Blood Count 3.26 x10^6/uL (4.30-5.70) Hemoglobin 9.7 g/dL (13.0-17.5) Hematocrit 28.6 % (39.0-53.0) Mean Corpuscular Volume 88 fL (79-100) Mean Corpuscular Hemoglobin 30 pg (25-35) Mean Corpuscular Hemoglobin Concent 34 g/dL (31-37) Red Cell Distribution Width 14.2 % (11.5-14.5) Platelet Count 181 x10^3/uL (140-400) Neutrophils (%) (Auto) 70 % (31-73) Lymphocytes (%) (Auto) 14 % (24-48) Monocytes (%) (Auto) 11 % (0-9) Eosinophils (%) (Auto) 5 % (0-3) Basophils (%) (Auto) 1 % (0-3) Neutrophils # (Auto) 7.2 x10^3uL (1.8-7.7) Lymphocytes # (Auto) 1.4 x10^3/uL (1.0-4.8) Monocytes # (Auto) 1.1 x10^3/uL (0.0-1.1) Eosinophils # (Auto) 0.5 x10^3/uL (0.0-0.7) Basophils # (Auto) 0.1 x10^3/uL (0.0-0.2) Sodium Level 138 mmol/L (136-145) Potassium Level 3.7 mmol/L (3.5-5.1) Chloride Level 101 mmol/L (98-107) Carbon Dioxide Level 29 mmol/L (21-32) Anion Gap 8 (6-14) Blood Urea Nitrogen 15 mg/dL (8-26) Creatinine 0.7 mg/dL (0.7-1.3) Estimated GFR (Cockcroft-Gault) 112.1 Glucose Level 129 mg/dL (70-99) Calcium Level 9.2 mg/dL (8.5-10.1) Phosphorus Level 3.0 mg/dL (2.6-4.7) Albumin 2.4 g/dL (3.4-5.0) Test 03/09/19 09:14 03/09/19 12:19 03/09/19 17:06 03/09/19 20:43 Glucose (Fingerstick) 129 mg/dL (70-99) 155 mg/dL (70-99) 116 mg/dL (70-99) 118 mg/dL (70-99) Test 03/10/19 03:00 03/10/19 09:18 White Blood Count 11.1 x10^3/uL (4.0-11.0) Red Blood Count 3.38 x10^6/uL (4.30-5.70) Hemoglobin 9.9 g/dL (13.0-17.5) Hematocrit 29.6 % (39.0-53.0) Mean Corpuscular Volume 88 fL (79-100) Mean Corpuscular Hemoglobin 29 pg (25-35) Mean Corpuscular Hemoglobin Concent 33 g/dL (31-37) Red Cell Distribution Width 14.1 % (11.5-14.5) Platelet Count 199 x10^3/uL (140-400) Neutrophils (%) (Auto) 69 % (31-73) Lymphocytes (%) (Auto) 16 % (24-48) Monocytes (%) (Auto) 10 % (0-9) Eosinophils (%) (Auto) 5 % (0-3) Basophils (%) (Auto) 1 % (0-3) Neutrophils # (Auto) 7.6 x10^3uL (1.8-7.7) Lymphocytes # (Auto) 1.7 x10^3/uL (1.0-4.8) Monocytes # (Auto) 1.1 x10^3/uL (0.0-1.1) Eosinophils # (Auto) 0.6 x10^3/uL (0.0-0.7) Basophils # (Auto) 0.1 x10^3/uL (0.0-0.2) Sodium Level 136 mmol/L (136-145) Potassium Level 3.5 mmol/L (3.5-5.1) Chloride Level 99 mmol/L (98-107) Carbon Dioxide Level 28 mmol/L (21-32) Anion Gap 9 (6-14) Blood Urea Nitrogen 21 mg/dL (8-26) Creatinine 0.8 mg/dL (0.7-1.3) Estimated GFR (Cockcroft-Gault) 96.1 Glucose Level 115 mg/dL (70-99) Calcium Level 9.0 mg/dL (8.5-10.1) Phosphorus Level 2.9 mg/dL (2.6-4.7) Albumin 2.5 g/dL (3.4-5.0) Glucose (Fingerstick) 200 mg/dL (70-99) Laboratory Tests Test 03/09/19 12:19 03/09/19 17:06 03/09/19 20:43 03/10/19 03:00 Glucose (Fingerstick) 155 mg/dL (70-99) 116 mg/dL (70-99) 118 mg/dL (70-99) White Blood Count 11.1 x10^3/uL (4.0-11.0) Red Blood Count 3.38 x10^6/uL (4.30-5.70) Hemoglobin 9.9 g/dL (13.0-17.5) Hematocrit 29.6 % (39.0-53.0) Mean Corpuscular Volume 88 fL (79-100) Mean Corpuscular Hemoglobin 29 pg (25-35) Mean Corpuscular Hemoglobin Concent 33 g/dL (31-37) Red Cell Distribution Width 14.1 % (11.5-14.5) Platelet Count 199 x10^3/uL (140-400) Neutrophils (%) (Auto) 69 % (31-73) Lymphocytes (%) (Auto) 16 % (24-48) Monocytes (%) (Auto) 10 % (0-9) Eosinophils (%) (Auto) 5 % (0-3) Basophils (%) (Auto) 1 % (0-3) Neutrophils # (Auto) 7.6 x10^3uL (1.8-7.7) Lymphocytes # (Auto) 1.7 x10^3/uL (1.0-4.8) Monocytes # (Auto) 1.1 x10^3/uL (0.0-1.1) Eosinophils # (Auto) 0.6 x10^3/uL (0.0-0.7) Basophils # (Auto) 0.1 x10^3/uL (0.0-0.2) Sodium Level 136 mmol/L (136-145) Potassium Level 3.5 mmol/L (3.5-5.1) Chloride Level 99 mmol/L (98-107) Carbon Dioxide Level 28 mmol/L (21-32) Anion Gap 9 (6-14) Blood Urea Nitrogen 21 mg/dL (8-26) Creatinine 0.8 mg/dL (0.7-1.3) Estimated GFR (Cockcroft-Gault) 96.1 Glucose Level 115 mg/dL (70-99) Calcium Level 9.0 mg/dL (8.5-10.1) Phosphorus Level 2.9 mg/dL (2.6-4.7) Albumin 2.5 g/dL (3.4-5.0) Test 03/10/19 09:18 Glucose (Fingerstick) 200 mg/dL (70-99) Medications Active Scripts Medications Dose Route/Sig Max Daily Dose Days Date Category Dose Instructions Timoptic 0.5% (Timolol Maleate) 10 Ml Drops 1 Drop EACHEYE BID 03/05/19 Reported Senna-S Tablet (Sennosides/Docusate Sodium) 1 Each Tablet 1 Each PO BID 03/05/19 Reported Onglyza (Saxagliptin Hcl) 5 Mg Tablet 1 Tab PO DAILY 03/05/19 Reported Crestor (Rosuvastatin Calcium) 20 Mg Tablet 20 Mg PO HS 03/05/19 Reported Miralax (Polyethylene Glycol 3350) 17 Gm Powd.pack 1 Packet PO DAILY 03/05/19 Reported Percocet 5-325 Mg Tablet (Oxycodone/Acetaminophen) 1 Each Tablet 1 Tab PO QID PRN 03/05/19 Reported Oxycodone Hcl Immed.release (Oxycodone Hcl) 5 Mg Tablet 5 Mg PO PRN Q4HRS PRN 03/05/19 Reported take 1 to 3 tabs Q4H prn Metoprolol Tartrate 25 Mg Tablet 1 Tab PO BID 03/05/19 Reported Metformin Hcl 500 Mg Tablet 500 Mg PO DAILYWSUP 03/05/19 Reported Metformin Hcl 1,000 Mg Tablet 1,000 Mg PO DAILYWBKFT 03/05/19 Reported Meloxicam 15 Mg Tablet 1 Tab PO NOON 03/05/19 Reported Lisinopril 20 Mg Tablet 1 Tab PO DAILY 03/05/19 Reported Xalatan (Latanoprost) 2.5 Ml Drops 1 Drop EACHEYE QHS 03/05/19 Reported Gabapentin (Gabapentin) 300 Mg Capsule 900 Mg PO TID 03/05/19 Reported Docusate Sodium 100 Mg Capsule 1 Cap PO BID 03/05/19 Reported Diltiazem 24HR Cd (Diltiazem Hcl) 120 Mg Cap.er.24h 1 Cap PO DAILY 03/05/19 Reported Restasis (Cyclosporine) 1 Each Droperette 1 Drop EACHEYE BID 03/05/19 Reported Refresh Optive Eye Drops (Carboxymethylcellulos/Glycerin) 15 Ml Drops 1 Drop EACHEYE QID PRN 03/05/19 Reported Wellbutrin Sr (Bupropion Hcl) 100 Mg Tablet.er 1 Tab PO BID 03/05/19 Reported Aspirin Ec (Aspirin) 81 Mg Tablet.dr 1 Tab PO DAILY 03/05/19 Reported Simbrinza 1%-0.2% Eye Drops (Brinzolamide/Brimonid Tart) 8 Ml Drops.susp 8 Ml OP BID 03/05/19 Reported Comments CXR 5/2 CLEAR Impression . IMPRESSION: 1. Acute hypoxemic respiratory failure. 2. Severe metabolic acidosis due to FARA, RESOLVED 3. Leukocytosis. 4. chest x-ray. clear now 5. Bradycardia. 6. Hypercalcemia. 7. Acute exacerbation of chronic obstructive pulmonary disease. 8. Type 2 diabetes. 9. Coronary artery disease, status post coronary artery bypass grafting. 10. Acute on chronic metabolic toxic encephalopathy, present upon admission. 11. Bladder cancer, status post chemo cystectomy with ileal conduit. 12. Arrhythmias Plan . ONRA/ DOING WELL CXR REVIEWED CLEAR OFF ANTIBX D/W RN AND / CARDIOLOGY CATH TUESDAY TRANSFER TO FLOOR ORAL DIET PEGGY ANTHONY MD March 10, 2019 09:39
[2019-03-10] MEDS: LISINOPRIL 20 MG TABLET PO SCH (09:54)
[2019-03-10] MEDS: DOXYCYCLINE HYCLATE 100 MG TABLET PO SCH ×2 (10:00→20:32)
[2019-03-10] MEDS ORDERED: POTASSIUM CHLORIDE 20 MEQ TABLET.ER. PO ONE (14:45)
[2019-03-10] MEDS ORDERED: MAGNESIUM SULFATE 4GM 100 ML IV ONE (15:00)
--- NOTE | 2019-03-10 15:05 | NUR ---
Pt transferred to room [facility] w/c. Report called to Meghan. GARCES. Addendum: 03/10/19 at 1507 by SHELLEY MCMAHON RN RN Pt belongings include clothes, glasses, and cell phone transferred to [facility] pt.
[2019-03-10] MEDS: oxyCODONE IR 5 MG TABLET PO PRN (20:30)
[2019-03-10] MEDS: ATORVASTATIN CALCIUM 40 MG TABLET. PO SCH (20:32)
[2019-03-10] MEDS: FAMOTIDINE 20 MG/2 ML VIAL IVP SCH (20:33)
[2019-03-10] MEDS: LATANOPROST 0.005% OPHTH SOLUTION 2.5ML BOTTLE. OU SCH (20:37)
--- NOTE | 2019-03-11 00:19 | NUR ---
CHANGE OF CARE NOTE: Pt resting in bed with c/o pain medication not due yet. Agree with previous assessment will resume are and continue to monitor pt. call light in reach.
[2019-03-11] MEDS: oxyCODONE IR 5 MG TABLET PO PRN ×2 (00:32→21:00)
[2019-03-11 02:50] VITALS: BP 169/87
[2019-03-11 05:48] LABS: ALBUMIN 2.8 g/dL (3.4-5.0); CALCIUM 9.3 mg/dL (8.5-10.1); GFR 74.3; MAGNESIUM 2.1 mg/dL (1.8-2.4); PHOSPHORUS 2.9 mg/dL (2.6-4.7)
[2019-03-11] MEDS: HEPARIN for SUB-Q USE 5,000 UNIT/ML VIAL. SQ SCH ×3 (05:51→21:07)
[2019-03-11 07:45] VITALS: BP 148/68
--- NOTE | 2019-03-11 07:52 | RAD ---
EXAM: Chest, single view. HISTORY: Respiratory failure. COMPARISON: 03/10/2019 FINDINGS: A frontal view of the chest is obtained. There is no infiltrate, pleural effusion or pneumothorax. There is a stable cardiac silhouette and evidence of prior CABG. There is a port catheter with the tip in the superior right atrium or cavoatrial junction. IMPRESSION: No acute pulmonary finding. Electronically signed by: Mckenzie Ugarte MD (03/11/2019 7:50 AM) [facility]
[2019-03-11] MEDS: SENNOSIDES/DOCUSATE 8.6/50MG TABLET. PO SCH ×2 (08:28→21:00)
[2019-03-11] MEDS: DOXYCYCLINE HYCLATE 100 MG TABLET PO SCH ×2 (08:28→21:01)
[2019-03-11] MEDS: GABAPENTIN 300 MG CAPSULE. PO SCH ×3 (08:29→21:01)
[2019-03-11] MEDS: MULTIVITAMIN I-VITE TABLET. PO SCH (08:29)
[2019-03-11] MEDS: buPROPion SR 100 MG TABLET.SA. PO SCH ×2 (08:29→20:59)
[2019-03-11] MEDS: ASPIRIN 325 MG TABLET PO SCH (08:29)
[2019-03-11] MEDS: metFORMIN 500 MG TABLET PO SCH ×2 (08:29→17:26)
[2019-03-11] MEDS: DOCUSATE SODIUM 100 MG CAPSULE. PO SCH ×2 (08:29→21:00)
[2019-03-11] MEDS: AMIODARONE HCL 200 MG TABLET. PO SCH ×2 (08:30→21:02)
[2019-03-11] MEDS: LISINOPRIL 20 MG TABLET PO SCH (08:30)
[2019-03-11] MEDS: METOPROLOL TART IMMED RELEASE 25 MG TABLET. PO SCH ×2 (08:30→21:03)
[2019-03-11] MEDS: LATANOPROST 0.005% OPHTH SOLUTION 2.5ML BOTTLE. OU SCH ×2 (08:31→20:59)
[2019-03-11] MEDS: TIMOLOL 0.5% OPHTH SOLUTION 5ML BOTTLE. OU SCH ×2 (08:31→20:59)
[2019-03-11] MEDS: BRIMONIDINE 0.2% OPHTH SOLUTION 5ML BOTTLE. OU SCH ×2 (08:31→21:03)
[2019-03-11] MEDS: DORZOLAMIDE 2% OPHTH SOLUTION 10ML BOTTLE. OU SCH ×2 (08:32→21:00)
[2019-03-11] MEDS: cycloSPORINE 0.05% OPHTH DROPERETTE. OU SCH ×2 (08:32→21:01)
[2019-03-11 10:30] VITALS: BP 168/74
--- NOTE | 2019-03-11 10:36 | PDOC ---
PULMONARY PROGRESS NOTES Subjective EXTUBATED 03/08 DOING WELL Vitals Vital Signs Date Time Temp Pulse Resp B/P (MAP) Pulse Ox O2 Delivery O2 Flow Rate FiO2 03/11/19 10:30 98.2 80 18 168/74 (105) 95 Room Air 98.2 03/11/19 01:32 3.0 General: Alert, No acute distress Lungs: Clear Cardiovascular: S1, S2 Abdomen: Soft Extremities: No Edema Skin: Warm Labs Laboratory Tests Test 03/09/19 12:19 03/09/19 17:06 03/09/19 20:43 03/10/19 03:00 Glucose (Fingerstick) 155 mg/dL (70-99) 116 mg/dL (70-99) 118 mg/dL (70-99) White Blood Count 11.1 x10^3/uL (4.0-11.0) Red Blood Count 3.38 x10^6/uL (4.30-5.70) Hemoglobin 9.9 g/dL (13.0-17.5) Hematocrit 29.6 % (39.0-53.0) Mean Corpuscular Volume 88 fL (79-100) Mean Corpuscular Hemoglobin 29 pg (25-35) Mean Corpuscular Hemoglobin Concent 33 g/dL (31-37) Red Cell Distribution Width 14.1 % (11.5-14.5) Platelet Count 199 x10^3/uL (140-400) Neutrophils (%) (Auto) 69 % (31-73) Lymphocytes (%) (Auto) 16 % (24-48) Monocytes (%) (Auto) 10 % (0-9) Eosinophils (%) (Auto) 5 % (0-3) Basophils (%) (Auto) 1 % (0-3) Neutrophils # (Auto) 7.6 x10^3uL (1.8-7.7) Lymphocytes # (Auto) 1.7 x10^3/uL (1.0-4.8) Monocytes # (Auto) 1.1 x10^3/uL (0.0-1.1) Eosinophils # (Auto) 0.6 x10^3/uL (0.0-0.7) Basophils # (Auto) 0.1 x10^3/uL (0.0-0.2) Sodium Level 136 mmol/L (136-145) Potassium Level 3.5 mmol/L (3.5-5.1) Chloride Level 99 mmol/L (98-107) Carbon Dioxide Level 28 mmol/L (21-32) Anion Gap 9 (6-14) Blood Urea Nitrogen 21 mg/dL (8-26) Creatinine 0.8 mg/dL (0.7-1.3) Estimated GFR (Cockcroft-Gault) 96.1 Glucose Level 115 mg/dL (70-99) Calcium Level 9.0 mg/dL (8.5-10.1) Phosphorus Level 2.9 mg/dL (2.6-4.7) Albumin 2.5 g/dL (3.4-5.0) Test 03/10/19 09:12 03/10/19 09:18 03/10/19 17:15 03/11/19 04:00 Sodium Level 137 mmol/L (136-145) 135 mmol/L (136-145) Potassium Level 3.4 mmol/L (3.5-5.1) 4.0 mmol/L (3.5-5.1) Chloride Level 99 mmol/L (98-107) 100 mmol/L (98-107) Carbon Dioxide Level 26 mmol/L (21-32) 26 mmol/L (21-32) Anion Gap 12 (6-14) 9 (6-14) Blood Urea Nitrogen 18 mg/dL (8-26) 22 mg/dL (8-26) Creatinine 1.0 mg/dL (0.7-1.3) 1.0 mg/dL (0.7-1.3) Estimated GFR (Cockcroft-Gault) 74.3 74.3 Glucose Level 217 mg/dL (70-99) 110 mg/dL (70-99) Calcium Level 8.9 mg/dL (8.5-10.1) 9.3 mg/dL (8.5-10.1) Magnesium Level 1.3 mg/dL (1.8-2.4) 2.1 mg/dL (1.8-2.4) Glucose (Fingerstick) 200 mg/dL (70-99) 107 mg/dL (70-99) Phosphorus Level 2.9 mg/dL (2.6-4.7) Albumin 2.8 g/dL (3.4-5.0) Test 03/11/19 08:32 Glucose (Fingerstick) 116 mg/dL (70-99) Laboratory Tests Test 03/10/19 17:15 03/11/19 04:00 03/11/19 08:32 Glucose (Fingerstick) 107 mg/dL (70-99) 116 mg/dL (70-99) Sodium Level 135 mmol/L (136-145) Potassium Level 4.0 mmol/L (3.5-5.1) Chloride Level 100 mmol/L (98-107) Carbon Dioxide Level 26 mmol/L (21-32) Anion Gap 9 (6-14) Blood Urea Nitrogen 22 mg/dL (8-26) Creatinine 1.0 mg/dL (0.7-1.3) Estimated GFR (Cockcroft-Gault) 74.3 Glucose Level 110 mg/dL (70-99) Calcium Level 9.3 mg/dL (8.5-10.1) Phosphorus Level 2.9 mg/dL (2.6-4.7) Magnesium Level 2.1 mg/dL (1.8-2.4) Albumin 2.8 g/dL (3.4-5.0) Medications Active Scripts Medications Dose Route/Sig Max Daily Dose Days Date Category Dose Instructions Timoptic 0.5% (Timolol Maleate) 10 Ml Drops 1 Drop EACHEYE BID 03/05/19 Reported Senna-S Tablet (Sennosides/Docusate Sodium) 1 Each Tablet 1 Each PO BID 03/05/19 Reported Onglyza (Saxagliptin Hcl) 5 Mg Tablet 1 Tab PO DAILY 03/05/19 Reported Crestor (Rosuvastatin Calcium) 20 Mg Tablet 20 Mg PO HS 03/05/19 Reported Miralax (Polyethylene Glycol 3350) 17 Gm Powd.pack 1 Packet PO DAILY 03/05/19 Reported Percocet 5-325 Mg Tablet (Oxycodone/Acetaminophen) 1 Each Tablet 1 Tab PO QID PRN 03/05/19 Reported Oxycodone Hcl Immed.release (Oxycodone Hcl) 5 Mg Tablet 5 Mg PO PRN Q4HRS PRN 03/05/19 Reported take 1 to 3 tabs Q4H prn Metoprolol Tartrate 25 Mg Tablet 1 Tab PO BID 03/05/19 Reported Metformin Hcl 500 Mg Tablet 500 Mg PO DAILYWSUP 03/05/19 Reported Metformin Hcl 1,000 Mg Tablet 1,000 Mg PO DAILYWBKFT 03/05/19 Reported Meloxicam 15 Mg Tablet 1 Tab PO NOON 03/05/19 Reported Lisinopril 20 Mg Tablet 1 Tab PO DAILY 03/05/19 Reported Xalatan (Latanoprost) 2.5 Ml Drops 1 Drop EACHEYE QHS 03/05/19 Reported Gabapentin (Gabapentin) 300 Mg Capsule 900 Mg PO TID 03/05/19 Reported Docusate Sodium 100 Mg Capsule 1 Cap PO BID 03/05/19 Reported Diltiazem 24HR Cd (Diltiazem Hcl) 120 Mg Cap.er.24h 1 Cap PO DAILY 03/05/19 Reported Restasis (Cyclosporine) 1 Each Droperette 1 Drop EACHEYE BID 03/05/19 Reported Refresh Optive Eye Drops (Carboxymethylcellulos/Glycerin) 15 Ml Drops 1 Drop EACHEYE QID PRN 03/05/19 Reported Wellbutrin Sr (Bupropion Hcl) 100 Mg Tablet.er 1 Tab PO BID 03/05/19 Reported Aspirin Ec (Aspirin) 81 Mg Tablet.dr 1 Tab PO DAILY 03/05/19 Reported Simbrinza 1%-0.2% Eye Drops (Brinzolamide/Brimonid Tart) 8 Ml Drops.susp 8 Ml OP BID 03/05/19 Reported Comments CXR 5/2 CLEAR Impression . IMPRESSION: 1. Acute hypoxemic respiratory failure. 2. Severe metabolic acidosis due to FARA, RESOLVED 3. Leukocytosis. 4. chest x-ray. clear now 5. Bradycardia. 6. Hypercalcemia. 7. Acute exacerbation of chronic obstructive pulmonary disease. 8. Type 2 diabetes. 9. Coronary artery disease, status post coronary artery bypass grafting. 10. Acute on chronic metabolic toxic encephalopathy, present upon admission. 11. Bladder cancer, status post chemo cystectomy with ileal conduit. 12. Arrhythmias Plan . ON RA/ DOING WELL CXR REVIEWED CLEAR OFF ANTIBX D/W RN AND / CARDIOLOGY CATH TUESDAY ORAL DIET PEGGY ANTHONY MD March 11, 2019 10:36
[2019-03-11 11:37] LABS: BASE EXCESS ABG -3 mmol/L (-3-3); HCO3 ABG 21 mmol/L (21-28); PCO2 ABG 34 mmHg (35-46); PO2 ABG 88 mmHg (65-108); SAT O2 ABG 96 % (92-99)
[2019-03-11 11:38] LABS: FIO2 ABG 21
--- NOTE | 2019-03-11 13:00 | PDOC ---
PROGRESS NOTES Chief Complaint Chief Complaint A/P: Acute encephalopathy - likely mixed picture, metabolic with uremia and hyperkalemia. Completed resolved. Extubated 03/08/19 Hypoxic respiratory failure - with underlying COPD, never previously intubated, not on home O2. Intubated for hypoxia, extubated and now CXR clear. Appreciate pulmonology input Sepsis - POA, Resolved, off pressors, extubated, now CXR clear. Off antibiotics Hyperkalemia - 7.3 --> 3.1 with above corrective measures. Actually K got low the last few days as well as mag Acute Kidney injury - BUN 82 and Cr 2.5 on admission, likely vasomotor nephropathy given his poor PO intake. Improved now Symptomatic bradycardia - Initially paced, with wide complex, likely 2/2 hyperkalemia, now off dopamine, improved. Cardiology consulted for further care. Started on Amio per cardiology. Plan for [facility] 03/12/19 Vtach - x2 over the past 48 hours CAD s/p CABG x3 - stable outpatient with [facility] f/u in [place]. Hold nephrotoxic meds. Plan for [facility] Bladder Cancer s/p chemotherapy and cystectomy with ileoconduit (12/[address] Licea @ [facility]) - had appt scheduled on 03/10/19 for f/u. Access for port ok. Monitor urostomy output. Will order records. Diabetes-Type II - placed on sliding scale, A1c 6.7 Hypercalcemia - corrected with IVF Acute exacerbation of chronic obstructive pulmonary disease - improving. Seems to have tolerated vent well, no prior intubations, not on O2, extubated without event Acute metabolic acidosis - 2/2 FARA, hyperkalemia, corrected. Caused a metabolic toxic encephalopathy, present upon admission. FEN - Cardiac diet PPX - Heparin FULL CODE Cont CVC today, likely d/c in the next couple of days History of Present Illness History of Present Illness Mr Ashley is a 68-year-old male 100% service connected [place] w/PMHx CAD s/p CABG x3, Bladder Cancer s/p chemotherapy and cystectomy with ileoconduit (12/[address] Licea @ [facility]), COPD, Diabetes-Type II who presents via EMS from [place] with report of 3 day history of progressive weakness and shortness of breath per spouse who reported he has been confused as well. Patient noted to be hypoxic by EMS down to 68% on room air, not on home O2. Given DuoNebs en route. Patient also noted to have heart rate down into the 30s, was given versed by EMS and transcutaneously paced enroute. Maintained low O2 saturations despite NRB and he was urgently intubated. Found on EKG with potassium of 7.3 and wide complex QRS. Started on bicarbonate gtt, dopamine, propofol for sedation. Pulm, cards, nephro consulted 03/06/19: Echo shows EF 45-50%. Started levophed last night for persistent hypotension. Did have V-tach. Labs improved K to 3.1, Cr 1.1, BUN 35. UOP picked up quite a bit >3L out over the past 24 hours. 03/07: BP improved yesterday, off levophed and dopamine. Labs normalized. CXR improved. D/w bedside. 03/08: Extubated without event, labs show low K now 03/09-03/10: Episodic VT improved with replacement of K, mag and IV metoprolol prn. More ventricular tachycardia. Feeling well, sitting in chair, very slight cough and sore throat. Nephrostomy output good. Eating well. Able to ambulate the unit, but very weak Plan: Monitor potassium, mag, f/u cardiology and pulm recs. He may be ready for home soon. Will have PT/OT continue to evaluate Plan for [facility] tuesday Vitals Vitals Vital Signs Date Time Temp Pulse Resp B/P (MAP) Pulse Ox O2 Delivery O2 Flow Rate FiO2 03/11/19 10:30 98.2 80 18 168/74 (105) 95 Room Air 98.2 03/11/19 01:32 3.0 Physical Exam General: Alert, Oriented X3, Cooperative Heart: Regular rate, Normal S1, Normal S2, Other (distant heart tones) Lungs: Clear Abdomen: Normal bowel sounds, Soft, No tenderness, No hepatosplenomegaly, Other (Urostomey site clean) Extremities: No edema Skin: No significant lesion Labs LABS Laboratory Tests Test 03/10/19 17:15 03/11/19 04:00 03/11/19 08:32 03/11/19 11:25 Glucose (Fingerstick) 107 mg/dL (70-99) 116 mg/dL (70-99) Sodium Level 135 mmol/L (136-145) Potassium Level 4.0 mmol/L (3.5-5.1) Chloride Level 100 mmol/L (98-107) Carbon Dioxide Level 26 mmol/L (21-32) Anion Gap 9 (6-14) Blood Urea Nitrogen 22 mg/dL (8-26) Creatinine 1.0 mg/dL (0.7-1.3) Estimated GFR (Cockcroft-Gault) 74.3 Glucose Level 110 mg/dL (70-99) Calcium Level 9.3 mg/dL (8.5-10.1) Phosphorus Level 2.9 mg/dL (2.6-4.7) Magnesium Level 2.1 mg/dL (1.8-2.4) Albumin 2.8 g/dL (3.4-5.0) O2 Saturation 96 % (92-99) Arterial Blood pH 7.41 (7.35-7.45) Arterial Blood pCO2 at Patient Temp 34 mmHg (35-46) Arterial Blood pO2 at Patient Temp 88 mmHg (65-108) Arterial Blood HCO3 21 mmol/L (21-28) Arterial Blood Base Excess -3 mmol/L (-3-3) FiO2 21 Test 03/11/19 12:25 Glucose (Fingerstick) 93 mg/dL (70-99) Assessment and Plan Assessmemt and Plan Problems Medical Problems: (1) Hyperkalemia Status: Acute (2) Hyponatremia Status: Acute (3) Renal insufficiency Status: Acute (4) Respiratory failure Status: Acute Comment Review of Relevant I have reviewed the following items fabián (where applicable) has been applied. Labs Laboratory Tests Test 03/09/19 17:06 03/09/19 20:43 03/10/19 03:00 03/10/19 09:12 Glucose (Fingerstick) 116 mg/dL (70-99) 118 mg/dL (70-99) White Blood Count 11.1 x10^3/uL (4.0-11.0) Red Blood Count 3.38 x10^6/uL (4.30-5.70) Hemoglobin 9.9 g/dL (13.0-17.5) Hematocrit 29.6 % (39.0-53.0) Mean Corpuscular Volume 88 fL (79-100) Mean Corpuscular Hemoglobin 29 pg (25-35) Mean Corpuscular Hemoglobin Concent 33 g/dL (31-37) Red Cell Distribution Width 14.1 % (11.5-14.5) Platelet Count 199 x10^3/uL (140-400) Neutrophils (%) (Auto) 69 % (31-73) Lymphocytes (%) (Auto) 16 % (24-48) Monocytes (%) (Auto) 10 % (0-9) Eosinophils (%) (Auto) 5 % (0-3) Basophils (%) (Auto) 1 % (0-3) Neutrophils # (Auto) 7.6 x10^3uL (1.8-7.7) Lymphocytes # (Auto) 1.7 x10^3/uL (1.0-4.8) Monocytes # (Auto) 1.1 x10^3/uL (0.0-1.1) Eosinophils # (Auto) 0.6 x10^3/uL (0.0-0.7) Basophils # (Auto) 0.1 x10^3/uL (0.0-0.2) Sodium Level 136 mmol/L (136-145) 137 mmol/L (136-145) Potassium Level 3.5 mmol/L (3.5-5.1) 3.4 mmol/L (3.5-5.1) Chloride Level 99 mmol/L (98-107) 99 mmol/L (98-107) Carbon Dioxide Level 28 mmol/L (21-32) 26 mmol/L (21-32) Anion Gap 9 (6-14) 12 (6-14) Blood Urea Nitrogen 21 mg/dL (8-26) 18 mg/dL (8-26) Creatinine 0.8 mg/dL (0.7-1.3) 1.0 mg/dL (0.7-1.3) Estimated GFR (Cockcroft-Gault) 96.1 74.3 Glucose Level 115 mg/dL (70-99) 217 mg/dL (70-99) Calcium Level 9.0 mg/dL (8.5-10.1) 8.9 mg/dL (8.5-10.1) Phosphorus Level 2.9 mg/dL (2.6-4.7) Albumin 2.5 g/dL (3.4-5.0) Magnesium Level 1.3 mg/dL (1.8-2.4) Test 03/10/19 09:18 03/10/19 17:15 03/11/19 04:00 03/11/19 08:32 Glucose (Fingerstick) 200 mg/dL (70-99) 107 mg/dL (70-99) 116 mg/dL (70-99) Sodium Level 135 mmol/L (136-145) Potassium Level 4.0 mmol/L (3.5-5.1) Chloride Level 100 mmol/L (98-107) Carbon Dioxide Level 26 mmol/L (21-32) Anion Gap 9 (6-14) Blood Urea Nitrogen 22 mg/dL (8-26) Creatinine 1.0 mg/dL (0.7-1.3) Estimated GFR (Cockcroft-Gault) 74.3 Glucose Level 110 mg/dL (70-99) Calcium Level 9.3 mg/dL (8.5-10.1) Phosphorus Level 2.9 mg/dL (2.6-4.7) Magnesium Level 2.1 mg/dL (1.8-2.4) Albumin 2.8 g/dL (3.4-5.0) Test 03/11/19 11:25 03/11/19 12:25 O2 Saturation 96 % (92-99) Arterial Blood pH 7.41 (7.35-7.45) Arterial Blood pCO2 at Patient Temp 34 mmHg (35-46) Arterial Blood pO2 at Patient Temp 88 mmHg (65-108) Arterial Blood HCO3 21 mmol/L (21-28) Arterial Blood Base Excess -3 mmol/L (-3-3) FiO2 21 Glucose (Fingerstick) 93 mg/dL (70-99) Laboratory Tests Test 03/10/19 17:15 03/11/19 04:00 03/11/19 08:32 03/11/19 11:25 Glucose (Fingerstick) 107 mg/dL (70-99) 116 mg/dL (70-99) Sodium Level 135 mmol/L (136-145) Potassium Level 4.0 mmol/L (3.5-5.1) Chloride Level 100 mmol/L (98-107) Carbon Dioxide Level 26 mmol/L (21-32) Anion Gap 9 (6-14) Blood Urea Nitrogen 22 mg/dL (8-26) Creatinine 1.0 mg/dL (0.7-1.3) Estimated GFR (Cockcroft-Gault) 74.3 Glucose Level 110 mg/dL (70-99) Calcium Level 9.3 mg/dL (8.5-10.1) Phosphorus Level 2.9 mg/dL (2.6-4.7) Magnesium Level 2.1 mg/dL (1.8-2.4) Albumin 2.8 g/dL (3.4-5.0) O2 Saturation 96 % (92-99) Arterial Blood pH 7.41 (7.35-7.45) Arterial Blood pCO2 at Patient Temp 34 mmHg (35-46) Arterial Blood pO2 at Patient Temp 88 mmHg (65-108) Arterial Blood HCO3 21 mmol/L (21-28) Arterial Blood Base Excess -3 mmol/L (-3-3) FiO2 21 Test 03/11/19 12:25 Glucose (Fingerstick) 93 mg/dL (70-99) Microbiology 03/05/19 Blood Culture - Final, Complete NO GROWTH AFTER 5 DAYS Medications Current Medications Sodium Chloride 1,000 ml @ 1,000 mls/hr 1X ONCE IV Last administered on 03/04/19at 23:28; Start 03/05/19 at 00:00; Stop 03/05/19 at 00:59; Status DC Fentanyl Citrate (Fentanyl 2ml Vial) 50 mcg 1X ONCE JOSE RAUL Last administered on 03/04/19at 23:02; Start 03/05/19 at 00:00; Stop 03/05/19 at 00:02; Status DC Dexamethasone Sodium Phosphate (Decadron) 10 mg 1X ONCE IV ; Start 03/05/19 at 00:00; Stop 03/05/19 at 00:02; Status DC Atropine Sulfate (ATROPINE 1mg SYRINGE) 0.5 mg 1X ONCE IV Last administered on 03/04/19at 23:07; Start 03/05/19 at 00:00; Stop 03/05/19 at 00:02; Status DC Albuterol Sulfate (Ventolin Neb Soln) 2.5 mg 1X ONCE NEB Last administered on 03/04/19at 23:15; Start 03/04/19 at 23:15; Stop 03/05/19 at 00:01; Status DC Atropine Sulfate (ATROPINE 1mg SYRINGE) 0.5 mg 1X ONCE IV Last administered on 03/04/19 23:08; Start 03/05/19 at 00:00; Stop 03/05/19 at 00:02; Status DC Atropine Sulfate (ATROPINE 1mg SYRINGE) 1 mg 1X ONCE IV Last administered on 03/04/19 23:18; Start 03/05/19 at 00:00; Stop 03/05/19 at 00:02; Status DC Etomidate (Amidate) 20 mg 1X ONCE IV Last administered on 03/04/19 23:32; Start 03/05/19 at 00:00; Stop 03/05/19 at 00:02; Status DC Rocuronium [place] (Zemuron) 50 mg 1X ONCE IV Last administered on 03/04/19 23:33; Start 03/05/19 at 00:00; Stop 03/05/19 at 00:02; Status DC Propofol 100 ml @ 0 mls/hr CONT PRN IV SEE PROTOCOL Last administered on 03/05/19 02:16; Start 03/04/19 at 23:30; Stop 03/05/19 at 03:42; Status DC Fentanyl Citrate (Fentanyl 2ml Vial) 25 mcg PRN Q1HR PRN IV SEE COMMENTS Last administered on 03/08/19 14:56; Start 03/04/19 at 23:30 Fentanyl Citrate (Fentanyl 2ml Vial) 50 mcg PRN Q1HR PRN IV SEE COMMENTS Last administered on 03/08/19 16:55; Start 03/04/19 at 23:30 Chlorhexidine Gluconate (Peridex) 15 ml BID MM Last administered on 03/08/19 08:59; Start 03/05/19 at 09:00; Stop 03/09/19 at 20:02; Status DC Morphine Sulfate (Morphine Sulfate) 2 mg PRN Q1HR PRN IV SEE COMMENTS.; Start 03/04/19 at 23:30 Morphine Sulfate (Morphine Sulfate) 4 mg PRN Q1HR PRN IV SEE COMMENTS.; Start 03/04/19 at 23:30 Propofol 50 ml @ As Directed STK-MED ONCE IV ; Start 03/04/19 at 23:47; Stop 03/04/19 at 23:48; Status DC Calcium Gluconate (Calcium Gluconate) 1,000 mg 1X ONCE IVP Last administered on 4/29/19at 00:50; Start 03/05/19 at 00:15; Stop 03/05/19 at 00:16; Status DC Dopamine HCl/ Dextrose 250 ml @ 6.844 mls/ hr 1X ONCE IV Last administered on 03/05/19at 01:11; Start 03/05/19 at 00:30; Stop 03/06/19 at 13:01; Status DC Dopamine HCl/ Dextrose 250 ml @ As Directed STK-MED ONCE IV ; Start 03/05/19 at 00:00; Stop 03/05/19 at 00:01; Status DC Propofol 50 ml @ 1.095 mls/ hr 1X ONCE IV Last administered on 03/04/19at 23:51; Start 03/05/19 at 00:15; Stop 03/06/19 at 21:54; Status DC Insulin Human Lispro (HumaLOG) 0-5 UNITS TIDWMEALS SQ Last administered on at 11:49; Start 03/05/19 at 08:00; Stop 03/09/19 at 12:46; Status DC Dextrose (Dextrose 50%-Water Syringe) 12.5 gm PRN Q15MIN PRN IV SEE COMMENTS; Start 03/05/19 at 00:30 Sodium Chloride 1,000 ml @ 125 mls/hr 1X ONCE IV Last administered on 03/05/19at 00:45; Start 03/05/19 at 01:00; Stop 03/05/19 at 02:01; Status DC Insulin Human Regular (HumuLIN R VIAL) 10 unit 1X ONCE IV Last administered on 03/05/19at 01:35; Start 03/05/19 at 01:30; Stop 03/05/19 at 01:31; Status DC Dextrose (Dextrose 50%-Water Syringe) 25 gm 1X ONCE IV Last administered on 03/05/19at 01:32; Start 03/05/19 at 01:30; Stop 03/05/19 at 01:31; Status DC Calcium Chloride 2000 mg/Dextrose 120 ml @ 240 mls/hr 1X ONCE IV Last administered on 03/05/19at 02:16; Start 03/05/19 at 02:30; Stop 03/05/19 at 02:59; Status DC Sodium Bicarbonate 150 meq/Dextrose 1,150 ml @ 100 mls/hr [id number] IV Last administered on 03/05/19 02:17; Start 03/05/19 at 03:00; Stop 03/05/19 at 18:00; Status DC Sodium Bicarbonate (Sodium Bicarbonate Vial) 150 meq 1X ONCE IV Last administered on 03/05/19 02:12; Start 03/05/19 at 02:30; Stop 03/05/19 at 02:31; Status DC Sodium Bicarbonate (Sodium Bicarb Adult 8.4% Syr) 50 meq STK-MED ONCE .ROUTE ; Start 03/05/19 at 02:02; Stop 03/05/19 at 02:03; Status DC Propofol 100 ml @ 0 mls/hr CONT PRN IV SEE I/O RECORD Last administered on 03/05/19 12:27; Start 03/05/19 at 03:45; Stop 03/05/19 at 14:02; Status DC Sodium Chloride 1,000 ml @ 75 mls/hr [id number] IV Last administered on 03/09/19 22:58; Start 03/05/19 at 09:00; Stop 03/10/19 at 09:01; Status DC Famotidine (Pepcid Vial) 20 mg QHS IVP Last administered on 03/10/19 20:33; Start 03/05/19 at 21:00; Stop 03/11/19 at 11:33; Status DC Heparin Sodium (Porcine) (Heparin Sodium) 5,000 unit Q8HRS SQ Last administered on 03/11/19 05:51; Start 03/05/19 at 14:00 Midazolam HCl 100 ml @ 5 mls/hr CONT PRN IV SEE I/O RECORD Last administered on 03/07/19 19:53; Start 03/05/19 at 14:00; Stop 03/10/19 at 09:01; Status DC Ceftriaxone Sodium (Rocephin) 1 gm Q24H IVP Last administered on 03/07/19 14:37; Start 03/05/19 at 14:00; Stop 03/07/19 at 16:23; Status DC Doxycycline Hyclate 100 mg/ Dextrose 100 ml @ 50 mls/hr Q12HR IV Last administered on 03/08/19 20:54; Start 03/05/19 at 21:00; Stop 03/09/19 at 08:46; Status DC Enoxaparin Sodium (Lovenox 40mg Syringe) 30 mg Q24H SQ ; Start 03/05/19 at 14:00; Status Cancel Sodium Chloride 500 ml @ 500 mls/hr 1X ONCE IV Last administered on 03/05/19at 16:15; Start 03/05/19 at 16:15; Stop 03/05/19 at 17:14; Status DC Norepinephrine Bitartrate 250 ml @ 1.875 mls/ hr CONT PRN IV SEE I/O RECORD; Start 03/05/19 at 16:15; Stop 03/10/19 at 09:01; Status DC Magnesium Sulfate/ Dextrose 100 ml @ 25 mls/hr 1X ONCE IV Last administered on 03/05/19at 19:45; Start 03/05/19 at 19:30; Stop 03/05/19 at 23:29; Status DC Amiodarone HCl 50 mg/Dextrose 101 ml @ 600 mls/hr 1X ONCE IV Last administered on 03/05/19at 21:16; Start 03/05/19 at 22:00; Stop 03/05/19 at 22:10; Status DC Amiodarone HCl 900 mg/Dextrose 518 ml @ 0 mls/hr CONT PRN IV SEE I/O RECORD Last administered on 03/05/19at 21:16; Start 03/05/19 at 22:15; Stop 03/06/19 at 22:14; Status DC Dopamine HCl/ Dextrose 250 ml @ 5.46 mls/hr CONT PRN IV SEE I/O RECORD Last administered on 03/06/19at 03:41; Start 03/06/19 at 03:30; Stop 03/06/19 at 18 :32; Status DC Potassium Chloride/Water 100 ml @ 100 mls/hr Q1H IV Last administered on 03/06/19at 06:17; Start 03/06/19 at 05:00; Stop 03/06/19 at 06:59; Status DC Potassium Chloride (KCl Oral Soln) 20 meq 1X ONCE PEG ; Start 03/06/19 at 09:00; Stop 03/06/19 at 09:01; Status Cancel Potassium Chloride (KCl Oral Soln) 20 meq 1X ONCE PEG Last administered on 03/06/19at 16:24; Start 03/06/19 at 14:00; Stop 03/06/19 at 14:01; Status DC Aspirin (Aspirin) 300 mg DAILY AR ; Start 03/06/19 at 14:15; Stop 03/06/19 at 17:46; Status DC Aspirin (Darren Aspirin) 325 mg DAILYWBKFT PO Last administered on 03/11/19at 08:29; Start 03/07/19 at 08:00 Acetaminophen (Tylenol) 325 mg STK-MED ONCE PO ; Start 03/06/19 at 18:27; Stop 03/06/19 at 18:28; Status DC Aspirin (Darren Aspirin) 325 mg DAILYWBKFT PO ; Start 03/07/19 at 08:00; Status UNV Acetaminophen (Tylenol) 325 mg PRN Q6HRS PRN PO MILD PAIN / TEMP; Start 03/06/19 at 18:45 Aspirin (Darren Aspirin) 325 mg STK-MED ONCE .ROUTE ; Start 03/06/19 at 18:42; Stop 03/06/19 at 18:43; Status DC Amiodarone HCl 900 mg/Dextrose 518 ml @ 0 mls/hr CONT PRN IV SEE I/O RECORD; Start 03/07/19 at 00:30; Status UNV Amiodarone HCl 450 mg/Dextrose 259 ml @ 17.26 mls/ hr CONT PRN IV SEE I/O RECORD Last administered on 03/07/19at 02:27; Start 03/07/19 at 01:00; Stop 03/10/19 at 09:01; Status DC Amiodarone HCl (Cordarone) 200 mg BID PO ; Start 03/07/19 at 16:00; Stop 03/07/19 at 19:38; Status DC Amiodarone HCl (Cordarone) 200 mg BID PO Last administered on 03/11/19at 08:30; Start 03/07/19 at 21:00 Potassium Chloride (KCl Oral Soln) 20 meq 1X ONCE PEG Last administered on 03/08/19at 09:04; Start 03/08/19 at 08:30; Stop 03/08/19 at 08:31; Status DC Atorvastatin Calcium (Lipitor) 40 mg QHS PO Last administered on 03/10/19at 20:32; Start 03/08/19 at 21:00 Lisinopril (Prinivil) 5 mg DAILY PO Last administered on 03/08/19at 10:46; Start 03/08/19 at 11:00; Stop 03/08/19 at 13:26; Status DC Metoprolol Tartrate (Lopressor) 12.5 mg BID PO Last administered on 03/08/19 10:47; Start 03/08/19 at 11:00; Stop 03/08/19 at 13:26; Status DC Aspirin (Ecotrin) 81 mg DAILY PO ; Start 03/09/19 at 09:00; Status UNV Bupropion HCl (Wellbutrin Sr) 100 mg BID PO Last administered on 03/11/19 08:29; Start 03/08/19 at 14:00 Cyclosporine (Restasis) 1 drop BID OU Last administered on 03/11/19 08:32; Start 03/08/19 at 14:00 Docusate Sodium (Colace) 100 mg BID PO Last administered on 03/11/19 08:29; Start 03/08/19 at 14:00 Gabapentin (Neurontin) 900 mg TID PO Last administered on 03/11/19 08:29; Start 03/08/19 at 14:00 Lisinopril (Prinivil) 20 mg DAILY PO Last administered on 03/11/19 08:30; Start 03/09/19 at 09:00 Metoprolol Tartrate (Lopressor) 25 mg BID PO Last administered on 03/11/19 08:30; Start 03/08/19 at 21:00 Oxycodone HCl (Roxicodone) 5 mg PRN Q4HRS PRN PO MODERATE-SEVERE PAIN Last administered on 03/11/19 00:32; Start 03/08/19 at 13:15 Senna/Docusate Sodium (Senna Plus) 1 tab BID PO Last administered on 03/11/19 08:28; Start 03/08/19 at 14:00 Brimonidine Tartrate (Alphagan) 1 drop BID OU Last administered on 03/11/19 08:31; Start 03/08/19 at 21:00 Artificial Tears (Artificial Tears) 1 drop PRN QID PRN OU DRY EYE; Start 03/08/19 at 13:30 Latanoprost (Xalatan) 1 drop QHS OU Last administered on 03/10/19 20:37; Start 03/08/19 at 21:00 Timolol Maleate (Timoptic 0.5% Ophth) 1 drop BID OU Last administered on 03/11/19 08:31; Start 03/08/19 at 21:00 Dorzolamide HCl (Trusopt) 1 drop BID OU Last administered on 03/11/19 08:32; Start 03/08/19 at 21:00 Potassium Chloride (Klor-Con) 20 meq 1X ONCE PO Last administered on 03/09/19 08:52; Start 03/09/19 at 09:00; Stop 03/09/19 at 09:01; Status DC Doxycycline Hyclate (Vibra-Tab) 100 mg BID PO Last administered on 03/11/19 08:28; Start 03/09/19 at 09:00 Metformin HCl (Glucophage) 1,000 mg DAILYWBKFT PO Last administered on 03/11/19 08:29; Start 03/10/19 at 08:00 Metformin HCl (Glucophage) 500 mg DAILYWSUP PO Last administered on 03/10/19 17:21; Start 03/09/19 at 17:00 Insulin Human Lispro (HumaLOG) 20 units 1X ONCE SQ ; Start 03/09/19 at 12:45; Stop 03/09/19 at 12:46; Status UNV Multivitamins/ Minerals (I-Dora) 1 tab DAILY PO Last administered on 03/11/19 08:29; Start 03/10/19 at 09:00 Metoprolol Tartrate (Lopressor Vial) 5 mg STK-MED ONCE IVP ; Start 03/10/19 at 09:09; Stop 03/10/19 at 09:10; Status DC Metoprolol Tartrate (Lopressor Vial) 5 mg 1X ONCE IVP Last administered on 03/10/19 09:56; Start 03/10/19 at 09:15; Stop 03/10/19 at 09:17; Status DC Magnesium Sulfate/ Dextrose 100 ml @ 25 mls/hr 1X ONCE IV Last administered on 03/10/19 15:31; Start 03/10/19 at 15:00; Stop 03/10/19 at 18:59; Status DC Potassium Chloride (Klor-Con) 40 meq 1X ONCE PO Last administered on 03/10/19 15:29; Start 03/10/19 at 14:45; Stop 03/10/19 at 14:50; Status DC Famotidine (Pepcid) 20 mg QHS PO ; Start 03/11/19 at 21:00 Active Scripts Active Reported Timoptic 0.5% (Timolol Maleate) 10 Ml Drops 1 Drop EACHEYE BID Senna-S Tablet (Sennosides/Docusate Sodium) 1 Each Tablet 1 Each PO BID Onglyza (Saxagliptin Hcl) 5 Mg Tablet 1 Tab PO DAILY Crestor (Rosuvastatin Calcium) 20 Mg Tablet 20 Mg PO HS Miralax (Polyethylene Glycol 3350) 17 Gm Powd.pack 1 Packet PO DAILY Percocet 5-325 Mg Tablet (Oxycodone/Acetaminophen) 1 Each Tablet 1 Tab PO QID PRN Oxycodone Hcl Immed.release (Oxycodone Hcl) 5 Mg Tablet 5 Mg PO PRN Q4HRS PRN take 1 to 3 tabs Q4H prn Metoprolol Tartrate 25 Mg Tablet 1 Tab PO BID Metformin Hcl 500 Mg Tablet 500 Mg PO DAILYWSUP Metformin Hcl 1,000 Mg Tablet 1,000 Mg PO DAILYWBKFT Meloxicam 15 Mg Tablet 1 Tab PO NOON Lisinopril 20 Mg Tablet 1 Tab PO DAILY Xalatan (Latanoprost) 2.5 Ml Drops 1 Drop EACHEYE QHS Gabapentin (Gabapentin) 300 Mg Capsule 900 Mg PO TID Docusate Sodium 100 Mg Capsule 1 Cap PO BID Diltiazem 24HR Cd (Diltiazem Hcl) 120 Mg Cap.er.24h 1 Cap PO DAILY Restasis (Cyclosporine) 1 Each Droperette 1 Drop EACHEYE BID Refresh Optive Eye Drops (Carboxymethylcellulos/Glycerin) 15 Ml Drops 1 Drop EACHEYE QID PRN Wellbutrin Sr (Bupropion Hcl) 100 Mg Tablet.er 1 Tab PO BID Aspirin Ec (Aspirin) 81 Mg Tablet.dr 1 Tab PO DAILY Simbrinza 1%-0.2% Eye Drops (Brinzolamide/Brimonid Tart) 8 Ml Drops.susp 8 Ml OP BID Vitals/I & O Vital Sign - Last 24 Hours 03/10/19 03/10/19 03/10/19 03/10/19 14:00 15:04 15:48 18:30 Temp 98.4 98.4 Pulse 73 77 81 Resp 23 21 20 B/P (MAP) 158/72 (100) 164/85 (111) 163/70 (101) Pulse Ox 97 O2 Delivery Room Air Room Air Room Air Room Air 03/10/19 03/10/19 03/10/19 03/10/19 19:40 20:30 20:31 20:32 Pulse 81 81 Resp 20 B/P (MAP) 163/70 163/70 Pulse Ox 97 O2 Delivery Room Air Room Air 03/10/19 03/11/19 03/11/19 03/11/19 23:00 00:32 01:32 02:50 Temp 98.6 98.7 98.6 98.7 Pulse 72 68 Resp 18 16 16 18 B/P (MAP) 159/71 (100) 169/87 (114) Pulse Ox 95 96 96 95 O2 Delivery Room Air Room Air Room Air Room Air O2 Flow Rate 3.0 03/11/19 03/11/19 03/11/19 03/11/19 07:45 07:54 08:30 08:30 Temp 98.1 98.1 Pulse 73 82 Resp 20 B/P (MAP) 148/68 (94) 148/68 148/68 Pulse Ox 96 O2 Delivery Room Air Room Air 03/11/19 03/11/19 08:30 10:30 Temp 98.2 98.2 Pulse 80 Resp 18 B/P (MAP) 148/68 168/74 (105) Pulse Ox 95 O2 Delivery Room Air Intake and Output 03/10/19 03/10/19 03/11/19 15:00 23:00 07:00 Intake Total 300 ml 1000 ml 100 ml Output Total 1175 ml 1050 ml 300 ml Balance -875 ml -50 ml -200 ml Nutrition Consultation Dietary Evaluation: Recommendations by RD: Increase Calorie Intake, Protein supplementation Comments: REC advance diet as able per TRANSITION OF CARE SPECIALIST eval to goal diet cardiac/ADA REC Iain BID (fruit punch flavor) s/p diet advancement REC MVI for wound healing Expected Outcomes/Goals: New goal 03/07: TF infusion to meet >75% est needs while pt remains intubated - met, new goal established New goal 03/09: diet advancement Malnutrition Findings: Food and Nutrition Intake (Mod: <75% est energy req 7days Weight Status: Appropriate ELLEN CONROY MD March 11, 2019 13:00
[2019-03-11 15:07] VITALS: BP 172/81
[2019-03-11 20:05] VITALS: BP 173/76
[2019-03-11] MEDS: ATORVASTATIN CALCIUM 40 MG TABLET. PO SCH (21:01)
[2019-03-11] MEDS: FAMOTIDINE 20 MG TABLET. PO SCH (21:02)
[2019-03-11 23:15] VITALS: BP 193/98
[2019-03-12] VITALS (17 sets, daily range): BP systolic 119–182; BP diastolic 58–80
[2019-03-12] MEDS: HEPARIN for SUB-Q USE 5,000 UNIT/ML VIAL. SQ SCH ×3 (06:00→21:26)
[2019-03-12 06:31] LABS: ALBUMIN 2.9 g/dL (3.4-5.0); CALCIUM 9.2 mg/dL (8.5-10.1); GFR 74.3; MAGNESIUM 1.8 mg/dL (1.8-2.4); PHOSPHORUS 4.4 mg/dL (2.6-4.7); POTASSIUM 3.6 mmol/L (3.5-5.1)
[2019-03-12] MEDS ORDERED: IV NORMAL SALINE 1000ML BAG 1,000 ML IV SCH (07:30)
[2019-03-12] MEDS: metFORMIN 500 MG TABLET PO SCH ×2 (08:00→17:00)
--- NOTE | 2019-03-12 08:03 | RAD ---
Portable chest, 03/12/2019: HISTORY: Respiratory failure Comparison is made to yesterday's study. A right Port-A-Cath extends to the level of the atriocaval junction. The heart size is within normal limits. The pulmonary vascularity is normal. No pulmonary infiltrate is seen. There is no evidence of pleural fluid. IMPRESSION: No acute cardiopulmonary abnormality is detected with no significant change since yesterday's exam. Electronically signed by: Wilver Ahumada MD (03/12/2019 8:00 AM) [facility]
[2019-03-12] MEDS: ASPIRIN 325 MG TABLET PO SCH (08:36)
[2019-03-12] MEDS: AMIODARONE HCL 200 MG TABLET. PO SCH ×2 (08:36→21:22)
[2019-03-12] MEDS: METOPROLOL TART IMMED RELEASE 25 MG TABLET. PO SCH ×2 (08:37→21:23)
[2019-03-12] MEDS: LISINOPRIL 20 MG TABLET PO SCH (08:37)
[2019-03-12] MEDS: TIMOLOL 0.5% OPHTH SOLUTION 5ML BOTTLE. OU SCH ×2 (08:39→21:24)
[2019-03-12] MEDS: DORZOLAMIDE 2% OPHTH SOLUTION 10ML BOTTLE. OU SCH ×2 (08:39→21:24)
[2019-03-12] MEDS: cycloSPORINE 0.05% OPHTH DROPERETTE. OU SCH ×2 (08:44→21:00)
[2019-03-12] MEDS: BRIMONIDINE 0.2% OPHTH SOLUTION 5ML BOTTLE. OU SCH ×2 (08:54→21:00)
[2019-03-12] MEDS: GABAPENTIN 300 MG CAPSULE. PO SCH ×4 (09:00→21:22)
[2019-03-12] MEDS: oxyCODONE IR 5 MG TABLET PO PRN ×2 (09:30→17:23)
--- NOTE | 2019-03-12 10:40 | PDOC ---
PULMONARY PROGRESS NOTES Subjective EXTUBATED 03/08 DOING WELL Vitals Vital Signs Date Time Temp Pulse Resp B/P (MAP) Pulse Ox O2 Delivery O2 Flow Rate FiO2 03/12/19 09:30 Room Air 03/12/19 08:37 66 149/68 03/12/19 07:33 97.9 20 94 97.9 General: Alert, No acute distress Lungs: Clear Cardiovascular: S1, S2 Abdomen: Soft Extremities: No Edema Skin: Warm Labs Laboratory Tests Test 03/10/19 17:15 03/11/19 04:00 03/11/19 08:32 03/11/19 11:25 Glucose (Fingerstick) 107 mg/dL (70-99) 116 mg/dL (70-99) Sodium Level 135 mmol/L (136-145) Potassium Level 4.0 mmol/L (3.5-5.1) Chloride Level 100 mmol/L (98-107) Carbon Dioxide Level 26 mmol/L (21-32) Anion Gap 9 (6-14) Blood Urea Nitrogen 22 mg/dL (8-26) Creatinine 1.0 mg/dL (0.7-1.3) Estimated GFR (Cockcroft-Gault) 74.3 Glucose Level 110 mg/dL (70-99) Calcium Level 9.3 mg/dL (8.5-10.1) Phosphorus Level 2.9 mg/dL (2.6-4.7) Magnesium Level 2.1 mg/dL (1.8-2.4) Albumin 2.8 g/dL (3.4-5.0) O2 Saturation 96 % (92-99) Arterial Blood pH 7.41 (7.35-7.45) Arterial Blood pCO2 at Patient Temp 34 mmHg (35-46) Arterial Blood pO2 at Patient Temp 88 mmHg (65-108) Arterial Blood HCO3 21 mmol/L (21-28) Arterial Blood Base Excess -3 mmol/L (-3-3) FiO2 21 Test 03/11/19 12:25 03/11/19 16:45 03/11/19 20:49 03/12/19 06:00 Glucose (Fingerstick) 93 mg/dL (70-99) 111 mg/dL (70-99) 112 mg/dL (70-99) Sodium Level 137 mmol/L (136-145) Potassium Level 3.6 mmol/L (3.5-5.1) Chloride Level 100 mmol/L (98-107) Carbon Dioxide Level 27 mmol/L (21-32) Anion Gap 10 (6-14) Blood Urea Nitrogen 19 mg/dL (8-26) Creatinine 1.0 mg/dL (0.7-1.3) Estimated GFR (Cockcroft-Gault) 74.3 Glucose Level 106 mg/dL (70-99) Calcium Level 9.2 mg/dL (8.5-10.1) Phosphorus Level 4.4 mg/dL (2.6-4.7) Magnesium Level 1.8 mg/dL (1.8-2.4) Albumin 2.9 g/dL (3.4-5.0) Test 03/12/19 07:57 Glucose (Fingerstick) 100 mg/dL (70-99) Laboratory Tests Test 03/11/19 11:25 03/11/19 12:25 03/11/19 16:45 03/11/19 20:49 O2 Saturation 96 % (92-99) Arterial Blood pH 7.41 (7.35-7.45) Arterial Blood pCO2 at Patient Temp 34 mmHg (35-46) Arterial Blood pO2 at Patient Temp 88 mmHg (65-108) Arterial Blood HCO3 21 mmol/L (21-28) Arterial Blood Base Excess -3 mmol/L (-3-3) FiO2 21 Glucose (Fingerstick) 93 mg/dL (70-99) 111 mg/dL (70-99) 112 mg/dL (70-99) Test 03/12/19 06:00 03/12/19 07:57 Sodium Level 137 mmol/L (136-145) Potassium Level 3.6 mmol/L (3.5-5.1) Chloride Level 100 mmol/L (98-107) Carbon Dioxide Level 27 mmol/L (21-32) Anion Gap 10 (6-14) Blood Urea Nitrogen 19 mg/dL (8-26) Creatinine 1.0 mg/dL (0.7-1.3) Estimated GFR (Cockcroft-Gault) 74.3 Glucose Level 106 mg/dL (70-99) Calcium Level 9.2 mg/dL (8.5-10.1) Phosphorus Level 4.4 mg/dL (2.6-4.7) Magnesium Level 1.8 mg/dL (1.8-2.4) Albumin 2.9 g/dL (3.4-5.0) Glucose (Fingerstick) 100 mg/dL (70-99) Medications Active Scripts Medications Dose Route/Sig Max Daily Dose Days Date Category Dose Instructions Timoptic 0.5% (Timolol Maleate) 10 Ml Drops 1 Drop EACHEYE BID 03/05/19 Reported Senna-S Tablet (Sennosides/Docusate Sodium) 1 Each Tablet 1 Each PO BID 03/05/19 Reported Onglyza (Saxagliptin Hcl) 5 Mg Tablet 1 Tab PO DAILY 03/05/19 Reported Crestor (Rosuvastatin Calcium) 20 Mg Tablet 20 Mg PO HS 03/05/19 Reported Miralax (Polyethylene Glycol 3350) 17 Gm Powd.pack 1 Packet PO DAILY 03/05/19 Reported Percocet 5-325 Mg Tablet (Oxycodone/Acetaminophen) 1 Each Tablet 1 Tab PO QID PRN 03/05/19 Reported Oxycodone Hcl Immed.release (Oxycodone Hcl) 5 Mg Tablet 5 Mg PO PRN Q4HRS PRN 03/05/19 Reported take 1 to 3 tabs Q4H prn Metoprolol Tartrate 25 Mg Tablet 1 Tab PO BID 03/05/19 Reported Metformin Hcl 500 Mg Tablet 500 Mg PO [id number] 03/05/19 Reported Metformin Hcl 1,000 Mg Tablet 1,000 Mg PO [id number] 03/05/19 Reported Meloxicam 15 Mg Tablet 1 Tab PO NOON 03/05/19 Reported Lisinopril 20 Mg Tablet 1 Tab PO DAILY 03/05/19 Reported Xalatan (Latanoprost) 2.5 Ml Drops 1 Drop EACHEYE QHS 03/05/19 Reported Gabapentin (Gabapentin) 300 Mg Capsule 900 Mg PO TID 03/05/19 Reported Docusate Sodium 100 Mg Capsule 1 Cap PO BID 03/05/19 Reported Diltiazem 24HR Cd (Diltiazem Hcl) 120 Mg Cap.er.24h 1 Cap PO DAILY 03/05/19 Reported Restasis (Cyclosporine) 1 Each Droperette 1 Drop EACHEYE BID 03/05/19 Reported Refresh Optive Eye Drops (Carboxymethylcellulos/Glycerin) 15 Ml Drops 1 Drop EACHEYE QID PRN 03/05/19 Reported Wellbutrin Sr (Bupropion Hcl) 100 Mg Tablet.er 1 Tab PO BID 03/05/19 Reported Aspirin Ec (Aspirin) 81 Mg Tablet.dr 1 Tab PO DAILY 03/05/19 Reported Simbrinza 1%-0.2% Eye Drops (Brinzolamide/Brimonid Tart) 8 Ml Drops.susp 8 Ml OP BID 03/05/19 Reported Comments CXR 03/08 CLEAR Impression . IMPRESSION: 1. Acute hypoxemic respiratory failure. 2. Severe metabolic acidosis due to FARA, RESOLVED 3. Leukocytosis. 4. chest x-ray. clear now 5. Bradycardia. 6. Hypercalcemia. 7. Acute exacerbation of chronic obstructive pulmonary disease. 8. Type 2 diabetes. 9. Coronary artery disease, status post coronary artery bypass grafting. 10. Acute on chronic metabolic toxic encephalopathy, present upon admission. 11. Bladder cancer, status post chemo cystectomy with ileal conduit. 12. Arrhythmias Plan . ON RA/ DOING WELL CXR REVIEWED CLEAR OFF ANTIBX D/W RN AND / CARDIOLOGY CATH TODAY PEGGY ANTHONY MD March 12, 2019 10:40
[2019-03-12] MEDS ORDERED: LIDOCAINE 1% Multi-Dose 20 ML VIAL. ONE (11:30)
[2019-03-12] MEDS ORDERED: IOHEXOL 300 MG/ML 100ML VIAL. ONE ×2 (11:30→12:26)
[2019-03-12] MEDS ORDERED: MIDAZOLAM HCL/PF 2 MG/2 ML VIAL. ONE (11:48)
[2019-03-12] MEDS ORDERED: fentaNYL PF VIAL 100 MCG/2 ML VIAL ONE (11:48)
--- NOTE | 2019-03-12 12:07 | NUR ---
SS following up with discharge planning. Pt is currently on room air. PT evaluated pt and recommended home healthcare. Rukhsana from [facility] meeting with pt to discuss home healthcare. SS will continue to follow for discharge planning.
--- NOTE | 2019-03-12 12:07 | NUR ---
Metformin held this morning due to heart cath.
[2019-03-12] MEDS ORDERED: IOHEXOL 300 MG/ML 100ML VIAL. IART ONE (12:30)
[2019-03-12] MEDS ORDERED: fentaNYL PF VIAL 100 MCG/2 ML VIAL IV ONE (12:30)
[2019-03-12] MEDS ORDERED: MIDAZOLAM HCL/PF 2 MG/2 ML VIAL. IV ONE (12:30)
[2019-03-12] MEDS ORDERED: LIDOCAINE 1% Multi-Dose 20 ML VIAL. INJ ONE (12:30)
--- NOTE | 2019-03-12 12:40 | PDOC ---
PROGRESS NOTES Chief Complaint Chief Complaint Acute encephalopathy Hypoxic respiratory failure Sepsis Hyperkalemia Acute Kidney injury Symptomatic bradycardia Vtach CAD s/p CABG x3 Bladder Cancer s/p chemotherapy and cystectomy with ileoconduit Diabetes-Type II Hypercalcemia Acute exacerbation of chronic obstructive pulmonary disease Acute metabolic acidosis History of Present Illness History of Present Illness Patient seen and examined Discussed with patient and family about procedure today Patient expressed no new complaints Vitals Vitals Vital Signs Date Time Temp Pulse Resp B/P (MAP) Pulse Ox O2 Delivery O2 Flow Rate FiO2 03/12/19 11:00 98.1 64 20 145/67 (93) 95 Room Air 98.1 Physical Exam General: Alert, Oriented X3, Cooperative Heart: Regular rate, Normal S1, Normal S2, Other (distant heart tones) Lungs: Clear Abdomen: Normal bowel sounds, Soft, No tenderness, No hepatosplenomegaly, Other (Urostomey site clean) Extremities: No edema Skin: No significant lesion Labs LABS Laboratory Tests Test 03/11/19 16:45 03/11/19 20:49 03/12/19 06:00 03/12/19 07:57 Glucose (Fingerstick) 111 mg/dL (70-99) 112 mg/dL (70-99) 100 mg/dL (70-99) Sodium Level 137 mmol/L (136-145) Potassium Level 3.6 mmol/L (3.5-5.1) Chloride Level 100 mmol/L (98-107) Carbon Dioxide Level 27 mmol/L (21-32) Anion Gap 10 (6-14) Blood Urea Nitrogen 19 mg/dL (8-26) Creatinine 1.0 mg/dL (0.7-1.3) Estimated GFR (Cockcroft-Gault) 74.3 Glucose Level 106 mg/dL (70-99) Calcium Level 9.2 mg/dL (8.5-10.1) Phosphorus Level 4.4 mg/dL (2.6-4.7) Magnesium Level 1.8 mg/dL (1.8-2.4) Albumin 2.9 g/dL (3.4-5.0) Test 03/12/19 11:28 Glucose (Fingerstick) 121 mg/dL (70-99) Review of Systems Review of Systems Patient denies COLE Patient denies Abdominal pain Assessment and Plan Assessmemt and Plan Problems Medical Problems: (1) Hyperkalemia Status: Acute (2) Hyponatremia Status: Acute (3) Renal insufficiency Status: Acute (4) Respiratory failure Status: Acute Assessment: Acute encephalopathy- resolved Hypoxic respiratory failure Sepsis Hyperkalemia Acute Kidney injury Symptomatic bradycardia Vtach CAD s/p CABG x3 Bladder Cancer s/p chemotherapy and cystectomy with ileoconduit Diabetes-Type II Hypercalcemia Acute exacerbation of chronic obstructive pulmonary disease Acute metabolic acidosis Plan: LHC procedure today Cardiac monitoring Duonebs Labs PT/OT IV NS 60ml/H FEN - Cardiac diet PPX - Heparin FULL CODE Appreciate subspecialist input Comment Review of Relevant I have reviewed the following items fabián (where applicable) has been applied. Labs Laboratory Tests Test 03/10/19 17:15 03/11/19 04:00 03/11/19 08:32 03/11/19 11:25 Glucose (Fingerstick) 107 mg/dL (70-99) 116 mg/dL (70-99) Sodium Level 135 mmol/L (136-145) Potassium Level 4.0 mmol/L (3.5-5.1) Chloride Level 100 mmol/L (98-107) Carbon Dioxide Level 26 mmol/L (21-32) Anion Gap 9 (6-14) Blood Urea Nitrogen 22 mg/dL (8-26) Creatinine 1.0 mg/dL (0.7-1.3) Estimated GFR (Cockcroft-Gault) 74.3 Glucose Level 110 mg/dL (70-99) Calcium Level 9.3 mg/dL (8.5-10.1) Phosphorus Level 2.9 mg/dL (2.6-4.7) Magnesium Level 2.1 mg/dL (1.8-2.4) Albumin 2.8 g/dL (3.4-5.0) O2 Saturation 96 % (92-99) Arterial Blood pH 7.41 (7.35-7.45) Arterial Blood pCO2 at Patient Temp 34 mmHg (35-46) Arterial Blood pO2 at Patient Temp 88 mmHg (65-108) Arterial Blood HCO3 21 mmol/L (21-28) Arterial Blood Base Excess -3 mmol/L (-3-3) FiO2 21 Test 03/11/19 12:25 03/11/19 16:45 03/11/19 20:49 03/12/19 06:00 Glucose (Fingerstick) 93 mg/dL (70-99) 111 mg/dL (70-99) 112 mg/dL (70-99) Sodium Level 137 mmol/L (136-145) Potassium Level 3.6 mmol/L (3.5-5.1) Chloride Level 100 mmol/L (98-107) Carbon Dioxide Level 27 mmol/L (21-32) Anion Gap 10 (6-14) Blood Urea Nitrogen 19 mg/dL (8-26) Creatinine 1.0 mg/dL (0.7-1.3) Estimated GFR (Cockcroft-Gault) 74.3 Glucose Level 106 mg/dL (70-99) Calcium Level 9.2 mg/dL (8.5-10.1) Phosphorus Level 4.4 mg/dL (2.6-4.7) Magnesium Level 1.8 mg/dL (1.8-2.4) Albumin 2.9 g/dL (3.4-5.0) Test 03/12/19 07:57 03/12/19 11:28 Glucose (Fingerstick) 100 mg/dL (70-99) 121 mg/dL (70-99) Laboratory Tests Test 03/11/19 16:45 03/11/19 20:49 03/12/19 06:00 03/12/19 07:57 Glucose (Fingerstick) 111 mg/dL (70-99) 112 mg/dL (70-99) 100 mg/dL (70-99) Sodium Level 137 mmol/L (136-145) Potassium Level 3.6 mmol/L (3.5-5.1) Chloride Level 100 mmol/L (98-107) Carbon Dioxide Level 27 mmol/L (21-32) Anion Gap 10 (6-14) Blood Urea Nitrogen 19 mg/dL (8-26) Creatinine 1.0 mg/dL (0.7-1.3) Estimated GFR (Cockcroft-Gault) 74.3 Glucose Level 106 mg/dL (70-99) Calcium Level 9.2 mg/dL (8.5-10.1) Phosphorus Level 4.4 mg/dL (2.6-4.7) Magnesium Level 1.8 mg/dL (1.8-2.4) Albumin 2.9 g/dL (3.4-5.0) Test 03/12/19 11:28 Glucose (Fingerstick) 121 mg/dL (70-99) Microbiology 03/05/19 Blood Culture - Final, Complete NO GROWTH AFTER 5 DAYS Medications Current Medications Sodium Chloride 1,000 ml @ 1,000 mls/hr 1X ONCE IV Last administered on 02/06 23:28; Start 03/05/19 at 00:00; Stop 03/05/19 at 00:59; Status DC Fentanyl Citrate (Fentanyl 2ml Vial) 50 mcg 1X ONCE JOSE RAUL Last administered on 03/04/19 23:02; Start 03/05/19 at 00:00; Stop 03/05/19 at 00:02; Status DC Dexamethasone Sodium Phosphate (Decadron) 10 mg 1X ONCE IV ; Start 03/05/19 at 00:00; Stop 03/05/19 at 00:02; Status DC Atropine Sulfate (ATROPINE 1mg SYRINGE) 0.5 mg 1X ONCE IV Last administered on 03/04/19 23:07; Start 03/05/19 at 00:00; Stop 03/05/19 at 00:02; Status DC Albuterol Sulfate (Ventolin Neb Soln) 2.5 mg 1X ONCE NEB Last administered on 03/04/19 23:15; Start 03/04/19 at 23:15; Stop 03/05/19 at 00:01; Status DC Atropine Sulfate (ATROPINE 1mg SYRINGE) 0.5 mg 1X ONCE IV Last administered on 03/04/19 23:08; Start 03/05/19 at 00:00; Stop 03/05/19 at 00:02; Status DC Atropine Sulfate (ATROPINE 1mg SYRINGE) 1 mg 1X ONCE IV Last administered on 03/04/19 23:18; Start 03/05/19 at 00:00; Stop 03/05/19 at 00:02; Status DC Etomidate (Amidate) 20 mg 1X ONCE IV Last administered on 03/04/19 23:32; Start 03/05/19 at 00:00; Stop 03/05/19 at 00:02; Status DC Rocuronium [place] (Zemuron) 50 mg 1X ONCE IV Last administered on 03/04/19 23:33; Start 03/05/19 at 00:00; Stop 03/05/19 at 00:02; Status DC Propofol 100 ml @ 0 mls/hr CONT PRN IV SEE PROTOCOL Last administered on 03/05/19at 02:16; Start 03/04/19 at 23:30; Stop 03/05/19 at 03:42; Status DC Fentanyl Citrate (Fentanyl 2ml Vial) 25 mcg PRN Q1HR PRN IV SEE COMMENTS Last administered on 03/08/19 14:56; Start 03/04/19 at 23:30 Fentanyl Citrate (Fentanyl 2ml Vial) 50 mcg PRN Q1HR PRN IV SEE COMMENTS Last administered on 03/08/19 16:55; Start 03/04/19 at 23:30 Chlorhexidine Gluconate (Peridex) 15 ml BID MM Last administered on 03/08/19 08:59; Start 03/05/19 at 09:00; Stop 03/09/19 at 20:02; Status DC Morphine Sulfate (Morphine Sulfate) 2 mg PRN Q1HR PRN IV SEE COMMENTS.; Start 03/04/19 at 23:30 Morphine Sulfate (Morphine Sulfate) 4 mg PRN Q1HR PRN IV SEE COMMENTS.; Start 03/04/19 at 23:30 Propofol 50 ml @ As Directed STK-MED ONCE IV ; Start 03/04/19 at 23:47; Stop 03/04/19 at 23:48; Status DC Calcium Gluconate (Calcium Gluconate) 1,000 mg 1X ONCE IVP Last administered on 03/05/19at 00:50; Start 03/05/19 at 00:15; Stop 03/05/19 at 00:16; Status DC Dopamine HCl/ Dextrose 250 ml @ 6.844 mls/ hr 1X ONCE IV Last administered on 03/05/19at 01:11; Start 03/05/19 at 00:30; Stop 03/06/19 at 13:01; Status DC Dopamine HCl/ Dextrose 250 ml @ As Directed STK-MED ONCE IV ; Start 03/05/19 at 00:00; Stop 03/05/19 at 00:01; Status DC Propofol 50 ml @ 1.095 mls/ hr 1X ONCE IV Last administered on 03/04/19at 23:51; Start 03/05/19 at 00:15; Stop 03/06/19 at 21:54; Status DC Insulin Human Lispro (HumaLOG) 0-5 UNITS TIDWMEALS SQ Last administered on 5/2/19at 11:49; Start 03/05/19 at 08:00; Stop 03/09/19 at 12:46; Status DC Dextrose (Dextrose 50%-Water Syringe) 12.5 gm PRN Q15MIN PRN IV SEE COMMENTS; Start 03/05/19 at 00:30 Sodium Chloride 1,000 ml @ 125 mls/hr 1X ONCE IV Last administered on 03/05/19at 00:45; Start 03/05/19 at 01:00; Stop 03/05/19 at 02:01; Status DC Insulin Human Regular (HumuLIN R VIAL) 10 unit 1X ONCE IV Last administered on 03/05/19at 01:35; Start 03/05/19 at 01:30; Stop 03/05/19 at 01:31; Status DC Dextrose (Dextrose 50%-Water Syringe) 25 gm 1X ONCE IV Last administered on 03/05/19at 01:32; Start 03/05/19 at 01:30; Stop 03/05/19 at 01:31; Status DC Calcium Chloride 2000 mg/Dextrose 120 ml @ 240 mls/hr 1X ONCE IV Last administered on 03/05/19at 02:16; Start 03/05/19 at 02:30; Stop 03/05/19 at 02:59; Status DC Sodium Bicarbonate 150 meq/Dextrose 1,150 ml @ 100 mls/hr [id number] IV Last administered on 03/05/19at 02:17; Start 03/05/19 at 03:00; Stop 03/05/19 at 18:00; Status DC Sodium Bicarbonate (Sodium Bicarbonate Vial) 150 meq 1X ONCE IV Last admi nistered on 03/05/19at 02:12; Start 03/05/19 at 02:30; Stop 03/05/19 at 02:31; Status DC Sodium Bicarbonate (Sodium Bicarb Adult 8.4% Syr) 50 meq STK-MED ONCE .ROUTE ; Start 03/05/19 at 02:02; Stop 03/05/19 at 02:03; Status DC Propofol 100 ml @ 0 mls/hr CONT PRN IV SEE I/O RECORD Last administered on 03/05/19at 12:27; Start 03/05/19 at 03:45; Stop 03/05/19 at 14:02; Status DC Sodium Chloride 1,000 ml @ 75 mls/hr [id number] IV Last administered on 03/09/19 22:58; Start 03/05/19 at 09:00; Stop 03/10/19 at 09:01; Status DC Famotidine (Pepcid Vial) 20 mg QHS IVP Last administered on 03/10/19 20:33; Start 03/05/19 at 21:00; Stop 03/11/19 at 11:33; Status DC Heparin Sodium (Porcine) (Heparin Sodium) 5,000 unit Q8HRS SQ Last administered on 03/11/19 15:11; Start 03/05/19 at 14:00 Midazolam HCl 100 ml @ 5 mls/hr CONT PRN IV SEE I/O RECORD Last administered on 03/07/19 19:53; Start 03/05/19 at 14:00; Stop 03/10/19 at 09:01; Status DC Ceftriaxone Sodium (Rocephin) 1 gm Q24H IVP Last administered on 03/07/19 14:37; Start 03/05/19 at 14:00; Stop 03/07/19 at 16:23; Status DC Doxycycline Hyclate 100 mg/ Dextrose 100 ml @ 50 mls/hr Q12HR IV Last administered on 03/08/19 20:54; Start 03/05/19 at 21:00; Stop 03/09/19 at 08:46; Status DC Enoxaparin Sodium (Lovenox 40mg Syringe) 30 mg Q24H SQ ; Start 03/05/19 at 14:00; Status Cancel Sodium Chloride 500 ml @ 500 mls/hr 1X ONCE IV Last administered on 03/05/19at 16:15; Start 03/05/19 at 16:15; Stop 03/05/19 at 17:14; Status DC Norepinephrine Bitartrate 250 ml @ 1.875 mls/ hr CONT PRN IV SEE I/O RECORD; Start 03/05/19 at 16:15; Stop 03/10/19 at 09:01; Status DC Magnesium Sulfate/ Dextrose 100 ml @ 25 mls/hr 1X ONCE IV Last administered on 03/05/19at 19:45; Start 03/05/19 at 19:30; Stop 03/05/19 at 23:29; Status DC Amiodarone HCl 50 mg/Dextrose 101 ml @ 600 mls/hr 1X ONCE IV Last administered on 03/05/19at 21:16; Start 03/05/19 at 22:00; Stop 03/05/19 at 22:10; Status DC Amiodarone HCl 900 mg/Dextrose 518 ml @ 0 mls/hr CONT PRN IV SEE I/O RECORD Last administered on 03/05/19at 21:16; Start 03/05/19 at 22:15; Stop 03/06/19 at 22:14; Status DC Dopamine HCl/ Dextrose 250 ml @ 5.46 mls/hr CONT PRN IV SEE I/O RECORD Last administered on 03/06/19at 03:41; Start 03/06/19 at 03:30; Stop 03/06/19 at 18:32; Status DC Potassium Chloride/Water 100 ml @ 100 mls/hr Q1H IV Last administered on 03/06/19at 06:17; Start 03/06/19 at 05:00; Stop 03/06/19 at 06:59; Status DC Potassium Chloride (KCl Oral Soln) 20 meq 1X ONCE PEG ; Start 03/06/19 at 09:00; Stop 03/06/19 at 09:01; Status Cancel Potassium Chloride (KCl Oral Soln) 20 meq 1X ONCE PEG Last administered on 03/06/19at 16:24; Start 03/06/19 at 14:00; Stop 03/06/19 at 14:01; Status DC Aspirin (Aspirin) 300 mg DAILY [place] ; Start 03/06/19 at 14:15; Stop 03/06/19 at 17:46; Status DC Aspirin (Omnidrive Aspirin) 325 mg DAILYWBKFT PO Last administered on 03/12/19at 08:36; Start 03/07/19 at 08:00 Acetaminophen (Tylenol) 325 mg STK-MED ONCE PO ; Start 03/06/19 at 18:27; Stop 03/06/19 at 18:28; Status DC Aspirin (Omnidrive Aspirin) 325 mg DAILYWBKFT PO ; Start 03/07/19 at 08:00; Status UNV Acetaminophen (Tylenol) 325 mg PRN Q6HRS PRN PO MILD PAIN / TEMP; Start 03/06/19 at 18:45 Aspirin (Omnidrive Aspirin) 325 mg STK-MED ONCE .ROUTE ; Start 03/06/19 at 18:42; Stop 03/06/19 at 18:43; Status DC Amiodarone HCl 900 mg/Dextrose 518 ml @ 0 mls/hr CONT PRN IV SEE I/O RECORD; Start 03/07/19 at 00:30; Status UNV Amiodarone HCl 450 mg/Dextrose 259 ml @ 17.26 mls/ hr CONT PRN IV SEE I/O RECORD Last administered on 03/07/19at 02:27; Start 03/07/19 at 01:00; Stop 03/10/19 at 09:01; Status DC Amiodarone HCl (Cordarone) 200 mg BID PO ; Start 03/07/19 at 16:00; Stop 03/07/19 at 19:38; Status DC Amiodarone HCl (Cordarone) 200 mg BID PO Last administered on 03/12/19at 08:36; Start 03/07/19 at 21:00 Potassium Chloride (KCl Oral Soln) 20 meq 1X ONCE PEG Last administered on 03/08/19at 09:04; Start 03/08/19 at 08:30; Stop 03/08/19 at 08:31; Status DC Atorvastatin Calcium (Lipitor) 40 mg QHS PO Last administered on 03/11/19 21:01; Start 03/08/19 at 21:00 Lisinopril (Prinivil) 5 mg DAILY PO Last administered on 03/08/19at 10:46; Start 03/08/19 at 11:00; Stop 03/08/19 at 13:26; Status DC Metoprolol Tartrate (Lopressor) 12.5 mg BID PO Last administered on 03/08/19at 10:47; Start 03/08/19 at 11:00; Stop 03/08/19 at 13:26; Status DC Aspirin (Ecotrin) 81 mg DAILY PO ; Start 03/09/19 at 09:00; Status UNV Bupropion HCl (Wellbutrin Sr) 100 mg BID PO Last administered on 03/11/19 20:59; Start 03/08/19 at 14:00 Cyclosporine (Restasis) 1 drop BID OU Last administered on 03/11/19 21:01; Start 03/08/19 at 14:00 Docusate Sodium (Colace) 100 mg BID PO Last administered on 03/11/19 21:00; Start 03/08/19 at 14:00 Gabapentin (Neurontin) 900 mg TID PO Last administered on 03/11/19 21:01; Start 03/08/19 at 14:00 Lisinopril (Prinivil) 20 mg DAILY PO Last administered on 03/12/19 08:37; Start 03/09/19 at 09:00 Metoprolol Tartrate (Lopressor) 25 mg BID PO Last administered on 03/12/19 08:37; Start 03/08/19 at 21:00 Oxycodone HCl (Roxicodone) 5 mg PRN Q4HRS PRN PO MODERATE-SEVERE PAIN Last administered on 03/12/19 09:30; Start 03/08/19 at 13:15 Senna/Docusate Sodium (Senna Plus) 1 tab BID PO Last administered on 03/11/19 21:00; Start 03/08/19 at 14:00 Brimonidine Tartrate (Alphagan) 1 drop BID OU Last administered on 03/12/19 08:54; Start 03/08/19 at 21:00 Artificial Tears (Artificial Tears) 1 drop PRN QID PRN OU DRY EYE; Start 03/08/19 at 13:30 Latanoprost (Xalatan) 1 drop QHS OU Last administered on 03/11/19 20:59; Start 03/08/19 at 21:00 Timolol Maleate (Timoptic 0.5% Ophth) 1 drop BID OU Last administered on 03/12/19 08:39; Start 03/08/19 at 21:00 Dorzolamide HCl (Trusopt) 1 drop BID OU Last administered on 03/12/19 08:39; Start 03/08/19 at 21:00 Potassium Chloride (Klor-Con) 20 meq 1X ONCE PO Last administered on 03/09/19 08:52; Start 03/09/19 at 09:00; Stop 03/09/19 at 09:01; Status DC Doxycycline Hyclate (Vibra-Tab) 100 mg BID PO Last administered on 03/11/19 21:01; Start 03/09/19 at 09:00 Metformin HCl (Glucophage) 1,000 mg DAILYWBKFT PO Last administered on 03/11/19 08:29; Start 03/10/19 at 08:00 Metformin HCl (Glucophage) 500 mg DAILYWSUP PO Last administered on 03/11/19at 17:26; Start 03/09/19 at 17:00 Insulin Human Lispro (HumaLOG) 20 units 1X ONCE SQ ; Start 03/09/19 at 12:45; Stop 03/09/19 at 12:46; Status UNV Multivitamins/ Minerals (I-Dora) 1 tab DAILY PO Last administered on 03/11/19at 08:29; Start 03/10/19 at 09:00 Metoprolol Tartrate (Lopressor Vial) 5 mg STK-MED ONCE IVP ; Start 03/10/19 at 09:09; Stop 03/10/19 at 09:10; Status DC Metoprolol Tartrate (Lopressor Vial) 5 mg 1X ONCE IVP Last administered on 03/10/19at 09:56; Start 03/10/19 at 09:15; Stop 03/10/19 at 09:17; Status DC Magnesium Sulfate/ Dextrose 100 ml @ 25 mls/hr 1X ONCE IV Last administered on 03/10/19at 15:31; Start 03/10/19 at 15:00; Stop 03/10/19 at 18:59; Status DC Potassium Chloride (Klor-Con) 40 meq 1X ONCE PO Last administered on 03/10/19at 15:29; Start 03/10/19 at 14:45; Stop 03/10/19 at 14:50; Status DC Famotidine (Pepcid) 20 mg QHS PO Last administered on 03/11/19at 21:02; Start 03/11/19 at 21:00 Sodium Chloride 1,000 ml @ 60 mls/hr [id number] IV Last administered on 03/12/19at 07:26; Start 03/12/19 at 07:30 Iohexol (Omnipaque 300 Mg/ml) 100 ml STK-MED ONCE .ROUTE ; Start 03/12/19 at 11:30; Stop 03/12/19 at 11:31; Status DC Lidocaine HCl (Lidocaine 1% 20ml Vial) 20 ml STK-MED ONCE .ROUTE ; Start 03/12/19 at 11:30; Stop 03/12/19 at 11:31; Status DC Heparin Sodium/ Sodium Chloride 500 ml @ As Directed STK-MED ONCE .ROUTE ; Start 03/12/19 at 11:30; Stop 03/12/19 at 11:31; Status DC Fentanyl Citrate (Fentanyl 2ml Vial) 100 mcg STK-MED ONCE .ROUTE ; Start 03/12/19 at 11:48; Stop 03/12/19 at 11:49; Status DC Midazolam HCl (Versed) 2 mg STK-MED ONCE .ROUTE ; Start 03/12/19 at 11:48; Stop 03/12/19 at 11:49; Status DC Iohexol (Omnipaque 300 Mg/ml) 100 ml STK-MED ONCE .ROUTE ; Start 03/12/19 at 12:26; Stop 03/12/19 at 12:27; Status DC Active Scripts Active Reported Timoptic 0.5% (Timolol Maleate) 10 Ml Drops 1 Drop EACHEYE BID Senna-S Tablet (Sennosides/Docusate Sodium) 1 Each Tablet 1 Each PO BID Onglyza (Saxagliptin Hcl) 5 Mg Tablet 1 Tab PO DAILY Crestor (Rosuvastatin Calcium) 20 Mg Tablet 20 Mg PO HS Miralax (Polyethylene Glycol 3350) 17 Gm Powd.pack 1 Packet PO DAILY Percocet 5-325 Mg Tablet (Oxycodone/Acetaminophen) 1 Each Tablet 1 Tab PO QID PRN Oxycodone Hcl Immed.release (Oxycodone Hcl) 5 Mg Tablet 5 Mg PO PRN Q4HRS PRN take 1 to 3 tabs Q4H prn Metoprolol Tartrate 25 Mg Tablet 1 Tab PO BID Metformin Hcl 500 Mg Tablet 500 Mg PO DAILYWSUP Metformin Hcl 1,000 Mg Tablet 1,000 Mg PO DAILYWBKFT Meloxicam 15 Mg Tablet 1 Tab PO NOON Lisinopril 20 Mg Tablet 1 Tab PO DAILY Xalatan (Latanoprost) 2.5 Ml Drops 1 Drop EACHEYE QHS Gabapentin (Gabapentin) 300 Mg Capsule 900 Mg PO TID Docusate Sodium 100 Mg Capsule 1 Cap PO BID Diltiazem 24HR Cd (Diltiazem Hcl) 120 Mg Cap.er.24h 1 Cap PO DAILY Restasis (Cyclosporine) 1 Each Droperette 1 Drop EACHEYE BID Refresh Optive Eye Drops (Carboxymethylcellulos/Glycerin) 15 Ml Drops 1 Drop EACHEYE QID PRN Wellbutrin Sr (Bupropion Hcl) 100 Mg Tablet.er 1 Tab PO BID Aspirin Ec (Aspirin) 81 Mg Tablet.dr 1 Tab PO DAILY Simbrinza 1%-0.2% Eye Drops (Brinzolamide/Brimonid Tart) 8 Ml Drops.susp 8 Ml OP BID Vitals/I & O Vital Sign - Last 24 Hours 03/11/19 03/11/19 03/11/19 03/11/19 15:07 19:00 20:00 20:05 Temp 98.1 98.3 98.1 98.3 Pulse 71 72 73 Resp 18 18 B/P (MAP) 172/81 (111) 173/76 (108) Pulse Ox 96 95 O2 Delivery Room Air Room Air Room Air 03/11/19 03/11/19 03/11/19 03/11/19 21:00 21:02 21:03 22:00 Pulse 73 73 Resp 20 20 B/P (MAP) 173/76 173/76 Pulse Ox 95 95 O2 Delivery Room Air 03/11/19 03/12/19 03/12/19 03/12/19 23:15 00:18 03:15 07:33 Temp 97.7 98.1 97.9 97.7 98.1 97.9 Pulse 68 64 64 66 Resp 18 20 20 B/P (MAP) 193/98 (129) 154/70 (98) 148/66 (93) 149/68 (95) Pulse Ox 96 94 94 O2 Delivery Room Air Room Air Room Air 03/12/19 03/12/19 03/12/19 03/12/19 08:00 08:36 08:37 08:37 Pulse 66 66 66 B/P (MAP) 149/68 149/68 149/68 O2 Delivery Room Air 03/12/19 03/12/19 03/12/19 09:30 10:30 11:00 Temp 98.1 98.1 Pulse 64 Resp 20 B/P (MAP) 145/67 (93) Pulse Ox 95 O2 Delivery Room Air Room Air Room Air Intake and Output 03/11/19 03/11/19 03/12/19 14:59 22:59 06:59 Intake Total 100 ml 200 ml Output Total 1450 ml Balance 100 ml -1250 ml Nutrition Consultation Dietary Evaluation: Recommendations by RD: Increase Calorie Intake, Protein supplementation Comments: REC advance diet as able per [facility] eval to goal diet cardiac/ADA REC Iain BID (fruit punch flavor) s/p diet advancement REC MVI for wound healing Expected Outcomes/Goals: New goal 03/07: TF infusion to meet >75% est needs while pt remains intubated - met, new goal established New goal 03/09: diet advancement Malnutrition Findings: Food and Nutrition Intake (Mod: <75% est energy req 7days Weight Status: Appropriate KELSY LAZAROL K III DO March 12, 2019 12:40
[2019-03-12] MEDS: MULTIVITAMIN I-VITE TABLET. PO SCH (13:26)
[2019-03-12] MEDS: DOCUSATE SODIUM 100 MG CAPSULE. PO SCH ×2 (13:26→21:22)
[2019-03-12] MEDS: SENNOSIDES/DOCUSATE 8.6/50MG TABLET. PO SCH ×2 (13:26→21:23)
[2019-03-12] MEDS: buPROPion SR 100 MG TABLET.SA. PO SCH ×2 (13:26→21:22)
[2019-03-12] MEDS: DOXYCYCLINE HYCLATE 100 MG TABLET PO SCH ×2 (13:26→21:23)
--- NOTE | 2019-03-12 13:43 | PDOC ---
MODERATE SEDATION ASSESSMENT RISKS/ALTERNATIVES Risks/Alternatives Risks and alternatives of this type of sedation and procedure discussed with: RISK/ALTERNATIVES: Patient H & P ON CHART H & P H & P on chart and reviewed for co-morbid conditions and appropriate labs. H&P ON CHART: Yes STATUS PREG STATUS ASSESSED: N/A MEDS/ALLERGIES REVIEWED Meds/Allergies Reviewed Medications and Allergies including time and route of recently administered narcotics and sedatives. MEDS/ALLERGIES REVIEWED: Yes ASA RATING ASA RATING: III AIRWAY ASSESSMENT Airway Assessment Airway patency, oral function limitations, presence of caps, crowns, dentures, partials, and ability to extend neck assessed. AIRWAY ASSESSMENT: Yes MALLAMPATI SCORE MALLAMPATI SCORE: II PRE-SEDATION ASSESSMENT PRE-SEDATION ASSESSMENT: Yes ALAN HILLIARD MD March 12, 2019 13:43
[2019-03-12] MEDS ORDERED: NITROGLYCERIN SUBLINGUAL 0.4 MG BOTTLE OF 25. SL PRN (13:45)
--- NOTE | 2019-03-12 14:14 | CARD ---
MR#: [id number] Date of Study: 03/12/2019 Ordering Physician: ALON MILLER, Referring Physician: MARYANA BARON Tech: RT Steve (R) APPROVED REPORT Technologist: RT Steve (R) Nurse: Buffy Parikh R.N. Procedure(s) performed: Left heart catheterization, selective coronary angiography and selective dashawn ography of the bypass grafts Moderate Sedation: 42 min Dose: 35.3 Gycm2 INDICATION The indication(s) include : Ventricular tachycardia. HA Clinical Frailty Scale [facility] Clinical Frailty Scale: Mildly Frail Heart Failure Heart Failure: No PROCEDURE NARRATIVE After explaining the risks, benefits and alternative options, informed consent was obtained from joaquina ent. Patient was brought to the cardiac [facility] and his right groin was prepped and draped in the us ual fashion. 20 mL of 2% lidocaine was infiltrated into the skin and subcutaneous tissues for local a nesthesia. Arterial access was obtained in the right common femoral artery and a 6 [place] sheath was inserted. 6 [place] JL4 and 6 [place] JR4 catheters were used to perform selective angiography of the l eft and right coronary arteries. 6 [place] JR4 catheter was used to perform selective angiography of t he saphenous vein graft to the right coronary artery and also the left internal mammary artery graft to the left anterior descending artery. Ascending aortogram was performed with a pigtail catheter to confirm occlusion of saphenous vein graft to the obtuse marginal branch and also to rule out presence of any other grafts. LVEDP and transaortic gradients were measured. Left ventriculography was not pe rformed since recent 2-D echo showed EF 45-50%. Patient tolerated the procedure well. Hemostasis was achieved using mynx closure device. There were no immediate complications. FINDINGS 1. Hemodynamics: Left ventricle end-diastolic pressure 18 mmHg. No pullback gradient across the aort ic valve. 2. Coronary and bypass graft angiography: a. The left main coronary artery arose from the left sinus of Valsalva, gave rise to the left anteri or descending and left circumflex arteries and did not show any significant stenosis. b. The left anterior descending artery showed 100% chronic occlusion in the midsegment. c. The left circumflex artery showed 100% chronic total occlusion involving the proximal segment of the second obtuse marginal branch that feels via left to left collaterals. The first obtuse marginal branch did not show any significant stenosis. d. The right coronary artery showed 70% stenosis in the proximal to midsegment followed by 100% bulk station agent lynne total occlusion. The posterior descending branch fills retrogradely via [id number] collaterals . e. The saphenous vein graft to the right coronary artery is 100% occluded proximally. f. The saphenous vein graft to the obtuse marginal branch is 100% occluded proximally. g. The left internal mammary artery graft to the left anterior descending artery is patent. Conclusion Severe craig vessel coronary artery disease as described above s/p CABG with patent LLANES to LAD and chronically occluded SVG to RCA and SVG to OM. Recommendations Optimization of medical therapy Consider outpatient event monitor to assess ventricular tachycardia burden and evaluate the need for AICD implantation. Signed by : Jair Nunn, Electronically Approved : 03/12/2019 14:14:16
[2019-03-12] MEDS: IV 1/2 NORMAL SALINE 1,000 ML IV SCH (14:36)
[2019-03-12] MEDS: ATORVASTATIN CALCIUM 40 MG TABLET. PO SCH (21:23)
[2019-03-12] MEDS: FAMOTIDINE 20 MG TABLET. PO SCH (21:23)
[2019-03-12] MEDS: LATANOPROST 0.005% OPHTH SOLUTION 2.5ML BOTTLE. OU SCH (21:24)
[2019-03-13 02:36] VITALS: BP 160/54
[2019-03-13] MEDS: HEPARIN for SUB-Q USE 5,000 UNIT/ML VIAL. SQ SCH (05:52)
[2019-03-13 06:25] LABS: BASO # 0.1 x10^3/uL (0.0-0.2); BASO % 1 % (0-3); EOS # 0.7 x10^3/uL (0.0-0.7); EOS % 8 % (0-3); HEMATOCRIT 29.4 % (39.0-53.0); HEMOGLOBIN 9.8 g/dL (13.0-17.5); LYMPH # 1.7 x10^3/uL (1.0-4.8); LYMPH % 19 % (24-48); MEAN CORPUSCULAR HEMOGLOBIN 29 pg (25-35); MEAN CORPUSCULAR HGB CONC 33 g/dL (31-37); MEAN CORPUSCULAR VOLUME 88 fL (79-100); MONO % 12 % (0-9); NEUT # 5.5 x10^3uL (1.8-7.7); NEUT % 61 % (31-73); PLATELET COUNT 231 x10^3/uL (140-400); RED BLOOD COUNT 3.35 x10^6/uL (4.30-5.70); RED CELL DISTRIBUTION WIDTH 14.6 % (11.5-14.5)
[2019-03-13 07:00] VITALS: BP 126/70
[2019-03-13] MEDS: metFORMIN 500 MG TABLET PO SCH (08:00)
--- NOTE | 2019-03-13 09:10 | PDOC ---
PULMONARY PROGRESS NOTES Subjective EXTUBATED 03/08 DOING WELL Vitals Vital Signs Date Time Temp Pulse Resp B/P (MAP) Pulse Ox O2 Delivery O2 Flow Rate FiO2 03/13/19 02:36 97.7 68 16 160/54 (89) 95 Room Air 97.7 03/12/19 12:43 2.0 General: Alert, No acute distress Lungs: Clear Cardiovascular: S1, S2 Abdomen: Soft Extremities: No Edema Skin: Warm Labs Laboratory Tests Test 03/11/19 11:25 03/11/19 12:25 03/11/19 16:45 03/11/19 20:49 O2 Saturation 96 % (92-99) Arterial Blood pH 7.41 (7.35-7.45) Arterial Blood pCO2 at Patient Temp 34 mmHg (35-46) Arterial Blood pO2 at Patient Temp 88 mmHg (65-108) Arterial Blood HCO3 21 mmol/L (21-28) Arterial Blood Base Excess -3 mmol/L (-3-3) FiO2 21 Glucose (Fingerstick) 93 mg/dL (70-99) 111 mg/dL (70-99) 112 mg/dL (70-99) Test 03/12/19 06:00 03/12/19 07:57 03/12/19 11:28 03/12/19 16:50 Sodium Level 137 mmol/L (136-145) Potassium Level 3.6 mmol/L (3.5-5.1) Chloride Level 100 mmol/L (98-107) Carbon Dioxide Level 27 mmol/L (21-32) Anion Gap 10 (6-14) Blood Urea Nitrogen 19 mg/dL (8-26) Creatinine 1.0 mg/dL (0.7-1.3) Estimated GFR (Cockcroft-Gault) 74.3 Glucose Level 106 mg/dL (70-99) Calcium Level 9.2 mg/dL (8.5-10.1) Phosphorus Level 4.4 mg/dL (2.6-4.7) Magnesium Level 1.8 mg/dL (1.8-2.4) Albumin 2.9 g/dL (3.4-5.0) Glucose (Fingerstick) 100 mg/dL (70-99) 121 mg/dL (70-99) 129 mg/dL (70-99) Test 03/12/19 20:28 03/13/19 06:15 03/13/19 08:11 Glucose (Fingerstick) 120 mg/dL (70-99) 101 mg/dL (70-99) White Blood Count 9.0 x10^3/uL (4.0-11.0) Red Blood Count 3.35 x10^6/uL (4.30-5.70) Hemoglobin 9.8 g/dL (13.0-17.5) Hematocrit 29.4 % (39.0-53.0) Mean Corpuscular Volume 88 fL (79-100) Mean Corpuscular Hemoglobin 29 pg (25-35) Mean Corpuscular Hemoglobin Concent 33 g/dL (31-37) Red Cell Distribution Width 14.6 % (11.5-14.5) Platelet Count 231 x10^3/uL (140-400) Neutrophils (%) (Auto) 61 % (31-73) Lymphocytes (%) (Auto) 19 % (24-48) Monocytes (%) (Auto) 12 % (0-9) Eosinophils (%) (Auto) 8 % (0-3) Basophils (%) (Auto) 1 % (0-3) Neutrophils # (Auto) 5.5 x10^3uL (1.8-7.7) Lymphocytes # (Auto) 1.7 x10^3/uL (1.0-4.8) Monocytes # (Auto) 1.0 x10^3/uL (0.0-1.1) Eosinophils # (Auto) 0.7 x10^3/uL (0.0-0.7) Basophils # (Auto) 0.1 x10^3/uL (0.0-0.2) Laboratory Tests Test 03/12/19 11:28 03/12/19 16:50 03/12/19 20:28 03/13/19 06:15 Glucose (Fingerstick) 121 mg/dL (70-99) 129 mg/dL (70-99) 120 mg/dL (70-99) White Blood Count 9.0 x10^3/uL (4.0-11.0) Red Blood Count 3.35 x10^6/uL (4.30-5.70) Hemoglobin 9.8 g/dL (13.0-17.5) Hematocrit 29.4 % (39.0-53.0) Mean Corpuscular Volume 88 fL (79-100) Mean Corpuscular Hemoglobin 29 pg (25-35) Mean Corpuscular Hemoglobin Concent 33 g/dL (31-37) Red Cell Distribution Width 14.6 % (11.5-14.5) Platelet Count 231 x10^3/uL (140-400) Neutrophils (%) (Auto) 61 % (31-73) Lymphocytes (%) (Auto) 19 % (24-48) Monocytes (%) (Auto) 12 % (0-9) Eosinophils (%) (Auto) 8 % (0-3) Basophils (%) (Auto) 1 % (0-3) Neutrophils # (Auto) 5.5 x10^3uL (1.8-7.7) Lymphocytes # (Auto) 1.7 x10^3/uL (1.0-4.8) Monocytes # (Auto) 1.0 x10^3/uL (0.0-1.1) Eosinophils # (Auto) 0.7 x10^3/uL (0.0-0.7) Basophils # (Auto) 0.1 x10^3/uL (0.0-0.2) Test 03/13/19 08:11 Glucose (Fingerstick) 101 mg/dL (70-99) Medications Active Scripts Medications Dose Route/Sig Max Daily Dose Days Date Category Dose Instructions Timoptic 0.5% (Timolol Maleate) 10 Ml Drops 1 Drop EACHEYE BID 03/05/19 Reported Senna-S Tablet (Sennosides/Docusate Sodium) 1 Each Tablet 1 Each PO BID 03/05/19 Reported Onglyza (Saxagliptin Hcl) 5 Mg Tablet 1 Tab PO DAILY 03/05/19 Reported Crestor (Rosuvastatin Calcium) 20 Mg Tablet 20 Mg PO HS 03/05/19 Reported Miralax (Polyethylene Glycol 3350) 17 Gm Powd.pack 1 Packet PO DAILY 03/05/19 Reported Percocet 5-325 Mg Tablet (Oxycodone/Acetaminophen) 1 Each Tablet 1 Tab PO QID PRN 03/05/19 Reported Oxycodone Hcl Immed.release (Oxycodone Hcl) 5 Mg Tablet 5 Mg PO PRN Q4HRS PRN 03/05/19 Reported take 1 to 3 tabs Q4H prn Metoprolol Tartrate 25 Mg Tablet 1 Tab PO BID 03/05/19 Reported Metformin Hcl 500 Mg Tablet 500 Mg PO DAILYWSUP 03/05/19 Reported Metformin Hcl 1,000 Mg Tablet 1,000 Mg PO DAILYWBKFT 03/05/19 Reported Meloxicam 15 Mg Tablet 1 Tab PO NOON 03/05/19 Reported Lisinopril 20 Mg Tablet 1 Tab PO DAILY 03/05/19 Reported Xalatan (Latanoprost) 2.5 Ml Drops 1 Drop EACHEYE QHS 03/05/19 Reported Gabapentin (Gabapentin) 300 Mg Capsule 900 Mg PO TID 03/05/19 Reported Docusate Sodium 100 Mg Capsule 1 Cap PO BID 03/05/19 Reported Diltiazem 24HR Cd (Diltiazem Hcl) 120 Mg Cap.er.24h 1 Cap PO DAILY 03/05/19 Reported Restasis (Cyclosporine) 1 Each Droperette 1 Drop EACHEYE BID 03/05/19 Reported Refresh Optive Eye Drops (Carboxymethylcellulos/Glycerin) 15 Ml Drops 1 Drop EACHEYE QID PRN 03/05/19 Reported Wellbutrin Sr (Bupropion Hcl) 100 Mg Tablet.er 1 Tab PO BID 03/05/19 Reported Aspirin Ec (Aspirin) 81 Mg Tablet.dr 1 Tab PO DAILY 03/05/19 Reported Simbrinza 1%-0.2% Eye Drops (Brinzolamide/Brimonid Tart) 8 Ml Drops.susp 8 Ml OP BID 03/05/19 Reported Comments CXR 5/2 CLEAR Impression . IMPRESSION: 1. Acute hypoxemic respiratory failure. 2. Severe metabolic acidosis due to FARA, RESOLVED 3. Leukocytosis. 4. chest x-ray. clear now 5. Bradycardia. 6. Hypercalcemia. 7. Acute exacerbation of chronic obstructive pulmonary disease. 8. Type 2 diabetes. 9. Coronary artery disease, status post coronary artery bypass grafting. 10. Acute on chronic metabolic toxic encephalopathy, present upon admission. 11. Bladder cancer, status post chemo cystectomy with ileal conduit. 12. Arrhythmias Plan . ON RA/ DOING WELL CXR REVIEWED CLEAR OFF ANTIBX D/W RN AND / CARDIOLOGY CATH TODAY TAWANDA WOODY MD March 13, 2019 09:10
[2019-03-13] MEDS: buPROPion SR 100 MG TABLET.SA. PO SCH (09:11)
[2019-03-13] MEDS: MULTIVITAMIN I-VITE TABLET. PO SCH (09:12)
[2019-03-13] MEDS: SENNOSIDES/DOCUSATE 8.6/50MG TABLET. PO SCH (09:12)
[2019-03-13] MEDS: GABAPENTIN 300 MG CAPSULE. PO SCH (09:12)
[2019-03-13] MEDS: DOXYCYCLINE HYCLATE 100 MG TABLET PO SCH (09:12)
[2019-03-13] MEDS: DOCUSATE SODIUM 100 MG CAPSULE. PO SCH (09:12)
[2019-03-13] MEDS: ASPIRIN 325 MG TABLET PO SCH (09:12)
[2019-03-13] MEDS: LISINOPRIL 20 MG TABLET PO SCH (09:13)
[2019-03-13] MEDS: AMIODARONE HCL 200 MG TABLET. PO SCH (09:13)
[2019-03-13] MEDS: cycloSPORINE 0.05% OPHTH DROPERETTE. OU SCH (09:14)
[2019-03-13] MEDS: IV 1/2 NORMAL SALINE 1,000 ML IV SCH (09:14)
[2019-03-13] MEDS: DORZOLAMIDE 2% OPHTH SOLUTION 10ML BOTTLE. OU SCH (09:15)
[2019-03-13] MEDS: TIMOLOL 0.5% OPHTH SOLUTION 5ML BOTTLE. OU SCH (09:15)
[2019-03-13] MEDS: METOPROLOL TART IMMED RELEASE 25 MG TABLET. PO SCH (09:18)
[2019-03-13 09:30] LABS: ALBUMIN 3.1 g/dL (3.4-5.0); CALCIUM 9.7 mg/dL (8.5-10.1); GFR 74.3; MAGNESIUM 1.7 mg/dL (1.8-2.4); PHOSPHORUS 4.4 mg/dL (2.6-4.7); POTASSIUM 3.9 mmol/L (3.5-5.1)
--- NOTE | 2019-03-13 10:16 | SNU/HH DC ---
DISCHARGE WITH HOME HEALTH DISCHARGE INFORMATION: Final Diagnosis: Problems Medical Problems: (1) Hyperkalemia Status: Acute (2) Hyponatremia Status: Acute (3) Renal insufficiency Status: Acute (4) Respiratory failure Status: Acute Condition on Discharge: Stable CODE STATUS: Code Status: Full HOME HEALTH: Face to Face: I certify this patient is under my care and that I, or a nurse practitioner or physician's laundry assistant working with me, had a face to face encounter that meets the physician face to face encounter requirements with this patient on []. Medical Complications: COPD RN For Eval/Treatment: Yes Physical Therapy For: Evalulation/Treatment Occupational Therapy For: Evaluation/Treatment Speech Language Pathology For: Evaluation/Treatment Home Health Aide For: Self-care MOLD CHECKER For: Community Resources Pt Meets Homebound Status: Unsteady balance w/ amb, POST DISCHARGE ORDERS: Activity Instructions for Disc: Avoid exertion DIET AFTER DISCHARGE: Cardiac CERTIFICATION STATEMENT: Certification Statement: Certification Statement: Based on the above finding, I certify that this patient is confined to the home and needs intermittent assisted care, physical therapy and/or speech therapy, or continues to need occupational therapy.~ This patient is under my care, and I have initiated the establishment of the plan of care.~ This patient will be followed by myself or a community physician who will periodically review the plan of care. Home Meds Reported Medications Timolol Maleate 0.5% (TIMOPTIC 0.5%) 10 Ml Drops, 1 DROP EACHEYE BID for unknown, #10 ML 3 Refills 03/05/19 Sennosides/Docusate Sodium (SENNA-S TABLET) 1 Each Tablet, 1 EACH PO BID for stool softner, TAB 03/05/19 Saxagliptin Hcl (ONGLYZA) 5 Mg Tablet, 1 TAB PO DAILY for unknown, #90 TAB 1 Refill 03/05/19 Rosuvastatin Calcium (CRESTOR) 20 Mg Tablet, 20 MG PO HS for FOR CHOLESTEROL, #30 TAB 0 Refills 03/05/19 Polyethylene Glycol 3350 (MIRALAX) 17 Gm Powd.pack, 1 PACKET PO DAILY for constipation, #30 PACKET 3 Refills 03/05/19 Oxycodone/Apap 5-325 (PERCOCET 5-325 MG TABLET ) 1 Each Tablet, 1 TAB PO QID PRN for PAIN, TAB 0 Refills 03/05/19 Oxycodone Hcl (OXYCODONE HCL IMMED.RELEASE ) 5 Mg Tablet, 5 MG PO PRN Q4HRS PRN for PAIN, TAB 0 Refills take 1 to 3 tabs Q4H prn 03/05/19 Metoprolol Tartrate (METOPROLOL TARTRATE) 25 Mg Tablet, 1 TAB PO BID for unknown, #180 TAB 1 Refill 03/05/19 Metformin Hcl (METFORMIN HCL) 500 Mg Tablet, 500 MG PO DAILYWSUP for ANTI- DIABETIC, TAB 0 Refills 03/05/19 Metformin Hcl (METFORMIN HCL) 1,000 Mg Tablet, 1000 MG PO DAILYWBKFT for ANTI- DIABETIC, TAB 0 Refills 03/05/19 Meloxicam (MELOXICAM) 15 Mg Tablet, 1 TAB PO NOON for unknown, #30 TAB 2 Refills 03/05/19 Lisinopril (LISINOPRIL) 20 Mg Tablet, 1 TAB PO DAILY for bp, #30 TAB 5 Refills 03/05/19 Latanoprost (XALATAN) 2.5 Ml Drops, 1 DROP EACHEYE QHS for unknown, #2.5 ML 6 Refills 03/05/19 Gabapentin (GABAPENTIN ) 300 Mg Capsule, 900 MG PO TID for NEUROGENIC PAIN, CAP 03/05/19 Docusate Sodium (DOCUSATE SODIUM) 100 Mg Capsule, 1 CAP PO BID for stool softner, #30 CAP 03/05/19 Diltiazem Hcl (DILTIAZEM 24HR CD) 120 Mg Cap.er.24h, 1 CAP PO DAILY for unknown, #90 CAP 1 Refill 03/05/19 Cyclosporine (RESTASIS) 1 Each Droperette, 1 DROP EACHEYE BID for unknown, #60 VIAL 3 Refills 03/05/19 Carboxymethylcellulos/Glycerin (REFRESH OPTIVE EYE DROPS) 15 Ml Drops, 1 DROP EACHEYE QID PRN for DRY EYE, #30 ML 6 Refills 03/05/19 Bupropion Hcl (WELLBUTRIN SR) 100 Mg Tablet.er, 1 TAB PO BID for unknown, #60 TAB 03/05/19 Aspirin (ASPIRIN EC) 81 Mg Tablet.dr, 1 TAB PO DAILY for unknown, #30 TAB 3 Refills 03/05/19 Brinzolamide/Brimonid Tart (SIMBRINZA 1%-0.2% EYE DROPS) 8 Ml Drops.susp, 8 ML OP BID for unknown, DROP 03/05/19 JESUS LAZARO III DO March 13, 2019 10:16
--- NOTE | 2019-03-13 10:41 | PDOC ---
PROGRESS NOTES Chief Complaint Chief Complaint Acute encephalopathy Hypoxic respiratory failure Sepsis Hyperkalemia Acute Kidney injury Symptomatic bradycardia Vtach CAD s/p CABG x3 Bladder Cancer s/p chemotherapy and cystectomy with ileoconduit Diabetes-Type II Hypercalcemia Acute exacerbation of chronic obstructive pulmonary disease Acute metabolic acidosis History of Present Illness History of Present Illness Patient seen and examined Discussed Cath results with patient Discussed with nurse Patient expressed no new complaints Vitals Vitals Vital Signs Date Time Temp Pulse Resp B/P (MAP) Pulse Ox O2 Delivery O2 Flow Rate FiO2 03/13/19 09:18 66 126/70 03/13/19 08:00 Room Air 03/13/19 07:00 98.7 16 92 98.7 03/12/19 12:43 2.0 Physical Exam General: Alert, Oriented X3, Cooperative Heart: Regular rate, Normal S1, Normal S2, Other (distant heart tones) Lungs: Clear Abdomen: Normal bowel sounds, Soft, No tenderness, No hepatosplenomegaly, Other (Urostomey site clean) Extremities: No clubbing, No edema Skin: No significant lesion Labs LABS Laboratory Tests Test 03/12/19 11:28 03/12/19 16:50 03/12/19 20:28 03/13/19 06:15 Glucose (Fingerstick) 121 mg/dL (70-99) 129 mg/dL (70-99) 120 mg/dL (70-99) White Blood Count 9.0 x10^3/uL (4.0-11.0) Red Blood Count 3.35 x10^6/uL (4.30-5.70) Hemoglobin 9.8 g/dL (13.0-17.5) Hematocrit 29.4 % (39.0-53.0) Mean Corpuscular Volume 88 fL (79-100) Mean Corpuscular Hemoglobin 29 pg (25-35) Mean Corpuscular Hemoglobin Concent 33 g/dL (31-37) Red Cell Distribution Width 14.6 % (11.5-14.5) Platelet Count 231 x10^3/uL (140-400) Neutrophils (%) (Auto) 61 % (31-73) Lymphocytes (%) (Auto) 19 % (24-48) Monocytes (%) (Auto) 12 % (0-9) Eosinophils (%) (Auto) 8 % (0-3) Basophils (%) (Auto) 1 % (0-3) Neutrophils # (Auto) 5.5 x10^3uL (1.8-7.7) Lymphocytes # (Auto) 1.7 x10^3/uL (1.0-4.8) Monocytes # (Auto) 1.0 x10^3/uL (0.0-1.1) Eosinophils # (Auto) 0.7 x10^3/uL (0.0-0.7) Basophils # (Auto) 0.1 x10^3/uL (0.0-0.2) Test 03/13/19 08:11 03/13/19 08:35 Glucose (Fingerstick) 101 mg/dL (70-99) Sodium Level 140 mmol/L (136-145) Potassium Level 3.9 mmol/L (3.5-5.1) Chloride Level 103 mmol/L (98-107) Carbon Dioxide Level 29 mmol/L (21-32) Anion Gap 8 (6-14) Blood Urea Nitrogen 15 mg/dL (8-26) Creatinine 1.0 mg/dL (0.7-1.3) Estimated GFR (Cockcroft-Gault) 74.3 Glucose Level 109 mg/dL (70-99) Calcium Level 9.7 mg/dL (8.5-10.1) Phosphorus Level 4.4 mg/dL (2.6-4.7) Magnesium Level 1.7 mg/dL (1.8-2.4) Albumin 3.1 g/dL (3.4-5.0) Review of Systems Review of Systems Patient denies N/V Patient denies COLE Assessment and Plan Assessmemt and Plan Problems Medical Problems: (1) Hyperkalemia Status: Acute (2) Hyponatremia Status: Acute (3) Renal insufficiency Status: Acute (4) Respiratory failure Status: Acute Assessment: Acute encephalopathy- resolved Hypoxic respiratory failure Sepsis Hyperkalemia Acute Kidney injury Symptomatic bradycardia Vtach CAD s/p CABG x3 Bladder Cancer s/p chemotherapy and cystectomy with ileoconduit Diabetes-Type II Hypercalcemia Acute exacerbation of chronic obstructive pulmonary disease Acute metabolic acidosis Plan: Cardiac monitoring Duonebs Labs PT/OT IV NS 60ml/H PPX - Heparin FULL CODE Possible Discharge today with event monitor Comment Review of Relevant I have reviewed the following items fabián (where applicable) has been applied. Labs Laboratory Tests Test 03/11/19 11:25 03/11/19 12:25 03/11/19 16:45 03/11/19 20:49 O2 Saturation 96 % (92-99) Arterial Blood pH 7.41 (7.35-7.45) Arterial Blood pCO2 at Patient Temp 34 mmHg (35-46) Arterial Blood pO2 at Patient Temp 88 mmHg (65-108) Arterial Blood HCO3 21 mmol/L (21-28) Arterial Blood Base Excess -3 mmol/L (-3-3) FiO2 21 Glucose (Fingerstick) 93 mg/dL (70-99) 111 mg/dL (70-99) 112 mg/dL (70-99) Test 03/12/19 06:00 03/12/19 07:57 03/12/19 11:28 03/12/19 16:50 Sodium Level 137 mmol/L (136-145) Potassium Level 3.6 mmol/L (3.5-5.1) Chloride Level 100 mmol/L (98-107) Carbon Dioxide Level 27 mmol/L (21-32) Anion Gap 10 (6-14) Blood Urea Nitrogen 19 mg/dL (8-26) Creatinine 1.0 mg/dL (0.7-1.3) Estimated GFR (Cockcroft-Gault) 74.3 Glucose Level 106 mg/dL (70-99) Calcium Level 9.2 mg/dL (8.5-10.1) Phosphorus Level 4.4 mg/dL (2.6-4.7) Magnesium Level 1.8 mg/dL (1.8-2.4) Albumin 2.9 g/dL (3.4-5.0) Glucose (Fingerstick) 100 mg/dL (70-99) 121 mg/dL (70-99) 129 mg/dL (70-99) Test 03/12/19 20:28 03/13/19 06:15 03/13/19 08:11 03/13/19 08:35 Glucose (Fingerstick) 120 mg/dL (70-99) 101 mg/dL (70-99) White Blood Count 9.0 x10^3/uL (4.0-11.0) Red Blood Count 3.35 x10^6/uL (4.30-5.70) Hemoglobin 9.8 g/dL (13.0-17.5) Hematocrit 29.4 % (39.0-53.0) Mean Corpuscular Volume 88 fL (79-100) Mean Corpuscular Hemoglobin 29 pg (25-35) Mean Corpuscular Hemoglobin Concent 33 g/dL (31-37) Red Cell Distribution Width 14.6 % (11.5-14.5) Platelet Count 231 x10^3/uL (140-400) Neutrophils (%) (Auto) 61 % (31-73) Lymphocytes (%) (Auto) 19 % (24-48) Monocytes (%) (Auto) 12 % (0-9) Eosinophils (%) (Auto) 8 % (0-3) Basophils (%) (Auto) 1 % (0-3) Neutrophils # (Auto) 5.5 x10^3uL (1.8-7.7) Lymphocytes # (Auto) 1.7 x10^3/uL (1.0-4.8) Monocytes # (Auto) 1.0 x10^3/uL (0.0-1.1) Eosinophils # (Auto) 0.7 x10^3/uL (0.0-0.7) Basophils # (Auto) 0.1 x10^3/uL (0.0-0.2) Sodium Level 140 mmol/L (136-145) Potassium Level 3.9 mmol/L (3.5-5.1) Chloride Level 103 mmol/L (98-107) Carbon Dioxide Level 29 mmol/L (21-32) Anion Gap 8 (6-14) Blood Urea Nitrogen 15 mg/dL (8-26) Creatinine 1.0 mg/dL (0.7-1.3) Estimated GFR (Cockcroft-Gault) 74.3 Glucose Level 109 mg/dL (70-99) Calcium Level 9.7 mg/dL (8.5-10.1) Phosphorus Level 4.4 mg/dL (2.6-4.7) Magnesium Level 1.7 mg/dL (1.8-2.4) Albumin 3.1 g/dL (3.4-5.0) Laboratory Tests Test 03/12/19 11:28 03/12/19 16:50 03/12/19 20:28 03/13/19 06:15 Glucose (Fingerstick) 121 mg/dL (70-99) 129 mg/dL (70-99) 120 mg/dL (70-99) White Blood Count 9.0 x10^3/uL (4.0-11.0) Red Blood Count 3.35 x10^6/uL (4.30-5.70) Hemoglobin 9.8 g/dL (13.0-17.5) Hematocrit 29.4 % (39.0-53.0) Mean Corpuscular Volume 88 fL (79-100) Mean Corpuscular Hemoglobin 29 pg (25-35) Mean Corpuscular Hemoglobin Concent 33 g/dL (31-37) Red Cell Distribution Width 14.6 % (11.5-14.5) Platelet Count 231 x10^3/uL (140-400) Neutrophils (%) (Auto) 61 % (31-73) Lymphocytes (%) (Auto) 19 % (24-48) Monocytes (%) (Auto) 12 % (0-9) Eosinophils (%) (Auto) 8 % (0-3) Basophils (%) (Auto) 1 % (0-3) Neutrophils # (Auto) 5.5 x10^3uL (1.8-7.7) Lymphocytes # (Auto) 1.7 x10^3/uL (1.0-4.8) Monocytes # (Auto) 1.0 x10^3/uL (0.0-1.1) Eosinophils # (Auto) 0.7 x10^3/uL (0.0-0.7) Basophils # (Auto) 0.1 x10^3/uL (0.0-0.2) Test 03/13/19 08:11 03/13/19 08:35 Glucose (Fingerstick) 101 mg/dL (70-99) Sodium Level 140 mmol/L (136-145) Potassium Level 3.9 mmol/L (3.5-5.1) Chloride Level 103 mmol/L (98-107) Carbon Dioxide Level 29 mmol/L (21-32) Anion Gap 8 (6-14) Blood Urea Nitrogen 15 mg/dL (8-26) Creatinine 1.0 mg/dL (0.7-1.3) Estimated GFR (Cockcroft-Gault) 74.3 Glucose Level 109 mg/dL (70-99) Calcium Level 9.7 mg/dL (8.5-10.1) Phosphorus Level 4.4 mg/dL (2.6-4.7) Magnesium Level 1.7 mg/dL (1.8-2.4) Albumin 3.1 g/dL (3.4-5.0) Microbiology 03/05/19 Blood Culture - Final, Complete NO GROWTH AFTER 5 DAYS Medications Current Medications Sodium Chloride 1,000 ml @ 1,000 mls/hr 1X ONCE IV Last administered on 03/04/19 23:28; Start 03/05/19 at 00:00; Stop 03/05/19 at 00:59; Status DC Fentanyl Citrate (Fentanyl 2ml Vial) 50 mcg 1X ONCE JOSE RAUL Last administered on 23:02; Start 03/05/19 at 00:00; Stop 03/05/19 at 00:02; Status DC Dexamethasone Sodium Phosphate (Decadron) 10 mg 1X ONCE IV ; Start 03/05/19 at 00:00; Stop 03/05/19 at 00:02; Status DC Atropine Sulfate (ATROPINE 1mg SYRINGE) 0.5 mg 1X ONCE IV Last administered on 03/04/19 23:07; Start 03/05/19 at 00:00; Stop 03/05/19 at 00:02; Status DC Albuterol Sulfate (Ventolin Neb Soln) 2.5 mg 1X ONCE NEB Last administered on 03/04/19 23:15; Start 03/04/19 at 23:15; Stop 03/05/19 at 00:01; Status DC Atropine Sulfate (ATROPINE 1mg SYRINGE) 0.5 mg 1X ONCE IV Last administered on 03/04/19 23:08; Start 03/05/19 at 00:00; Stop 03/05/19 at 00:02; Status DC Atropine Sulfate (ATROPINE 1mg SYRINGE) 1 mg 1X ONCE IV Last administered on 03/04/19 23:18; Start 03/05/19 at 00:00; Stop 03/05/19 at 00:02; Status DC Etomidate (Amidate) 20 mg 1X ONCE IV Last administered on 03/04/19 23:32; Start 03/05/19 at 00:00; Stop 03/05/19 at 00:02; Status DC Rocuronium Mico (Zemuron) 50 mg 1X ONCE IV Last administered on 03/04/19at 23:33; Start 03/05/19 at 00:00; Stop 03/05/19 at 00:02; Status DC Propofol 100 ml @ 0 mls/hr CONT PRN IV SEE PROTOCOL Last administered on 03/05/19at 02:16; Start 03/04/19 at 23:30; Stop 03/05/19 at 03:42; Status DC Fentanyl Citrate (Fentanyl 2ml Vial) 25 mcg PRN Q1HR PRN IV SEE COMMENTS Last administered on 03/08/19 14:56; Start 03/04/19 at 23:30 Fentanyl Citrate (Fentanyl 2ml Vial) 50 mcg PRN Q1HR PRN IV SEE COMMENTS Last administered on 03/08/19 16:55; Start 03/04/19 at 23:30 Chlorhexidine Gluconate (Peridex) 15 ml BID MM Last administered on 03/08/19 08:59; Start 03/05/19 at 09:00; Stop 03/09/19 at 20:02; Status DC Morphine Sulfate (Morphine Sulfate) 2 mg PRN Q1HR PRN IV SEE COMMENTS.; Start 03/04/19 at 23:30 Morphine Sulfate (Morphine Sulfate) 4 mg PRN Q1HR PRN IV SEE COMMENTS.; Start 03/04/19 at 23:30 Propofol 50 ml @ As Directed STK-MED ONCE IV ; Start 03/04/19 at 23:47; Stop 03/04/19 at 23:48; Status DC Calcium Gluconate (Calcium Gluconate) 1,000 mg 1X ONCE IVP Last administered on 03/05/19at 00:50; Start 03/05/19 at 00:15; Stop 03/05/19 at 00:16; Status DC Dopamine HCl/ Dextrose 250 ml @ 6.844 mls/ hr 1X ONCE IV Last administered on 03/05/19at 01:11; Start 03/05/19 at 00:30; Stop 03/06/19 at 13:01; Status DC Dopamine HCl/ Dextrose 250 ml @ As Directed STK-MED ONCE IV ; Start 03/05/19 at 00:00; Stop 03/05/19 at 00:01; Status DC Propofol 50 ml @ 1.095 mls/ hr 1X ONCE IV Last administered on 03/04/19at 23:51; Start 03/05/19 at 00:15; Stop 03/06/19 at 21:54; Status DC Insulin Human Lispro (HumaLOG) 0-5 UNITS TIDWMEALS SQ Last administered on 03/08/19at 11:49; Start 03/05/19 at 08:00; Stop 03/09/19 at 12:46; Status DC Dextrose (Dextrose 50%-Water Syringe) 12.5 gm PRN Q15MIN PRN IV SEE COMMENTS; Start 03/05/19 at 00:30 Sodium Chloride 1,000 ml @ 125 mls/hr 1X ONCE IV Last administered on 03/05/19at 00:45; Start 03/05/19 at 01:00; Stop 03/05/19 at 02:01; Status DC Insulin Human Regular (HumuLIN R VIAL) 10 unit 1X ONCE IV Last administered on 03/05/19at 01:35; Start 03/05/19 at 01:30; Stop 03/05/19 at 01:31; Status DC Dextrose (Dextrose 50%-Water Syringe) 25 gm 1X ONCE IV Last administered on at 01:32; Start 03/05/19 at 01:30; Stop 03/05/19 at 01:31; Status DC Calcium Chloride 2000 mg/Dextrose 120 ml @ 240 mls/hr 1X ONCE IV Last administered on 03/05/19at 02:16; Start 03/05/19 at 02:30; Stop 03/05/19 at 02:59; Status DC Sodium Bicarbonate 150 meq/Dextrose 1,150 ml @ 100 mls/hr [id number] IV Last administered on 03/05/19at 02:17; Start 03/05/19 at 03:00; Stop 03/05/19 at 18:00; Status DC Sodium Bicarbonate (Sodium Bicarbonate Vial) 150 meq 1X ONCE IV Last administered on 03/05/19at 02:12; Start 03/05/19 at 02:30; Stop 03/05/19 at 02:31; Status DC Sodium Bicarbonate (Sodium Bicarb Adult 8.4% Syr) 50 meq STK-MED ONCE .ROUTE ; Start 03/05/19 at 02:02; Stop 03/05/19 at 02:03; Status DC Propofol 100 ml @ 0 mls/hr CONT PRN IV SEE I/O RECORD Last administered on 03/05/19at 12:27; Start 03/05/19 at 03:45; Stop 03/05/19 at 14:02; Status DC Sodium Chloride 1,000 ml @ 75 mls/hr [id number] IV Last administered on 03/09/19at 22:58; Start 03/05/19 at 09:00; Stop 03/10/19 at 09:01; Status DC Famotidine (Pepcid Vial) 20 mg QHS IVP Last administered on 03/10/19 20:33; Start 03/05/19 at 21:00; Stop 03/11/19 at 11:33; Status DC Heparin Sodium (Porcine) (Heparin Sodium) 5,000 unit Q8HRS SQ Last administered on 03/13/19at 05:52; Start 03/05/19 at 14:00 Midazolam HCl 100 ml @ 5 mls/hr CONT PRN IV SEE I/O RECORD Last administered on 03/07/19at 19:53; Start 03/05/19 at 14:00; Stop 03/10/19 at 09:01; Status DC Ceftriaxone Sodium (Rocephin) 1 gm Q24H IVP Last administered on 03/07/19 14:37; Start 03/05/19 at 14:00; Stop 03/07/19 at 16:23; Status DC Doxycycline Hyclate 100 mg/ Dextrose 100 ml @ 50 mls/hr Q12HR IV Last administered on 03/08/19 20:54; Start 03/05/19 at 21:00; Stop 03/09/19 at 08:46; Status DC Enoxaparin Sodium (Lovenox 40mg Syringe) 30 mg Q24H SQ ; Start 03/05/19 at 14:00; Status Cancel Sodium Chloride 500 ml @ 500 mls/hr 1X ONCE IV Last administered on 03/05/19at 16:15; Start 03/05/19 at 16:15; Stop 03/05/19 at 17:14; Status DC Norepinephrine Bitartrate 250 ml @ 1.875 mls/ hr CONT PRN IV SEE I/O RECORD; Start 03/05/19 at 16:15; Stop 03/10/19 at 09:01; Status DC Magnesium Sulfate/ Dextrose 100 ml @ 25 mls/hr 1X ONCE IV Last administered on 03/05/19at 19:45; Start 03/05/19 at 19:30; Stop 03/05/19 at 23:29; Status DC Amiodarone HCl 50 mg/Dextrose 101 ml @ 600 mls/hr 1X ONCE IV Last administered on 03/05/19at 21:16; Start 03/05/19 at 22:00; Stop 03/05/19 at 22:10; Status DC Amiodarone HCl 900 mg/Dextrose 518 ml @ 0 mls/hr CONT PRN IV SEE I/O RECORD Last administered on 03/05/19at 21:16; Start 03/05/19 at 22:15; Stop 03/06/19 at 22:14; Status DC Dopamine HCl/ Dextrose 250 ml @ 5.46 mls/hr CONT PRN IV SEE I/O RECORD Last administered on 03/06/19at 03:41; Start 03/06/19 at 03:30; Stop 03/06/19 at 18:32; Status DC Potassium Chloride/Water 100 ml @ 100 mls/hr Q1H IV Last administered on 03/06/19at 06:17; Start 03/06/19 at 05:00; Stop 03/06/19 at 06:59; Status DC Potassium Chloride (KCl Oral Soln) 20 meq 1X ONCE PEG ; Start 03/06/19 at 09:00; Stop 03/06/19 at 09:01; Status Cancel Potassium Chloride (KCl Oral Soln) 20 meq 1X ONCE PEG Last administered on 03/06/19at 16:24; Start 03/06/19 at 14:00; Stop 03/06/19 at 14:01; Status DC Aspirin (Aspirin) 300 mg DAILY [place] ; Start 03/06/19 at 14:15; Stop 03/06/19 at 17:46; Status DC Aspirin (Darren Aspirin) 325 mg DAILYWBKFT PO Last administered on 03/13/19at 09:12; Start 03/07/19 at 08:00 Acetaminophen (Tylenol) 325 mg STK-MED ONCE PO ; Start 03/06/19 at 18:27; Stop 03/06/19 at 18:28; Status DC Aspirin (Darren Aspirin) 325 mg DAILYWBKFT PO ; Start 03/07/19 at 08:00; Status UNV Acetaminophen (Tylenol) 325 mg PRN Q6HRS PRN PO MILD PAIN / TEMP; Start 03/06/19 at 18:45 Aspirin (Darren Aspirin) 325 mg STK-MED ONCE .ROUTE ; Start 03/06/19 at 18:42; Stop 03/06/19 at 18:43; Status DC Amiodarone HCl 900 mg/Dextrose 518 ml @ 0 mls/hr CONT PRN IV SEE I/O RECORD; Start 03/07/19 at 00:30; Status UNV Amiodarone HCl 450 mg/Dextrose 259 ml @ 17.26 mls/ hr CONT PRN IV SEE I/O RECORD Last administered on 03/07/19at 02:27; Start 03/07/19 at 01:00; Stop 03/10/19 at 09:01; Status DC Amiodarone HCl (Cordarone) 200 mg BID PO ; Start 03/07/19 at 16:00; Stop 03/07/19 at 19:38; Status DC Amiodarone HCl (Cordarone) 200 mg BID PO Last administered on 03/13/19at 09:13; Start 03/07/19 at 21:00 Potassium Chloride (KCl Oral Soln) 20 meq 1X ONCE PEG Last administered on 03/08/19at 09:04; Start 03/08/19 at 08:30; Stop 03/08/19 at 08:31; Status DC Atorvastatin Calcium (Lipitor) 40 mg QHS PO Last administered on 03/12/19at 21:23; Start 03/08/19 at 21:00 Lisinopril (Prinivil) 5 mg DAILY PO Last administered on 03/08/19at 10:46; Start 03/08/19 at 11:00; Stop 03/08/19 at 13:26; Status DC Metoprolol Tartrate (Lopressor) 12.5 mg BID PO Last administered on 03/08/19at 10:47; Start 03/08/19 at 11:00; Stop 03/08/19 at 13:26; Status DC Aspirin (Ecotrin) 81 mg DAILY PO ; Start 03/09/19 at 09:00; Status UNV Bupropion HCl (Wellbutrin Sr) 100 mg BID PO Last administered on 03/13/19at 09:11; Start 03/08/19 at 14:00 Cyclosporine (Restasis) 1 drop BID OU Last administered on 03/13/19 09:14; Start 03/08/19 at 14:00 Docusate Sodium (Colace) 100 mg BID PO Last administered on 03/13/19 09:12; Start 03/08/19 at 14:00 Gabapentin (Neurontin) 900 mg TID PO Last administered on 03/13/19 09:12; Start 03/08/19 at 14:00 Lisinopril (Prinivil) 20 mg DAILY PO Last administered on 03/13/19 09:13; Start 03/09/19 at 09:00 Metoprolol Tartrate (Lopressor) 25 mg BID PO Last administered on 03/13/19 09:18; Start 03/08/19 at 21:00 Oxycodone HCl (Roxicodone) 5 mg PRN Q4HRS PRN PO MODERATE-SEVERE PAIN Last administered on 03/12/19 17:23; Start 03/08/19 at 13:15 Senna/Docusate Sodium (Senna Plus) 1 tab BID PO Last administered on 03/13/19 09:12; Start 03/08/19 at 14:00 Brimonidine Tartrate (Alphagan) 1 drop BID OU Last administered on 03/12/19 21:00; Start 03/08/19 at 21:00 Artificial Tears (Artificial Tears) 1 drop PRN QID PRN OU DRY EYE; Start 03/08/19 at 13:30 Latanoprost (Xalatan) 1 drop QHS OU Last administered on 03/12/19 21:24; Start 03/08/19 at 21:00 Timolol Maleate (Timoptic 0.5% Ophth) 1 drop BID OU Last administered on 03/13/19 09:15; Start 03/08/19 at 21:00 Dorzolamide HCl (Trusopt) 1 drop BID OU Last administered on 03/13/19 09:15; Start 03/08/19 at 21:00 Potassium Chloride (Klor-Con) 20 meq 1X ONCE PO Last administered on 03/09/19 08:52; Start 03/09/19 at 09:00; Stop 03/09/19 at 09:01; Status DC Doxycycline Hyclate (Vibra-Tab) 100 mg BID PO Last administered on 03/13/19 09:12; Start 03/09/19 at 09:00 Metformin HCl (Glucophage) 1,000 mg DAILYWBKFT PO Last administered on 03/11/19 08:29; Start 03/10/19 at 08:00 Metformin HCl (Glucophage) 500 mg DAILYWSUP PO Last administered on 03/11/19 17:26; Start 03/09/19 at 17:00 Insulin Human Lispro (HumaLOG) 20 units 1X ONCE SQ ; Start 03/09/19 at 12:45; Stop 03/09/19 at 12:46; Status UNV Multivitamins/ Minerals (I-Dora) 1 tab DAILY PO Last administered on 03/13/19 09:12; Start 03/10/19 at 09:00 Metoprolol Tartrate (Lopressor Vial) 5 mg STK-MED ONCE IVP ; Start 03/10/19 at 09:09; Stop 03/10/19 at 09:10; Status DC Metoprolol Tartrate (Lopressor Vial) 5 mg 1X ONCE IVP Last administered on 03/10/19at 09:56; Start 03/10/19 at 09:15; Stop 03/10/19 at 09:17; Status DC Magnesium Sulfate/ Dextrose 100 ml @ 25 mls/hr 1X ONCE IV Last administered on 03/10/19 15:31; Start 03/10/19 at 15:00; Stop 03/10/19 at 18:59; Status DC Potassium Chloride (Klor-Con) 40 meq 1X ONCE PO Last administered on 03/10/19 15:29; Start 03/10/19 at 14:45; Stop 03/10/19 at 14:50; Status DC Famotidine (Pepcid) 20 mg QHS PO Last administered on 03/12/19 21:23; Start 03/11/19 at 21:00 Sodium Chloride 1,000 ml @ 60 mls/hr [id number] IV Last administered on 03/12/19at 07:26; Start 03/12/19 at 07:30; Stop 03/12/19 at 16:39; Status DC Iohexol (Omnipaque 300 Mg/ml) 100 ml STK-MED ONCE .ROUTE ; Start 03/12/19 at 11:30; Stop 03/12/19 at 11:31; Status DC Lidocaine HCl (Lidocaine 1% 20ml Vial) 20 ml STK-MED ONCE .ROUTE ; Start 03/12/19 at 11:30; Stop 03/12/19 at 11:31; Status DC Heparin Sodium/ Sodium Chloride 500 ml @ As Directed STK-MED ONCE .ROUTE ; Start 03/12/19 at 11:30; Stop 03/12/19 at 11:31; Status DC Fentanyl Citrate (Fentanyl 2ml Vial) 100 mcg STK-MED ONCE .ROUTE ; Start 03/12/19 at 11:48; Stop 03/12/19 at 11:49; Status DC Midazolam HCl (Versed) 2 mg STK-MED ONCE .ROUTE ; Start 03/12/19 at 11:48; Stop 03/12/19 at 11:49; Status DC Iohexol (Omnipaque 300 Mg/ml) 100 ml STK-MED ONCE .ROUTE ; Start 03/12/19 at 12:26; Stop 03/12/19 at 12:27; Status DC Heparin Sodium/ Sodium Chloride (HEPARIN for ARTERIAL LINE FLUSH) 1,000 unit 1X ONCE IART Last administered on 03/12/19 12:43; Start 03/12/19 at 12:30; Stop 03/12/19 at 12:34; Status DC Midazolam HCl (Versed) 2 mg 1X ONCE IV Last administered on 03/12/19 12:43; Start 03/12/19 at 12:30; Stop 03/12/19 at 12:34; Status DC Fentanyl Citrate (Fentanyl 2ml Vial) 100 mcg 1X ONCE IV Last administered on 03/12/19at 12:43; Start 03/12/19 at 12:30; Stop 03/12/19 at 12:34; Status DC Iohexol (Omnipaque 300 Mg/ml) 140 ml 1X ONCE IART Last administered on 03/12/19at 12:41; Start 03/12/19 at 12:30; Stop 03/12/19 at 12:34; Status DC Lidocaine HCl (Lidocaine 1% 20ml Vial) 20 ml 1X ONCE INJ Last administered on 03/12/19at 12:42; Start 03/12/19 at 12:30; Stop 03/12/19 at 12:34; Status DC Sodium Chloride 1,000 ml @ 60 mls/hr [id number] IV Last administered on 03/13/19at 09:14; Start 03/12/19 at 13:43 Nitroglycerin (Nitrostat) 0.4 mg PRN Q5MIN PRN SL CHEST PAIN; Start 03/12/19 at 13:45 Active Scripts Active Reported Timoptic 0.5% (Timolol Maleate) 10 Ml Drops 1 Drop EACHEYE BID Senna-S Tablet (Sennosides/Docusate Sodium) 1 Each Tablet 1 Each PO BID Onglyza (Saxagliptin Hcl) 5 Mg Tablet 1 Tab PO DAILY Crestor (Rosuvastatin Calcium) 20 Mg Tablet 20 Mg PO HS Miralax (Polyethylene Glycol 3350) 17 Gm Powd.pack 1 Packet PO DAILY Percocet 5-325 Mg Tablet (Oxycodone/Acetaminophen) 1 Each Tablet 1 Tab PO QID PRN Oxycodone Hcl Immed.release (Oxycodone Hcl) 5 Mg Tablet 5 Mg PO PRN Q4HRS PRN take 1 to 3 tabs Q4H prn Metoprolol Tartrate 25 Mg Tablet 1 Tab PO BID Metformin Hcl 500 Mg Tablet 500 Mg PO DAILYWSUP Metformin Hcl 1,000 Mg Tablet 1,000 Mg PO DAILYWBKFT Meloxicam 15 Mg Tablet 1 Tab PO NOON Lisinopril 20 Mg Tablet 1 Tab PO DAILY Xalatan (Latanoprost) 2.5 Ml Drops 1 Drop EACHEYE QHS Gabapentin (Gabapentin) 300 Mg Capsule 900 Mg PO TID Docusate Sodium 100 Mg Capsule 1 Cap PO BID Diltiazem 24HR Cd (Diltiazem Hcl) 120 Mg Cap.er.24h 1 Cap PO DAILY Restasis (Cyclosporine) 1 Each Droperette 1 Drop EACHEYE BID Refresh Optive Eye Drops (Carboxymethylcellulos/Glycerin) 15 Ml Drops 1 Drop EACHEYE QID PRN Wellbutrin Sr (Bupropion Hcl) 100 Mg Tablet.er 1 Tab PO BID Aspirin Ec (Aspirin) 81 Mg Tablet.dr 1 Tab PO DAILY Simbrinza 1%-0.2% Eye Drops (Brinzolamide/Brimonid Tart) 8 Ml Drops.susp 8 Ml OP BID Vitals/I & O Vital Sign - Last 24 Hours 03/12/19 03/12/19 03/12/19 03/12/19 11:00 12:43 12:47 13:00 Temp 98.1 98.1 Pulse 64 62 62 Resp 20 21 18 B/P (MAP) 145/67 (93) 172/77 (108) Pulse Ox 95 98 97 O2 Delivery Room Air Nasal Cannula Room Air O2 Flow Rate 2.0 03/12/19 03/12/19 03/12/19 03/12/19 13:13 13:15 13:30 13:45 Pulse 66 74 72 B/P (MAP) 168/74 (105) 149/66 (93) 142/65 (90) O2 Delivery Room Air 03/12/19 03/12/19 03/12/19 03/12/19 14:00 14:30 15:00 15:09 Temp 97.6 97.6 Pulse 72 66 64 73 Resp 14 B/P (MAP) 144/68 (93) 142/63 (89) 128/58 (81) 132/63 (86) Pulse Ox 95 O2 Delivery Room Air 03/12/19 03/12/19 03/12/19 03/12/19 16:12 17:15 18:15 20:00 Pulse 70 81 83 B/P (MAP) 126/71 (89) 156/70 (98) 119/58 (78) O2 Delivery Room Air 03/12/19 03/12/19 03/12/19 03/13/19 21:22 21:23 22:59 02:36 Temp 98.0 97.7 98.0 97.7 Pulse 83 83 67 68 Resp 16 16 B/P (MAP) 119/58 119/58 182/77 (112) 160/54 (89) Pulse Ox 97 95 O2 Delivery Room Air Room Air 03/13/19 03/13/19 03/13/19 03/13/19 07:00 08:00 09:13 09:13 Temp 98.7 98.7 Pulse 66 66 66 Resp 16 B/P (MAP) 126/70 (88) 126/70 126/70 Pulse Ox 92 O2 Delivery Room Air Room Air 03/13/19 09:18 Pulse 66 B/P (MAP) 126/70 Intake and Output 03/12/19 03/12/19 03/13/19 14:59 22:59 06:59 Intake Total 485.35 ml 650 ml Output Total 650 ml 1200 ml Balance -164.65 ml 650 ml -1200 ml Nutrition Consultation Dietary Evaluation: Recommendations by RD: Increase Calorie Intake Comments: Continue w/cardiac/ADA diet as ordered, honor food preferences, and provide snacks as requested Expected Outcomes/Goals: New goal 03/09: diet advancement - met, new goal established New goal 03/12: PO intake to meet >75% est needs Malnutrition Findings: Food and Nutrition Intake (Mod: <75% est energy req 7days Weight Status: Appropriate JESUS LAZARO III DO March 13, 2019 10:41
[2019-03-13 11:00] VITALS: BP 129/73
[2019-03-13] MEDS ORDERED: HEPARIN PF 500 UNIT/5 ML DISP.SYRIN. IV ONE (11:15)
[2019-03-13] MEDS: BRIMONIDINE 0.2% OPHTH SOLUTION 5ML BOTTLE. OU SCH (11:19)
[2019-03-13 12:05] VITALS: BP 159/71
--- NOTE | 2019-03-13 12:59 | DS ---
DATE OF DISCHARGE: 03/13/2019 ADMISSION DIAGNOSES: Chronic obstructive pulmonary disease exacerbation, hypoxia, symptomatic bradycardia. Encephalopathy, sepsis, hyperkalemia, acute kidney injury and ventricular tachycardia. DISCHARGE DIAGNOSES: Resolving chronic obstructive pulmonary disease exacerbation, resolving symptomatic bradycardia, resolving sepsis, resolving acute kidney injury, resolving ventricular tachycardia, history of coronary artery disease with 3-vessel bypass, history of bladder cancer with chemotherapy and cystectomy with ileal conduit, diabetes, hypercalcemia. CONSULTS: Cardiology and Pulmonary. PROCEDURES: None. HOSPITAL COURSE: The patient is a pleasant middle-aged male, who presented with 3-day history of progressive weakness and shortness of breath and confusion. He was noted to be hypoxic by EMS to 68% and bradycardic with a rate in the 30s. He was admitted. The above consults were obtained. We gave him IV steroids, breathing treatments, oxygen, antibiotics. Over the past several days, he seems to have returned to his baseline. I saw him and examined this morning. His heart tones were normal. Her lungs were much clearer. He wants to go home. We plan to discharge to home health if okay with consultants. He is going be going with an event monitor. DISPOSITION: Home with home health. ACTIVITY: As tolerated. DIET: Low sodium. MEDICATIONS: We resumed his home meds which include aspirin, bupropion, cyclosporine eyedrops, Cardizem, docusate, gabapentin, Xalatan eyedrops, meloxicam, metformin, oxycodone, MiraLax, Crestor and Timoptic eyedrops. TOTAL TIME: 32 minutes. JESUS LAZARO DO DR: RADHA/rahul JOB#: [id number] / [id number]
--- NOTE | 2019-03-13 13:30 | NUR ---
Patient discharged to home with home health. [facility] health set up through [facility]. Patient given new prescription for metoprolol. Patient's requested this RN call in prescription. This RN spoke with Sunny from [facility] on phone, says that they do not do call ins and will need a fax of the prescription along with additional information. US faxed prescription into [facility]-came back as completed. This RN called cardiac clinic and scheduled a follow up with Dr. Nunn for patient, also discussed that patient needs outpatient monitor. The clinic stated that they would contact Anne-Marie to have this set up. Patient understands discharge instructions and follow ups. Patient alert and stable. Port discontinued. All belongings with patient. Patient picked up by for d/c.
[2019-03-30] MEDS ORDERED: APIX5TAB PO (23:52)
== END 2019-03-13 13:55 | disposition home health service (06) | DRG 871 ==
LOC: ER 22:47 → MERGE 03-05 00:31 → 1 WEST ICU 03-05 00:31 → 2 NORTH 03-10 15:12
PROVIDERS: ADMIT Internal Medicine; ATTEND Internal Medicine
PROC: 5A1945Z Respiratory Ventilation, 24-96 Consecutive Hours (ICD-10-PCS; principal; 2019-03-05)
PROC: 0BH17EZ Insertion of Endotracheal Airway into Trachea, Via Natural or Artificial Opening (ICD-10-PCS; 2019-03-05)
PROC: 4A023N7 Measurement of Cardiac Sampling and Pressure, Left Heart, Percutaneous Approach (ICD-10-PCS; 2019-03-12)
PROC: B2161ZZ Fluoroscopy of Right and Left Heart using Low Osmolar Contrast (ICD-10-PCS; 2019-03-12)
PROC: B2131ZZ Fluoroscopy of Multiple Coronary Artery Bypass Grafts using Low Osmolar Contrast (ICD-10-PCS; 2019-03-12)
DX: A41.9 Sepsis, unspecified organism (principal); G92 Toxic encephalopathy; J96.01 Acute respiratory failure with hypoxia; E87.1 Hypo-osmolality and hyponatremia; I47.2 Ventricular tachycardia; J44.0 Chronic obstructive pulmonary disease with (acute) lower respiratory infection; J44.1 Chronic obstructive pulmonary disease with (acute) exacerbation; J84.9 Interstitial pulmonary disease, unspecified; N17.9 Acute kidney failure, unspecified; C67.9 Malignant neoplasm of bladder, unspecified; E11.22 Type 2 diabetes mellitus with diabetic chronic kidney disease; E78.5 Hyperlipidemia, unspecified; E83.52 Hypercalcemia; E87.5 Hyperkalemia; E87.6 Hypokalemia; I12.9 Hypertensive chronic kidney disease with stage 1 through stage 4 chronic kidney disease, or unspecified chronic kidney disease; I25.10 Atherosclerotic heart disease of native coronary artery without angina pectoris; N18.9 Chronic kidney disease, unspecified; Z80.9 Family history of malignant neoplasm, unspecified; Z82.49 Family history of ischemic heart disease and other diseases of the circulatory system; Z87.891 Personal history of nicotine dependence; Z90.49 Acquired absence of other specified parts of digestive tract; Z90.6 Acquired absence of other parts of urinary tract; Z91.19 Patient's noncompliance with other medical treatment and regimen; Z92.21 Personal history of antineoplastic chemotherapy; Z95.1 Presence of aortocoronary bypass graft; Z85.51 Personal history of malignant neoplasm of bladder; F32.9 Major depressive disorder, single episode, unspecified; F41.9 Anxiety disorder, unspecified; M19.90 Unspecified osteoarthritis, unspecified site
CPT/HCPCS: 31500; 93459; 99291; G0269; 36415; 36600; 71045; 80048; 80053; 80061; 80069; 82553; 82805; 82962; 83036; 83605; 83690; 83735; 83880; 84145; 84478; 84484; 85007; 85025; 87040; 93005; 93306; 94002; 94003; 94640; 96365; 96375; 99152; 99153; C1760; C1769; C1892; J0282; J0461; J0610; J0696; J1265; J1644; J1815; J2250; J2704; J3010; J3475; J3480; J3490; J7030; J7040; J7042; J7613; Q9967; 92526; 92610; 97116; 97530; 97535; C1771

== ENCOUNTER 2019-03-31 20:07 | Inpatient (IN) | payer MEDICARE, OTHER ==
[~2019-03-31] VITALS: Ht 165.1 cm; Wt 73.6 kg
[~2019-03-31 20:07] MED LIST: AMIODARONE 150 MG/3 ML VIAL ONE; APIX5TAB PO; ASPI-612 PO; BRIN8DRO OP; BUPR100T7 PO; CARB15DR3 EACHEYE; CRESTOR20 MG PO; CYCL1DRO EACHEYE; DILT120C85 PO; DOCU100C28 PO; GABA300C18 PO; LATA2.5D2 EACHEYE; LISI-334 PO; MELO15TA23 PO; METF10007 PO; METF500T16 PO; METO25TA4 PO; OXYC1TAB15 PO; OXYC5TAB4 PO; POLY17PO29 PO; SAXA5TAB PO; SENN1TAB15 PO; TIMO10DR5 EACHEYE
[2019-03-31] MEDS ORDERED: IV NORMAL SALINE 1000ML BAG 1,000 ML IV ONE (20:30)
[2019-03-31 20:37] LABS: BASO # 0.1 x10^3/uL (0.0-0.2); BASO % 1 % (0-3); EOS # 1.4 x10^3/uL (0.0-0.7); EOS % 12 % (0-3); HEMATOCRIT 31.2 % (39.0-53.0); HEMOGLOBIN 10.4 g/dL (13.0-17.5); LYMPH # 1.9 x10^3/uL (1.0-4.8); LYMPH % 16 % (24-48); MEAN CORPUSCULAR HEMOGLOBIN 29 pg (25-35); MEAN CORPUSCULAR HGB CONC 33 g/dL (31-37); MEAN CORPUSCULAR VOLUME 88 fL (79-100); MONO # 0.9 x10^3/uL (0.0-1.1); MONO % 8 % (0-9); NEUT # 7.4 x10^3uL (1.8-7.7); NEUT % 63 % (31-73); PLATELET COUNT 219 x10^3/uL (140-400); RED BLOOD COUNT 3.55 x10^6/uL (4.30-5.70); RED CELL DISTRIBUTION WIDTH 15.3 % (11.5-14.5); WHITE BLOOD COUNT 11.7 x10^3/uL (4.0-11.0)
[2019-03-31] MEDS ORDERED: fentaNYL PF VIAL 100 MCG/2 ML VIAL IV ONE (20:45)
[2019-03-31] MEDS ORDERED: ASPIRIN 325 MG TABLET PO ONE (20:45)
[2019-03-31 20:46] LABS: PROTHROMBIN TIME PATIENT 14.6 SEC (11.7-14.0)
[2019-03-31 20:52] LABS: ALBUMIN 3.3 g/dL (3.4-5.0); ALBUMIN/GLOBULIN RATIO 1.1 (1.0-1.7); CALCIUM 8.4 mg/dL (8.5-10.1); CREATININE 1.1 mg/dL (0.7-1.3); GFR 66.6; MAGNESIUM 1.4 mg/dL (1.8-2.4); POTASSIUM 5.6 mmol/L (3.5-5.1); TOTAL BILIRUBIN 0.2 mg/dL (0.2-1.0); TOTAL PROTEIN 6.4 g/dL (6.4-8.2)
--- NOTE | 2019-03-31 20:54 | RAD ---
PORTABLE CHEST 1V Clinical indications: Altered mental status. COMPARISON: March 12, 2019. Findings: No acute lung infiltrate or pleural effusion or pulmonary edema or lung mass or pneumothorax is seen. The heart size, pulmonary vasculature, mediastinum and both esa are stable. Right IJ Port-A-Cath is unchanged in position. Sternotomy is again evident. Impression: No acute radiographic abnormality is seen. Electronically signed by: Good Doan MD (03/31/2019 8:51 PM) [facility]
[2019-03-31 21:00] LABS: CREATINE KINASE 72 U/L (39-308)
[2019-03-31] MEDS ORDERED: ATROPINE 0.5 MG/5 ML DISP.SYRINGE. IV ONE (21:00)
[2019-03-31 21:20] LABS: % BANDS 3 % (0-9); % EOS 12 % (0-5); % LYMPHS 18 % (24-48); % MONOS 11 % (0-10); % SEGS 56 % (35-66)
[2019-03-31 21:23] LABS: PLT ESTIMATE ADEQUATE (ADEQUATE)
[2019-03-31] MEDS ORDERED: APIX5TAB PO (21:31)
[2019-03-31] MEDS ORDERED: AMIO200T4 PO (21:31)
[2019-03-31] MEDS ORDERED: METO-239 PO ×2 (21:31→23:52)
[2019-03-31] MEDS ORDERED: ISOS30TA4 PO (21:31)
[2019-03-31] MEDS: AMIODARONE 150 MG in IV DEXTROSE 5% 100ML 100 ML IV ONE ×2 (21:58→22:30)
[2019-03-31] MEDS ORDERED: MAGNESIUM SULFATE 2GM 50 ML IV ONE (22:00)
[2019-03-31] MEDS ORDERED: ONDANSETRON PF 4 MG/2 ML VIAL. IV PRN (22:00)
[2019-03-31] MEDS ORDERED: fentaNYL PF VIAL 100 MCG/2 ML VIAL IV PRN (22:00)
[2019-03-31 22:45] VITALS: BP 119/47
--- NOTE | 2019-03-31 22:49 | RAD ---
EXAM: CT Head without IV contrast CLINICAL HISTORY: Altered mental status, hyponatremia COMPARISON: None. TECHNIQUE: Routine CT of the head without contrast. Soft tissues and bone windows were reviewed. PQRS compliance statement - One or more of the following individualized dose reduction techniques were utilized for this study: 1. Automated exposure control 2. Adjustment of the mA and/or kV according to patient size 3. Use of iterative reconstruction technique FINDINGS: There is no evidence of hemorrhage, mass or extra-axial fluid collection. Clark-white differentiation is maintained with no evidence of edema. Diffuse hypoattenuation in the periventricular and subcortical white matter of the cerebral hemispheres. There is no mass effect or shift of the intracranial structures. The ventricles and cerebral sulci are prominent for the patients stated age consistent with generalized cerebral volume loss. The cerebellum and brainstem are unremarkable. The calvarium demonstrates no evidence of fracture or focal lesion. There is normal aeration of the visualized paranasal sinuses and mastoid air cells. The visualized portions of the orbits are normal. Atherosclerotic calcifications of the intracranial internal carotid arteries is seen. IMPRESSION: 1. No evidence for acute intracranial process. 2. Changes of generalized cerebral atrophy. 3. Changes of chronic small vessel disease. Electronically signed by: Casey Gutiérrez MD (03/31/2019 10:46 PM) [id number]
[2019-03-31 23:00] VITALS: BP 133/47
[2019-03-31] MEDS ORDERED: LIDOCAINE 1% Multi-Dose 20 ML VIAL. ONE (23:11)
[2019-03-31] MEDS ORDERED: fentaNYL PF VIAL 100 MCG/2 ML VIAL ONE (23:13)
[2019-03-31] MEDS ORDERED: MIDAZOLAM HCL/PF 2 MG/2 ML VIAL. ONE (23:14)
[2019-03-31 23:15] VITALS: BP 149/53
[2019-03-31] MEDS ORDERED: LIDOCAINE 2%/EPI 1:100,000 20 ML VIAL. ONE (23:47)
[2019-03-31] MEDS ORDERED: VANCOMYCIN 1GM IVPB FOR OMNI 250 ML ONE (23:49)
--- NOTE | 2019-03-31 23:51 | PHYS DOC ---
Past Medical History Past Medical History: CAD, Cancer, COPD, Diabetes-Type II Additional Past Medical Histor: Bladder CA, PE Past Medical History Limited due to altered mental status. Past Surgical History: Coronary Bypass Surgery Additional Past Surgical Histo: bladder cancer, ileo-conduit; ileostomy Past Surgical History Limited due to altered mental status. Additional Information: Nonsmoker Alcohol Use: None Drug Use: None Social History Limited due to altered mental status. Adult General Chief Complaint Chief Complaint: CHEST PAIN-CARDIAC NATURE HPI HPI 68 y/o male presents via EMS with report of generalized weakness, lightheadedness, and altered mental status with findings of severe bradycardia by EMS. EMS started transcutaneous pacing. EMS gave 10mg of Versed intranasally prior to transcutaneous pacing. Patient has history of CAD with CABG. Admitted to hospital in February 2019 for respiratory issues and had plan for ICD implantation due to episodes of v tach. Patient was controlled with amiodarone. [facility]. Patient currently being treated with Eliquis and was started on low dose Lopressor. History of present illness limited due to altered mental status. Review of Systems Review of Systems Constitutional: Denies fever; reports malaise, altered mental status, and generalized weakness. Respiratory: Reports cough GI: Denies abdominal pain or vomiting Skin: Reports pallor Neurologic: Reports altered mental status, lightheadedness/dizziness, and generalized weakness Review of symptoms limited due to altered mental status. Current Medications Current Medications Current Medications Medications (Trade) Dose Ordered Sig/Jennifer Start Time Stop Time Status Last Admin Dose Admin Amiodarone HCl (Cordarone) 150 mg STK-MED ONCE 03/31/19 12:00 04/03/19 11:27 DC Aspirin (Darren Aspirin) 325 mg 1X ONCE 03/31/19 20:45 03/31/19 20:46 DC 03/31/19 21:01 325 MG Atropine Sulfate (ATROPINE 0.5mg SYRINGE) 1 mg 1X ONCE 03/31/19 21:00 03/31/19 21:01 DC 03/31/19 20:32 1 MG Fentanyl Citrate (Fentanyl 2ml Vial) 50 mcg 1X ONCE 03/31/19 20:45 03/31/19 20:46 DC 03/31/19 20:17 50 MCG Sodium Chloride 1,000 ml @ 1,000 mls/hr 1X ONCE 03/31/19 20:30 03/31/19 21:29 DC 03/31/19 20:17 1,000 MLS/HR Allergies Allergies Allergies Coded Allergies Type Severity Reaction Last Updated Verified No Known Drug Allergies 03/04/19 No Physical Exam Physical Exam Constitutional: Well developed, well nourished, obtunded HENT: Normocephalic, atraumatic, nose normal Eyes: Conjunctiva normal, no discharge Neck: Normal range of motion, no tenderness, supple, no meningeal signs Cardiovascular: Heart rate bradycardic with irregular rhythm Lungs & Thorax: Bilateral breath sounds equal, diminished at bases Abdomen: Soft, no tenderness, mild distention, ileo-conduit noted Skin: Warm, pallor noted Extremities: No tenderness, ROM intact, no edema Neurologic: GCS 11 (eyes 3, verbal 3, motor 5), moves all extremities Psychologic: Affect obtunded, judgement abnormal Current Patient Data Vital Signs Vital Signs Date Time Temp Pulse Resp B/P (MAP) Pulse Ox O2 Delivery O2 Flow Rate FiO2 03/31/19 21:53 70 26 153/61 (91) 100 Nasal Cannula 2.0 03/31/19 20:07 96.6 96.6 Lab Values Laboratory Tests Test 03/31/19 20:23 White Blood Count 11.7 x10^3/uL (4.0-11.0) H Red Blood Count 3.55 x10^6/uL (4.30-5.70) L Hemoglobin 10.4 g/dL (13.0-17.5) L Hematocrit 31.2 % (39.0-53.0) L Mean Corpuscular Volume 88 fL (79-100) Mean Corpuscular Hemoglobin 29 pg (25-35) Mean Corpuscular Hemoglobin Concent 33 g/dL (31-37) Red Cell Distribution Width 15.3 % (11.5-14.5) H Platelet Count 219 x10^3/uL (140-400) Neutrophils (%) (Auto) 63 % (31-73) Lymphocytes (%) (Auto) 16 % (24-48) L Monocytes (%) (Auto) 8 % (0-9) Eosinophils (%) (Auto) 12 % (0-3) H Basophils (%) (Auto) 1 % (0-3) Neutrophils # (Auto) 7.4 x10^3uL (1.8-7.7) Lymphocytes # (Auto) 1.9 x10^3/uL (1.0-4.8) Monocytes # (Auto) 0.9 x10^3/uL (0.0-1.1) Eosinophils # (Auto) 1.4 x10^3/uL (0.0-0.7) H Basophils # (Auto) 0.1 x10^3/uL (0.0-0.2) Segmented Neutrophils % 56 % (35-66) Band Neutrophils % 3 % (0-9) Lymphocytes % 18 % (24-48) L Monocytes % 11 % (0-10) H Eosinophils % 12 % (0-5) H Platelet Estimate Adequate (ADEQUATE) Prothrombin Time 14.6 SEC (11.7-14.0) H Prothrombin Time INR 1.2 (0.8-1.1) H Sodium Level 120 mmol/L (136-145) *L Potassium Level 5.6 mmol/L (3.5-5.1) H Chloride Level 88 mmol/L (98-107) L Carbon Dioxide Level 26 mmol/L (21-32) Anion Gap 6 (6-14) Blood Urea Nitrogen 23 mg/dL (8-26) Creatinine 1.1 mg/dL (0.7-1.3) Estimated GFR (Cockcroft-Gault) 66.6 BUN/Creatinine Ratio 21 (6-20) H Glucose Level 173 mg/dL (70-99) H Calcium Level 8.4 mg/dL (8.5-10.1) L Magnesium Level 1.4 mg/dL (1.8-2.4) L Total Bilirubin 0.2 mg/dL (0.2-1.0) Aspartate Amino Transferase (AST) 16 U/L (15-37) Alanine Aminotransferase (ALT) 21 U/L (16-63) Alkaline Phosphatase 69 U/L (46-116) Creatine Kinase 72 U/L (39-308) Creatine Kinase MB (Mass) 4.7 ng/mL (0.0-3.6) H Creatine Kinase MB Relative Index % (0-4) Troponin I Quantitative < 0.017 ng/mL (0.000-0.055) XJ-[id number]-S-Type Natriuretic Peptide 947 pg/mL (0-124) H Total Protein 6.4 g/dL (6.4-8.2) Albumin 3.3 g/dL (3.4-5.0) L Albumin/Globulin Ratio 1.1 (1.0-1.7) Lipase 135 U/L (73-393) Laboratory Tests 03/31/19 20:23 Laboratory Tests 03/31/19 20:23 EKG EKG @3 Significant bradycardia at 40bpm, NO ST elevation, no p wave noted @7 Significant bradycardia at 33bpm, NO ST elevation, no p wave noted @2032 Bradycardia at 56bpm s/p atropine 1mg, NO ST elevation no p wave noted @2150 Intraventricular block at 69bpm s/p dopamine gtt, NO ST elevation @2152 Vtach at 117bpm on dopamine gtt Radiology/Procedures Radiology/Procedures PROCEDURE: PORTABLE CHEST 1V PORTABLE CHEST 1V Clinical indications: Altered mental status. COMPARISON: March 12, 2019. Findings: No acute lung infiltrate or pleural effusion or pulmonary edema or lung mass or pneumothorax is seen. The heart size, pulmonary vasculature, mediastinum and both esa are stable. Right IJ Port-A-Cath is unchanged in position. Sternotomy is again evident. Impression: No acute radiographic abnormality is seen. Electronically signed by: Good Doan MD (03/31/2019 8:51 PM) [facility] PROCEDURE: CT HEAD WO CONTRAST EXAM: CT Head without IV contrast CLINICAL HISTORY: Altered mental status, hyponatremia COMPARISON: None. TECHNIQUE: Routine CT of the head without contrast. Soft tissues and bone windows were reviewed. PQRS compliance statement - One or more of the following individualized dose reduction techniques were utilized for this study: 1. Automated exposure control 2. Adjustment of the mA and/or kV according to patient size 3. Use of iterative reconstruction technique FINDINGS: There is no evidence of hemorrhage, mass or extra-axial fluid collection. Clark-white differentiation is maintained with no evidence of edema. Diffuse hypoattenuation in the periventricular and subcortical white matter of the cerebral hemispheres. There is no mass effect or shift of the intracranial structures. The ventricles and cerebral sulci are prominent for the patients stated age consistent with generalized cerebral volume loss. The cerebellum and brainstem are unremarkable. The calvarium demonstrates no evidence of fracture or focal lesion. There is normal aeration of the visualized paranasal sinuses and mastoid air cells. The visualized portions of the orbits are normal. Atherosclerotic calcifications of the intracranial internal carotid arteries is seen. IMPRESSION: 1. No evidence for acute intracranial process. 2. Changes of generalized cerebral atrophy. 3. Changes of chronic small vessel disease. Electronically signed by: Casey Gutiérrez MD (03/31/2019 10:46 PM) [facility] Course & Med Decision Making Course & Med Decision Making Pertinent Labs and Imaging studies reviewed. (See chart for details) Patient presents with altered mental status with weakness and lightheadedness who was found in severe symptomatic bradycardia requiring external pacing by EMS. EMS had also given Versed 10mg intranasally prior to external pacing. Patient protecting airway. Atropine given with initial improvement of heart rate and mental status. Patient however noted to be significantly hypotensive. Dopamine drip therefore initiated. Multiple EKGs obtained during this time. Labs obtained and posted to chart. Patient noted to have severe hyponatremia. Normal saline IV fluid provided. Initial troponin within normal limits. Hypomagnesemia addressed. During ED stay on dopamine drip patient noted to have runs of V. tach. Dopamine therefore started to be weaned. Continued runs of V. tach noted. Patient therefore given IV bolus of amiodarone. 2144- Discussed case with Dr. Coronado (cardiology) who also interpreted EKGs and recommends weaning off dompamine and plan to take patient to boat laborer for transvenous pacemaker. Patient requiring ICU admission for further evaluation and treatment. Discussed with Dr. Jay (hospitalist) who is in agreement with admission. Discussed findings and plan with patient and family, who acknowledge understanding and agreement. Dragon Disclaimer Dragon Disclaimer This electronic medical record was generated, in whole or in part, using a voice recognition dictation system. Departure Departure Impression: Primary Impression: Symptomatic bradycardia Additional Impressions: Hypotension Hyponatremia Hypomagnesemia Disposition: 09 ADMITTED INPATIENT Admitting Physician: Jose Alejandro Jay Condition: GUARDED Referrals: IBIS SAHU APRN (PCP) Scripts Lisinopril (LISINOPRIL) 5 Mg Tablet 5 MG PO DAILY for chf for 30 Days, #30 TAB Prov: TAMMY ULRICH MD 04/05/19 Metoprolol Tartrate (METOPROLOL TARTRATE) 25 Mg Tablet 25 MG PO BID for chf for 30 Days, #60 TAB Prov: TAMMY ULRICH MD 04/05/19 Critical Care Time Critical care time was 45 minutes which includes time at bedside, spent in discussion of patient's care with specialists and/or family members, with interpretation of laboratory and/or radiological studies and is exclusive of procedures. The HEART Score for CP Pts HEART Score for Chest Pain: HEART Score for Chest Pain Response (Comments) Value History Moderately Suspicious 1 ECG Nonspecific Repolarizatio 1 Age > 65 2 Risk Factors >3 Risk Factors or Hx CAD 2 Troponin < Normal Limit 0 Total 6 Risk Factors: Risk Factors: DM, Current or recent (<one month) smoker, HTN, HLP, family hi story of CAD, obesity. Risk Scores: Score 0 - 3: 2.5% MACE over next 6 weeks - Discharge Home Score 4 - 6: 20.3% MACE over next 6 weeks - Admit for Clinical Observation Score 7 - 10: 72.7% MACE over next 6 weeks - Early Invasive Strategies Problem Qualifiers Additional Impressions: Hypotension Hypotension type: unspecified hypotension type Qualified Codes: I95.9 - Hypotension, unspecified EDIL MEDRANO DO March 31, 2019 23:50
[2019-03-31] MEDS ORDERED: AMIODARONE 150 MG/3 ML VIAL ONE (23:52)
--- NOTE | 2019-03-31 23:52 | CONS ---
DATE OF CONSULTATION: 03/31/2019 REASON FOR CONSULTATION: Bradycardia and high-grade AV block. HISTORY OF PRESENT ILLNESS: The patient is a 68-year-old man with a prior history of coronary artery disease, status post CABG and hypertension, who was actually admitted at the end of February due to various issues, including respiratory failure. Ultimately, after initial evaluation with a cardiac catheterization revealed one of the 3 grafts patent, he was treated with medical therapy and advised to consider outpatient ICD implantation for episodes of ventricular tachycardia that were responsive to amiodarone while hospitalized. Since discharge from the hospital, he apparently had been in his usual state of health and was recovering nicely, when he was noted to have some lightheadedness and dizziness and ultimately, he was brought back to the ER and noted to have severe bradycardia. Of note, he was also diagnosed apparently at recently with a pulmonary embolus and has been on anticoagulation for this as well with Eliquis over the last few days. He is on low-dose metoprolol, likely for prior history of ventricular tachycardia which he only took one dose of after being prescribed it by his [place] manager discovery. PAST MEDICAL HISTORY: 1. Coronary artery disease s/p CABG with cath in 2019 showing 1/3 grafts patent. 2. Hypertension. 3. Chronic kidney disease. 4. Dyslipidemia. 5. Bladder cancer with ileal conduit, s/p chemotherapy. SOCIAL HISTORY: No alcohol, tobacco or illicit drug use. FAMILY HISTORY: Noncontributory. ALLERGIES: No known drug allergies. CURRENT CARDIOVASCULAR MEDICATIONS: Dopamine drip. At home was on eliquis, metoprol 25mg XL and imdur 30mg daily REVIEW OF SYSTEMS: Negative for 10 out of 14 systems reviewed, unless otherwise mentioned above in the HPI. PHYSICAL EXAMINATION: VITAL SIGNS: Afebrile, heart rate 38, blood pressure 84/47, respiratory rate 30 and pulse ox 100% on 2 liters. GENERAL: He is alert and oriented to person and place and time. He is in moderate distress due to cough and back pain. HEAD AND NECK EXAMINATION: Unremarkable, except for a right IJ port. NEUROLOGIC: Sleepy but easily arousable. CARDIOVASCULAR: Irregular rhythm, without any murmurs, rubs or gallops. LUNGS: Decreased breath sounds at the bases. ABDOMEN: Soft, mild distention. EXTREMITIES: No obvious cyanosis. Diminished pulses in the radial and pedal area. MUSCULOSKELETAL: No obvious trauma. DIAGNOSTIC STUDIES: EKG demonstrates a high-grade AV block with junctional escape rhythm and a heart rate of 30. Hemoglobin 10.4 and platelets 219,000. INR 1.2. Sodium 120, which is significantly decreased since his last admission at 140. Troponin is negative x 1 and the BNP is less than 1000. Chest x-ray is otherwise unremarkable and a head CT shows no acute evidence of intracranial process. IMPRESSION: 1. High-grade atrioventricular block with intermittent ventricular tachycardia, with known history of ischemic cardiomyopathy. 2. Hypertension. 3. Dyslipidemia. 4. Prostate cancer. 5. Recent diagnosis of P.E at [facility]. RECOMMENDATIONS: Given that he is requiring vasopressor support for his bradycardia and this has resulted in ventricular tachycardia, he would be best treated with a temporary pacemaker at this time so that he may be completely weaned off the vasopressors. On a non-emergent basis, we will plan for possible ICD implantation for his non- sustained ventricular tachycardia. We will await resolution of his metabolic abnormalities prior to proceeding and also allow for his anticoagulation to dissipate off. No eliquis today. Plan for initiation of low dose heparin gtt without bolus tomorrow for recent diagnosis of P.E. After ICD, transition back to eliquis. Thank you for this consultation. GALILEO KNIGHT MD DR: REG/rahul JOB#: [id number] / [id number] TRAVON
[2019-03-31 23:53] VITALS: BP 170/68
[2019-04-01] VITALS (27 sets, daily range): BP systolic 81–162; BP diastolic 53–93
[2019-04-01] MEDS ORDERED: AMIODARONE 150 MG in IV DEXTROSE 5% 100ML 100 ML IV ONE (00:30)
[2019-04-01] MEDS ORDERED: VANCOMYCIN 1GM IVPB FOR OMNI 250 ML IV ONE (00:30)
[2019-04-01] MEDS ORDERED: LIDOCAINE 2%/EPI 1:100,000 20 ML VIAL. IJ ONE (00:30)
[2019-04-01] MEDS ORDERED: LIDOCAINE 1% Multi-Dose 20 ML VIAL. INJ ONE (00:30)
[2019-04-01] MEDS ORDERED: fentaNYL PF VIAL 100 MCG/2 ML VIAL IV ONE (00:30)
[2019-04-01] MEDS ORDERED: METOPROLOL TARTRATE 5 MG/5 ML VIAL. IVP PRN (00:30)
--- NOTE | 2019-04-01 00:31 | NUR ---
called report to Fatoumata KAPOOR regarding pt's new temporary pacemaker in left IJ, meds given during procedure and status update. pacemaker is set at 40cm .
[2019-04-01] MEDS ORDERED: AMIODARONE 900 MG in IV DEXTROSE 5% 500 ML IV PRN ×2 (01:00→19:30)
[2019-04-01] MEDS: ALBUTEROL SULFATE 2.5 MG/3 ML NEBU. NEB PRN (02:06)
[2019-04-01] MEDS: IV NORMAL SALINE 1000ML BAG 1,000 ML IV SCH ×2 (02:10→23:46)
[2019-04-01] MEDS ORDERED: hydrALAZINE 20 MG/ML VIAL. IVP PRN (02:15)
--- NOTE | 2019-04-01 02:29 | NUR ---
This nurse received pt at approx. 2300 from ED. Pt a/o x4, but drowsy. Pt in junctional or afib rhythm. Rhythm irregular in the 40's with no P wave present or distinguishable. Pt family, and son, at bedside. Pt was at Tuesday for PE and DC on Tuesday. Pt seen at [facility] on Tuesday. Conductor/Engineer, Dr. Hubbard, from [facility], discontinued medications; metoprolol tar., nitro, and cardizem. Pt started on metoprolol suc, eliquis, and isosorbide. Pt taken at 2327 to paving and surfacing labourer for external pacemaker. Pt received back from paving and surfacing labourer at approx. 0045. Amio gtt started per Cliff and Dopamine gtt stopped. Pt more SOA, placed on 3L NC. Dr. Jay was called. Orders received for ativan, breathing tx, and NS for hyponatremia. Pt pacing and sensing correctly. Will continue to monitor closely.
[2019-04-01 06:35] LABS: CHOLESTEROL/HDL RATIO 2.3
[2019-04-01 08:44] LABS: HEMATOCRIT 28.9 % (39.0-53.0); HEMOGLOBIN 9.7 g/dL (13.0-17.5); RED BLOOD COUNT 3.28 x10^6/uL (4.30-5.70); RED CELL DISTRIBUTION WIDTH 15.7 % (11.5-14.5); WHITE BLOOD COUNT 9.8 x10^3/uL (4.0-11.0)
[2019-04-01 08:55] LABS: CALCIUM 8.4 mg/dL (8.5-10.1); CREATININE 0.8 mg/dL (0.7-1.3); GFR 96.1; POTASSIUM 4.3 mmol/L (3.5-5.1)
--- NOTE | 2019-04-01 10:24 | PDOC ---
CARDIOLOGY PROGRESS NOTE SUBJECTIVE: No acute events overnight. No further VT. OBJECTIVE: Vital SIgns: Vital Signs Date Time Temp Pulse Resp B/P (MAP) Pulse Ox O2 Delivery O2 Flow Rate FiO2 04/01/19 09:00 86 14 99/56 (70) 95 Room Air 04/01/19 08:00 98.1 98.1 04/01/19 07:00 2.0 I & O Intake and Output 04/01/19 07:00 Intake Total 1828 ml Output Total 1175 ml Balance 653 ml Intake Oral 100 ml IV Total 1728 ml Output Urine Total 1175 ml Objective: A/O x 3. NAD No m/r/g Lungs clr. Soft abd No edema. Left sided pacemaker site is c/d/i. CURRENT MEDICATIONS: Amiodarone gtt DIAGNOSTIC TESTING: EKG - Paced rhythm Patient's underlying heart rhythm is asystole. ASSESSMENT: 1. Ischemic CMP 2. CAD s/p cABG 3. High grade AVB with SSS and NSVT 4. Hyponatremia. 5. P.E PLAN: 1. Given asystole as underlying rhythm, will stop amiodarone. 2. Have atropine/epi at bedside. 3. Pacer set at 80 bpm. 4. He will likely need a BiV ICD due to the fact that he will be lifetime dependent on pacing due to underlying asystole. Will plan for this tuesday, unless the need arises for it to be done earlier. 5. Restart low dose heparin gtt this evening for his P.E. Discussed with , patient and nursing staff. GALILEO KNIGHT MD April 01, 2019 10:24
[2019-04-01] MEDS: oxyCODONE/APAP 5/325 1 TAB TABLET PO PRN (11:32)
--- NOTE | 2019-04-01 13:31 | PDOC1 ---
History and Physical Date of Admission: Date of Admission DATE: 04/01/19 TIME: 13:28 Chief Complaint: Problems: (1) Hypoxia (2) COPD exacerbation (3) Symptomatic bradycardia (4) Hypomagnesemia (5) Hyponatremia (6) Hypotension Chief Complain: Weakness shortness of breath bradycardia mental status change History of Present Illness: HPI: Patient is a pleasant middle-aged white male who we had in the hospital within the past week or 2 He has known symptomatic bradycardia and in fact had a LifeVest at home His states he became weak she notices heart rate was quite low a just wasn't affect is good also She brought him back to the hospital last night He was noted be extremely bradycardic Cardiology team was called and the patient went for emergent temporary pacemaker Tomorrow he is going for a AICD is currently being examined in the ICU where his family is present Past Medical/Surgical History: PMH/PSH: Past Medical History: CAD, Cancer, COPD, Diabetes-Type II Additional Past Medical Histor: Bladder CA, PE Past Surgical History: Coronary Bypass Surgery Additional Past Surgical Histo: bladder cancer, ileo-conduit; ileostomy Allergies: Allergies: Coded Allergies: No Known Drug Allergies (Unverified , 03/04/19) Family History: Family History: CAD Social History: Social Hisoty: He does not drink smoke or take drugs he is Current Medications: Current Medications Current Medications Aspirin (Darren Aspirin) 325 mg 1X ONCE PO Last administered on 03/31/19at 21:01; Start 03/31/19 at 20:45; Stop 03/31/19 at 20:46; Status DC Sodium Chloride 1,000 ml @ 1,000 mls/hr 1X ONCE IV Last administered on 03/31/19at 20:17; Start 03/31/19 at 20:30; Stop 03/31/19 at 21:29; Status DC Fentanyl Citrate (Fentanyl 2ml Vial) 50 mcg 1X ONCE IV Last administered on 03/31/19at 20:17; Start 03/31/19 at 20:45; Stop 03/31/19 at 20:46; Status DC Atropine Sulfate (ATROPINE 0.5mg SYRINGE) 1 mg 1X ONCE IV Last administered on 03/31/19at 20:32; Start 03/31/19 at 21:00; Stop 03/31/19 at 21:01; Status DC Dopamine HCl/ Dextrose 250 ml @ 5.171 mls/ hr 1X ONCE IV Last administered on 03/31/19at 21:18; Start 03/31/19 at 22:00; Stop 04/01/19 at 02:13; Status DC Magnesium Sulfate 50 ml @ 25 mls/hr 1X ONCE IV Last administered on 03/31/19at 21:20; Start 03/31/19 at 22:00; Stop 03/31/19 at 23:59; Status DC Ondansetron HCl (Zofran) 4 mg PRN Q8HRS PRN IV NAUSEA/VOMITING 1ST CHOICE; Start 03/31/19 at 22:00; Stop 04/01/19 at 21:59 Fentanyl Citrate (Fentanyl 2ml Vial) 50 mcg PRN Q1HR PRN IV SEVERE PAIN; Start 03/31/19 at 22:00; Stop 04/01/19 at 21:59 Amiodarone HCl 150 mg/Dextrose 103 ml @ 618 mls/hr 1X ONCE IV Last administered on 03/31/19at 21:58; Start 03/31/19 at 22:30; Stop 03/31/19 at 22:39; Status DC Lidocaine HCl (Lidocaine 1% 20ml Vial) 20 ml STK-MED ONCE .ROUTE ; Start at 23:11; Stop 03/31/19 at 23:12; Status DC Heparin Sodium/ Sodium Chloride 500 ml @ As Directed STK-MED ONCE .ROUTE ; Start 03/31/19 at 23:12; Stop 03/31/19 at 23:13; Status DC Fentanyl Citrate (Fentanyl 2ml Vial) 100 mcg STK-MED ONCE .ROUTE ; Start 03/31/19 at 23:13; Stop 03/31/19 at 23:14; Status DC Midazolam HCl (Versed) 2 mg STK-MED ONCE .ROUTE ; Start 03/31/19 at 23:14; Stop 03/31/19 at 23:15; Status DC Lidocaine/ Epinephrine (LIDOCAINE 2%-EPI 1:100,000 multi-dose) 20 ml STK-MED ONCE .ROUTE ; Start 03/31/19 at 23:47; Stop 03/31/19 at 23:48; Status DC Vancomycin HCl 250 ml @ As Directed STK-MED ONCE .ROUTE ; Start 03/31/19 at 23:49; Stop 03/31/19 at 23:50; Status DC Amiodarone HCl (Cordarone) 150 mg STK-MED ONCE .ROUTE ; Start 03/31/19 at 23:52; Stop 03/31/19 at 23:53; Status DC Lidocaine/ Epinephrine (LIDOCAINE 2%-EPI 1:100,000 multi-dose) 20 ml 1X ONCE IJ Last administered on 04/01/19at 00:22; Start 04/01/19 at 00:30; Stop 04/01/19 at 00:31; Status DC Vancomycin HCl 250 ml @ 250 mls/hr 1X ONCE IV Last administered on 04/01/19at 00:25; Start 04/01/19 at 00:30; Stop 04/01/19 at 01:29; Status DC Lidocaine HCl (Lidocaine 1% 20ml Vial) 20 ml 1X ONCE INJ Last administered on 04/01/19at 00:23; Start 04/01/19 at 00:30; Stop 04/01/19 at 00:31; Status DC Amiodarone HCl 150 mg/Dextrose 103 ml @ 0 mls/hr 1X ONCE IV Last administered on 04/01/19at 00:23; Start 04/01/19 at 00:30; Stop 04/01/19 at 00:31; Status DC Fentanyl Citrate (Fentanyl 2ml Vial) 50 mcg 1X ONCE IV Last administered on 04/01/19at 00:25; Start 04/01/19 at 00:30; Stop 04/01/19 at 00:31; Status DC Amiodarone HCl 900 mg/Dextrose 518 ml @ 0 mls/hr CONT PRN IV SEE I/O RECORD Last administered on 04/01/19at 01:17; Start 04/01/19 at 01:00; Stop 04/01/19 at 01:18; Status DC Metoprolol Tartrate (Lopressor Vial) 5 mg PRN Q5MIN PRN IVP TACHYCARDIA; Start 04/01/19 at 00:30 Lorazepam (Ativan Inj) 1 mg PRN Q4HRS PRN IV ANXIETY / AGITATION Last administered on 04/01/19at 02:09; Start 04/01/19 at 02:00 Albuterol Sulfate (Ventolin Neb Soln) 2.5 mg PRN Q4HRS PRN NEB SHORTNESS OF BREATH Last administered on 04/01/19at 02:06; Start 04/01/19 at 02:00 Sodium Chloride 1,000 ml @ 50 mls/hr Q20H IV Last administered on 04/01/19at 02:10; Start 04/01/19 at 02:00 Hydralazine HCl (Apresoline Inj) 10 mg PRN Q4HRS PRN IVP ELEVATED BP, SEE COMMENTS; Start 04/01/19 at 02:15 Oxycodone/ Acetaminophen (Percocet 5/325) 1 tab PRN QID PRN PO PAIN Last administered on 04/01/19at 11:32; Start 04/01/19 at 11:15 Active Scripts Active Reported Eliquis (Apixaban) 5 Mg Tablet 10 Mg PO BID 7 Days 10mg BID x7 days(03/30 start date), then 5mg BID after Metoprolol Succinate ( Xl ) (Metoprolol Succinate) 25 Mg Tab.er.24h 12.5 Mg PO DAILY Eliquis (Apixaban) 5 Mg Tablet 5 Mg PO Metoprolol Succinate ( Xl ) (Metoprolol Succinate) 25 Mg Tab.er.24h 1 Tab PO DAILY Isosorbide Mononitrate Er (Isosorbide Mononitrate) 30 Mg Tab.er.24h 1 Tab PO DAILY Amiodarone Hcl 200 Mg Tablet 1 Tab PO DAILY Timoptic 0.5% (Timolol Maleate) 10 Ml Drops 1 Drop EACHEYE BID Senna-S Tablet (Sennosides/Docusate Sodium) 1 Each Tablet 1 Each PO BID Onglyza (Saxagliptin Hcl) 5 Mg Tablet 1 Tab PO DAILY Crestor (Rosuvastatin Calcium) 20 Mg Tablet 20 Mg PO HS Miralax (Polyethylene Glycol 3350) 17 Gm Powd.pack 1 Packet PO DAILY Percocet 5-325 Mg Tablet (Oxycodone/Acetaminophen) 1 Each Tablet 1 Tab PO QID PRN Oxycodone Hcl Immed.release (Oxycodone Hcl) 5 Mg Tablet 5 Mg PO PRN Q4HRS PRN take 1 to 3 tabs Q4H prn Metformin Hcl 500 Mg Tablet 500 Mg PO DAILYWSUP Metformin Hcl 1,000 Mg Tablet 1,000 Mg PO DAILYWBKFT Meloxicam 15 Mg Tablet 1 Tab PO NOON Lisinopril 20 Mg Tablet 1 Tab PO DAILY Xalatan (Latanoprost) 2.5 Ml Drops 1 Drop EACHEYE QHS Gabapentin (Gabapentin) 300 Mg Capsule 900 Mg PO TID Docusate Sodium 100 Mg Capsule 1 Cap PO BID Restasis (Cyclosporine) 1 Each Droperette 1 Drop EACHEYE BID Refresh Optive Eye Drops (Carboxymethylcellulos/Glycerin) 15 Ml Drops 1 Drop EACHEYE QID PRN Wellbutrin Sr (Bupropion Hcl) 100 Mg Tablet.er 1 Tab PO BID Aspirin Ec (Aspirin) 81 Mg Tablet.dr 1 Tab PO DAILY Simbrinza 1%-0.2% Eye Drops (Brinzolamide/Brimonid Tart) 8 Ml Drops.susp 8 Ml OP BID ROS: Review of Systems Review of System REVIEW OF SYSTEMS: GENERAL: Complains of severe weakness SKIN: No bruising, hair changes or rashes. EYES: No blurred, double or loss of vision. NOSE AND THROAT: No history of nosebleeds, hoarseness or sore throat. HEART: Complains of bradycardia LUNGS: Denies cough, hemoptysis, wheezing or shortness of breath. GASTROINTESTINAL: Denies changes in appetite, nausea, vomiting, diarrhea or constipation. GENITOURINARY: No history of frequency, urgency, hesitancy or nocturia. NEUROLOGIC: Denies history of numbness, tingling, tremor or weakness. PSYCHIATRIC: No history of panic, anxiety or depression. ENDOCRINE: No history of heat or cold intolerance, polyuria or polydipsia. EXTREMITIES: Denies muscle weakness, joint pain, pain on walking or stiffness. Physical Exam: Vital Signs: Vital Signs Date Time Temp Pulse Resp B/P (MAP) Pulse Ox O2 Delivery O2 Flow Rate FiO2 04/01/19 12:32 Room Air 04/01/19 12:00 97.9 77 16 131/61 (84) 96 97.9 04/01/19 07:00 2.0 Physcial Exam: GEN.: Extremely weak HEENT: Head is normocephalic, atraumatic NECK: Supple, no JVD LUNGS: Clear to auscultation without rhonchi or wheezing HEART: RRR, S1, S2 present. Peripheral pulses intact. Has a temporary pacer in place ABDOMEN: Soft, nontender. Positive bowel sounds no organomegaly EXTREMITIES: Without any cyanosis, clubbing, or edema. Pedal pulses intact NEUROLOGIC: Normal speech, normal tone. A&O x 3 PSYCHIATRIC: Normal affect, normal mood. Stable SKIN: No ulcerations or rashes VASCULAR: Good capillary refill HEENT: He has a temporary pacer inserted at the left internal carotid Labs: Labs: Laboratory Tests Test 03/31/19 20:23 04/01/19 06:00 04/01/19 08:25 04/01/19 12:43 White Blood Count 11.7 x10^3/uL (4.0-11.0) 9.8 x10^3/uL (4.0-11.0) Red Blood Count 3.55 x10^6/uL (4.30-5.70) 3.28 x10^6/uL (4.30-5.70) Hemoglobin 10.4 g/dL (13.0-17.5) 9.7 g/dL (13.0-17.5) Hematocrit 31.2 % (39.0-53.0) 28.9 % (39.0-53.0) Mean Corpuscular Volume 88 fL (79-100) 88 fL (79-100) Mean Corpuscular Hemoglobin 29 pg (25-35) 30 pg (25-35) Mean Corpuscular Hemoglobin Concent 33 g/dL (31-37) 34 g/dL (31-37) Red Cell Distribution Width 15.3 % (11.5-14.5) 15.7 % (11.5-14.5) Platelet Count 219 x10^3/uL (140-400) 162 x10^3/uL (140-400) Neutrophils (%) (Auto) 63 % (31-73) Lymphocytes (%) (Auto) 16 % (24-48) Monocytes (%) (Auto) 8 % (0-9) Eosinophils (%) (Auto) 12 % (0-3) Basophils (%) (Auto) 1 % (0-3) Neutrophils # (Auto) 7.4 x10^3uL (1.8-7.7) Lymphocytes # (Auto) 1.9 x10^3/uL (1.0-4.8) Monocytes # (Auto) 0.9 x10^3/uL (0.0-1.1) Eosinophils # (Auto) 1.4 x10^3/uL (0.0-0.7) Basophils # (Auto) 0.1 x10^3/uL (0.0-0.2) Segmented Neutrophils % 56 % (35-66) Band Neutrophils % 3 % (0-9) Lymphocytes % 18 % (24-48) Monocytes % 11 % (0-10) Eosinophils % 12 % (0-5) Platelet Estimate Adequate (ADEQUATE) Prothrombin Time 14.6 SEC (11.7-14.0) Prothromb Time International Ratio 1.2 (0.8-1.1) Sodium Level 120 mmol/L (136-145) 125 mmol/L (136-145) Potassium Level 5.6 mmol/L (3.5-5.1) 4.3 mmol/L (3.5-5.1) Chloride Level 88 mmol/L (98-107) 92 mmol/L (98-107) Carbon Dioxide Level 26 mmol/L (21-32) 24 mmol/L (21-32) Anion Gap 6 (6-14) 9 (6-14) Blood Urea Nitrogen 23 mg/dL (8-26) 19 mg/dL (8-26) Creatinine 1.1 mg/dL (0.7-1.3) 0.8 mg/dL (0.7-1.3) Estimated GFR (Cockcroft-Gault) 66.6 96.1 BUN/Creatinine Ratio 21 (6-20) Glucose Level 173 mg/dL (70-99) 121 mg/dL (70-99) Calcium Level 8.4 mg/dL (8.5-10.1) 8.4 mg/dL (8.5-10.1) Magnesium Level 1.4 mg/dL (1.8-2.4) 2.1 mg/dL (1.8-2.4) Total Bilirubin 0.2 mg/dL (0.2-1.0) Aspartate Amino Transf (AST/SGOT) 16 U/L (15-37) Alanine Aminotransferase (ALT/SGPT) 21 U/L (16-63) Alkaline Phosphatase 69 U/L (46-116) Creatine Kinase 72 U/L (39-308) Creatine Kinase MB (Mass) 4.7 ng/mL (0.0-3.6) Creatine Kinase MB Relative Index % (0-4) Troponin I Quantitative < 0.017 ng/mL (0.000-0.055) 0.111 ng/mL (0.000-0.055) FJ-Zrh-K-Type Natriuretic Peptide 947 pg/mL (0-124) Total Protein 6.4 g/dL (6.4-8.2) Albumin 3.3 g/dL (3.4-5.0) Albumin/Globulin Ratio 1.1 (1.0-1.7) Lipase 135 U/L (73-393) Triglycerides Level 154 mg/dL (0-150) Cholesterol Level 117 mg/dL (0-200) LDL Cholesterol, Calculated 34 mg/dL (0-100) VLDL Cholesterol, Calculated 31 mg/dL (0-40) Non-HDL Cholesterol Calculated 65 mg/dL (0-129) HDL Cholesterol 52 mg/dL (40-60) Cholesterol/HDL Ratio 2.3 Glucose (Fingerstick) 152 mg/dL (70-99) Laboratory Tests Test 03/31/19 20:23 04/01/19 06:00 04/01/19 08:25 04/01/19 12:43 White Blood Count 11.7 x10^3/uL (4.0-11.0) 9.8 x10^3/uL (4.0-11.0) Red Blood Count 3.55 x10^6/uL (4.30-5.70) 3.28 x10^6/uL (4.30-5.70) Hemoglobin 10.4 g/dL (13.0-17.5) 9.7 g/dL (13.0-17.5) Hematocrit 31.2 % (39.0-53.0) 28.9 % (39.0-53.0) Mean Corpuscular Volume 88 fL (79-100) 88 fL (79-100) Mean Corpuscular Hemoglobin 29 pg (25-35) 30 pg (25-35) Mean Corpuscular Hemoglobin Concent 33 g/dL (31-37) 34 g/dL (31-37) Red Cell Distribution Width 15.3 % (11.5-14.5) 15.7 % (11.5-14.5) Platelet Count 219 x10^3/uL (140-400) 162 x10^3/uL (140-400) Neutrophils (%) (Auto) 63 % (31-73) Lymphocytes (%) (Auto) 16 % (24-48) Monocytes (%) (Auto) 8 % (0-9) Eosinophils (%) (Auto) 12 % (0-3) Basophils (%) (Auto) 1 % (0-3) Neutrophils # (Auto) 7.4 x10^3uL (1.8-7.7) Lymphocytes # (Auto) 1.9 x10^3/uL (1.0-4.8) Monocytes # (Auto) 0.9 x10^3/uL (0.0-1.1) Eosinophils # (Auto) 1.4 x10^3/uL (0.0-0.7) Basophils # (Auto) 0.1 x10^3/uL (0.0-0.2) Segmented Neutrophils % 56 % (35-66) Band Neutrophils % 3 % (0-9) Lymphocytes % 18 % (24-48) Monocytes % 11 % (0-10) Eosinophils % 12 % (0-5) Platelet Estimate Adequate (ADEQUATE) Prothrombin Time 14.6 SEC (11.7-14.0) Prothromb Time International Ratio 1.2 (0.8-1.1) Sodium Level 120 mmol/L (136-145) 125 mmol/L (136-145) Potassium Level 5.6 mmol/L (3.5-5.1) 4.3 mmol/L (3.5-5.1) Chloride Level 88 mmol/L (98-107) 92 mmol/L (98-107) Carbon Dioxide Level 26 mmol/L (21-32) 24 mmol/L (21-32) Anion Gap 6 (6-14) 9 (6-14) Blood Urea Nitrogen 23 mg/dL (8-26) 19 mg/dL (8-26) Creatinine 1.1 mg/dL (0.7-1.3) 0.8 mg/dL (0.7-1.3) Estimated GFR (Cockcroft-Gault) 66.6 96.1 BUN/Creatinine Ratio 21 (6-20) Glucose Level 173 mg/dL (70-99) 121 mg/dL (70-99) Calcium Level 8.4 mg/dL (8.5-10.1) 8.4 mg/dL (8.5-10.1) Magnesium Level 1.4 mg/dL (1.8-2.4) 2.1 mg/dL (1.8-2.4) Total Bilirubin 0.2 mg/dL (0.2-1.0) Aspartate Amino Transf (AST/SGOT) 16 U/L (15-37) Alanine Aminotransferase (ALT/SGPT) 21 U/L (16-63) Alkaline Phosphatase 69 U/L (46-116) Creatine Kinase 72 U/L (39-308) Creatine Kinase MB (Mass) 4.7 ng/mL (0.0-3.6) Creatine Kinase MB Relative Index % (0-4) Troponin I Quantitative < 0.017 ng/mL (0.000-0.055) 0.111 ng/mL (0.000-0.055) QL-Ttl-U-Type Natriuretic Peptide 947 pg/mL (0-124) Total Protein 6.4 g/dL (6.4-8.2) Albumin 3.3 g/dL (3.4-5.0) Albumin/Globulin Ratio 1.1 (1.0-1.7) Lipase 135 U/L (73-393) Triglycerides Level 154 mg/dL (0-150) Cholesterol Level 117 mg/dL (0-200) LDL Cholesterol, Calculated 34 mg/dL (0-100) VLDL Cholesterol, Calculated 31 mg/dL (0-40) Non-HDL Cholesterol Calculated 65 mg/dL (0-129) HDL Cholesterol 52 mg/dL (40-60) Cholesterol/HDL Ratio 2.3 Glucose (Fingerstick) 152 mg/dL (70-99) Images: Images No acute changes on chest x-ray Assessment/Plan Assessment/Plan Symptomatic bradycardia High-grade atrioventricular block with intermittent ventricular tachycardia, with known history of ischemic cardiomyopathy. Hypertension. Dyslipidemia. Prostate cancer. Recent diagnosis of P.E at [facility]. Plan Temporary pacing in the ICU for now Going for permanent AICD in the a.m. Continue home meds Nothing by mouth after midnight Full code DVT prophylaxis Serial enzymes serially EKGs Prognosis guarded Total time 31 minutes JESUS LAZARO III, DO April 01, 2019 13:31
[2019-04-01] MEDS ORDERED: POLYVINYL ALCOHOL 1.4% OPHTH SOLUTION 15ML BOTTLE. OU PRN (14:00)
--- NOTE | 2019-04-01 14:24 | EKG ---
[facility] [address] [place] [address] Test Date: 2019-03-31 Test Time: 21:52:28 Pat Name: KATELYN GENAO Department: Room: Gender: M Section Chief: JOSEFA : 1950 Requested By: EDIL MEDRANO Order Number: [id number] Reading MD: Measurements Intervals [place] Rate: 117 P: 0 AR: 128 QRS: -78 QRSD: 196 T: 2 QT: 360 QTc: 507 Interpretive Statements SINUS TACHYCARDIA COMPLEX(ES) WITH ABERRANT INTRAVENTRICULAR CONDUCTION VENTRICULAR PREMATURE COMPLEX(ES) VENTRICULAR ESCAPE COMPLEX(ES) RIGHT ATRIAL ENLARGEMENT LOW LIMB LEAD VOLTAGE NON SPECIFIC INTRAVENTRICULAR BLOCK RVH WITH REPOLARIZATION ABNORMALITY QRS(T) CONTOUR ABNORMALITY CONSIDER ANTEROSEPTAL MYOCARDIAL DAMAGE
--- NOTE | 2019-04-01 14:24 | EKG ---
[facility] [address] [place] [address] Test Date: 2019-03-31 Test Time: 21:50:57 Pat Name: KATELYN GENAO Department: Room: Gender: M Statistics Teacher: JOSEFA : 1950 Requested By: EDIL MEDRANO Order Number: [id number] Reading MD: Measurements Intervals [place] Rate: 69 P: SD: QRS: 152 QRSD: 136 T: -20 QT: 408 QTc: 439 Interpretive Statements IRREGULAR RHYTHM, NO P-WAVE FOUND ABNORMAL RIGHT AXIS DEVIATION NON SPECIFIC INTRAVENTRICULAR BLOCK ABNORMAL ECG RI6.01 No previous ECG available for comparison
--- NOTE | 2019-04-01 14:27 | EKG ---
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
--- NOTE | 2019-04-01 14:27 | EKG ---
[facility] [address] [place] [address] Test Date: 2019-03-31 Test Time: 20:27:59 Pat Name: KATELYN GENAO Department: Room: Gender: M Consumer Insight Manager: JOSEFA : 1950 Requested By: EDIL MEDRANO Order Number: [id number] Reading MD: Measurements Intervals [place] Rate: 0 P: [place]: QRS: 0 QRSD: 0 T: 0 QT: 0 QTc: 0 Interpretive Statements IRREGULAR RHYTHM, NO P-WAVE FOUND NON SPECIFIC INTRAVENTRICULAR DELAY NON SPECIFIC QRS ABNORMALITY T ABNORMALITY IN ANTERIOR LEADS NON SPECIFIC ST DEPRESSION ABNORMAL ECG RI6.01 No previous ECG available for comparison
[2019-04-01] MEDS ORDERED: AMIODARONE HCL 200 MG TABLET. PO SCH (14:30)
[2019-04-01] MEDS: cycloSPORINE 0.05% OPHTH DROPERETTE. OU SCH ×2 (14:30→21:18)
[2019-04-01] MEDS: POLYETHYLENE GLYCOL 3350 17 GM PACKET. PO SCH (14:30)
[2019-04-01] MEDS ORDERED: METOPROLOL SUCC 24HR ER 25 MG TAB.ER.24H. PO SCH (14:30)
[2019-04-01] MEDS ORDERED: LISINOPRIL 20 MG TABLET PO SCH (14:30)
[2019-04-01] MEDS ORDERED: ISOSORBIDE MONONITRATE ER 30 MG TAB.ER.24H PO SCH (14:30)
[2019-04-01] MEDS: SENNOSIDES/DOCUSATE 8.6/50MG TABLET. PO SCH ×2 (16:08→21:18)
[2019-04-01] MEDS: LINAGLIPTIN 5 MG TABLET PO SCH (16:08)
[2019-04-01] MEDS: DOCUSATE SODIUM 100 MG CAPSULE. PO SCH ×2 (16:08→21:18)
[2019-04-01] MEDS: MELOXICAM 7.5 MG TABLET PO SCH (16:09)
[2019-04-01] MEDS: buPROPion SR 100 MG TABLET.SA. PO SCH ×2 (16:09→21:18)
[2019-04-01] MEDS: GABAPENTIN 300 MG CAPSULE. PO SCH ×2 (16:09→21:18)
[2019-04-01] MEDS: BRIMONIDINE 0.2% OPHTH SOLUTION 5ML BOTTLE. OU SCH ×2 (16:11→21:17)
[2019-04-01] MEDS: TIMOLOL 0.5% OPHTH SOLUTION 5ML BOTTLE. OU SCH ×2 (16:12→21:18)
[2019-04-01] MEDS: DORZOLAMIDE 2% OPHTH SOLUTION 10ML BOTTLE. OU SCH ×2 (16:12→21:17)
--- NOTE | 2019-04-01 18:32 | NUR ---
Pt had 45 sec of VTACH. This nurse had pt cough and pt stayed in VTACH. This nurse then had pt bare down and pt went into vpaced rhythm with HR of 78. Paged Dr. Coronado. Will continue to monitor.
[2019-04-01] MEDS ORDERED: HEPARIN 25,000UTS/500ML PREMIX 500 ML IV PRN (19:00)
[2019-04-01] MEDS ORDERED: HEPARIN for IV BOLUS 10,000 UNIT/10 ML VIAL. IV PRN ×2 (19:00)
[2019-04-01] MEDS ORDERED: VANCOMYCIN 1.5 GM in IV NORMAL SALINE 500ML BAG 500 ML IV ONE (20:00)
[2019-04-01] MEDS ORDERED: NON FORMULARY ITEM (Brinzolamide/Brimonid Tart (Simbrinza 1%-0.2% Eye Drops) 8 ML) OP SCH (21:00)
[2019-04-01] MEDS: LATANOPROST 0.005% OPHTH SOLUTION 2.5ML BOTTLE. OU SCH (21:18)
[2019-04-01] MEDS: ATORVASTATIN CALCIUM 40 MG TABLET. PO SCH (21:18)
[2019-04-02] VITALS (24 sets, daily range): BP systolic 110–181; BP diastolic 54–79
[2019-04-02] MEDS: VANCOMYCIN PER PHARMACY MC PRN ×5 (02:37→16:26)
--- NOTE | 2019-04-02 02:37 | NUR ---
Pharmacy Vancomycin Dosing Note S:Consulted to monitor and dose vancomycin started 04/01/19. O:KATELYN GENAO is a 68 year old M with Empiric . Height: 5 feet, 5 inches Weight: 70.746036 kg [place] Body Weight: 61.50 Adjusted Body Weight: 64.90 Dosing Weight: Actual Other Antibiotics: LABS: Last BUN: 19 Last Creatinine: 0.8 Creatinine Clearance: 65 mL/min Last WBC: 9.8 Last Procalcitonin: Tmax (past 24 hours): Microbiology: I/O: Drug Levels: Last level: on at Last dose given 04/01/19 at 2100 Vancomycin Dosing: Loading Dose: 1500 mg x1 Dosing Weight: Actual Target Trough: 15-20 A: Based on: WT AND CRCL P: 1. Begin Vancomycin 1000 mg IV q12h 2. Follow up Trough level on 04/03/19 at 0830 3. Pharmacy will continue to monitor, follow and adjust therapy as needed. AL OLIVARES RPH, 04/02/19 0237 Signed: 04/02/19 at 236 by AL OLIVARES RPH PHA
[2019-04-02] MEDS: LINAGLIPTIN 5 MG TABLET PO SCH (08:56)
[2019-04-02] MEDS: DOCUSATE SODIUM 100 MG CAPSULE. PO SCH ×2 (08:56→22:25)
[2019-04-02] MEDS: buPROPion SR 100 MG TABLET.SA. PO SCH ×2 (08:56→22:26)
[2019-04-02] MEDS: SENNOSIDES/DOCUSATE 8.6/50MG TABLET. PO SCH ×2 (08:56→22:26)
[2019-04-02] MEDS: GABAPENTIN 300 MG CAPSULE. PO SCH ×3 (08:56→22:25)
[2019-04-02] MEDS: DORZOLAMIDE 2% OPHTH SOLUTION 10ML BOTTLE. OU SCH ×2 (08:58→22:24)
[2019-04-02] MEDS: POLYETHYLENE GLYCOL 3350 17 GM PACKET. PO SCH (08:58)
[2019-04-02] MEDS: BRIMONIDINE 0.2% OPHTH SOLUTION 5ML BOTTLE. OU SCH ×2 (08:58→22:23)
[2019-04-02] MEDS: TIMOLOL 0.5% OPHTH SOLUTION 5ML BOTTLE. OU SCH ×2 (08:58→22:23)
[2019-04-02 08:59] LABS: HEMOGLOBIN 11.2 g/dL (13.0-17.5); RED BLOOD COUNT 3.82 x10^6/uL (4.30-5.70); WHITE BLOOD COUNT 10.1 x10^3/uL (4.0-11.0)
[2019-04-02] MEDS ORDERED: METOPROLOL SUCC 24HR ER 25 MG TAB.ER.24H. PO SCH (09:00)
[2019-04-02] MEDS ORDERED: VANCOMYCIN 1 GM in IV NORMAL SALINE 250ML 250 ML IV SCH (09:00)
[2019-04-02] MEDS: cycloSPORINE 0.05% OPHTH DROPERETTE. OU SCH ×2 (09:00→22:32)
--- NOTE | 2019-04-02 09:14 | PDOC ---
PROGRESS NOTES Chief Complaint Chief Complaint A/P: AVB with SSS and NSVT - Symptomatic bradycardia - Initially paced, with wide complex, likely 2/2 hyperkalemia, still on dopamine, improved. Cardiology consulted for further care. Plan for BiV AICD 04/03/19 CAD s/p CABG x3 - stable outpatient with [facility] f/u in [place]. Will reconcile home meds. Hold nephrotoxic meds Bladder Cancer s/p chemotherapy and cystectomy with ileoconduit (12/[address] Licea @ [facility]) - has appt on 03/10/19 for f/u. Access for port ok. Monitor urostomy output. Will order records. Abdominal imaging is likely indicated. Hyponatremia - likely 2/2 poor PO intake Diabetes-Type II - place on sliding scale, check A1c Pulmonary embolus - high risk with bladder ca. Was recently noted at [facility] on his PET CT for cancer f/u. I have discussed this may have been present on his prev ious admission and apologized as I may have missed this while he was on the ventilator. FEN - ADA cardiac diet PPX - Heparin FULL CODE ICU for critically ill patient with life-threatening bradycardia, greater than 35 minutes critical care time spent. D/w bedside his critical illness. Greater than 2 midnights inpatient required. History of Present Illness History of Present Illness Mr Ashley is a 68-year-old male 100% service connected [place] w/PMHx CAD s/p CABG x3, Bladder Cancer s/p chemotherapy and cystectomy with ileoconduit (12/[address] Licea @ [facility]), COPD, Diabetes-Type II who presents via his for when he was noted to have some lightheadedness and dizziness and ultimately, he was brought back to the ER and noted to have severe bradycardia. He has been on low dose BB at [facility] and On further review his notes over the past 3 weeks he has been weak with malaise and has had significant decrease in appetite as well as intermittent constipation not well mitigated by miralax. He has had decreased urostomy output for only 1 day, since has been excellent. He has been started on temporary pacer in the ICU, stable since this has been placed. Plan for BIVAICD tomorrow. Vitals Vitals Vital Signs Date Time Temp Pulse Resp B/P (MAP) Pulse Ox O2 Delivery O2 Flow Rate FiO2 04/02/19 07:00 78 20 144/69 (94) 95 Room Air 04/02/19 06:00 2.0 04/02/19 04:00 97.9 97.9 Physical Exam General: Alert, Oriented X3, Cooperative Lungs: Clear Labs LABS Laboratory Tests Test 04/01/19 12:43 04/01/19 21:39 04/02/19 01:00 Glucose (Fingerstick) 152 mg/dL (70-99) 110 mg/dL (70-99) Heparin Anti-Xa Act, Unfractionated > 1.10 IU/mL (0.30-0.70) Comment Review of Relevant I have reviewed the following items fabián (where applicable) has been applied. Labs Laboratory Tests Test 03/31/19 20:23 04/01/19 06:00 04/01/19 08:25 04/01/19 12:43 White Blood Count 11.7 x10^3/uL (4.0-11.0) 9.8 x10^3/uL (4.0-11.0) Red Blood Count 3.55 x10^6/uL (4.30-5.70) 3.28 x10^6/uL (4.30-5.70) Hemoglobin 10.4 g/dL (13.0-17.5) 9.7 g/dL (13.0-17.5) Hematocrit 31.2 % (39.0-53.0) 28.9 % (39.0-53.0) Mean Corpuscular Volume 88 fL (79-100) 88 fL (79-100) Mean Corpuscular Hemoglobin 29 pg (25-35) 30 pg (25-35) Mean Corpuscular Hemoglobin Concent 33 g/dL (31-37) 34 g/dL (31-37) Red Cell Distribution Width 15.3 % (11.5-14.5) 15.7 % (11.5-14.5) Platelet Count 219 x10^3/uL (140-400) 162 x10^3/uL (140-400) Neutrophils (%) (Auto) 63 % (31-73) Lymphocytes (%) (Auto) 16 % (24-48) Monocytes (%) (Auto) 8 % (0-9) Eosinophils (%) (Auto) 12 % (0-3) Basophils (%) (Auto) 1 % (0-3) Neutrophils # (Auto) 7.4 x10^3uL (1.8-7.7) Lymphocytes # (Auto) 1.9 x10^3/uL (1.0-4.8) Monocytes # (Auto) 0.9 x10^3/uL (0.0-1.1) Eosinophils # (Auto) 1.4 x10^3/uL (0.0-0.7) Basophils # (Auto) 0.1 x10^3/uL (0.0-0.2) Segmented Neutrophils % 56 % (35-66) Band Neutrophils % 3 % (0-9) Lymphocytes % 18 % (24-48) Monocytes % 11 % (0-10) Eosinophils % 12 % (0-5) Platelet Estimate Adequate (ADEQUATE) Prothrombin Time 14.6 SEC (11.7-14.0) Prothromb Time International Ratio 1.2 (0.8-1.1) Sodium Level 120 mmol/L (136-145) 125 mmol/L (136-145) Potassium Level 5.6 mmol/L (3.5-5.1) 4.3 mmol/L (3.5-5.1) Chloride Level 88 mmol/L (98-107) 92 mmol/L (98-107) Carbon Dioxide Level 26 mmol/L (21-32) 24 mmol/L (21-32) Anion Gap 6 (6-14) 9 (6-14) Blood Urea Nitrogen 23 mg/dL (8-26) 19 mg/dL (8-26) Creatinine 1.1 mg/dL (0.7-1.3) 0.8 mg/dL (0.7-1.3) Estimated GFR (Cockcroft-Gault) 66.6 96.1 BUN/Creatinine Ratio 21 (6-20) Glucose Level 173 mg/dL (70-99) 121 mg/dL (70-99) Calcium Level 8.4 mg/dL (8.5-10.1) 8.4 mg/dL (8.5-10.1) Magnesium Level 1.4 mg/dL (1.8-2.4) 2.1 mg/dL (1.8-2.4) Total Bilirubin 0.2 mg/dL (0.2-1.0) Aspartate Amino Transf (AST/SGOT) 16 U/L (15-37) Alanine Aminotransferase (ALT/SGPT) 21 U/L (16-63) Alkaline Phosphatase 69 U/L (46-116) Creatine Kinase 72 U/L (39-308) Creatine Kinase MB (Mass) 4.7 ng/mL (0.0-3.6) Creatine Kinase MB Relative Index % (0-4) Troponin I Quantitative < 0.017 ng/mL (0.000-0.055) 0.111 ng/mL (0.000-0.055) LV-Lmh-Y-Type Natriuretic Peptide 947 pg/mL (0-124) Total Protein 6.4 g/dL (6.4-8.2) Albumin 3.3 g/dL (3.4-5.0) Albumin/Globulin Ratio 1.1 (1.0-1.7) Lipase 135 U/L (73-393) Triglycerides Level 154 mg/dL (0-150) Cholesterol Level 117 mg/dL (0-200) LDL Cholesterol, Calculated 34 mg/dL (0-100) VLDL Cholesterol, Calculated 31 mg/dL (0-40) Non-HDL Cholesterol Calculated 65 mg/dL (0-129) HDL Cholesterol 52 mg/dL (40-60) Cholesterol/HDL Ratio 2.3 Glucose (Fingerstick) 152 mg/dL (70-99) Test 04/01/19 21:39 04/02/19 01:00 Glucose (Fingerstick) 110 mg/dL (70-99) Heparin Anti-Xa Act, Unfractionated > 1.10 IU/mL (0.30-0.70) Laboratory Tests Test 04/01/19 12:43 04/01/19 21:39 04/02/19 01:00 Glucose (Fingerstick) 152 mg/dL (70-99) 110 mg/dL (70-99) Heparin Anti-Xa Act, Unfractionated > 1.10 IU/mL (0.30-0.70) Medications Current Medications Aspirin (Darren Aspirin) 325 mg 1X ONCE PO Last administered on 03/31/19at 21:01; Start 03/31/19 at 20:45; Stop 03/31/19 at 20:46; Status DC Sodium Chloride 1,000 ml @ 1,000 mls/hr 1X ONCE IV Last administered on at 20:17; Start 03/31/19 at 20:30; Stop 03/31/19 at 21:29; Status DC Fentanyl Citrate (Fentanyl 2ml Vial) 50 mcg 1X ONCE IV Last administered on 03/31/19at 20:17; Start 03/31/19 at 20:45; Stop 03/31/19 at 20:46; Status DC Atropine Sulfate (ATROPINE 0.5mg SYRINGE) 1 mg 1X ONCE IV Last administered on 03/31/19at 20:32; Start 03/31/19 at 21:00; Stop 03/31/19 at 21:01; Status DC Dopamine HCl/ Dextrose 250 ml @ 5.171 mls/ hr 1X ONCE IV Last administered on 03/31/19at 21:18; Start 03/31/19 at 22:00; Stop 04/01/19 at 02:13; Status DC Magnesium Sulfate 50 ml @ 25 mls/hr 1X ONCE IV Last administered on 03/31/19at 21:20; Start 03/31/19 at 22:00; Stop 03/31/19 at 23:59; Status DC Ondansetron HCl (Zofran) 4 mg PRN Q8HRS PRN IV NAUSEA/VOMITING 1ST CHOICE; S tart 03/31/19 at 22:00; Stop 04/01/19 at 21:59; Status DC Fentanyl Citrate (Fentanyl 2ml Vial) 50 mcg PRN Q1HR PRN IV SEVERE PAIN; Start 03/31/19 at 22:00; Stop 04/01/19 at 21:59; Status DC Amiodarone HCl 150 mg/Dextrose 103 ml @ 618 mls/hr 1X ONCE IV Last administered on 03/31/19at 21:58; Start 03/31/19 at 22:30; Stop 03/31/19 at 22:39; Status DC Lidocaine HCl (Lidocaine 1% 20ml Vial) 20 ml STK-MED ONCE .ROUTE ; Start 03/31/19 at 23:11; Stop 03/31/19 at 23:12; Status DC Heparin Sodium/ Sodium Chloride 500 ml @ As Directed STK-MED ONCE .ROUTE ; Start 03/31/19 at 23:12; Stop 03/31/19 at 23:13; Status DC Fentanyl Citrate (Fentanyl 2ml Vial) 100 mcg STK-MED ONCE .ROUTE ; Start 03/31/19 at 23:13; Stop 03/31/19 at 23:14; Status DC Midazolam HCl (Versed) 2 mg STK-MED ONCE .ROUTE ; Start 03/31/19 at 23:14; Stop 03/31/19 at 23:15; Status DC Lidocaine/ Epinephrine (LIDOCAINE 2%-EPI 1:100,000 multi-dose) 20 ml STK-MED ONCE .ROUTE ; Start 03/31/19 at 23:47; Stop 03/31/19 at 23:48; Status DC Vancomycin HCl 250 ml @ As Directed STK-MED ONCE .ROUTE ; Start 03/31/19 at 23:49; Stop 03/31/19 at 23:50; Status DC Amiodarone HCl (Cordarone) 150 mg STK-MED ONCE .ROUTE ; Start 03/31/19 at 23:52; Stop 03/31/19 at 23:53; Status DC Lidocaine/ Epinephrine (LIDOCAINE 2%-EPI 1:100,000 multi-dose) 20 ml 1X ONCE IJ Last administered on 04/01/19at 00:22; Start 04/01/19 at 00:30; Stop 04/01/19 at 00:31; Status DC Vancomycin HCl 250 ml @ 250 mls/hr 1X ONCE IV Last administered on 04/01/19at 00:25; Start 04/01/19 at 00:30; Stop 04/01/19 at 01:29; Status DC Lidocaine HCl (Lidocaine 1% 20ml Vial) 20 ml 1X ONCE INJ Last administered on 04/01/19at 00:23; Start 04/01/19 at 00:30; Stop 04/01/19 at 00:31; Status DC Amiodarone HCl 150 mg/Dextrose 103 ml @ 0 mls/hr 1X ONCE IV Last administered on 04/01/19at 00:23; Start 04/01/19 at 00:30; Stop 04/01/19 at 00:31; Status DC Fentanyl Citrate (Fentanyl 2ml Vial) 50 mcg 1X ONCE IV Last administered on 04/01/19at 00:25; Start 04/01/19 at 00:30; Stop 04/01/19 at 00:31; Status DC Amiodarone HCl 900 mg/Dextrose 518 ml @ 0 mls/hr CONT PRN IV SEE I/O RECORD Last administered on 04/01/19at 01:17; Start 04/01/19 at 01:00; Stop 04/01/19 at 01:18; Status DC Metoprolol Tartrate (Lopressor Vial) 5 mg PRN Q5MIN PRN IVP TACHYCARDIA; Start 04/01/19 at 00:30 Lorazepam (Ativan Inj) 1 mg PRN Q4HRS PRN IV ANXIETY / AGITATION Last administered on 04/01/19at 02:09; Start 04/01/19 at 02:00 Albuterol Sulfate (Ventolin Neb Soln) 2.5 mg PRN Q4HRS PRN NEB SHORTNESS OF BREATH Last administered on 04/01/19at 02:06; Start 04/01/19 at 02:00 Sodium Chloride 1,000 ml @ 50 mls/hr Q20H IV Last administered on 04/01/19at 23:46; Start 04/01/19 at 02:00 Hydralazine HCl (Apresoline Inj) 10 mg PRN Q4HRS PRN IVP ELEVATED BP, SEE COMMENTS; Start 04/01/19 at 02:15 Oxycodone/ Acetaminophen (Percocet 5/325) 1 tab PRN QID PRN PO PAIN 1ST CHOICE Last administered on 04/01/19at 11:32; Start 04/01/19 at 11:15 Amiodarone HCl (Cordarone) 200 mg DAILY PO ; Start 04/01/19 at 14:30; Status Cancel Bupropion HCl (Wellbutrin Sr) 100 mg BID PO Last administered on 04/02/19at 08:56; Start 04/01/19 at 14:30 Cyclosporine (Restasis) 1 drop BID OU Last administered on 04/01/19at 21:18; Start 04/01/19 at 14:30 Docusate Sodium (Colace) 100 mg BID PO Last administered on 04/02/19at 08:56; Start 04/01/19 at 14:30 Gabapentin (Neurontin) 900 mg TID PO Last administered on 04/02/19at 08:56; Start 04/01/19 at 14:30 Isosorbide Mononitrate (Imdur) 30 mg DAILY PO ; Start 04/01/19 at 14:30; Status Cancel Lisinopril (Prinivil) 20 mg DAILY PO ; Start 04/01/19 at 14:30; Status Cancel Metoprolol Succinate (Toprol Xl) 25 mg DAILY PO ; Start 04/01/19 at 14:30; Status Cancel Metoprolol Succinate (Toprol Xl) 12.5 mg DAILY PO ; Start 04/02/19 at 09:00; Status UNV Oxycodone HCl (Roxicodone) 5 mg PRN Q4HRS PRN PO PAIN 2ND CHOICE; Start 04/01/19 at 13:45 Senna/Docusate Sodium (Senna Plus) 1 tab BID PO Last administered on 04/02/19at 08:56; Start 04/01/19 at 14:30 Non-Formulary Medication (Brinzolamide/ Brimonid Tart (Simbrinza 1%-0.2% Eye Drops)) 8 ml BID OP ; Start 04/01/19 at 21:00; Status UNV Artificial Tears (Artificial Tears) 1 drop PRN QID PRN OU DRY EYE; Start 04/01/19 at 14:00 Latanoprost (Xalatan) 1 drop QHS OU Last administered on 04/01/19at 21:18; Start 04/01/19 at 21:00 Meloxicam (Mobic) 15 mg NOON PO Last administered on 04/01/19at 16:09; Start 04/01/19 at 14:30 Polyethylene Glycol (miraLAX PACKET) 17 gm DAILY PO ; Start 04/01/19 at 14:30 Atorvastatin Calcium (Lipitor) 80 mg QHS PO Last administered on 04/01/19at 21:18; Start 04/01/19 at 21:00 Linagliptin (Tradjenta) 5 mg DAILY PO Last administered on 04/02/19at 08:56; Start 04/01/19 at 14:30 Timolol Maleate (Timoptic 0.5% Oph) 1 drop BID OU Last administered on 04/02/19at 08:58; Start 04/01/19 at 14:30 Brimonidine Tartrate (Alphagan) 1 drop BID OU Last administered on 04/02/19at 08:58; Start 04/01/19 at 14:30 Dorzolamide HCl (Trusopt) 1 drop BID OU Last administered on 04/02/19at 08:58; Start 04/01/19 at 14:30 Heparin Sodium/ Dextrose 500 ml @ 22 mls/hr CONT PRN IV SEE I/O RECORD Last administered on 04/01/19at 18:44; Start 04/01/19 at 19:00 Heparin Sodium (Porcine) (Heparin Sodium) 2,100 unit PRN Q6HRS PRN IV FOR UFH LEVEL LESS THAN 0.2; Start 04/01/19 at 19:00 Heparin Sodium (Porcine) (Heparin Sodium) 1,050 unit PRN Q6HRS PRN IV FOR UFH LEVEL 0.2 - 0.29; Start 04/01/19 at 19:00 Vancomycin HCl (Vanco Per Pharmacy) 1 each PRN DAILY PRN MC SEE COMMENTS Last administered on 04/02/19at 02:37; Start 04/01/19 at 19:00 Amiodarone HCl 900 mg/Dextrose 518 ml @ 17 mls/hr CONT PRN IV SEE I/O RECORD Last administered on 04/01/19at 19:28; Start 04/01/19 at 19:30; Stop 04/01/19 at 19:30; Status DC Vancomycin HCl 1.5 gm/Sodium Chloride 500 ml @ 250 mls/hr 1X ONCE IV Last administered on 04/01/19at 21:17; Start 04/01/19 at 20:00; Stop 04/01/19 at 21:59; Status DC Vancomycin HCl 1 gm/Sodium Chloride 250 ml @ 250 mls/hr Q12H IV Last administered on 04/02/19at 08:56; Start 04/02/19 at 09:00 Vancomycin HCl (Vancomycin Trough Level) 1 each 1X ONCE MC ; Start 04/03/19 at 08:30; Stop 04/03/19 at 08:31 Active Scripts Active Reported Eliquis (Apixaban) 5 Mg Tablet 10 Mg PO BID 7 Days 10mg BID x7 days(03/30 start date), then 5mg BID after Metoprolol Succinate ( Xl ) (Metoprolol Succinate) 25 Mg Tab.er.24h 12.5 Mg PO DAILY Eliquis (Apixaban) 5 Mg Tablet 5 Mg PO Metoprolol Succinate ( Xl ) (Metoprolol Succinate) 25 Mg Tab.er.24h 1 Tab PO DAILY Isosorbide Mononitrate Er (Isosorbide Mononitrate) 30 Mg Tab.er.24h 1 Tab PO DAILY Amiodarone Hcl 200 Mg Tablet 1 Tab PO DAILY Timoptic 0.5% (Timolol Maleate) 10 Ml Drops 1 Drop EACHEYE BID Senna-S Tablet (Sennosides/Docusate Sodium) 1 Each Tablet 1 Each PO BID Onglyza (Saxagliptin Hcl) 5 Mg Tablet 1 Tab PO DAILY Crestor (Rosuvastatin Calcium) 20 Mg Tablet 20 Mg PO HS Miralax (Polyethylene Glycol 3350) 17 Gm Powd.pack 1 Packet PO DAILY Percocet 5-325 Mg Tablet (Oxycodone/Acetaminophen) 1 Each Tablet 1 Tab PO QID PRN Oxycodone Hcl Immed.release (Oxycodone Hcl) 5 Mg Tablet 5 Mg PO PRN Q4HRS PRN take 1 to 3 tabs Q4H prn Metformin Hcl 500 Mg Tablet 500 Mg PO DAILYWSUP Metformin Hcl 1,000 Mg Tablet 1,000 Mg PO DAILYWBKFT Meloxicam 15 Mg Tablet 1 Tab PO NOON Lisinopril 20 Mg Tablet 1 Tab PO DAILY Xalatan (Latanoprost) 2.5 Ml Drops 1 Drop EACHEYE QHS Gabapentin (Gabapentin) 300 Mg Capsule 900 Mg PO TID Docusate Sodium 100 Mg Capsule 1 Cap PO BID Restasis (Cyclosporine) 1 Each Droperette 1 Drop EACHEYE BID Refresh Optive Eye Drops (Carboxymethylcellulos/Glycerin) 15 Ml Drops 1 Drop EACHEYE QID PRN Wellbutrin Sr (Bupropion Hcl) 100 Mg Tablet.er 1 Tab PO BID Aspirin Ec (Aspirin) 81 Mg Tablet.dr 1 Tab PO DAILY Simbrinza 1%-0.2% Eye Drops (Brinzolamide/Brimonid Tart) 8 Ml Drops.susp 8 Ml OP BID Vitals/I & O Vital Sign - Last 24 Hours 04/01/19 04/01/19 04/01/19 04/01/19 10:00 11:00 11:32 12:00 Pulse 86 77 Resp 16 16 B/P (MAP) 116/65 (82) 137/60 (85) Pulse Ox 94 97 O2 Delivery Room Air Room Air Room Air Room Air 04/01/19 04/01/19 04/01/1904/01/19 12:00 12:32 13:00 14:00 Temp 97.9 97.9 Pulse 77 76 78 Resp 16 20 16 B/P (MAP) 131/61 (84) 145/64 (91) 150/93 (112) Pulse Ox 96 96 95 O2 Delivery Room Air Room Air Room Air Room Air 04/01/19 04/01/19 04/01/19 04/01/19 15:00 16:00 16:00 17:00 Temp 98.1 98.1 Pulse 78 78 78 Resp 12 18 16 B/P (MAP) 118/63 (81) 110/58 (75) 127/63 (84) Pulse Ox 94 95 95 O2 Delivery Room Air Room Air Room Air Room Air 04/01/19 04/01/19 04/01/19 04/01/19 18:00 19:00 20:00 20:00 Temp 98.1 98.1 Pulse 78 78 78 Resp 19 18 16 B/P (MAP) 119/63 (81) 100/53 (69) 118/57 (77) Pulse Ox 98 94 95 O2 Delivery Room Air Room Air Room Air Room Air 04/01/19 04/01/19 04/01/19 04/01/19 21:00 22:00 23:01 23:14 Temp 97.8 97.8 Pulse 78 78 78 Resp 17 20 20 B/P (MAP) 112/61 (78) 138/67 (90) 146/69 (94) Pulse Ox 95 95 95 O2 Delivery Room Air Room Air Room Air Room Air 04/02/19 04/02/19 04/02/19 04/02/19 00:00 01:06 02:05 03:00 Pulse 78 78 78 78 Resp 18 24 22 16 B/P (MAP) 138/72 (94) 146/66 (92) 155/74 (101) 128/61 (83) Pulse Ox 95 95 95 95 O2 Delivery Room Air Room Air Room Air Room Air 04/02/19 04/02/19 04/02/19 04/02/19 03:30 04:00 04:30 05:05 Temp 97.9 97.9 Pulse 78 78 Resp 16 16 B/P (MAP) 150/65 (93) 132/62 (85) Pulse Ox 90 100 99 O2 Delivery Room Air Nasal Cannula Room Air Nasal Cannula O2 Flow Rate 2.0 2.0 04/02/19 04/02/19 06:00 07:00 Pulse 78 78 Resp 16 20 B/P (MAP) 133/67 (89) 144/69 (94) Pulse Ox 97 95 O2 Delivery Nasal Cannula Room Air O2 Flow Rate 2.0 Intake and Output 04/01/19 04/01/19 04/02/19 15:00 23:00 07:00 Intake Total 837 ml 857 ml 1922 ml Output Total 3000 ml 1465 ml 2535 ml Balance -2163 ml -608 ml -613 ml ELLEN CONROY MD April 02, 2019 09:14
[2019-04-02] MEDS: oxyCODONE IR 5 MG TABLET PO PRN ×2 (09:16→19:39)
[2019-04-02 09:34] LABS: ALBUMIN 3.1 g/dL (3.4-5.0); CALCIUM 8.8 mg/dL (8.5-10.1); CREATININE 0.8 mg/dL (0.7-1.3); GFR 96.1; MAGNESIUM 1.7 mg/dL (1.8-2.4); TOTAL BILIRUBIN 0.2 mg/dL (0.2-1.0); TOTAL PROTEIN 6.3 g/dL (6.4-8.2)
--- NOTE | 2019-04-02 10:26 | PDOC ---
CARDIOLOGY PROGRESS NOTE SUBJECTIVE: No events overnight. Did not sleep well. No chest pain, No dyspnea. OBJECTIVE: Vital SIgns: VSS I & O -3.1 L Objective: a/o x 3. NAD Lungs clr heart tones irregular but SR. No edema. Soft abd. Left IJ pacer site is c/d/i. CURRENT MEDICATIONS: amiodarone gtt hep gtt vancomycin iv DIAGNOSTIC TESTING: hgb 11.2 Plt stable Na improved. Mg 1.7 K 4.0 ASSESSMENT: 1. Ischemic CMP 2. CAD s/p cABG 3. High grade AVB with SSS and NSVT 4. Hyponatremia. 5. P.E PLAN: 1. He has had excellent urine output. Overall, improved. He now has intrinsic rhythm that has been restored. Currently in SR. 2. He may not need BiV ICD, will reassess tmrw. Plan for ICD tomorrow. 3. Continue amiodarone and hep gtt. Hold hep tomorrow a.m. 4. Replete Mg 5. Check CXR. GALILEO KNIGHT MD April 02, 2019 10:26
[2019-04-02] MEDS ORDERED: MAGNESIUM SULFATE 2GM 50 ML IV ONE (11:00)
[2019-04-02] MEDS: oxyCODONE/APAP 5/325 1 TAB TABLET PO PRN (11:15)
[2019-04-02] MEDS: MELOXICAM 7.5 MG TABLET PO SCH (11:16)
--- NOTE | 2019-04-02 13:15 | RAD ---
AP portable chest radiograph 04/02/2019 Clinical History: History of respiratory failure. An AP erect portable digital radiograph of the chest was obtained. Comparison study is dated 03/31/2019. A right internal jugular [id number] type catheter is unchanged position. The patient is post CABG procedure. The cardiac silhouette is mildly enlarged. The thoracic aorta is minimally tortuous. No acute pulmonary infiltrate is seen. No pleural effusion or pneumothorax is noted. The osseous structures are unchanged. Impression: No acute abnormality is seen. Electronically signed by: Juan Younger MD (04/02/2019 1:12 PM) [facility]
[2019-04-02] MEDS: PSYLLIUM HUSK (SUGAR FREE) 1 PKT PACKET PO SCH (18:00)
[2019-04-02] MEDS: LATANOPROST 0.005% OPHTH SOLUTION 2.5ML BOTTLE. OU SCH (22:24)
[2019-04-02] MEDS: CETIRIZINE HCL 10 MG TABLET. PO SCH (22:25)
[2019-04-02] MEDS: ATORVASTATIN CALCIUM 40 MG TABLET. PO SCH (22:26)
[2019-04-02] MEDS ORDERED: AMIODARONE 450 MG in IV DEXTROSE 5% 250 ML IV PRN (23:30)
[2019-04-03] VITALS (21 sets, daily range): BP systolic 97–190; BP diastolic 54–105
[2019-04-03] MEDS: IV NORMAL SALINE 1000ML BAG 1,000 ML IV SCH ×3 (00:08→16:49)
[2019-04-03] MEDS: ALBUTEROL SULFATE 2.5 MG/3 ML NEBU. NEB PRN ×2 (02:15→20:31)
[2019-04-03] MEDS ORDERED: VANCOMYCIN 1GM IVPB FOR OMNI 250 ML IV PRN (06:00)
[2019-04-03 08:46] LABS: HEMATOCRIT 33.1 % (39.0-53.0); HEMOGLOBIN 11.4 g/dL (13.0-17.5); RED BLOOD COUNT 3.75 x10^6/uL (4.30-5.70); RED CELL DISTRIBUTION WIDTH 16.1 % (11.5-14.5); WHITE BLOOD COUNT 10.5 x10^3/uL (4.0-11.0)
[2019-04-03] MEDS: POLYETHYLENE GLYCOL 3350 17 GM PACKET. PO SCH (09:00)
[2019-04-03] MEDS: cycloSPORINE 0.05% OPHTH DROPERETTE. OU SCH ×2 (09:00→21:00)
[2019-04-03] MEDS: SENNOSIDES/DOCUSATE 8.6/50MG TABLET. PO SCH ×2 (09:00→22:08)
[2019-04-03] MEDS: DOCUSATE SODIUM 100 MG CAPSULE. PO SCH ×2 (09:00→22:08)
--- NOTE | 2019-04-03 09:18 | PDOC ---
PROGRESS NOTES Chief Complaint Chief Complaint A/P: AVB with SSS and NSVT - Symptomatic bradycardia - Initially paced, with wide complex, likely 2/2 hyperkalemia, still on dopamine, improved. Cardiology consulted for further care. Plan for BiV AICD 04/03/19 CAD s/p CABG x3 - stable outpatient with [facility] f/u in [place]. Will reconcile home meds. Hold nephrotoxic meds Bladder Cancer s/p chemotherapy and cystectomy with ileoconduit (12/[address] Licea @ [facility]) - has appt on 03/10/19 for f/u. Access for port ok. Monitor urostomy output. Will order records. Abdominal imaging is likely indicated. Hyponatremia - likely 2/2 poor PO intake Diabetes-Type II - place on sliding scale, check A1c Pulmonary embolus - high risk with bladder ca. Was recently noted at [facility] on his PET CT for cancer f/u. I have discussed this may have been present on his prev ious admission and apologized as I may have missed this while he was on the ventilator. FEN - ADA cardiac diet PPX - Heparin FULL CODE ICU for critically ill patient with life-threatening bradycardia, greater than 35 minutes critical care time spent. D/w bedside his critical illness. Greater than 2 midnights inpatient required. History of Present Illness History of Present Illness Mr Ashley is a 68-year-old male 100% service connected [facility] w/PMHx CAD s/p CABG x3, Bladder Cancer s/p chemotherapy and cystectomy with ileoconduit (12/[address] Licea @ [facility]), COPD, Diabetes-Type II who presents via his for when he was noted to have some lightheadedness and dizziness and ultimately, he was brought back to the ER and noted to have severe bradycardia. He has been on low dose BB at [facility] and recently started on NOAC for PE found after [facility] admission after discharge from here last month. On further review his notes over the past 3 weeks he has been weak with nikia wild and has had significant decrease in appetite as well as intermittent constipation not well mitigated by miralax. He has had decreased urostomy output for only 1 day, since has been excellent. He has been started on temporary pacer in the ICU, stable since this has been placed. Plan for BIVAICD today. He has had no BM, but denies any pain. Notes his vision is blurry, but notes inconsistency with his glaucoma medications. Vitals Vitals Vital Signs Date Time Temp Pulse Resp B/P (MAP) Pulse Ox O2 Delivery O2 Flow Rate FiO2 04/03/19 06:00 70 26 152/67 (95) 95 Room Air 04/03/19 04:00 97.1 97.1 Physical Exam General: Alert, Oriented X3, Cooperative Lungs: Clear Labs LABS Laboratory Tests Test 04/02/19 17:10 04/03/19 01:20 04/03/19 08:35 Heparin Anti-Xa Act, Unfractionated > 1.10 IU/mL (0.30-0.70) 0.91 IU/mL (0.30-0.70) 0.57 IU/mL (0.30-0.70) White Blood Count 10.5 x10^3/uL (4.0-11.0) Red Blood Count 3.75 x10^6/uL (4.30-5.70) Hemoglobin 11.4 g/dL (13.0-17.5) Hematocrit 33.1 % (39.0-53.0) Mean Corpuscular Volume 88 fL (79-100) Mean Corpuscular Hemoglobin 30 pg (25-35) Mean Corpuscular Hemoglobin Concent 34 g/dL (31-37) Red Cell Distribution Width 16.1 % (11.5-14.5) Platelet Count 136 x10^3/uL (140-400) Comment Review of Relevant I have reviewed the following items fabián (where applicable) has been applied. Labs Laboratory Tests Test 04/01/19 12:43 04/01/19 21:39 04/02/19 01:00 04/02/19 08:45 Glucose (Fingerstick) 152 mg/dL (70-99) 110 mg/dL (70-99) Heparin Anti-Xa Act, Unfractionated > 1.10 IU/mL (0.30-0.70) > 1.10 IU/mL (0.30-0.70) White Blood Count 10.1 x10^3/uL (4.0-11.0) Red Blood Count 3.82 x10^6/uL (4.30-5.70) Hemoglobin 11.2 g/dL (13.0-17.5) Hematocrit 34.0 % (39.0-53.0) Mean Corpuscular Volume 89 fL (79-100) Mean Corpuscular Hemoglobin 29 pg (25-35) Mean Corpuscular Hemoglobin Concent 33 g/dL (31-37) Red Cell Distribution Width 16.0 % (11.5-14.5) Platelet Count 152 x10^3/uL (140-400) Sodium Level 135 mmol/L (136-145) Potassium Level 4.0 mmol/L (3.5-5.1) Chloride Level 100 mmol/L (98-107) Carbon Dioxide Level 26 mmol/L (21-32) Anion Gap 9 (6-14) Blood Urea Nitrogen 12 mg/dL (8-26) Creatinine 0.8 mg/dL (0.7-1.3) Estimated GFR (Cockcroft-Gault) 96.1 BUN/Creatinine Ratio 15 (6-20) Glucose Level 132 mg/dL (70-99) Calcium Level 8.8 mg/dL (8.5-10.1) Magnesium Level 1.7 mg/dL (1.8-2.4) Total Bilirubin 0.2 mg/dL (0.2-1.0) Aspartate Amino Transf (AST/SGOT) 29 U/L (15-37) Alanine Aminotransferase (ALT/SGPT) 24 U/L (16-63) Alkaline Phosphatase 71 U/L (46-116) Total Protein 6.3 g/dL (6.4-8.2) Albumin 3.1 g/dL (3.4-5.0) Albumin/Globulin Ratio 1.0 (1.0-1.7) Test 04/02/19 17:10 04/03/19 01:20 04/03/19 08:35 Heparin Anti-Xa Act, Unfractionated > 1.10 IU/mL (0.30-0.70) 0.91 IU/mL (0.30-0.70) 0.57 IU/mL (0.30-0.70) White Blood Count 10.5 x10^3/uL (4.0-11.0) Red Blood Count 3.75 x10^6/uL (4.30-5.70) Hemoglobin 11.4 g/dL (13.0-17.5) Hematocrit 33.1 % (39.0-53.0) Mean Corpuscular Volume 88 fL (79-100) Mean Corpuscular Hemoglobin 30 pg (25-35) Mean Corpuscular Hemoglobin Concent 34 g/dL (31-37) Red Cell Distribution Width 16.1 % (11.5-14.5) Platelet Count 136 x10^3/uL (140-400) Laboratory Tests Test 04/02/19 17:10 04/03/19 01:20 04/03/19 08:35 Heparin Anti-Xa Act, Unfractionated > 1.10 IU/mL (0.30-0.70) 0.91 IU/mL (0.30-0.70) 0.57 IU/mL (0.30-0.70) White Blood Count 10.5 x10^3/uL (4.0-11.0) Red Blood Count 3.75 x10^6/uL (4.30-5.70) Hemoglobin 11.4 g/dL (13.0-17.5) Hematocrit 33.1 % (39.0-53.0) Mean Corpuscular Volume 88 fL (79-100) Mean Corpuscular Hemoglobin 30 pg (25-35) Mean Corpuscular Hemoglobin Concent 34 g/dL (31-37) Red Cell Distribution Width 16.1 % (11.5-14.5) Platelet Count 136 x10^3/uL (140-400) Medications Current Medications Aspirin (Darren Aspirin) 325 mg 1X ONCE PO Last administered on 03/31/19 21:01; Start 03/31/19 at 20:45; Stop 03/31/19 at 20:46; Status DC Sodium Chloride 1,000 ml @ 1,000 mls/hr 1X ONCE IV Last administered on 03/31/19at 20:17; Start 03/31/19 at 20:30; Stop 03/31/19 at 21:29; Status DC Fentanyl Citrate (Fentanyl 2ml Vial) 50 mcg 1X ONCE IV Last administered on 03/31/19at 20:17; Start 03/31/19 at 20:45; Stop 03/31/19 at 20:46; Status DC Atropine Sulfate (ATROPINE 0.5mg SYRINGE) 1 mg 1X ONCE IV Last administered on 03/31/19at 20:32; Start 03/31/19 at 21:00; Stop 03/31/19 at 21:01; Status DC Dopamine HCl/ Dextrose 250 ml @ 5.171 mls/ hr 1X ONCE IV Last administered on 03/31/19at 21:18; Start 03/31/19 at 22:00; Stop 04/01/19 at 02:13; Status DC Magnesium Sulfate 50 ml @ 25 mls/hr 1X ONCE IV Last administered on 03/31/19at 21:20; Start 03/31/19 at 22:00; Stop 03/31/19 at 23:59; Status DC Ondansetron HCl (Zofran) 4 mg PRN Q8HRS PRN IV NAUSEA/VOMITING 1ST CHOICE; Start 03/31/19 at 22:00; Stop 04/01/19 at 21:59; Status DC Fentanyl Citrate (Fentanyl 2ml Vial) 50 mcg PRN Q1HR PRN IV SEVERE PAIN; Start 03/31/19 at 22:00; Stop 04/01/19 at 21:59; Status DC Amiodarone HCl 150 mg/Dextrose 103 ml @ 618 mls/hr 1X ONCE IV Last administered on 03/31/19at 21:58; Start 03/31/19 at 22:30; Stop 03/31/19 at 22:39; Status DC Lidocaine HCl (Lidocaine 1% 20ml Vial) 20 ml STK-MED ONCE .ROUTE ; Start 03/31/19 at 23:11; Stop 03/31/19 at 23:12; Status DC Heparin Sodium/ Sodium Chloride 500 ml @ As Directed STK-MED ONCE .ROUTE ; Start 03/31/19 at 23:12; Stop 03/31/19 at 23:13; Status DC Fentanyl Citrate (Fentanyl 2ml Vial) 100 mcg STK-MED ONCE .ROUTE ; Start 03/31/19 at 23:13; Stop 03/31/19 at 23:14; Status DC Midazolam HCl (Versed) 2 mg STK-MED ONCE .ROUTE ; Start 03/31/19 at 23:14; Stop 03/31/19 at 23:15; Status DC Lidocaine/ Epinephrine (LIDOCAINE 2%-EPI 1:100,000 multi-dose) 20 ml STK-MED ONCE .ROUTE ; Start 03/31/19 at 23:47; Stop 03/31/19 at 23:48; Status DC Vancomycin HCl 250 ml @ As Directed STK-MED ONCE .ROUTE ; Start 03/31/19 at 23:49; Stop 03/31/19 at 23:50; Status DC Amiodarone HCl (Cordarone) 150 mg STK-MED ONCE .ROUTE ; Start 03/31/19 at 23:52; Stop 03/31/19 at 23:53; Status DC Lidocaine/ Epinephrine (LIDOCAINE 2%-EPI 1:100,000 multi-dose) 20 ml 1X ONCE IJ Last administered on 04/01/19at 00:22; Start 04/01/19 at 00:30; Stop 04/01/19 at 00:31; Status DC Vancomycin HCl 250 ml @ 250 mls/hr 1X ONCE IV Last administered on 04/01/19at 00:25; Start 04/01/19 at 00:30; Stop 04/01/19 at 01:29; Status DC Lidocaine HCl (Lidocaine 1% 20ml Vial) 20 ml 1X ONCE INJ Last administered on 04/01/19at 00:23; Start 04/01/19 at 00:30; Stop 04/01/19 at 00:31; Status DC Amiodarone HCl 150 mg/Dextrose 103 ml @ 0 mls/hr 1X ONCE IV Last administered on 04/01/19at 00:23; Start 04/01/19 at 00:30; Stop 04/01/19 at 00:31; Status DC Fentanyl Citrate (Fentanyl 2ml Vial) 50 mcg 1X ONCE IV Last administered on 04/01/19at 00:25; Start 04/01/19 at 00:30; Stop 04/01/19 at 00:31; Status DC Amiodarone HCl 900 mg/Dextrose 518 ml @ 0 mls/hr CONT PRN IV SEE I/O RECORD Last administered on 04/01/19at 01:17; Start 04/01/19 at 01:00; Stop 04/01/19 at 01:18; Status DC Metoprolol Tartrate (Lopressor Vial) 5 mg PRN Q5MIN PRN IVP TACHYCARDIA; Start 04/01/19 at 00:30 Lorazepam (Ativan Inj) 1 mg PRN Q4HRS PRN IV ANXIETY / AGITATION Last administered on 04/01/19at 02:09; Start 04/01/19 at 02:00 Albuterol Sulfate (Ventolin Neb Soln) 2.5 mg PRN Q4HRS PRN NEB SHORTNESS OF BREATH Last administered on 04/03/19 02:15; Start 04/01/19 at 02:00 Sodium Chloride 1,000 ml @ 50 mls/hr Q20H IV Last administered on 04/03/19at 00:08; Start 04/01/19 at 02:00 Hydralazine HCl (Apresoline Inj) 10 mg PRN Q4HRS PRN IVP ELEVATED BP, SEE COMMENTS Last administered on 04/03/19at 00:09; Start 04/01/19 at 02:15 Oxycodone/ Acetaminophen (Percocet 5/325) 1 tab PRN QID PRN PO PAIN 1ST CHOICE Last administered on 04/02/19at 11:15; Start 04/01/19 at 11:15 Amiodarone HCl (Cordarone) 200 mg DAILY PO ; Start 04/01/19 at 14:30; Status Cancel Bupropion HCl (Wellbutrin Sr) 100 mg BID PO Last administered on 04/02/19at 22:26; Start 04/01/19 at 14:30 Cyclosporine (Restasis) 1 drop BID OU Last administered on 04/02/19at 22:32; Start 04/01/19 at 14:30 Docusate Sodium (Colace) 100 mg BID PO Last administered on 04/02/19at 22:25; Start 04/01/19 at 14:30 Gabapentin (Neurontin) 900 mg TID PO Last administered on 04/02/19 22:25; Start 04/01/19 at 14:30 Isosorbide Mononitrate (Imdur) 30 mg DAILY PO ; Start 04/01/19 at 14:30; Status Cancel Lisinopril (Prinivil) 20 mg DAILY PO ; Start 04/01/19 at 14:30; Status Cancel Metoprolol Succinate (Toprol Xl) 25 mg DAILY PO ; Start 04/01/19 at 14:30; Status Cancel Metoprolol Succinate (Toprol Xl) 12.5 mg DAILY PO ; Start 04/02/19 at 09:00; Status UNV Oxycodone HCl (Roxicodone) 5 mg PRN Q4HRS PRN PO PAIN 2ND CHOICE Last administered on 04/02/19 19:39; Start 04/01/19 at 13:45 Senna/Docusate Sodium (Senna Plus) 1 tab BID PO Last administered on 04/02/19 22:26; Start 04/01/19 at 14:30 Non-Formulary Medication (Brinzolamide/ Brimonid Tart (Simbrinza 1%-0.2% Eye Drops)) 8 ml BID OP ; Start 04/01/19 at 21:00; Status UNV Artificial Tears (Artificial Tears) 1 drop PRN QID PRN OU DRY EYE; Start 04/01/19 at 14:00 Latanoprost (Xalatan) 1 drop QHS OU Last administered on 04/02/19 22:24; Start 04/01/19 at 21:00 Meloxicam (Mobic) 15 mg NOON PO Last administered on 04/02/19 11:16; Start 04/01/19 at 14:30 Polyethylene Glycol (miraLAX PACKET) 17 gm DAILY PO ; Start 04/01/19 at 14:30 Atorvastatin Calcium (Lipitor) 80 mg QHS PO Last administered on 04/02/19 22:26; Start 04/01/19 at 21:00 Linagliptin (Tradjenta) 5 mg DAILY PO Last administered on 04/02/19 08:56; Start 04/01/19 at 14:30 Timolol Maleate (Timoptic 0.5% Ophth) 1 drop BID OU Last administered on 04/02/19 22:23; Start 04/01/19 at 14:30 Brimonidine Tartrate (Alphagan) 1 drop BID OU Last administered on 04/02/19 22:23; Start 04/01/19 at 14:30 Dorzolamide HCl (Trusopt) 1 drop BID OU Last administered on 04/02/19 22:24; Start 04/01/19 at 14:30 Heparin Sodium/ Dextrose 500 ml @ 22 mls/hr CONT PRN IV SEE I/O RECORD Last administered on 04/01/19at 18:44; Start 04/01/19 at 19:00 Heparin Sodium (Porcine) (Heparin Sodium) 2,100 unit PRN Q6HRS PRN IV FOR UFH LEVEL LESS THAN 0.2; Start 04/01/19 at 19:00 Heparin Sodium (Porcine) (Heparin Sodium) 1,050 unit PRN Q6HRS PRN IV FOR UFH LEVEL 0.2 - 0.29; Start 04/01/19 at 19:00 Vancomycin HCl (Vanco Per Pharmacy) 1 each PRN DAILY PRN MC SEE COMMENTS Last administered on 04/02/19at 16:26; Start 04/01/19 at 19:00; Stop 04/02/19 at 16:45; Status DC Amiodarone HCl 900 mg/Dextrose 518 ml @ 17 mls/hr CONT PRN IV SEE I/O RECORD Last administered on 04/01/19at 19:28; Start 04/01/19 at 19:30; Stop 04/01/19 at 19:30; Status DC Vancomycin HCl 1.5 gm/Sodium Chloride 500 ml @ 250 mls/hr 1X ONCE IV Last administered on 04/01/19at 21:17; Start 04/01/19 at 20:00; Stop 04/01/19 at 21:59; Status DC Vancomycin HCl 1 gm/Sodium Chloride 250 ml @ 250 mls/hr Q12H IV Last administered on 04/02/19at 08:56; Start 04/02/19 at 09:00; Stop 04/02/19 at 16:45; Status DC Vancomycin HCl (Vancomycin Trough Level) 1 each 1X ONCE MC ; Start 04/03/19 at 08:30; Stop 04/03/19 at 08:31; Status Cancel Magnesium Sulfate 50 ml @ 25 mls/hr 1X ONCE IV Last administered on 04/02/19at 11:26; Start 04/02/19 at 11:00; Stop 04/02/19 at 12:59; Status DC Psyllium Hydrophilic Mucilloid (Metamucil Fiber Packet) 1 pkt QPM PO ; Start 04/02/19 at 18:00 Vancomycin HCl 250 ml @ 250 mls/hr 1X PREOP PRN IV PRIOR TO PROCEDURE; Start 04/03/19 at 06:00; Stop 04/03/19 at 18:00 Cetirizine HCl (ZyrTEC) 10 mg HS PO Last administered on 04/02/19at 22:25; Start 04/02/19 at 22:30 Amiodarone HCl 450 mg/Dextrose 259 ml @ 17.26 mls/ hr CONT PRN IV SEE I/O RECORD Last administered on 04/03/19at 05:13; Start 04/02/19 at 23:30 Active Scripts Active Reported Eliquis (Apixaban) 5 Mg Tablet 10 Mg PO BID 7 Days 10mg BID x7 days(03/30 start date), then 5mg BID after Metoprolol Succinate ( Xl ) (Metoprolol Succinate) 25 Mg Tab.er.24h 12.5 Mg PO DAILY Eliquis (Apixaban) 5 Mg Tablet 5 Mg PO Metoprolol Succinate ( Xl ) (Metoprolol Succinate) 25 Mg Tab.er.24h 1 Tab PO DAILY Isosorbide Mononitrate Er (Isosorbide Mononitrate) 30 Mg Tab.er.24h 1 Tab PO DAILY Amiodarone Hcl 200 Mg Tablet 1 Tab PO DAILY Timoptic 0.5% (Timolol Maleate) 10 Ml Drops 1 Drop EACHEYE BID Senna-S Tablet (Sennosides/Docusate Sodium) 1 Each Tablet 1 Each PO BID Onglyza (Saxagliptin Hcl) 5 Mg Tablet 1 Tab PO DAILY Crestor (Rosuvastatin Calcium) 20 Mg Tablet 20 Mg PO HS Miralax (Polyethylene Glycol 3350) 17 Gm Powd.pack 1 Packet PO DAILY Percocet 5-325 Mg Tablet (Oxycodone/Acetaminophen) 1 Each Tablet 1 Tab PO QID PRN Oxycodone Hcl Immed.release (Oxycodone Hcl) 5 Mg Tablet 5 Mg PO PRN Q4HRS PRN take 1 to 3 tabs Q4H prn Metformin Hcl 500 Mg Tablet 500 Mg PO DAILYWSUP Metformin Hcl 1,000 Mg Tablet 1,000 Mg PO DAILYWBKFT Meloxicam 15 Mg Tablet 1 Tab PO NOON Lisinopril 20 Mg Tablet 1 Tab PO DAILY Xalatan (Latanoprost) 2.5 Ml Drops 1 Drop EACHEYE QHS Gabapentin (Gabapentin) 300 Mg Capsule 900 Mg PO TID Docusate Sodium 100 Mg Capsule 1 Cap PO BID Restasis (Cyclosporine) 1 Each Droperette 1 Drop EACHEYE BID Refresh Optive Eye Drops (Carboxymethylcellulos/Glycerin) 15 Ml Drops 1 Drop EACHEYE QID PRN Wellbutrin Sr (Bupropion Hcl) 100 Mg Tablet.er 1 Tab PO BID Aspirin Ec (Aspirin) 81 Mg Tablet.dr 1 Tab PO DAILY Simbrinza 1%-0.2% Eye Drops (Brinzolamide/Brimonid Tart) 8 Ml Drops.susp 8 Ml OP BID Vitals/I & O Vital Sign - Last 24 Hours 04/02/19 04/02/19 04/02/19 04/02/19 10:00 10:16 11:00 11:15 Pulse 69 75 Resp 19 16 16 14 B/P (MAP) 140/66 (90) 136/54 (81) Pulse Ox 96 97 96 95 O2 Delivery Room Air Room Air Room Air Room Air 04/02/19 04/02/19 04/02/19 04/02/19 12:00 12:00 12:15 13:00 Temp 98.2 98.2 Pulse 66 54 Resp 18 15 15 B/P (MAP) 119/65 (83) 142/70 (94) Pulse Ox 96 95 97 O2 Delivery Room Air Room Air Room Air Room Air 04/02/19 04/02/19 04/02/19 04/02/19 14:00 15:00 16:00 16:00 Pulse 60 61 61 Resp 14 14 17 B/P (MAP) 110/60 (77) 144/63 (90) 146/65 (92) Pulse Ox 98 98 96 O2 Delivery Room Air Room Air Room Air Room Air 04/02/19 04/02/19 04/02/19 04/02/19 17:00 18:00 19:00 19:39 Pulse 60 60 60 Resp 21 21 19 16 B/P (MAP) 163/71 (101) 151/71 (97) 149/72 (97) Pulse Ox 97 96 95 95 O2 Delivery Room Air Room Air Room Air Room Air 04/02/19 04/02/19 04/02/19 04/02/19 20:00 20:00 21:00 22:00 Temp 96.5 96.5 Pulse 60 62 60 Resp 20 30 25 B/P (MAP) 165/74 (104) 155/75 (101) 181/73 (109) Pulse Ox 96 97 97 O2 Delivery Room Air Room Air Room Air Room Air 04/02/19 04/03/19 04/03/19 04/03/19 23:00 00:00 00:00 00:09 Temp 97.2 97.2 Pulse 60 60 60 Resp 24 43 B/P (MAP) 180/79 (112) 190/105 (133) 190/105 Pulse Ox 96 96 O2 Delivery Room Air Room Air Room Air 04/03/19 04/03/19 04/03/19 04/03/19 01:00 02:00 02:23 03:00 Pulse 62 60 64 Resp 20 37 15 B/P (MAP) 136/75 (95) 151/68 (95) 110/56 (74) Pulse Ox 96 96 97 96 O2 Delivery Room Air Room Air Room Air Room Air 04/03/19 04/03/19 04/03/19 04/03/19 04:00 04:00 05:00 06:00 Temp 97.1 97.1 Pulse 64 62 70 Resp 19 17 26 B/P (MAP) 140/60 (86) 109/62 (78) 152/67 (95) Pulse Ox 96 94 95 O2 Delivery Room Air Room Air Room Air Room Air Intake and Output 04/02/19 04/02/19 04/03/19 14:59 22:59 06:59 Intake Total 1500 ml 1817 ml 877 ml Output Total 1895 ml 2155 ml 2870 ml Balance -395 ml -338 ml -1993 ml ELLEN CONROY MD April 03, 2019 09:18
[2019-04-03] MEDS: buPROPion SR 100 MG TABLET.SA. PO SCH ×2 (09:37→22:08)
[2019-04-03] MEDS: LINAGLIPTIN 5 MG TABLET PO SCH (09:37)
[2019-04-03] MEDS: GABAPENTIN 300 MG CAPSULE. PO SCH ×3 (09:38→22:07)
[2019-04-03] MEDS: BRIMONIDINE 0.2% OPHTH SOLUTION 5ML BOTTLE. OU SCH ×2 (09:44→22:09)
[2019-04-03] MEDS: DORZOLAMIDE 2% OPHTH SOLUTION 10ML BOTTLE. OU SCH ×2 (09:44→22:09)
[2019-04-03] MEDS: TIMOLOL 0.5% OPHTH SOLUTION 5ML BOTTLE. OU SCH ×2 (09:44→22:09)
[2019-04-03] MEDS ORDERED: ANTI-COAG MONITOR BY PHARMACY. MC PRN (09:45)
[2019-04-03] MEDS: oxyCODONE/APAP 5/325 1 TAB TABLET PO PRN ×2 (09:51→16:47)
--- NOTE | 2019-04-03 10:56 | CARD ---
MR#: [id number] Date of Study: 04/01/2019 Ordering Physician: GALILEO CORONADO, Referring Physician: JESUS LAZARO Tech: Jocelyn Horner APPROVED REPORT EXAM: Two-dimensional and M-mode echocardiogram with Doppler and color Doppler. Other Information Quality : GoodHR: 78bpm INDICATION CAD LV Function:Systolic Surgery/Intervention ICD/Pacemaker: Date: 2018 CABG: Date: 1987 RISK FACTORS Hypertension Hyperlipidemia Bradycardia 2D DIMENSIONS RVDd3.0 (2.9-3.5cm)Left Atrium(2D)4.5 (1.6-4.0cm) IVSd0.9 (0.7-1.1cm)Aortic Root(2D)2.7 (2.0-3.7cm) LVDd4.4 (3.9-5.9cm)PWd1.1 (0.7-1.1cm) LVDs3.0 (2.5-4.0cm)FS (%) 31.5 % SV51.1 mlLVEF(%)59.7 (>50%) Tricuspid Valve RAP [id number] LEFT VENTRICLE The left ventricle is normal size. There is borderline concentric left ventricular hypertrophy. There is moderate LV dysfunction. EF 35-40%. There is moderate to severe global hypokinesis with septal mo tion suggestive of conduction defect. Diastology not performed. RIGHT VENTRICLE The right ventricle is normal size. There is normal right ventricular wall thickness. The right ventr icular systolic function is normal. There is a pacemaker lead in the right ventricle. ATRIA The left atrium is borderline dilated. The right atrium size is normal. There is a pacemaker lead see n in the right atrium. The interatrial septum is intact with no evidence for an atrial septal defect or patent foramen ovale as noted on 2-D or Doppler imaging. AORTIC VALVE The aortic valve is calcified but opens well. MITRAL VALVE The mitral valve is normal in structure and function. There is no evidence of mitral valve prolapse. There is no mitral valve stenosis. TRICUSPID VALVE The tricuspid valve is normal in structure and function. There is no tricuspid valve stenosis. GREAT VESSELS The aortic root is normal in size. The IVC is normal in size and collapses >50% with inspiration. PERICARDIAL EFFUSION There is no evidence of significant pericardial effusion. Critical Notification Critical Value: No <Conclusion> There is moderate LV dysfunction. EF 35%. There is moderate to severe global hypokinesis with septal motion suggestive of conduction defect. There is a pacemaker lead in the right ventricle. Limited echo only. Signed by : Galileo Coronado, Electronically Approved : 04/01/2019 17:39:42
--- NOTE | 2019-04-03 10:56 | CARD ---
MR#: [id number] Date of Study: 03/31/2019 Ordering Physician: GALILEO KNIGHT, Referring Physician: JESUS LAZARO Tech: RT Levi (R) OBEY APPROVED REPORT Technologist: RT Levi (R) OBEY Nurse: Niya Kang R.N. Procedure(s) performed: fluoro time: 0.4 min DAP: 4.9 mGy Temporary left IJ transvenous pacemaker for SSS HISTORY The patient is a 68 year-old male with a history of : coronary artery disease. INDICATION The indication(s) include : SSS, NSVT while on dopamine with prior history of Ischemic CMP and VT. . PROCEDURE NARRATIVE After appropriate informed consent, the patient was brought to the laboratory phlebotomist. The left IJ was clearly visualized on u/s. After sterile prep/drape of the left jugular area, with u/s guidance, an 18 G needle was used to enga ge the LIJ vein under 1% lidocaine local anesthesia. A j-tipped guide wire was passed without difficu lty. Next, a 5Fr sheath was placed. Subsequently, a temporary transvenous pacer was placed in the RV apex without difficult under fluroscopy. Excellent thresholds (0.5ma) were obtained. Settings: V paced at 90 bpm, output 2.5 mV Complications: None. Conclusion 1. Successful left IJ transvenous pacer insertion. Signed by : Galileo Knight, Electronically Approved : 04/01/2019 00:15:44
[2019-04-03] MEDS ORDERED: LIDOCAINE 2%/EPI 1:100,000 20 ML VIAL. ONE (11:12)
[2019-04-03] MEDS: MELOXICAM 7.5 MG TABLET PO SCH (12:00)
[2019-04-03] MEDS ORDERED: BACITRACIN 50,000 UNIT in IV NORMAL SALINE 250ML 250 ML IRR ONE (12:15)
[2019-04-03] MEDS ORDERED: MIDAZOLAM HCL/PF 5 MG/5 ML VIAL. ONE (12:16)
[2019-04-03] MEDS ORDERED: fentaNYL PF VIAL 250 MCG/5 ML VIAL ONE (12:16)
--- NOTE | 2019-04-03 12:42 | EKG ---
[facility] [address] [place] [address] Test Date: 2019-04-03 Test Time: 12:10:45 Pat Name: KATELYN GENAO Department: Room: 104 1 Gender: M Christian Counselor: ALAN : 1950 Requested By: GALILEO KNIGHT Order Number: [id number] Reading MD: Measurements Intervals [place] Rate: 65 P: 43 UT: 212 QRS: 87 QRSD: 122 T: -26 QT: 422 QTc: 444 Interpretive Statements SINUS RHYTHM T ABNORMALITY IN ANTERIOR LEADS INFEROLATERAL LEADS ABNORMAL ECG RI6.01 Unconfirmed report No previous ECG available for comparison
[2019-04-03] MEDS ORDERED: IV RINGERS,LACTATED 1000ML 1,000 ML IV SCH (13:40)
[2019-04-03] MEDS ORDERED: MORPHINE SULFATE 2 MG/ML VIAL. IV PRN (13:45)
[2019-04-03] MEDS ORDERED: PROCHLORPERAZINE 10 MG/2 ML VIAL. IV PRN (13:45)
[2019-04-03] MEDS ORDERED: fentaNYL PF VIAL 100 MCG/2 ML VIAL IV PRN ×2 (13:45)
[2019-04-03] MEDS ORDERED: ONDANSETRON PF 4 MG/2 ML VIAL. IV PRN (13:45)
[2019-04-03] MEDS ORDERED: HYDROmorphone 2 MG/ML VIAL IV PRN (13:45)
[2019-04-03] MEDS ORDERED: MIDAZOLAM HCL/PF 5 MG/5 ML VIAL. IV ONE (14:00)
[2019-04-03] MEDS ORDERED: LIDOCAINE 2%/EPI 1:100,000 20 ML VIAL. IJ ONE (14:00)
[2019-04-03] MEDS ORDERED: fentaNYL PF VIAL 250 MCG/5 ML VIAL IV ONE (14:00)
[2019-04-03] MEDS ORDERED: NO ANTICOAGULANT THERAPY. MC PRN (14:00)
--- NOTE | 2019-04-03 14:09 | CARD ---
MR#: [id number] Date of Study: 04/03/2019 Ordering Physician: JESUS LAZARO, Referring Physician: JESUS LAZARO, Tech: APPROVED REPORT EXAM Successful implantation of Biotronik automated implantable cardioverter defibrillator with defibrilla tion thresholds measurement at the time of implantation. Removal of previously placed temporary transvenous pacemaker. Moderate sedation: 60 mins Fluoro time: 16.9 mins Dose: 65.6 GYCM2 INDICATIONS Secondary prevention of sudden cardiac in a patient with ventricular tachycardia and ischemic c ardiomyopathy PROCEDURE After explaining the risks, benefits, and alternative options, informed consent was obtained from the patient. The patient was brought to the cardiac catheterization lab and the left chest and shoulder were prepp ed and draped in the usual fashion. 30 mL of 2% lidocaine was infiltrated into the skin and subcutaneous tissues for local anesthesia. An incision was made over the left infraclavicular fossa and using blunt dissection and cautery a pocke t was created. Venous access was obtained in the left subclavian vein and 8.5 and 6 Chinese sheaths in serted.\ A Biotronik bipolar active fixation right ventricular lead model Plexa ProMRI, serial #[id number] was a dvanced under fluoroscopy guidance and the tip was positioned in the right ventricle apex. Following this, a Biotronik bipolar active fixation right atrial lead model Solia, serial #[id number] was positio efra in the right atrial appendage under fluoroscopy guidance. The leads were secured into place and a ttached to a Biotronik dual-chamber AICD generator model Ilivia 7 DR-T DF4 ProMRI, serial #[id number]. This was placed in the pocket that was subsequently closed in 3 layers. Hemostasis was secured. Ventricular fibrillation was then induced to check the defibrillation threshold. Patient successfully converted to sinus rhythm with 15 J shock therapy with a shock impedance of 41 ohms. The right ventr icular lead showed a sensing amplitude of 19.9 mV, impedance of 568 ohms and a threshold of 1.6 V. Th e right atrial lead showed a sensing amplitude of 1.9 mV, impedance of 510 ohms and a threshold of 1. 5 V. The previously placed temporary transvenous pacemaker was then successfully removed under fluoro scopy guidance. Patient tolerated the procedure well. There were no immediate complications. CONCLUSION Successful implantation of Biotronik dual-chamber automated implantable cardioverter defibrillator fo r secondary prevention of sudden cardiac . Defibrillation thresholds were measured at the time o f implantation. Signed by : Jair Nunn, Electronically Approved : 04/03/2019 14:09:27
[2019-04-03] MEDS ORDERED: ceFAZolin SODIUM 1 GM in IV DEXTROSE 5% 50 ML IV ONE (14:15)
[2019-04-03] MEDS ORDERED: PROPOFOL 20 ML IV ONE (14:32)
--- NOTE | 2019-04-03 14:45 | RAD ---
PORTABLE CHEST 1V History: Pacemaker placement.. Comparison with 04/02/2019. Dual-lead pacemaker defibrillator has been placed. Right chest wall port again identified. The heart size is stable. Mildly enlarged. No evidence of pneumothorax, consolidating infiltrate or effusion. Skeletal structures appear grossly intact. IMPRESSION: Pacemaker defibrillator placement. No consolidating infiltrate. Electronically signed by: Pineda Chou MD (04/03/2019 2:42 PM) [id number]
[2019-04-03] MEDS: PSYLLIUM HUSK (SUGAR FREE) 1 PKT PACKET PO SCH (15:07)
[2019-04-03] MEDS: AMIODARONE HCL 200 MG TABLET. PO SCH (16:00)
--- NOTE | 2019-04-03 16:16 | NUR ---
SS following for discharge planning. SS reviewed pt's chart. Pt is from home with spouse and is currently requiring oxygen. Pt was previously on services with [facility], ; fax [phone]. SS will continue to follow for discharge planning.
[2019-04-03] MEDS ORDERED: ceFAZolin SODIUM IV Push 1 GM VIAL. IVP ONE (19:00)
[2019-04-03] MEDS: CETIRIZINE HCL 10 MG TABLET. PO SCH (21:00)
[2019-04-03] MEDS: ATORVASTATIN CALCIUM 40 MG TABLET. PO SCH (22:08)
[2019-04-03] MEDS: LATANOPROST 0.005% OPHTH SOLUTION 2.5ML BOTTLE. OU SCH (22:09)
[2019-04-04] VITALS (7 sets, daily range): BP systolic 108–190; BP diastolic 55–79
[2019-04-04] MEDS: oxyCODONE/APAP 5/325 1 TAB TABLET PO PRN ×4 (00:57→21:41)
[2019-04-04] MEDS: oxyCODONE IR 5 MG TABLET PO PRN ×2 (03:30→20:34)
[2019-04-04] MEDS ORDERED: ceFAZolin SODIUM 1 GM in IV DEXTROSE 5% 50 ML IV ONE (06:00)
--- NOTE | 2019-04-04 08:01 | PDOC ---
PROGRESS NOTES Chief Complaint Chief Complaint A/P: AVB with SSS and NSVT - Symptomatic bradycardia - Initially paced, with wide complex, likely 2/2 hyperkalemia, still on dopamine, improved. Cardiology consulted for further care. Plan for BiV AICD 04/03/19 CAD s/p CABG x3 - stable outpatient with [facility] f/u in [place]. Will reconcile home meds. Hold nephrotoxic meds Bladder Cancer s/p chemotherapy and cystectomy with ileoconduit (12/[address] Licea @ [facility]) - has appt on 03/10/19 for f/u. Access for port ok. Monitor urostomy output. Will order records. Abdominal imaging is likely indicated. Hyponatremia - likely 2/2 poor PO intake Diabetes-Type II - place on sliding scale, check A1c Pulmonary embolus - high risk with bladder ca. Was recently noted at [facility] on his PET CT for cancer f/u. I have discussed this may have been present on his prev ious admission and apologized as I may have missed this while he was on the ventilator. FEN - ADA cardiac diet PPX - Heparin FULL CODE ICU for critically ill patient with life-threatening bradycardia, greater than 35 minutes critical care time spent. D/w bedside his critical illness. Greater than 2 midnights inpatient required. History of Present Illness History of Present Illness Mr Ashley is a 68-year-old male 100% service connected [place] w/PMHx CAD s/p CABG x3, Bladder Cancer s/p chemotherapy and cystectomy with ileoconduit (12/[address] Licea @ [facility]), COPD, Diabetes-Type II who presents via his for when he was noted to have some lightheadedness and dizziness and ultimately, he was brought back to the ER and noted to have severe bradycardia. He has been on low dose BB at [facility] and recently started on NOAC for PE found after [facility] admission after discharge from here last month. On further review his notes over the past 3 weeks he has been weak with mal aise and has had significant decrease in appetite as well as intermittent constipation not well mitigated by miralax. He has had decreased urostomy output for only 1 day, since has been excellent. He had been started on temporary pacer in the ICU, was stable after this had been placed. S/p BIVAICD 04/03/19. He has had no BM, but denies any pain. Was on O2 last night. Restarted his eliquis this morning. Notes his vision is blurry, but notes inconsistency with his glaucoma medications. He also notes he is very weak PT/OT eval Pulse ox Vitals Vitals Vital Signs Date Time Temp Pulse Resp B/P (MAP) Pulse Ox O2 Delivery O2 Flow Rate FiO2 04/04/19 04:37 16 96 Room Air 04/04/19 03:20 98.2 76 164/79 (107) 98.2 04/03/19 15:49 2.0 Physical Exam General: Alert, Oriented X3, Cooperative Lungs: Clear Labs LABS Laboratory Tests Test 04/03/19 08:35 04/03/19 20:45 04/04/19 07:32 White Blood Count 10.5 x10^3/uL (4.0-11.0) Red Blood Count 3.75 x10^6/uL (4.30-5.70) Hemoglobin 11.4 g/dL (13.0-17.5) Hematocrit 33.1 % (39.0-53.0) Mean Corpuscular Volume 88 fL (79-100) Mean Corpuscular Hemoglobin 30 pg (25-35) Mean Corpuscular Hemoglobin Concent 34 g/dL (31-37) Red Cell Distribution Width 16.1 % (11.5-14.5) Platelet Count 136 x10^3/uL (140-400) Heparin Anti-Xa Act, Unfractionated 0.57 IU/mL (0.30-0.70) Glucose (Fingerstick) 117 mg/dL (70-99) 98 mg/dL (70-99) Comment Review of Relevant I have reviewed the following items fabián (where applicable) has been applied. Labs Laboratory Tests Test 04/02/19 08:45 04/02/19 17:10 04/03/19 01:20 04/03/19 08:35 White Blood Count 10.1 x10^3/uL (4.0-11.0) 10.5 x10^3/uL (4.0-11.0) Red Blood Count 3.82 x10^6/uL (4.30-5.70) 3.75 x10^6/uL (4.30-5.70) Hemoglobin 11.2 g/dL (13.0-17.5) 11.4 g/dL (13.0-17.5) Hematocrit 34.0 % (39.0-53.0) 33.1 % (39.0-53.0) Mean Corpuscular Volume 89 fL (79-100) 88 fL (79-100) Mean Corpuscular Hemoglobin 29 pg (25-35) 30 pg (25-35) Mean Corpuscular Hemoglobin Concent 33 g/dL (31-37) 34 g/dL (31-37) Red Cell Distribution Width 16.0 % (11.5-14.5) 16.1 % (11.5-14.5) Platelet Count 152 x10^3/uL (140-400) 136 x10^3/uL (140-400) Heparin Anti-Xa Act, Unfractionated > 1.10 IU/mL (0.30-0.70) > 1.10 IU/mL (0.30-0.70) 0.91 IU/mL (0.30-0.70) 0.57 IU/mL (0.30-0.70) Sodium Level 135 mmol/L (136-145) Potassium Level 4.0 mmol/L (3.5-5.1) Chloride Level 100 mmol/L (98-107) Carbon Dioxide Level 26 mmol/L (21-32) Anion Gap 9 (6-14) Blood Urea Nitrogen 12 mg/dL (8-26) Creatinine 0.8 mg/dL (0.7-1.3) Estimated GFR (Cockcroft-Gault) 96.1 BUN/Creatinine Ratio 15 (6-20) Glucose Level 132 mg/dL (70-99) Calcium Level 8.8 mg/dL (8.5-10.1) Magnesium Level 1.7 mg/dL (1.8-2.4) Total Bilirubin 0.2 mg/dL (0.2-1.0) Aspartate Amino Transf (AST/SGOT) 29 U/L (15-37) Alanine Aminotransferase (ALT/SGPT) 24 U/L (16-63) Alkaline Phosphatase 71 U/L (46-116) Total Protein 6.3 g/dL (6.4-8.2) Albumin 3.1 g/dL (3.4-5.0) Albumin/Globulin Ratio 1.0 (1.0-1.7) Test 04/03/19 20:45 04/04/19 07:32 Glucose (Fingerstick) 117 mg/dL (70-99) 98 mg/dL (70-99) Laboratory Tests Test 04/03/19 08:35 04/03/19 20:45 04/04/19 07:32 White Blood Count 10.5 x10^3/uL (4.0-11.0) Red Blood Count 3.75 x10^6/uL (4.30-5.70) Hemoglobin 11.4 g/dL (13.0-17.5) Hematocrit 33.1 % (39.0-53.0) Mean Corpuscular Volume 88 fL (79-100) Mean Corpuscular Hemoglobin 30 pg (25-35) Mean Corpuscular Hemoglobin Concent 34 g/dL (31-37) Red Cell Distribution Width 16.1 % (11.5-14.5) Platelet Count 136 x10^3/uL (140-400) Heparin Anti-Xa Act, Unfractionated 0.57 IU/mL (0.30-0.70) Glucose (Fingerstick) 117 mg/dL (70-99) 98 mg/dL (70-99) Medications Current Medications Aspirin (Darren Aspirin) 325 mg 1X ONCE PO Last administered on 03/31/19at 21:01; Start 03/31/19 at 20:45; Stop 03/31/19 at 20:46; Status DC Sodium Chloride 1,000 ml @ 1,000 mls/hr 1X ONCE IV Last administered on 03/31/19at 20:17; Start 03/31/19 at 20:30; Stop 03/31/19 at 21:29; Status DC Fentanyl Citrate (Fentanyl 2ml Vial) 50 mcg 1X ONCE IV Last administered on 03/31/19 20:17; Start 03/31/19 at 20:45; Stop 03/31/19 at 20:46; Status DC Atropine Sulfate (ATROPINE 0.5mg SYRINGE) 1 mg 1X ONCE IV Last administered on 03/31/19at 20:32; Start 03/31/19 at 21:00; Stop 03/31/19 at 21:01; Status DC Dopamine HCl/ Dextrose 250 ml @ 5.171 mls/ hr 1X ONCE IV Last administered on 03/31/19at 21:18; Start 03/31/19 at 22:00; Stop 04/01/19 at 02:13; Status DC Magnesium Sulfate 50 ml @ 25 mls/hr 1X ONCE IV Last administered on 03/31/19at 21:20; Start 03/31/19 at 22:00; Stop 03/31/19 at 23:59; Status DC Ondansetron HCl (Zofran) 4 mg PRN Q8HRS PRN IV NAUSEA/VOMITING 1ST CHOICE; Start 03/31/19 at 22:00; Stop 04/01/19 at 21:59; Status DC Fentanyl Citrate (Fentanyl 2ml Vial) 50 mcg PRN Q1HR PRN IV SEVERE PAIN; Start 03/31/19 at 22:00; Stop 04/01/19 at 21:59; Status DC Amiodarone HCl 150 mg/Dextrose 103 ml @ 618 mls/hr 1X ONCE IV Last administered on 03/31/19at 21:58; Start 03/31/19 at 22:30; Stop 03/31/19 at 22:39; Status DC Lidocaine HCl (Lidocaine 1% 20ml Vial) 20 ml STK-MED ONCE .ROUTE ; Start 03/31/19 at 23:11; Stop 03/31/19 at 23:12; Status DC Heparin Sodium/ Sodium Chloride 500 ml @ As Directed STK-MED ONCE .ROUTE ; Start 03/31/19 at 23:12; Stop 03/31/19 at 23:13; Status DC Fentanyl Citrate (Fentanyl 2ml Vial) 100 mcg STK-MED ONCE .ROUTE ; Start 03/31/19 at 23:13; Stop 03/31/19 at 23:14; Status DC Midazolam HCl (Versed) 2 mg STK-MED ONCE .ROUTE ; Start 03/31/19 at 23:14; Stop 03/31/19 at 23:15; Status DC Lidocaine/ Epinephrine (LIDOCAINE 2%-EPI 1:100,000 multi-dose) 20 ml STK-MED ONCE .ROUTE ; Start 03/31/19 at 23:47; Stop 03/31/19 at 23:48; Status DC Vancomycin HCl 250 ml @ As Directed STK-MED ONCE .ROUTE ; Start 03/31/19 at 23:49; Stop 03/31/19 at 23:50; Status DC Amiodarone HCl (Cordarone) 150 mg STK-MED ONCE .ROUTE ; Start 03/31/19 at 23:52; Stop 03/31/19 at 23:53; Status DC Lidocaine/ Epinephrine (LIDOCAINE 2%-EPI 1:100,000 multi-dose) 20 ml 1X ONCE IJ Last administered on 04/01/19at 00:22; Start 04/01/19 at 00:30; Stop 04/01/19 at 00:31; Status DC Vancomycin HCl 250 ml @ 250 mls/hr 1X ONCE IV Last administered on 04/01/19at 00:25; Start 04/01/19 at 00:30; Stop 04/01/19 at 01:29; Status DC Lidocaine HCl (Lidocaine 1% 20ml Vial) 20 ml 1X ONCE INJ Last administered on 04/01/19at 00:23; Start 04/01/19 at 00:30; Stop 04/01/19 at 00:31; Status DC Amiodarone HCl 150 mg/Dextrose 103 ml @ 0 mls/hr 1X ONCE IV Last administered on 04/01/19at 00:23; Start 04/01/19 at 00:30; Stop 04/01/19 at 00:31; Status DC Fentanyl Citrate (Fentanyl 2ml Vial) 50 mcg 1X ONCE IV Last administered on 04/01/19at 00:25; Start 04/01/19 at 00:30; Stop 04/01/19 at 00:31; Status DC Amiodarone HCl 900 mg/Dextrose 518 ml @ 0 mls/hr CONT PRN IV SEE I/O RECORD Last administered on 04/01/19at 01:17; Start 04/01/19 at 01:00; Stop 04/01/19 at 01:18; Status DC Metoprolol Tartrate (Lopressor Vial) 5 mg PRN Q5MIN PRN IVP TACHYCARDIA; Start 04/01/19 at 00:30 Lorazepam (Ativan Inj) 1 mg PRN Q4HRS PRN IV ANXIETY / AGITATION Last administered on 04/01/19at 02:09; Start 04/01/19 at 02:00 Albuterol Sulfate (Ventolin Neb Soln) 2.5 mg PRN Q4HRS PRN NEB SHORTNESS OF BREATH Last administered on 04/03/19at 20:31; Start 04/01/19 at 02:00 Sodium Chloride 1,000 ml @ 50 mls/hr Q20H IV Last administered on 04/03/19 16:49; Start 04/01/19 at 02:00 Hydralazine HCl (Apresoline Inj) 10 mg PRN Q4HRS PRN IVP ELEVATED BP, SEE COMMENTS Last administered on 04/03/19 00:09; Start 04/01/19 at 02:15 Oxycodone/ Acetaminophen (Percocet 5/325) 1 tab PRN QID PRN PO PAIN 1ST CHOICE Last administered on 04/04/19 00:57; Start 04/01/19 at 11:15 Amiodarone HCl (Cordarone) 200 mg DAILY PO ; Start 04/01/19 at 14:30; Status Cancel Bupropion HCl (Wellbutrin Sr) 100 mg BID PO Last administered on 04/03/19 22:08; Start 04/01/19 at 14:30 Cyclosporine (Restasis) 1 drop BID OU Last administered on 04/03/19 09:00; Start 04/01/19 at 14:30 Docusate Sodium (Colace) 100 mg BID PO Last administered on 04/03/19 22:08; Start 04/01/19 at 14:30 Gabapentin (Neurontin) 900 mg TID PO Last administered on 04/03/19at 22:07; Sta rt 04/01/19 at 14:30 Isosorbide Mononitrate (Imdur) 30 mg DAILY PO ; Start 04/01/19 at 14:30; Status Cancel Lisinopril (Prinivil) 20 mg DAILY PO ; Start 04/01/19 at 14:30; Status Cancel Metoprolol Succinate (Toprol Xl) 25 mg DAILY PO ; Start 04/01/19 at 14:30; Status Cancel Metoprolol Succinate (Toprol Xl) 12.5 mg DAILY PO ; Start 04/02/19 at 09:00; Status UNV Oxycodone HCl (Roxicodone) 5 mg PRN Q4HRS PRN PO PAIN 2ND CHOICE Last administered on 04/04/19 03:30; Start 04/01/19 at 13:45 Senna/Docusate Sodium (Senna Plus) 1 tab BID PO Last administered on 04/03/19 22:08; Start 04/01/19 at 14:30 Non-Formulary Medication (Brinzolamide/ Brimonid Tart (Simbrinza 1%-0.2% Eye Drops)) 8 ml BID OP ; Start 04/01/19 at 21:00; Status UNV Artificial Tears (Artificial Tears) 1 drop PRN QID PRN OU DRY EYE; Start 04/01/19 at 14:00 Latanoprost (Xalatan) 1 drop QHS OU Last administered on 04/03/19 22:09; Start 04/01/19 at 21:00 Meloxicam (Mobic) 15 mg NOON PO Last administered on 04/02/19 11:16; Start 04/01/19 at 14:30 Polyethylene Glycol (miraLAX PACKET) 17 gm DAILY PO ; Start 04/01/19 at 14:30 Atorvastatin Calcium (Lipitor) 80 mg QHS PO Last administered on 04/03/19 22:08; Start 04/01/19 at 21:00 Linagliptin (Tradjenta) 5 mg DAILY PO Last administered on 04/03/19 09:37; Start 04/01/19 at 14:30 Timolol Maleate (Timoptic 0.5% Oph) 1 drop BID OU Last administered on 04/03/19 22:09; Start 04/01/19 at 14:30 Brimonidine Tartrate (Alphagan) 1 drop BID OU Last administered on 04/03/19 22:09; Start 04/01/19 at 14:30 Dorzolamide HCl (Trusopt) 1 drop BID OU Last administered on 04/03/19 22:09; Start 04/01/19 at 14:30 Heparin Sodium/ Dextrose 500 ml @ 22 mls/hr CONT PRN IV SEE I/O RECORD Last administered on 04/01/19at 18:44; Start 04/01/19 at 19:00 Heparin Sodium (Porcine) (Heparin Sodium) 2,100 unit PRN Q6HRS PRN IV FOR UFH LEVEL LESS THAN 0.2; Start 04/01/19 at 19:00 Heparin Sodium (Porcine) (Heparin Sodium) 1,050 unit PRN Q6HRS PRN IV FOR UFH LEVEL 0.2 - 0.29; Start 04/01/19 at 19:00 Vancomycin HCl (Vanco Per Pharmacy) 1 each PRN DAILY PRN MC SEE COMMENTS Last administered on 04/02/19at 16:26; Start 04/01/19 at 19:00; Stop 04/02/19 at 16 :45; Status DC Amiodarone HCl 900 mg/Dextrose 518 ml @ 17 mls/hr CONT PRN IV SEE I/O RECORD Last administered on 04/01/19at 19:28; Start 04/01/19 at 19:30; Stop 04/01/19 at 19:30; Status DC Vancomycin HCl 1.5 gm/Sodium Chloride 500 ml @ 250 mls/hr 1X ONCE IV Last administered on 04/01/19at 21:17; Start 04/01/19 at 20:00; Stop 04/01/19 at 21:59; Status DC Vancomycin HCl 1 gm/Sodium Chloride 250 ml @ 250 mls/hr Q12H IV Last administered on 04/02/19at 08:56; Start 04/02/19 at 09:00; Stop 04/02/19 at 16: 45; Status DC Vancomycin HCl (Vancomycin Trough Level) 1 each 1X ONCE MC ; Start 04/03/19 at 08:30; Stop 04/03/19 at 08:31; Status Cancel Magnesium Sulfate 50 ml @ 25 mls/hr 1X ONCE IV Last administered on 04/02/19at 11:26; Start 04/02/19 at 11:00; Stop 04/02/19 at 12:59; Status DC Psyllium Hydrophilic Mucilloid (Metamucil Fiber Packet) 1 pkt QPM PO ; Start 04/02/19 at 18:00 Vancomycin HCl 250 ml @ 250 mls/hr 1X PREOP PRN IV PRIOR TO PROCEDURE; Start 04/03/19 at 06:00; Stop 04/03/19 at 18:00; Status DC Cetirizine HCl (ZyrTEC) 10 mg HS PO Last administered on 04/02/19at 22:25; Start 04/02/19 at 22:30 Amiodarone HCl 450 mg/Dextrose 259 ml @ 17.26 mls/ hr CONT PRN IV SEE I/O RECORD Last administered on 04/03/19at 05:13; Start 04/02/19 at 23:30 Info (Anti-Coagulation Monitoring By Pharmacy) 1 each PRN DAILY PRN MC SEE COMMENTS Last administered on 04/03/19at 09:34; Start 04/03/19 at 09:45 Lidocaine/ Epinephrine (LIDOCAINE 2%-EPI 1:100,000 multi-dose) 20 ml STK-MED ONCE .ROUTE ; Start 04/03/19 at 11:12; Stop 04/03/19 at 11:13; Status DC Amiodarone HCl (Cordarone) 150 mg STK-MED ONCE .ROUTE ; Start 03/31/19 at 12:00; Stop 04/03/19 at 11:27; Status DC Cefazolin Sodium 1 gm/Dextrose 50 ml @ 100 mls/hr 1X ONCE IV ; Start 04/04/19 at 06:00; Stop 04/04/19 at 06:29; Status UNV Bacitracin 71235 unit/Sodium Chloride 250 ml @ 0 mls/hr 1X ONCE IRR Last administered on 04/03/19at 12:15; Start 04/03/19 at 12:15; Stop 04/03/19 at 12:16; Status DC Cefazolin Sodium 50 ml @ 100 mls/hr 1X PREOP PRN IV PRIOR TO PROCEDURE Last administered on 04/03/19at 12:57; Start 04/04/19 at 06:00; Stop 04/04/19 at 18:00 Fentanyl Citrate (Fentanyl 5ml Vial) 250 mcg STK-MED ONCE .ROUTE ; Start 04/03/19 at 12:16; Stop 04/03/19 at 12:17; Status DC Midazolam HCl (Versed) 5 mg STK-MED ONCE .ROUTE ; Start 04/03/19 at 12:16; Stop 04/03/19 at 12:17; Status DC Cefazolin Sodium 50 ml @ As Directed STK-MED ONCE IV ; Start 04/03/19 at 12:16; Stop 04/03/19 at 12:17; Status DC Ondansetron HCl (Zofran) 4 mg PRN Q6HRS PRN IV NAUSEA/VOMITING; Start 04/03/19 at 13:45; Stop 04/03/19 at 20:00; Status DC Fentanyl Citrate (Fentanyl 2ml Vial) 25 mcg PRN Q5MIN PRN IV MILD PAIN 1-3; Start 04/03/19 at 13:45; Stop 04/03/19 at 20:00; Status DC Fentanyl Citrate (Fentanyl 2ml Vial) 50 mcg PRN Q5MIN PRN IV MODERATE TO SEVERE PAIN; Start 04/03/19 at 13:45; Stop 04/03/19 at 20:00; Status DC Morphine Sulfate (Morphine Sulfate) 1 mg PRN Q10MIN PRN IV SEVERE PAIN 7-10; Start 04/03/19 at 13:45; Stop 04/03/19 at 20:00; Status DC Ringer's Solution 1,000 ml @ 30 mls/hr Q24H IV ; Start 04/03/19 at 13:40; Stop 04/03/19 at 17:06; Status DC Hydromorphone HCl (Dilaudid) 0.5 mg PRN Q10MIN PRN IV SEV PAIN, Second choice; Start 04/03/19 at 13:45; Stop 04/03/19 at 20:00; Status DC Prochlorperazine Edisylate (Compazine) 5 mg PACU PRN PRN IV NAUSEA, MRX1; Start 04/03/19 at 13:45; Stop 04/03/19 at 20:00; Status DC Midazolam HCl (Versed) 5 mg 1X ONCE IV Last administered on 04/03/19at 14:00; Start 04/03/19 at 14:00; Stop 04/03/19 at 14:01; Status DC Fentanyl Citrate (Fentanyl 5ml Vial) 250 mcg 1X ONCE IV Last administered on 04/03/19at 14:00; Start 04/03/19 at 14:00; Stop 04/03/19 at 14:01; Status DC Lidocaine/ Epinephrine (LIDOCAINE 2%-EPI 1:100,000 multi-dose) 20 ml 1X ONCE IJ Last administered on 04/03/19at 14:00; Start 04/03/19 at 14:00; Stop 04/03/19 at 14:01; Status DC Info (No Anticoagulant Therapy) 1 ea CONT PRN PRN MC PER PROTOCOL; Start 04/03/19 at 14:00 Cefazolin Sodium 1 gm/Dextrose 50 ml @ 100 mls/hr 1X ONCE IV ; Start 04/03/19 at 14:15; Stop 04/03/19 at 14:44; Status UNV Cefazolin Sodium (Ancef) 1 gm 1X ONCE IVP Last administered on 04/03/19at 19:52; Start 04/03/19 at 19:00; Stop 04/03/19 at 19:01; Status DC Propofol 20 ml @ As Directed STK-MED ONCE IV ; Start 04/03/19 at 14:32; Stop 04/03/19 at 14:33; Status DC Amiodarone HCl (Cordarone) 200 mg DAILY PO Last administered on 04/03/19at 16:00; Start 04/03/19 at 16:00 Active Scripts Active Reported Eliquis (Apixaban) 5 Mg Tablet 10 Mg PO BID 7 Days 10mg BID x7 days(03/30 start date), then 5mg BID after Metoprolol Succinate ( Xl ) (Metoprolol Succinate) 25 Mg Tab.er.24h 12.5 Mg PO DAILY Eliquis (Apixaban) 5 Mg Tablet 5 Mg PO Metoprolol Succinate ( Xl ) (Metoprolol Succinate) 25 Mg Tab.er.24h 1 Tab PO DAILY Isosorbide Mononitrate Er (Isosorbide Mononitrate) 30 Mg Tab.er.24h 1 Tab PO DAILY Amiodarone Hcl 200 Mg Tablet 1 Tab PO DAILY Timoptic 0.5% (Timolol Maleate) 10 Ml Drops 1 Drop EACHEYE BID Senna-S Tablet (Sennosides/Docusate Sodium) 1 Each Tablet 1 Each PO BID Onglyza (Saxagliptin Hcl) 5 Mg Tablet 1 Tab PO DAILY Crestor (Rosuvastatin Calcium) 20 Mg Tablet 20 Mg PO HS Miralax (Polyethylene Glycol 3350) 17 Gm Powd.pack 1 Packet PO DAILY Percocet 5-325 Mg Tablet (Oxycodone/Acetaminophen) 1 Each Tablet 1 Tab PO QID PRN Oxycodone Hcl Immed.release (Oxycodone Hcl) 5 Mg Tablet 5 Mg PO PRN Q4HRS PRN take 1 to 3 tabs Q4H prn Metformin Hcl 500 Mg Tablet 500 Mg PO DAILYWSUP Metformin Hcl 1,000 Mg Tablet 1,000 Mg PO DAILYWBKFT Meloxicam 15 Mg Tablet 1 Tab PO NOON Lisinopril 20 Mg Tablet 1 Tab PO DAILY Xalatan (Latanoprost) 2.5 Ml Drops 1 Drop EACHEYE QHS Gabapentin (Gabapentin) 300 Mg Capsule 900 Mg PO TID Docusate Sodium 100 Mg Capsule 1 Cap PO BID Restasis (Cyclosporine) 1 Each Droperette 1 Drop EACHEYE BID Refresh Optive Eye Drops (Carboxymethylcellulos/Glycerin) 15 Ml Drops 1 Drop EACHEYE QID PRN Wellbutrin Sr (Bupropion Hcl) 100 Mg Tablet.er 1 Tab PO BID Aspirin Ec (Aspirin) 81 Mg Tablet.dr 1 Tab PO DAILY Simbrinza 1%-0.2% Eye Drops (Brinzolamide/Brimonid Tart) 8 Ml Drops.susp 8 Ml OP BID Vitals/I & O Vital Sign - Last 24 Hours 04/03/19 04/03/19 04/03/19 04/03/19 09:00 09:51 10:00 10:55 Pulse 80 70 Resp 26 26 B/P (MAP) 147/67 (93) 133/70 (91) Pulse Ox 95 95 95 O2 Delivery Room Air Room Air Room Air O2 Flow Rate 2.0 2.0 04/03/19 04/03/19 04/03/19 04/03/19 11:00 12:00 13:51 14:00 Pulse 68 60 Resp 26 8 12 B/P (MAP) 152/55 (87) Pulse Ox 95 100 99 O2 Delivery Room Air Room Air Nasal Cannula Nasal Cannula O2 Flow Rate 2.0 2.0 04/03/19 04/03/19 04/03/19 04/03/19 14:09 14:09 14:22 15:20 Temp 98.2 98.2 98.2 98.2 98.2 98.2 Pulse 61 60 60 Resp 18 18 B/P (MAP) 98/59 114/64 114/64 (81) Pulse Ox 100 100 100 O2 Delivery Nasal Cannula Nasal Cannula Nasal Cannula Nasal Cannula O2 Flow Rate 2.0 2.0 2.0 2.0 04/03/19 04/03/19 04/03/19 04/03/19 15:22 15:49 16:00 16:20 Pulse 60 69 73 B/P (MAP) 147/60 97/54 (68) Pulse Ox 100 100 O2 Delivery Nasal Cannula Nasal Cannula O2 Flow Rate 2.0 2.0 04/03/19 04/03/19 04/03/19 04/03/19 16:26 16:30 16:47 16:50 Temp 97.5 97.5 Pulse 69 69 Resp 20 16 B/P (MAP) 97/54 (68) 104/61 (75) Pulse Ox 97 O2 Delivery Room Air Room Air Room Air 04/03/19 04/03/19 04/03/19 04/03/19 17:20 19:00 20:00 20:00 Temp 97.6 97.6 Pulse 66 60 77 B/P (MAP) 150/67 (94) 167/79 (108) Pulse Ox 97 O2 Delivery Room Air Room Air 04/03/19 04/03/19 04/04/19 04/04/19 20:32 23:05 00:57 02:00 Temp 98.2 98.2 Pulse 76 Resp 18 20 18 B/P (MAP) 137/67 (90) Pulse Ox 95 96 96 96 O2 Delivery Room Air Room Air Room Air Room Air 04/04/19 04/04/19 04/04/19 03:20 03:30 04:37 Temp 98.2 98.2 Pulse 76 Resp 18 18 16 B/P (MAP) 164/79 (107) Pulse Ox 95 96 96 O2 Delivery Room Air Room Air Room Air Intake and Output 04/03/19 04/03/19 04/04/19 15:00 23:00 07:00 Intake Total 240 ml 100 ml Output Total 950 ml 2500 ml Balance -710 ml -2400 ml ELLEN CONROY MD April 04, 2019 08:01
[2019-04-04] MEDS: SENNOSIDES/DOCUSATE 8.6/50MG TABLET. PO SCH ×2 (08:14→20:24)
[2019-04-04] MEDS: GABAPENTIN 300 MG CAPSULE. PO SCH ×3 (08:14→20:23)
[2019-04-04] MEDS: LINAGLIPTIN 5 MG TABLET PO SCH (08:14)
[2019-04-04] MEDS: DOCUSATE SODIUM 100 MG CAPSULE. PO SCH ×2 (08:14→20:24)
[2019-04-04] MEDS: AMIODARONE HCL 200 MG TABLET. PO SCH (08:14)
[2019-04-04] MEDS: POLYETHYLENE GLYCOL 3350 17 GM PACKET. PO SCH (08:15)
[2019-04-04] MEDS: BRIMONIDINE 0.2% OPHTH SOLUTION 5ML BOTTLE. OU SCH ×2 (08:25→20:35)
[2019-04-04] MEDS: DORZOLAMIDE 2% OPHTH SOLUTION 10ML BOTTLE. OU SCH ×2 (08:25→20:35)
[2019-04-04] MEDS: TIMOLOL 0.5% OPHTH SOLUTION 5ML BOTTLE. OU SCH ×2 (08:25→20:35)
[2019-04-04] MEDS: cycloSPORINE 0.05% OPHTH DROPERETTE. OU SCH ×2 (08:33→20:23)
[2019-04-04 08:52] LABS: CALCIUM 8.9 mg/dL (8.5-10.1); GFR 74.3; MAGNESIUM 1.9 mg/dL (1.8-2.4); POTASSIUM 4.1 mmol/L (3.5-5.1)
[2019-04-04] MEDS: ALBUTEROL SULFATE 2.5 MG/3 ML NEBU. NEB PRN (10:15)
[2019-04-04] MEDS: buPROPion SR 100 MG TABLET.SA. PO SCH ×2 (10:53→20:25)
[2019-04-04] MEDS: APIXABAN 5 MG TABLET. PO SCH ×2 (11:20→20:26)
--- NOTE | 2019-04-04 11:43 | RAD ---
Chest, 2 views, 04/04/2019: HISTORY: Post pacemaker insertion Comparison is made to yesterday's study. A left-sided transvenous pacing device is in place with 2 leads extending into the right heart. A right Port-A-Cath remains in place extending to the level of the atriocaval junction. There has been a previous median sternotomy. The heart size and pulmonary vascularity are normal. No pulmonary infiltrate is seen. There is no evidence of pleural fluid or pneumothorax. Mild scattered degenerative changes are present in the spine. IMPRESSION: No acute cardiopulmonary abnormality is detected. Electronically signed by: Wilver Ahumada MD (04/04/2019 11:40 AM) [facility]
[2019-04-04] MEDS: metFORMIN 500 MG TABLET PO SCH (12:24)
[2019-04-04] MEDS ORDERED: MAGNESIUM SULFATE 1GM 100 ML IV ONE (12:30)
[2019-04-04] MEDS ORDERED: HEPARIN for IV BOLUS 10,000 UNIT/10 ML VIAL. ONE (13:54)
--- NOTE | 2019-04-04 14:25 | PDOC ---
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 04/04/19 1425: CARDIO Progress Notes Date and Time Date of Service 04/04/19 Time of Evaluation 1240 Subjective Subjective: No Chest Pain, No shortness of breath, Other (left chest slightly tender) Vitals Vitals Vital Signs Date Time Temp Pulse Resp B/P (MAP) Pulse Ox O2 Delivery O2 Flow Rate FiO2 04/04/19 14:07 16 Room Air 04/04/19 10:56 97.5 64 108/55 (72) 100 2.0 97.5 Weight Weight [ ] Input and Output Intake and Output Intake and Output 04/04/19 07:00 Intake Total 340 ml Output Total 3450 ml Balance -3110 ml Intake Oral 340 ml Output Urine Total 3450 ml Laboratory Labs Laboratory Tests Test 04/03/19 20:45 04/04/19 07:32 04/04/19 08:25 04/04/19 10:36 Glucose (Fingerstick) 117 mg/dL (70-99) 98 mg/dL (70-99) 199 mg/dL (70-99) Sodium Level 137 mmol/L (136-145) Potassium Level 4.1 mmol/L (3.5-5.1) Chloride Level 102 mmol/L (98-107) Carbon Dioxide Level 27 mmol/L (21-32) Anion Gap 8 (6-14) Blood Urea Nitrogen 13 mg/dL (8-26) Creatinine 1.0 mg/dL (0.7-1.3) Estimated GFR (Cockcroft-Gault) 74.3 Glucose Level 101 mg/dL (70-99) Calcium Level 8.9 mg/dL (8.5-10.1) Magnesium Level 1.9 mg/dL (1.8-2.4) Physical Exam HEENT: Neck Supple W Full Motion Chest: Symmetric LUNGS: Other (left pectoral AICD site soft, clean, and dry. Incision well- approximated. Steri-strips intact) Heart: S1S2 Abdomen: Soft N/T Extremities: No Edema Neurology: alert, oriented Assessment Assessment 1. High-grade block with intermittent VT; s/p Biotronik dual-chamber AICD 2. ICM; LVEF 35% 3. CAD s/p CABG; cath earlier this month with with patent LLANES to LAD and chronically occluded SVG to RCA and SVG to OM. 4. Chronic systolic HF; appears clinically compensated 5. Hypertension; controlled overall 6. Hyperlipidemia; statin 7. Bladder CA, s/p cystectomy with ileoconduit 12/20/2018 8. Recent diagnosis of PE Recommendations Continue Amiodarone Resume Eliquis Add low-dose BB and ACEi Secondary prevention measures Supportive care Office wound check with RN 04/20/19 at 10:00 ALAN HILLIARD MD 04/04/19 1639: CARDIO Progress Notes Assessment Assessment Patient seen and examined. Agree with FLOORMAN's assessment and plan. s/p AICD implantation yesterday, doing well. Incision looks good. Chest x-ray without any pneumothorax. Device interrogation showed normal function. No further episodes of VT. Continue amiodarone. Chronic systolic heart failure clinically well compensated. CAD status stable. Follow-up in 1-2 weeks for wound check. MÓNICA MACE APRN April 04, 2019 14:25 ALAN HILLIARD MD April 04, 2019 16:39
[2019-04-04] MEDS ORDERED: metFORMIN 500 MG TABLET PO SCH (17:00)
[2019-04-04] MEDS: PSYLLIUM HUSK (SUGAR FREE) 1 PKT PACKET PO SCH (17:28)
[2019-04-04] MEDS: ATORVASTATIN CALCIUM 40 MG TABLET. PO SCH (20:23)
[2019-04-04] MEDS: METOPROLOL TART IMMED RELEASE 25 MG TABLET. PO SCH (20:26)
[2019-04-04] MEDS: LATANOPROST 0.005% OPHTH SOLUTION 2.5ML BOTTLE. OU SCH (20:34)
[2019-04-04] MEDS: CETIRIZINE HCL 10 MG TABLET. PO SCH (20:35)
[2019-04-04] MEDS ORDERED: POLYETHYLENE GLYCOL 3350 17 GM PACKET. PO SCH (21:00)
[2019-04-05] MEDS: ALBUTEROL SULFATE 2.5 MG/3 ML NEBU. NEB PRN (00:20)
[2019-04-05] MEDS: oxyCODONE IR 5 MG TABLET PO PRN ×2 (01:06→08:45)
[2019-04-05 02:54] VITALS: BP 162/72
[2019-04-05] MEDS: oxyCODONE/APAP 5/325 1 TAB TABLET PO PRN ×2 (04:05→12:32)
[2019-04-05 07:20] VITALS: BP 145/68
[2019-04-05] MEDS: AMIODARONE HCL 200 MG TABLET. PO SCH (08:44)
[2019-04-05] MEDS: LINAGLIPTIN 5 MG TABLET PO SCH (08:44)
[2019-04-05] MEDS: metFORMIN 500 MG TABLET PO SCH (08:44)
[2019-04-05] MEDS: GABAPENTIN 300 MG CAPSULE. PO SCH (08:45)
[2019-04-05] MEDS: DOCUSATE SODIUM 100 MG CAPSULE. PO SCH (08:45)
[2019-04-05] MEDS: buPROPion SR 100 MG TABLET.SA. PO SCH (08:45)
[2019-04-05] MEDS: METOPROLOL TART IMMED RELEASE 25 MG TABLET. PO SCH (08:45)
[2019-04-05] MEDS: SENNOSIDES/DOCUSATE 8.6/50MG TABLET. PO SCH (08:45)
[2019-04-05] MEDS: APIXABAN 5 MG TABLET. PO SCH (08:45)
[2019-04-05] MEDS: DORZOLAMIDE 2% OPHTH SOLUTION 10ML BOTTLE. OU SCH (08:46)
[2019-04-05] MEDS: cycloSPORINE 0.05% OPHTH DROPERETTE. OU SCH (08:46)
[2019-04-05] MEDS: TIMOLOL 0.5% OPHTH SOLUTION 5ML BOTTLE. OU SCH (08:47)
[2019-04-05] MEDS: BRIMONIDINE 0.2% OPHTH SOLUTION 5ML BOTTLE. OU SCH (08:47)
[2019-04-05] MEDS ORDERED: LISINOPRIL 5 MG TABLET. PO SCH (09:00)
[2019-04-05] MEDS ORDERED: ASPIRIN CHEWABLE 81 MG TABLET. PO SCH (10:15)
[2019-04-05 11:00] VITALS: BP 99/54
[2019-04-05] MEDS ORDERED: METO25TA4 PO (12:03)
[2019-04-05] MEDS ORDERED: LISI-338 PO (12:03)
--- NOTE | 2019-04-05 12:05 | SNU/HH DC ---
DISCHARGE WITH HOME HEALTH DISCHARGE INFORMATION: Discharge Date: April 05, 2019 Final Diagnosis: aicd placement care Condition on Discharge: Stable HOME HEALTH: Face to Face: I certify this patient is under my care and that I, or a nurse practitioner or physician's practice assistant working with me, had a face to face encounter that meets the physician face to face encounter requirements with this patient on []. Medical Complications: CHF RN For Eval/Treatment: Yes Physical Therapy For: Evalulation/Treatment Occupational Therapy For: Evaluation/Treatment Pt Meets Homebound Status: Other: (multiple medical comorbidities. ) POST DISCHARGE ORDERS: Activity Instructions for Disc: Activity as tolerated Weight Bearing Status after Di: As tolerated DIET AFTER DISCHARGE: Cardiac TREATMENT/EQUIPMENT ORDERS: Adaptive Equipment Issued: Walker CERTIFICATION STATEMENT: Certification Statement: Certification Statement: Based on the above finding, I certify that this patient is confined to the home and needs intermittent long term care, physical therapy and/or speech therapy, or continues to need occupational therapy.~ This patient is under my care, and I have initiated the establishment of the plan of care.~ This patient will be followed by myself or a community physician who will periodically review the plan of care. Home Meds Active Scripts Lisinopril (LISINOPRIL) 5 Mg Tablet, 5 MG PO DAILY for chf for 30 Days, #30 TAB Prov:TAMMY ULRICH MD 04/05/19 Metoprolol Tartrate (METOPROLOL TARTRATE) 25 Mg Tablet, 25 MG PO BID for chf for 30 Days, #60 TAB Prov:TAMMY ULRICH MD 04/05/19 Reported Medications Apixaban (ELIQUIS) 5 Mg Tablet, 10 MG PO BID for PE for 7 Days, #28 TAB 10mg BID x7 days(03/30 start date), then 5mg BID after 03/31/19 Apixaban (ELIQUIS) 5 Mg Tablet, 5 MG PO, TAB 03/31/19 Isosorbide Mononitrate (ISOSORBIDE MONONITRATE ER) 30 Mg Tab.er.24h, 1 TAB PO DAILY, #30 TAB 5 Refills 03/31/19 Amiodarone Hcl (AMIODARONE HCL) 200 Mg Tablet, 1 TAB PO DAILY, #90 TAB 1 Refill 03/31/19 Timolol Maleate 0.5% (TIMOPTIC 0.5%) 10 Ml Drops, 1 DROP EACHEYE BID for unknown, #10 ML 3 Refills 03/05/19 Sennosides/Docusate Sodium (SENNA-S TABLET) 1 Each Tablet, 1 EACH PO BID for stool softner, TAB 03/05/19 Saxagliptin Hcl (ONGLYZA) 5 Mg Tablet, 1 TAB PO DAILY for unknown, #90 TAB 1 Refill 03/05/19 Rosuvastatin Calcium (CRESTOR) 20 Mg Tablet, 20 MG PO HS for FOR CHOLESTEROL, #30 TAB 0 Refills 03/05/19 Polyethylene Glycol 3350 (MIRALAX) 17 Gm Powd.pack, 1 PACKET PO DAILY for constipation, #30 PACKET 3 Refills 03/05/19 Oxycodone/Apap 5-325 (PERCOCET 5-325 MG TABLET ) 1 Each Tablet, 1 TAB PO QID PRN for PAIN, TAB 0 Refills 03/05/19 Oxycodone Hcl (OXYCODONE HCL IMMED.RELEASE ) 5 Mg Tablet, 5 MG PO PRN Q4HRS PRN for PAIN, TAB 0 Refills take 1 to 3 tabs Q4H prn 03/05/19 Metformin Hcl (METFORMIN HCL) 500 Mg Tablet, 500 MG PO DAILYWSUP for ANTI- DIABETIC, TAB 0 Refills 03/05/19 Metformin Hcl (METFORMIN HCL) 1,000 Mg Tablet, 1000 MG PO DAILYWBKFT for ANTI- DIABETIC, TAB 0 Refills 03/05/19 Latanoprost (XALATAN) 2.5 Ml Drops, 1 DROP EACHEYE QHS for unknown, #2.5 ML 6 Refills 03/05/19 Gabapentin (GABAPENTIN ) 300 Mg Capsule, 900 MG PO TID for NEUROGENIC PAIN, CAP 03/05/19 Docusate Sodium (DOCUSATE SODIUM) 100 Mg Capsule, 1 CAP PO BID for stool softner, #30 CAP 03/05/19 Cyclosporine (RESTASIS) 1 Each Droperette, 1 DROP EACHEYE BID for unknown, #60 VIAL 3 Refills 03/05/19 Carboxymethylcellulos/Glycerin (REFRESH OPTIVE EYE DROPS) 15 Ml Drops, 1 DROP EACHEYE QID PRN for DRY EYE, #30 ML 6 Refills 03/05/19 Bupropion Hcl (WELLBUTRIN SR) 100 Mg Tablet.er, 1 TAB PO BID for unknown, #60 TAB 03/05/19 Aspirin (ASPIRIN EC) 81 Mg Tablet.dr, 1 TAB PO DAILY for unknown, #30 TAB 3 Refills 03/05/19 Brinzolamide/Brimonid Tart (SIMBRINZA 1%-0.2% EYE DROPS) 8 Ml Drops.susp, 8 ML OP BID for unknown, DROP 03/05/19 Discontinued Reported Medications Metoprolol Succinate (METOPROLOL SUCCINATE ( XL )) 25 Mg Tab.er.24h, 12.5 MG PO DAILY for FOR HYPERTENSION, #30 TAB 0 Refills 03/31/19 Metoprolol Succinate (METOPROLOL SUCCINATE ( XL )) 25 Mg Tab.er.24h, 1 TAB PO DAILY, #30 TAB 5 Refills 03/31/19 Meloxicam (MELOXICAM) 15 Mg Tablet, 1 TAB PO NOON for unknown, #30 TAB 2 Refills 03/05/19 Lisinopril (LISINOPRIL) 20 Mg Tablet, 1 TAB PO DAILY for bp, #30 TAB 5 Refills 03/05/19 Diltiazem Hcl (DILTIAZEM 24HR CD) 120 Mg Cap.er.24h, 1 CAP PO DAILY for unknown, #90 CAP 1 Refill 03/05/19 Metoprolol Tartrate (METOPROLOL TARTRATE) 25 Mg Tablet, 1 TAB PO BID for unknown, #180 TAB 1 Refill 03/05/19 TAMMY ULRICH MD April 05, 2019 12:05
--- NOTE | 2019-04-05 12:27 | NUR ---
SS following up with discharge planning. Discharge orders received for home healthcare. SS phoned and faxed discharge orders to [facility], ; fax [phone]. Pt's RN notified.
--- NOTE | 2019-04-05 12:54 | PDOC ---
MÓNICA MACE ROSALIA 04/05/19 1254: CARDIO Progress Notes Date and Time Date of Service 04/05/19 Time of Evaluation 1245 Subjective Subjective: No Chest Pain, No shortness of breath, Other (doing well, dressed to go home) Vitals Vitals Vital Signs Date Time Temp Pulse Resp B/P (MAP) Pulse Ox O2 Delivery O2 Flow Rate FiO2 04/05/19 11:00 97.5 65 22 99/54 (69) 94 Room Air 97.5 04/04/19 10:56 2.0 Weight Weight [ ] Input and Output Intake and Output Intake and Output 04/05/19 07:00 Intake Total 1130 ml Output Total 4375 ml Balance -3245 ml Intake Oral 680 ml IV Total 450 ml Output Urine Total 4375 ml # Bowel Movements 1 Laboratory Labs Laboratory Tests Test 04/04/19 16:32 04/04/19 20:43 04/05/19 08:01 04/05/19 11:51 Glucose (Fingerstick) 118 mg/dL (70-99) 150 mg/dL (70-99) 101 mg/dL (70-99) 126 mg/dL (70-99) Physical Exam HEENT: Neck Supple W Full Motion Chest: Symmetric LUNGS: Clear to Auscultation, Other (left pectoral AICD site soft, clean, and dry. Incision well-approximated. Steri-strips intact) Heart: S1S2 Abdomen: Soft N/T Extremities: No Edema Neurology: alert, oriented, follow commands Assessment Assessment 1. High-grade block with intermittent VT; s/p Biotronik dual-chamber AICD 2. ICM; LVEF 35% 3. CAD s/p CABG; cath earlier this month with with patent LLANES to LAD and chronically occluded SVG to RCA and SVG to OM. 4. Chronic systolic HF; appears clinically compensated 5. Hypertension; controlled overall 6. Hyperlipidemia; statin 7. Bladder CA, s/p cystectomy with ileoconduit 12/20/2018 8. Recent diagnosis of PE Recommendations Continue Amiodarone for rhythm maintenance OAC therapy with Eliquis for treatment of PE Secondary prevention measures; ASA, statin, BB Optimization therapy May discharge from a CV standpoint and f/u in our office 04/20/19 at 10:00 for wound check with GALILEO GREENE MD 04/05/19 1714: CARDIO Progress Notes Plan Plan Patient seen and examined. Agree with above nurse practitioner note. ICD insertion site appears to be clean, dry and intact. No obvious signs of infection. Supportive care. Okay to discharge from a cardiac standpoint. Follow- up in the office the near future for wound check. MÓNICA MACE APRN April 05, 2019 12:54 GALILEO NKIGHT MD April 05, 2019 17:14
--- NOTE | 2019-04-05 13:49 | PDOC3 ---
Discharge Summary Visit Information Date of Admission: April 01, 2019 Date of Discharge: April 05, 2019 Admitting Diagnosis: Bradycardia Final Diagnosis AVB with SSS and NSVT - Symptomatic bradycardia - Initially paced, with wide complex, likely 2/2 hyperkalemia, still on dopamine, improved. Cardiology consulted for further care. Plan for BiV AICD 04/03/19 CAD s/p CABG x3 - stable outpatient with [facility] f/u in [place]. Will reconcile home meds. Hold nephrotoxic meds Bladder Cancer s/p chemotherapy and cystectomy with ileoconduit (12/[address] Licea @ [facility]) - has appt on 03/10/19 for f/u. Access for port ok. Monitor urostomy output. Will order records. Abdominal imaging is likely indicated. Hyponatremia - likely 2/2 poor PO intake Diabetes-Type II - place on sliding scale, check A1c Pulmonary embolus - high risk with bladder ca. Was recently noted at [facility] on his PET CT for cancer f/u. Brief Hospital Course Allergies Allergies Coded Allergies Type Severity Reaction Last Updated Verified No Known Drug Allergies 03/04/19 No Vital Signs Vital Signs Date Time Temp Pulse Resp B/P (MAP) Pulse Ox O2 Delivery O2 Flow Rate FiO2 04/05/19 11:00 97.5 65 22 99/54 (69) 94 Room Air 97.5 04/04/19 10:56 2.0 Lab Results Laboratory Tests Test 04/03/19 20:45 04/04/19 07:32 04/04/19 08:25 04/04/19 10:36 Glucose (Fingerstick) 117 mg/dL (70-99) 98 mg/dL (70-99) 199 mg/dL (70-99) Sodium Level 137 mmol/L (136-145) Potassium Level 4.1 mmol/L (3.5-5.1) Chloride Level 102 mmol/L (98-107) Carbon Dioxide Level 27 mmol/L (21-32) Anion Gap 8 (6-14) Blood Urea Nitrogen 13 mg/dL (8-26) Creatinine 1.0 mg/dL (0.7-1.3) Estimated GFR (Cockcroft-Gault) 74.3 Glucose Level 101 mg/dL (70-99) Calcium Level 8.9 mg/dL (8.5-10.1) Magnesium Level 1.9 mg/dL (1.8-2.4) Test 04/04/19 16:32 04/04/19 20:43 04/05/19 08:01 04/05/19 11:51 Glucose (Fingerstick) 118 mg/dL (70-99) 150 mg/dL (70-99) 101 mg/dL (70-99) 126 mg/dL (70-99) Laboratory Tests Test 04/04/19 16:32 04/04/19 20:43 04/05/19 08:01 04/05/19 11:51 Glucose (Fingerstick) 118 mg/dL (70-99) 150 mg/dL (70-99) 101 mg/dL (70-99) 126 mg/dL (70-99) Brief Hospital Course Patient is a pleasant middle-aged white male who we had in the hospital within the past week or 2 He has known symptomatic bradycardia and in fact had a LifeVest at home His states he became weak she notices heart rate was quite low a just wasn't affect is good also She brought him back to the hospital last night He was noted be extremely bradycardic Cardiology team was called and the patient went for emergent temporary pacemaker Cardiology consulted and given his degree of block he required a PPM placement, patient tolerated the procedure well and changes to his medications were done adjusting his beta al and rosalia inhibitor, apixaban was held for procedure and now has been restarted. He will follow up in th eoutpatient setting with all his specialists. Signs and symptoms of alarm discussed prior to discharge. Patient's questions were answered to the best of my abilities. Discharge Information Condition at Discharge: Improved Follow Up: Weeks Disposition/Orders: D/C to Home Scheduled Amiodarone Hcl (Amiodarone Hcl) 200 Mg Tablet, 1 TAB PO DAILY, #90 Ref 1 (Reported) Entered as Reported by: FRANCE HUNT on 03/31/192130 Last Taken: Unknown Dose on 03/31/19 Last Action: Continued on 04/01/19 1335 by JESUS LAZARO Apixaban (Eliquis) 5 Mg Tablet, 10 MG PO BID for PE for 7 Days, #28 (Reported) 10mg BID x7 days(03/30 start date), then 5mg BID after Entered as Reported by: ABI GUTIERREZ on 03/31/192351 Last Action: HELD on 04/04/19 115 by SHELLEY BARROS Aspirin (Aspirin Ec) 81 Mg Tablet.dr, 1 TAB PO DAILY for unknown, #30 Ref 3 (Reported) Entered as Reported by: JENNY BRAY on 03/05/19253 Last Action: HELD on 04/04/191150 by SHELLEY BARROS Brinzolamide/Brimonid Tart (Simbrinza 1%-0.2% Eye Drops) 8 Ml Drops.susp, 8 ML OP BID for unknown, (Reported) Entered as Reported by: JENNY BRAY on 03/05/19253 Last Action: Converted on 04/01/191334 by NIAL CASTLE Bupropion Hcl (Wellbutrin Sr) 100 Mg Tablet.er, 1 TAB PO BID for unknown, #60 (Reported) Entered as Reported by: JENNY BRAY on 03/05/19253 Last Action: Continued on 04/01/191334 by NIAL CASTLE Cyclosporine (Restasis) 1 Each Droperette, 1 DROP EACHEYE BID for unknown, #60 Ref 3 (Reported) Entered as Reported by: JENNY BRAY on 03/05/19253 Last Action: Continued on 04/01/191334 by NIAL CASTLE Docusate Sodium (Docusate Sodium) 100 Mg Capsule, 1 CAP PO BID for stool softner, #30 (Reported) Entered as Reported by: JENNY BRAY on 03/05/19253 Last Action: Continued on 04/01/191334 by NIAL CASTLE Gabapentin (Gabapentin ) 300 Mg Capsule, 900 MG PO TID for NEUROGENIC PAIN, (Reported) Entered as Reported by: JENNY BRAY on 03/05/19253 Last Action: Continued on 04/01/191334 by NIAL CASTLE Isosorbide Mononitrate (Isosorbide Mononitrate Er) 30 Mg Tab.er.24h, 1 TAB PO DAILY, #30 Ref 5 (Reported) Entered as Reported by: FRANCE HUNT on 03/31/192130 Last Taken: Unknown Dose on 03/31/19 Last Action: Continued on 04/01/191334 by NIAL CASTLE Latanoprost (Xalatan) 2.5 Ml Drops, 1 DROP EACHEYE QHS for unknown, #2.5 Ref 6 (Reported) Entered as Reported by: JENNY BRAY on 03/05/19253 Last Action: Converted on 04/01/19 1335 by NIAL CASTRAUL Lisinopril (Lisinopril) 5 Mg Tablet, 5 MG PO DAILY for chf for 30 Days, #30 Prescribed by: TAMMY ULRICH MD on 04/05/19 1203 Metformin Hcl (Metformin Hcl) 1,000 Mg Tablet, 1,000 MG PO DAILYWBKFT for ANTI- DIABETIC, Ref 0 (Reported) Entered as Reported by: JENNY BRAY on 03/05/19253 Last Action: Converted on 04/04/19 115 by SHELLEY PAPO Metformin Hcl (Metformin Hcl) 500 Mg Tablet, 500 MG PO DAILYWSUP for ANTI- DIABETIC, Ref 0 (Reported) Entered as Reported by: JENNY BRAY on 03/05/19253 Last Action: Converted on 04/04/19 115 by SHELLEY BARROS Metoprolol Tartrate (Metoprolol Tartrate) 25 Mg Tablet, 25 MG PO BID for chf for 30 Days, #60 Prescribed by: TAMMY ULRICH MD on 04/05/19 1203 Polyethylene Glycol 3350 (Miralax) 17 Gm Powd.pack, 1 PACKET PO DAILY for constipation, #30 Ref 3 (Reported) Entered as Reported by: JENNY BRAY on 03/05/19253 Last Action: Converted on 04/01/19 1335 by NIAL CASTLE Rosuvastatin Calcium (Crestor) 20 Mg Tablet, 20 MG PO HS for FOR CHOLESTEROL, #30 Ref 0 (Reported) Entered as Reported by: JENNY BRAY on 03/05/19253 Last Action: Converted on 04/01/19 1335 by NIAL CASTLE Saxagliptin Hcl (Onglyza) 5 Mg Tablet, 1 TAB PO DAILY for unknown, #90 Ref 1 (Reported) Entered as Reported by: JENNY RBAY on 03/05/19253 Last Action: Converted on 04/01/19 133 by NIAL CASTLE Sennosides/Docusate Sodium (Senna-S Tablet) 1 Each Tablet, 1 EACH PO BID for stool softner, (Reported) Entered as Reported by: JENNY BRAY on 03/05/19253 Last Action: Continued on 04/01/191334 by NIAL CASTLE Timolol Maleate 0.5% (Timoptic 0.5%) 10 Ml Drops, 1 DROP EACHEYE BID for unknown, #10 Ref 3 (Reported) Entered as Reported by: JENNY BRAY on 03/05/19253 Last Action: Converted on 04/01/191334 by NIAL CASTLE Scheduled PRN Carboxymethylcellulos/Glycerin (Refresh Optive Eye Drops) 15 Ml Drops, 1 DROP EACHEYE QID PRN for DRY EYE, #30 Ref 6 (Reported) Entered as Reported by: JENNY BRAY on 03/05/19253 Last Action: Converted on 04/01/191334 by NIAL CASTLE Oxycodone Hcl (Oxycodone Hcl Immed.release ) 5 Mg Tablet, 5 MG PO PRN Q4HRS PRN for PAIN, Ref 0 (Reported) take 1 to 3 tabs Q4H prn Entered as Reported by: JENNY BRAY on 03/05/19253 Last Action: Continued on 04/01/191334 by NIAL CASTLE Oxycodone/Apap 5-325 (Percocet 5-325 Mg Tablet ) 1 Each Tablet, 1 TAB PO QID P RN for PAIN, Ref 0 (Reported) Entered as Reported by: JENNY BRAY on 03/05/19253 Last Action: Continued on 04/01/197 by ZION FORDE Miscellaneous Medications Apixaban (Eliquis) 5 Mg Tablet, 5 MG PO, (Reported) Entered as Reported by: FRANCE HUNT on 03/31/192130 Last Taken: Unknown Dose on 03/31/19 Last Action: HELD on 04/04/19 115 by SHELLEY BARROS Discontinued Medications Diltiazem Hcl (Diltiazem 24HR Cd) 120 Mg Cap.er.24h, 1 CAP PO DAILY for unknown, #90 Ref 1 (Reported) Entered as Reported by: JENNY BRAY on 03/05/19253 Last Action: Discontinued on 04/01/19220 by ABI GUTIERREZ Lisinopril (Lisinopril) 20 Mg Tablet, 1 TAB PO DAILY for bp, #30 Ref 5 (Reported) Entered as Reported by: JENYN BRAY on 03/05/19253 Last Action: Continued on 04/01/191334 by NIAL CASTLE Meloxicam (Meloxicam) 15 Mg Tablet, 1 TAB PO NOON for unknown, #30 Ref 2 (Reported) Entered as Reported by: JENNY BRAY on 03/05/19253 Last Action: Converted on 04/01/191334 by NIAL CASTLE Metoprolol Succinate (Metoprolol Succinate ( Xl )) 25 Mg Tab.er.24h, 1 TAB PO DAILY, #30 Ref 5 (Reported) Entered as Reported by: FRANCE HUNT on 03/31/192130 Last Taken: Unknown Dose on 03/31/19 Last Action: Continued on 04/01/191334 by NIAL CASTLE Metoprolol Succinate (Metoprolol Succinate ( Xl )) 25 Mg Tab.er.24h, 12.5 MG PO DAILY for FOR HYPERTENSION, #30 Ref 0 (Reported) Entered as Reported by: ABI GUTIERREZ on 03/31/192351 Last Action: Continued on 04/01/191334 by NIAL CASTLE Metoprolol Tartrate (Metoprolol Tartrate) 25 Mg Tablet, 1 TAB PO BID for unknown, #180 Ref 1 (Reported) Entered as Reported by: JENNY BRAY on 03/05/19253 Last Action: Discontinued on 03/31/192351 by TAMMY SOLIS MD April 05, 2019 13:49
--- NOTE | 2019-04-05 13:51 | NUR ---
Discharge Note: KATELYN GENAO Discharge instructions and discharge home medications reviewed with Patient and a copy given. All questions have been answered and understanding verbalized. Reviewed pacemaker care, hypertension, PE, ect. Patient, and family verbilized understanfing. The following instructions and handouts were given: PE, HTN, Pacemaker Discontinued lines and drains: Port A Cath intact. Patient discharged to Home w/services with Spouse via Wheelchair Immobilizer on left arm.
== END 2019-04-05 14:15 | disposition home health service (06) | DRG 227 ==
LOC: ER 20:07 → MERGE 21:57 → 1 WEST ICU 21:57 → 2 SOUTH 04-03 16:25
PROVIDERS: ADMIT Internal Medicine; ATTEND Internal Medicine
PROC: 02HK3NZ Insertion of Intracardiac Pacemaker into Right Ventricle, Percutaneous Approach (ICD-10-PCS; 2019-04-01)
PROC: 02HK3KZ Insertion of Defibrillator Lead into Right Ventricle, Percutaneous Approach (ICD-10-PCS; 2019-04-03)
PROC: 02H63KZ Insertion of Defibrillator Lead into Right Atrium, Percutaneous Approach (ICD-10-PCS; 2019-04-03)
PROC: 02PA3NZ Removal of Intracardiac Pacemaker from Heart, Percutaneous Approach (ICD-10-PCS; 2019-04-03)
PROC: 0JH608Z Insertion of Defibrillator Generator into Chest Subcutaneous Tissue and Fascia, Open Approach (ICD-10-PCS; principal; 2019-04-03 14:00)
DX: I49.5 Sick sinus syndrome (principal); I47.2 Ventricular tachycardia; E87.1 Hypo-osmolality and hyponatremia; I13.0 Hypertensive heart and chronic kidney disease with heart failure and stage 1 through stage 4 chronic kidney disease, or unspecified chronic kidney disease; I50.22 Chronic systolic (congestive) heart failure; J44.1 Chronic obstructive pulmonary disease with (acute) exacerbation; I44.30 Unspecified atrioventricular block; C61 Malignant neoplasm of prostate; I95.9 Hypotension, unspecified; C67.9 Malignant neoplasm of bladder, unspecified; E11.22 Type 2 diabetes mellitus with diabetic chronic kidney disease; E11.51 Type 2 diabetes mellitus with diabetic peripheral angiopathy without gangrene; E83.42 Hypomagnesemia; E78.5 Hyperlipidemia, unspecified; E87.5 Hyperkalemia; H40.9 Unspecified glaucoma; I25.5 Ischemic cardiomyopathy; I25.10 Atherosclerotic heart disease of native coronary artery without angina pectoris; N18.9 Chronic kidney disease, unspecified; Z82.49 Family history of ischemic heart disease and other diseases of the circulatory system; Z85.46 Personal history of malignant neoplasm of prostate; Z85.51 Personal history of malignant neoplasm of bladder; Z86.711 Personal history of pulmonary embolism; Z86.79 Personal history of other diseases of the circulatory system; Z90.6 Acquired absence of other parts of urinary tract; Z92.21 Personal history of antineoplastic chemotherapy; Z95.810 Presence of automatic (implantable) cardiac defibrillator
CPT/HCPCS: 33210; 33249; 36415; 70450; 71045; 71046; 76937; 80048; 80053; 80061; 82553; 82962; 83690; 83735; 83880; 84484; 85007; 85025; 85027; 85520; 85610; 87641; 93005; 93308; 93641; 94640; 96361; 96365; 96368; 96375; 99152; 99153; C1721; C1892; C1895; C1898; J0282; J0360; J0461; J0690; J1265; J2060; J2250; J2704; J3010; J3370; J3475; J3490; J7030; J7040; J7050; J7613; 97116; 97530; 99291-25